=== PATIENT | male | born 1945 | race Caucasian/White ===

== ENCOUNTER 2017-06-17 09:48 | Inpatient (IN) ==
--- NOTE | 2017-06-17 09:57 | Emergency Department Report ---
General Adult HPI - General Chief complaint: Medical Clearance Stated complaint: eval Time Seen by Provider: 06/17/17 09:56 Source: patient, EMS Mode of arrival: EMS Limitations: no limitations - History of Present Illness HPI narrative: 72-year-old male presents to the emergency department requesting a medical clearance exam for [facility]. Dr. Andre has accepted the patient to [facility]. Dr. Andre is requesting a CBC, CMP, urine, urine drug screen in order to obtain medical clearance at this time. Patient has no complaints currently other than his chronic back pain from psoriatic arthritis which is at baseline. Patient has been exhibiting paranoia and was taken to [facility] for further evaluation and has been transferred to [facility]. Patient does have a prior psychiatric history of a mental breakdown in the past several years prior. Patient denies any other complaints or associated symptoms. He was transferred via EMS from [facility] early this morning. He denies homicidal/suicidal ideation or plan. No self injury or self -harm. No other complaints or associated symptoms. - Related Data Home Medications Medication Instructions Recorded Confirmed Amlodipine [Norvasc] 10 mg PO DAILY 06/17/17 06/17/17 Atorvastatin [Lipitor] 20 mg PO HS 06/17/17 06/17/17 Baclofen [Lioresal] 10 mg PO BID 06/17/17 06/17/17 Fluoxetine HCl [Fluoxetine HCl] 40 mg PO DAILY 06/17/17 06/17/17 Hydrocodone/APAP 7.5/325 [[place] 1 tab PO Q6HR PRN 06/17/17 06/17/17 7.5/325] Infliximab [Remicade] 100 mg IV Q42D 06/17/17 06/17/17 LORazepam [Lorazepam] 2 mg PO TID PRN 06/17/17 06/17/17 Losartan Potassium [Losartan 50 mg PO DAILY 06/17/17 06/17/17 Potassium] Magnesium Oxide [Magnesium] 400 mg PO TID 06/17/17 06/17/17 Metformin [Glucophage] 250 mg PO DAILY 06/17/17 06/17/17 Ondansetron Odt [Zofran Po] 4 mg PO Q4HR PRN 06/17/17 06/17/17 Potassium Chloride 10 meq PO TID 06/17/17 06/17/17 Allergies Allergy/AdvReac Type Severity Reaction Status Date / Time Penicillins Allergy Severe Hives Verified 06/18/17 01:04 aripiprazole [From Abilify] Allergy Confusion Verified 06/17/17 10:04 Review of Systems Constitutional: Denies: fever, chills Eyes: Denies: eye pain, vision change ENT: Denies: ear pain, throat pain Cardiovascular: Denies: chest pain, palpitations Respiratory: Denies: cough, dyspnea Gastrointestinal: Denies: abdominal pain, nausea, vomiting, diarrhea Genitourinary: Denies: urgency, dysuria Musculoskeletal: Reports: back pain (chronic). Denies: arthralgia Integumentary: Denies: erythema, rash Neurological: Denies: headache, numbness Psychiatric: Denies: anxiety, depression Endocrine: Denies: fatigue, heat or cold intolerance Hematological/Lymphatic: Denies: easy bleeding, easy bruising Allergic/Immunologic: Denies: facial swelling, urticaria PFSH Patient Stated Medical History Diabetes Mellitus Type 2 Yes Other Musculoskeletal Yes: Psoraitic arthritis Clinic Medical History Depression (Acute Medical) Behavior disturbance (Acute Medical) Major depressive disorder (Acute Medical) Alcohol use disorder (Acute Medical) Alcohol withdrawal (Acute Medical) Anxiety (Acute Medical) Panic attacks (Acute Medical) Medical History Updates: Anxiety, GERD, diabetes, psoriatic arthritis, behavioral disorder Surgical History: Port placement Family History: Reviewed and noncontributory - Social History Smoking status: Former smoker Substance use type: does not use Alcohol intake frequency: former alcohol drinker Physical Exam - Limitations Limitations: no limitations - General General appearance: alert, in no apparent distress - Normal Exams: Head:: Normocephalic without trauma Eyes:: Pupils are PERRLA w/ EOMI, No scleral icterus, irritation, or foreign bodies noted ENMT:: No facial trauma, nasal exudates, pharyngeal erythema, or exudates are noted Dental: No fractured, loose, or missing teeth noted Neck:: Full range of motion, without adenopathy, JVD, bruits or thyromegaly Chest/Respirations:: Clear all leigh, with good airflow, and symmetry bilaterally Cardiovascular:: Regular rate and rhythm, without murmur or gallop, Pulses 2+ all extremities, capillary refill, <2 seconds all extremities Abdomen:: Bowel sounds positive, soft, non-tender, non-distended, no hepatosplenomegaly, masses or bruits noted Lymphatic:: No lymphadenopathy, or lymphedema noted Musculoskeletal:: No tenderness, or deformity noted, good range of motion, all extremities Integumentary:: No rashes, hives, or bruising noted, hair and nails, without abnormality Neurological:: Patient is alert, and oriented, cranial nerves, motor/sensory/ cerebellar, exams w/o gross deficits, to observation Psychiatric:: Patient exhibits, appropriate attention, emotion and affect Course Vital Signs Temperature 97.9 F 06/17/17 09:51 Pulse Rate 89 06/17/17 09:51 Respiratory Rate 16 06/17/17 09:51 Blood Pressure 139/73 06/17/17 09:51 Pulse Oximetry 96 06/17/17 09:51 Temperature 98 F 06/18/17 08:00 Pulse Rate 112 H 06/18/17 08:00 Respiratory Rate 14 06/18/17 08:00 Blood Pressure 141/81 H 06/18/17 08:00 Pulse Oximetry 98 06/18/17 08:00 Medical Decision Making - [facility] Narrative Medical decision making narrative: Labs are discussed in detail with the patient and questions are answered. Patient was given 40 mEq of potassium by mouth 1 in the emergency Department. Patient is accepted to [facility] by Dr. Andre. Medical clearance requested by Dr. Andre was performed in the emergency Department. Patient is medically clear for evaluation and [facility] for psychiatric disorder. Patient is in agreement with the current plan of management. Patient is admitted to the service of Dr. Andre in improved condition. Dr. Andre is in agreement with the current plan of management. No further orders. Patient did have a negative MRI Brain performed at [facility]. - Differential Diagnosis depression, anxiety, metabolic disorder, UTI - Lab Data Result diagrams: 06/17/17 10:14 06/18/17 06:13 Lab Results 06/17/17 06/17/17 06/17/17 Range/Units 10:14 10:14 10:14 WBC 9.7 (4.5-11.0) T/MM3 RBC 3.00 L (4.50-5.90) M/MM3 Hgb 12.0 L (13.5-17.5) GM/DL Hct 33.3 L (41-53) % MCV 111.0 H (80-100) UM3 MCH 40.0 H (26-34) UUG MCHC 36.0 (31-37) GM/DL RDW Std Deviation 57.7 H (36.9-50.2) FL Plt Count 279 (130-400) T/MM3 MPV 9.5 (9.4-12.4) UM3 Immature Gran % (Auto) 0.1 (0.0-0.5) % Neut % (Auto) 73.9 H (33-66) % Lymph % (Auto) 14.4 L (23-45) % [place] % (Auto) 9.4 H (0-9.0) % Eos % (Auto) 2.0 (0-4) % Baso % (Auto) 0.2 (0-2) % Neut # (Auto) 7.2 (1.8-7.7) T/MM3 Lymph # (Auto) 1.4 (1-4.8) T/MM3 [place] # (Auto) 0.9 H (0-0.8) T/MM3 Eos # (Auto) 0.2 (0-0.5) T/MM3 Baso # (Auto) 0.0 (0-0.2) T/MM3 Abs Immat Gran (auto) 0.01 (0.00-0.03) T/MM3 Turbidity < 20 (0-20) Sodium 131 L (134-144) MEQ/L Potassium 2.9 L* (3.6-5) MEQ/L Chloride 89 L (98-107) MEQ/L Carbon Dioxide 29 (22-30) MEQ/L Anion Gap 13 (5-15) MEQ/L BUN 8.0 L (9-20) MG/DL Creatinine 0.7 L (0.8-1.5) MG/DL GFR Calculation 111 BUN/Creatinine Ratio 11 (6-26) RATIO Glucose 116 H (75-110) MG/DL Calculated Osmolality 252 L (261-280) MOSM/KG Calcium 8.3 L (8.4-10.2) MG/DL Magnesium 1.0 L (1.6-2.3) MG/DL Total Bilirubin 1.00 (0.20-1.30) MG/DL Icterus Index < 2 (0-7) AST 78 H (17-59) U/L ALT 55 (21-72) U/L Alkaline Phosphatase 135 H (38-126) U/L Total Protein 7.3 (6.3-8.2) G/DL Albumin 3.7 (3.5-5.0) G/DL Globulin 3.6 (2.4-3.6) G/DL Albumin/Globulin Ratio 1.0 L (1.1-2.2) RATIO Specimen Hemolysis < 15 (0-25) Ur Collection Type Urine Color (YELLOW) Urine Clarity Urine pH (5.0-8.0) Ur Specific [place] (1.015-1.025) Urine Protein (NEGATIVE) Urine Glucose (UA) (NEGATIVE) Urine Ketones (NEGATIVE) Urine Occult Blood (NEGATIVE) Urine Nitrate (NEGATIVE) Urine Bilirubin (NEGATIVE) Urine Urobilinogen (NORMAL) EU/DL Ur Leukocyte Esterase (NEGATIVE) Urinalysis Comment Urine Opiates Screen ng/mL Ur Oxycodone Screen ng/mL Urine Methadone Screen ng/mL Ur Propoxyphene Screen ng/mL Ur Barbiturates Screen ng/mL U Tricyclic Antidepress ng/mL Ur Phencyclidine Scrn ng/mL Ur Amphetamines Screen ng/mL U Methamphetamines Scrn ng/mL U Benzodiazepines Scrn ng/mL Urine Cocaine Screen ng/mL U Cannabinoids Screen ng/mL Ur Drug Screen Confirm 06/17/17 06/17/17 06/17/17 Range/Units 10:24 10:24 10:24 WBC (4.5-11.0) T/MM3 RBC (4.50-5.90) M/MM3 Hgb (13.5-17.5) GM/DL Hct (41-53) % MCV (80-100) UM3 MCH (26-34) UUG MCHC (31-37) GM/DL RDW Std Deviation (36.9-50.2) FL Plt Count (130-400) T/MM3 MPV (9.4-12.4) UM3 Immature Gran % (Auto) (0.0-0.5) % Neut % (Auto) (33-66) % Lymph % (Auto) (23-45) % [place] % (Auto) (0-9.0) % Eos % (Auto) (0-4) % Baso % (Auto) (0-2) % Neut # (Auto) (1.8-7.7) T/MM3 Lymph # (Auto) (1-4.8) T/MM3 [place] # (Auto) (0-0.8) T/MM3 Eos # (Auto) (0-0.5) T/MM3 Baso # (Auto) (0-0.2) T/MM3 Abs Immat Gran (auto) (0.00-0.03) T/MM3 Turbidity (0-20) Sodium (134-144) MEQ/L Potassium (3.6-5) MEQ/L Chloride (98-107) MEQ/L Carbon Dioxide (22-30) MEQ/L Anion Gap (5-15) MEQ/L BUN (9-20) MG/DL Creatinine (0.8-1.5) MG/DL GFR Calculation BUN/Creatinine Ratio (6-26) RATIO Glucose (75-110) MG/DL Calculated Osmolality (261-280) MOSM/KG Calcium (8.4-10.2) MG/DL Magnesium (1.6-2.3) MG/DL Total Bilirubin (0.20-1.30) MG/DL Icterus Index (0-7) AST (17-59) U/L ALT (21-72) U/L Alkaline Phosphatase (38-126) U/L Total Protein (6.3-8.2) G/DL Albumin (3.5-5.0) G/DL Globulin (2.4-3.6) G/DL Albumin/Globulin Ratio (1.1-2.2) RATIO Specimen Hemolysis (0-25) Ur Collection Type Urine, clean catch Urine Color Yellow (YELLOW) Urine Clarity Clear Urine pH 5.5 (5.0-8.0) Ur Specific [place] 1.015 (1.015-1.025) Urine Protein Negative (NEGATIVE) Urine Glucose (UA) Negative (NEGATIVE) Urine Ketones Trace A (NEGATIVE) Urine Occult Blood Negative (NEGATIVE) Urine Nitrate Negative (NEGATIVE) Urine Bilirubin 1+ A (NEGATIVE) Urine Urobilinogen 0.2 (NORMAL) EU/DL Ur Leukocyte Esterase Negative (NEGATIVE) Urinalysis Comment Microscopic not ind. Urine Opiates Screen Positive ng/mL Ur Oxycodone Screen Negative ng/mL Urine Methadone Screen Negative ng/mL Ur Propoxyphene Screen Negative ng/mL Ur Barbiturates Screen Negative ng/mL U Tricyclic Antidepress Negative ng/mL Ur Phencyclidine Scrn Negative ng/mL Ur Amphetamines Screen Negative ng/mL U Methamphetamines Scrn Negative ng/mL U Benzodiazepines Scrn Positive ng/mL Urine Cocaine Screen Negative ng/mL U Cannabinoids Screen Negative ng/mL Ur Drug Screen Confirm Sent out Disposition Clinical Impression: Behavioral disorder Disposition: 65 To Psych Hosp/Unit Condition: Stable Time of Disposition: 11:00 (Admit. Dr. Andre. ) - Seen By: physician
[2017-06-17] MEDS: SALINE FLUSH 10ml SYRINGE IVF PRN ×2 (10:16→17:28)
--- OUTSIDE RECORDS SUMMARY | 2017-06-17 10:43 | External Medical Summary | Continuity of Care Document ---
:1945 Author Organization [facility] Care Team Providers Name Role Phone Juve Mattson MD Unavailable Insurance Providers Payer Name Policy Number Subscriber Name Relationship [facility] [employer] [facility] 150 [id number] Ag Smith. 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 SCREEN-THYROID DISORDER 06/28/2013 Screening PSA 06/28/2013 Status post fall Unknown Medications Current Home Medications Medication Dose Units Route Directions Days/Qty Instructions Start Date Aspirin 81 Mg 81 Mg Oral Daily @0900 09/04/14 Diphenhydramine Hcl 50 Mg Oral 1-2 Hs 02/16/15 50 Mg Fluoxetine Hcl 40 Mg 40 Mg Oral Daily @0900 30 07/23/15 Losartan Potassium 25 25 Mg Oral Daily @0900 90 08/21/15 Mg Atorvastatin Calcium 20 Mg Oral Daily @ Hs 90 09/04/15 20 Mg Hydrocodone/Acetamino 1 Tab Oral Every 6 Hours 150 82200 09/22/16 phen 7.5MG/325MG 1 as needed for Each Pain Sulfasalazine 500 Mg 500 Mg Oral Three Times A 270 05/20/16 Day Amlodipine Besylate 10 Mg Oral Daily @0900 90 05/22/16 10 Mg Omeprazole 20 Mg 20 Mg Oral Daily @0900 30 05/22/16 Baclofen 10 Mg 10 Mg Oral Twice A Day 60 05/23/16 Metformin Hcl 500 Mg 0.5 Tab Oral Daily @0900 45 DOSE CHANGE 05/23/16 Lorazepam 1 Mg 1 Mg Oral Three Times A 90 05/23/16 Day Past Home Medications Medication Directions Ordered Status [Buspirone Hcl] , 15 Mg Oral Twice A Day 11/06/08 Discontinued Amlodipine Besylate 10 Mg Tab, 10 Daily @00 02/12/09 Discontinued Mg Oral Amlodipine Besylate 10 Mg Tab, 10 Daily @00 03/22/09 Discontinued Mg Oral [Fluoxetine Hcl 40MG] , 40 Mg Daily @89904/19/09 Discontinued Oral [Hydroco-Apap 7.5/500] , Oral Every 4-6 Hours As Needed 04/23/09 Discontinued [Omeprazole] , 20 Mg Oral 2 Caps Daily 05/01/09 Discontinued [Lovastatin] , 40 Mg Oral Daily @89905/28/09 Discontinued [Hydroco-Apap 7.5/500] , Oral Every 4-6 Hours As Needed 06/05/09 Discontinued [Hydroco-Apap 7.5/500] , Oral Every 4-6 Hours As Needed 08/17/09 Discontinued [Hydroco-Apap 7.5/500] , Oral Every 4-6 Hours As Needed 10/04/09 Discontinued [Lovastatin] , 40 Mg Oral Daily @89910/04/09 Discontinued [Fluoxetine Hcl 40MG] , 40 Mg Daily @89910/04/09 Discontinued Oral Amlodipine Besylate 10 Mg Tab, 10 Daily @89910/04/09 Discontinued Mg Oral Amylase/Lipase/Protease 1 Cap.ec 4 Times Daily 10/04/09 Discontinued Osmar., 1 Cap.ec Oral [Hydroco-Apap 7.5/500] , Oral Every 4-6 Hours As Needed 10/23/09 Discontinued [Hydroco-Apap 7.5/500] , Oral Every 4-6 Hours As Needed 11/14/09 Discontinued Acetaminophen/Hydrocodone Bitart Every 4-6 Hours As Needed 11/30/09 Discontinued 1 Udtab Tab, 1 Udtab Oral [Buspirone] , 15 Mg Oral Twice A Day 12/31/09 Discontinued Amlodipine Besylate 10 Mg Tab, 10 Daily @89912/31/09 Discontinued Mg Oral [Lovastatin] , 40 Mg Oral Daily @89912/31/09 Discontinued [Fluoxetine Hcl] , 40 Mg Oral Daily @89912/31/09 Discontinued [Hydroc/Apap 7.5/500] , Denied Per Cherri 02/06/10 Discontinued [Omeprazole] , 20 Mg Oral 2 Caps Daily 03/18/10 Discontinued [Hydroc/Apap 7.5/500] , Every 4-6 Hours As Needed as 04/03/10 Discontinued needed [Hydroc/Apap 7.5/500] , Every 4-6 Hours As Needed as 05/13/10 Discontinued needed Amylase/Lipase/Protease 1 Cap.ec 4 Times Daily 08/08/10 Discontinued Capsule., 1 Cap.ec Oral [Pancrelipase 5000] , 1 Cap Oral Four Times A Day 08/28/10 Discontinued [Promethazine] , 25 Mg Oral 1 T Q 6HRPRN/Nausea 09/02/10 Discontinued [Lorazepam 1MG] , 1 Tab Oral Q6 Hours Prn 09/04/10 Discontinued [Lorazepam 1MG] , 1 Tab Oral Q6 Hours Prn 09/12/10 Discontinued [Lorazepam 1MG] , 1 Tab Oral Q6 Hours Prn 09/30/10 Discontinued [Potas Cl Er 10MEQ] , 1 Tab Oral Bid @ 0730 & 1730 09/30/10 Discontinued [Lorazepam 1MG] , 1 Tab Oral Q6 Hours Prn 10/14/10 Discontinued [Lorazepam 1MG] , 1 Tab Oral Q6 Hours Prn 11/15/10 Discontinued [Lorazepam 1MG] , 1 Tab Oral Q6 Hours Prn 11/16/10 Discontinued [Hydroc/Apap 7.5/500] , 1 Tab Every 4-6 Hours As Needed as 12/03/10 Discontinued Oral needed [Lorazepam 1MG] , 1 Tab Oral Q6 Hours Prn 12/10/10 Discontinued [Hydroc/Apap 7.5/500] , 1 Tab Every 4-6 Hours As Needed as 12/12/10 Discontinued Oral needed [Hydroc/Apap 7.5/500] , 1 Tab Every 4-6 Hours As Needed as 01/09/11 Discontinued Oral needed [Lorazepam 1MG] , 1 Tab Oral Q6 Hours Prn 07/07/11 Discontinued [Potas Cl Er 10MEQ] , 1 Tab Oral Daily @89909/18/11 Discontinued [Omeprazole] , 20 Mg Oral Daily @89909/18/11 Discontinued Folic Acid 1 Mg Tab, 1 Mg Oral Daily @89909/18/11 Discontinued Amylase/Lipase/Protease 1 Each Three Times A Day 09/18/11 Discontinued Capsule.dr, 1 Each Oral [Simvastin] , 20 Mg Daily @ Hs 09/18/11 Discontinued Amlodipine Besylate 10 Mg Tab, 10 Daily @89909/26/11 Discontinued Mg Oral [Hydroc/Apap 7.5/500] , 1 Tab Every 4-6 Hours As Needed as 10/06/11 Discontinued Oral needed [Lorazepam 1MG] , 1 Tab Oral Tid Prn 10/14/11 Discontinued [Fluoxetine Hcl] , 40 Mg Oral Daily @89910/20/11 Discontinued [Buspirone] , 15 Mg Oral Twice A Day 10/20/11 Discontinued [Lovastatin] , 20 Mg Oral Daily @89910/21/11 Discontinued [Fluoxetine Hcl] , 40 Mg Oral Daily @89912/19/11 Discontinued Amylase/Lipase/Protease 1 Each Three Times A Day 12/19/11 Discontinued Capsule., 1 Each Oral Folic Acid 1 Mg Tab, 1 Mg Oral Daily @89912/19/11 Discontinued [Omeprazole] , 20 Mg Oral Daily @89912/19/11 Discontinued [Potas Cl Er 10MEQ] , 1 Tab Oral Daily @89912/19/11 Discontinued [Lorazepam 1MG] , 1 Tab Oral Tid Prn 01/26/12 Discontinued [Hydroc/Apap 7.5/500] , 1 Tab Every 4-6 Hours As Needed as 01/28/12 Discontinued Oral needed [Hydroc/Apap 7.5/500] , 1 Tab Every 4-6 Hours As Needed as 02/25/12 Discontinued Oral needed Folic Acid 1 Mg Tab, 1 Mg Oral Daily @89904/20/12 Discontinued [Lovastatin] , 20 Mg Oral Daily @89904/20/12 Discontinued [Amlodipine Besy 10MG] , 1 Tab Daily @89904/20/12 Discontinued Oral Amylase/Lipase/Protease 1 Each Three Times A Day 04/21/12 Discontinued Capsule.dr, 1 Each Oral [Hydroc/Apap 7.5/500] , 1 Tab Every 4-6 Hours As Needed as 04/29/12 Discontinued Oral needed [Sulfasalazine] , 500 Mg Oral Twice A Day 05/10/12 Discontinued [Metformin] , 500 Mg Oral Daily @89905/28/12 Discontinued [Lorazepam 1MG] , 1 Tab Oral Tid Prn 06/02/12 Discontinued Sulfasalazine 500 Mg Tablet.dr, Three Times A Day 06/10/12 Discontinued 500 Mg Oral [Omeprazole] , 20 Mg Oral Daily @89907/08/12 Discontinued Amylase/Lipase/Protease 1 Each Three Times A Day 07/08/12 Discontinued Capsule.dr, 1 Each Oral [Hydroc/Apap 7.5/500] , 1 Tab Every 4-6 Hours As Needed as 07/27/12 Discontinued Oral needed [Lorazepam 1MG] , 1 Tab Oral Tid Prn 07/30/12 Discontinued [Potas Cl Er 10MEQ] , 1 Tab Oral Twice A Day 08/27/12 Discontinued [Metformin Hcl] , 500 Mg Oral Daily @89909/13/12 Discontinued [Potassium Cl Er Ta] , 20 Meq Twice A Day 09/27/12 Discontinued Oral [Prozac Hcl] , 40 Mg Oral Daily @89909/27/12 Discontinued [Lorazepam] , 1 Mg Oral Three Times A Day 09/27/12 Discontinued Folic Acid 1 Mg Tab, 1 Mg Oral Daily @89910/25/12 Discontinued [Lorazepam] , 1 Mg Oral Three Times A Day 11/24/12 Discontinued Sulfasalazine 500 Mg Tablet.dr, Three Times A Day 12/16/12 Discontinued 500 Mg Oral [Omeprazole] , 20 Mg Oral Daily @89912/16/12 Discontinued [Lorazepam] , 1 Mg Oral Three Times A Day 01/24/13 Discontinued [Hydroc/Apap 7.5/500] , 1 Tab Every 4-6 Hours As Needed as 01/24/13 Discontinued Oral needed Magnesium Oxide 400 Mg Tab, 400 Three Times A Day 02/02/13 Discontinued Mg Oral [Ferous Sulfate] , 324 Mg Oral Daily @89902/02/13 Discontinued [Prozac] , 4 Mg Oral Daily @89902/02/13 Discontinued Multivitamins 1 Tab Tab, 1 Tab Daily @89902/02/13 Discontinued Oral Calcium Carbonate/Vitamin D3 1 Three Times A Day 02/02/13 Discontinued Each Tablet, 1 Each Oral [Lorazepam] , 1 Mg Oral Three Times A Day 02/21/13 Discontinued [Anderson 7.5/325] , 1 Tab Oral Every 4-6 Hours As Needed 02/22/13 Discontinued [Lorazepam] , 1 Mg Oral Three Times A Day 03/21/13 Discontinued [Anderson 7.5/325] , 1 Tab Oral Every 4-6 Hours As Needed 03/28/13 Discontinued [Lorazepam] , 1 Mg Oral Tid Prn 04/18/13 Discontinued [Anderson 7.5/325] , 1 Tab Oral 4 Times Daily 04/27/13 Discontinued Metformin Hcl 500 Mg Tab, 500 Mg Daily @89904/27/13 Discontinued Oral Losartan Potassium 25 Mg Tablet, One A Day 06/13/13 Discontinued 25 Mg Oral Amylase/Lipase/Protease 1 Each Three Times A Day 07/05/13 Discontinued Capsule.dr, 1 Each Oral Losartan Potassium 25 Mg Tablet, One A Day 07/11/13 Discontinued 25 Mg Oral Atorvastatin Calcium 20 Mg Tab, One A Day 07/11/13 Discontinued 20 Mg Oral Levothyroxine Sodium 50 Mcg Tab, One A Day 07/11/13 Discontinued 50 Mcg Oral [Klor] , 20 Meq Oral One A Day 07/11/13 Discontinued [Lorazepam] , 1 Mg Oral Tid Prn 07/11/13 Discontinued Folic Acid 1 Mg Tab, 1 Mg Oral Daily @89907/11/13 Discontinued [B12] , 1000 Mcg Intramusc Monthly 08/15/13 Discontinued [Amlodipine Besy 10MG] , 1 Tab Daily @89909/28/13 Discontinued Oral [Prozac Hcl] , 40 Mg Oral Daily @89909/28/13 Discontinued Sulfasalazine 500 Mg Tablet.dr, Three Times A Day 09/28/13 Discontinued 500 Mg Oral [Omeprazole] , 20 Mg Oral Daily @89909/28/13 Discontinued [Anderson 7.5/325] , 1 Tab Oral 4 Times Daily 09/28/13 Discontinued Metformin Hcl 500 Mg Tab, 500 Mg Daily @89909/28/13 Discontinued Oral Amylase/Lipase/Protease 1 Each Three Times A Day 09/28/13 Discontinued Capsule.dr, 1 Each Oral Levothyroxine Sodium 50 Mcg Tab, One A Day 09/28/13 Discontinued 50 Mcg Oral [Lorazepam] , 1 Mg Oral Tid Prn 09/28/13 Discontinued [Methotrexate] , 7.5 Mg Oral Weekly On Fridays09/28/13 Discontinued [Methotrexate] , 7.5 Mg Oral Weekly On Fridays11/24/13 Discontinued Folic Acid 1 Mg Tab, 1 Mg Oral Daily @0901/03/14 Discontinued [Lorazepam] , 1 Mg Oral Tid Prn 01/03/14 Discontinued [Anderson 7.5/325] , 1 Tab Oral 4 Times Daily 01/18/14 Discontinued [Methotrexate] , 15 Mg Oral Once Weekly 03/15/14 Discontinued Lorazepam 1 Mg Tablet, 1 Mg Oral Three Times A Day 04/05/14 Discontinued Hydrocodone/Acetaminophen 4 Times Daily 04/18/14 Discontinued 7.5MG/325MG 1 Each Tablet, 1 Each Oral Lorazepam 1 Mg Tablet, 1 Mg Oral Three Times A Day 05/03/14 Discontinued Hydrocodone/Acetaminophen 4 Times Daily 05/22/14 Discontinued 7.5MG/325MG 1 Each Tablet, 1 Each Oral Hydrocodone/Acetaminophen 4 Times Daily 06/20/14 Discontinued 7.5MG/325MG 1 Each Tablet, 1 Each Oral Lorazepam 1 Mg Tablet, 1 Mg Oral Three Times A Day 06/28/14 Discontinued Hydrocodone/Acetaminophen 4 Times Daily 07/25/14 Discontinued 7.5MG/325MG 1 Each Tablet, 1 Each Oral Hydrocodone/Acetaminophen 4 Times Daily 08/17/14 Discontinued 7.5MG/325MG 1 Each Tablet, 1 Each Oral Atorvastatin Calcium 20 Mg Daily @ Hs 08/23/14 Discontinued Tablet, 20 Mg Oral Losartan Potassium 25 Mg Tablet, Daily @0900 08/23/14 Discontinued 25 Mg Oral Hydrocodone/Acetaminophen Four Times A Day as needed for 09/11/14 Discontinued 10/325MG 1 Each Tablet, 1 Tab Pain Oral Hydrocodone/Acetaminophen 4 Times Daily 09/21/14 Discontinued 7.5MG/325MG 1 Each Tablet, 1 Each Oral Hydrocodone/Acetaminophen Four Times A Day as needed for 10/23/14 Discontinued 10/325MG 1 Each Tablet, 1 Tab Pain Oral Lorazepam 1 Mg Tablet, 1 Mg Oral Three Times A Day 10/23/14 Discontinued Fluoxetine Hcl 40 Mg Capsule, 40 Daily @0900 10/25/14 Discontinued Mg Oral Sulfasalazine 500 Mg Tablet, 500 Three Times A Day 11/22/14 Discontinued Mg Oral Metformin Hcl 500 Mg Tablet, 500 Daily @89911/23/14 Discontinued Mg Oral Amlodipine Besylate 10 Mg Tablet, Daily @0911/23/14 Discontinued 10 Mg Oral Hydrocodone/Acetaminophen Four Times A Day as needed for 11/23/14 Discontinued 10/325MG 1 Each Tablet, 1 Tab Pain Oral Hydrocodone/Acetaminophen 4 Times Daily 12/25/14 Discontinued 7.5MG/325MG 1 Each Tablet, 1 Each Oral Hydrocodone/Acetaminophen 4 Times Daily 01/25/15 Discontinued 7.5MG/325MG 1 Each Tablet, 1 Each Oral Lorazepam 1 Mg Tablet, 1 Mg Oral Three Times A Day 02/19/15 Discontinued Losartan Potassium 25 Mg Tablet, Daily @0902/22/15 Discontinued 25 Mg Oral Atorvastatin Calcium 20 Mg Daily @ Hs 02/22/15 Discontinued Tablet, 20 Mg Oral Hydrocodone/Acetaminophen Four Times A Day as needed for 02/22/15 Discontinued 7.5MG/325MG 1 Each Tablet, 1 Each Pain Oral Hydrocodone/Acetaminophen Four Times A Day as needed for 03/26/15 Discontinued 7.5MG/325MG 1 Each Tablet, 1 Each Pain Oral Lorazepam 1 Mg Tablet, 1 Mg Oral Three Times A Day 04/19/15 Discontinued Hydrocodone/Acetaminophen Four Times A Day as needed for 04/24/15 Discontinued 7.5MG/325MG 1 Each Tablet, 1 Each Pain Oral Hydrocodone/Acetaminophen Four Times A Day as needed for 05/24/15 Discontinued 7.5MG/325MG 1 Each Tablet, 1 Each Pain Oral Hydrocodone/Acetaminophen Four Times A Day as needed for 06/21/15 Discontinued 7.5MG/325MG 1 Each Tablet, 1 Each Pain Oral Omeprazole 20 Mg Capsule., 20 Daily @0907/23/15 Discontinued Mg Oral Hydrocodone/Acetaminophen Four Times A Day as needed for 07/23/15 Discontinued 7.5MG/325MG 1 Each Tablet, 1 Each Pain Oral Baclofen 10 Mg Tab, 10 Mg Oral Twice A Day 07/23/15 Discontinued Flu Vacc Ts 2014- (65YR+)/Pf Once 07/23/15 Discontinued 180 Mcg/0.5 Ml Syringe, 180 Mcg Intramusc Lorazepam 1 Mg Tablet, 1 Mg Oral Three Times A Day 08/09/15 Discontinued Amlodipine Besylate 10 Mg Tablet, Daily @0900 08/21/15 Discontinued 10 Mg Oral Hydrocodone/Acetaminophen Four Times A Day as needed for 08/21/15 Discontinued 7.5MG/325MG 1 Each Tablet, 1 Each Pain Oral Hydrocodone/Acetaminophen Four Times A Day as needed for 10/18/15 Discontinued 7.5MG/325MG 1 Each Tablet, 1 Each Pain Oral Hydrocodone/Acetaminophen Four Times A Day as needed for 11/14/15 Discontinued 7.5MG/325MG 1 Each Tablet, 1 Each Pain Oral Baclofen 10 Mg Tab, 10 Mg Oral Twice A Day 11/19/15 Discontinued Lorazepam 1 Mg Tablet, 1 Mg Oral Three Times A Day 12/05/15 Discontinued Hydrocodone/Acetaminophen Four Times A Day as needed for 12/17/15 Discontinued 7.5MG/325MG 1 Each Tablet, 1 Each Pain Oral Lorazepam 1 Mg Tablet, 1 Mg Oral Three Times A Day 01/02/16 Discontinued Lorazepam 1 Mg Tablet, 1 Mg Oral Three Times A Day 01/31/16 Discontinued Baclofen 10 Mg Tab, 10 Mg Oral Twice A Day 02/21/16 Discontinued Sulfasalazine 500 Mg Tablet, 500 Three Times A Day 02/21/16 Discontinued Mg Oral Baclofen 10 Mg Tab, 10 Mg Oral Twice A Day 03/25/16 Discontinued Omeprazole 20 Mg Capsule., 20 Daily @0900 03/31/16 Discontinued Mg Oral Lorazepam 1 Mg Tablet, 1 Mg Oral Three Times A Day 04/25/16 Discontinued Metformin Hcl 500 Mg Tablet, 250 Daily @0900 05/20/16 Discontinued Mg Oral Social History No social history. Hospital Discharge Instructions No hospital discharge instructions. Plan of Care Discharge Date 05/26/16 11:59pm Prescriptions See Medication Section Functional Status No functional status results. Allergies, Adverse Reactions, Alerts Allergen Type Severity Reaction Status Last Updated Penicillin Allergy Unknown Active 08/15/11 Amoxicillin Allergy Unknown UNKNOWN Active 08/08/08 Aripiprazole Adverse Reaction Unknown Active 09/04/14 Immunizations Name Given Type INFLUENZA (FLU) 07/23/15 Administered Vital Signs Ambulatory Vital Signs Vital Response Date/Time Height 5 ft 6 in 05/20/2016 1:10pm Weight 191 lbs 6 oz 05/20/2016 1:10pm Temperature, Temporal 97.8 degrees F 05/20/2016 1:10pm Blood Pressure, Sitting, Left Arm 140/84 mm Hg 05/20/2016 1:10pm Pulse Rate 88 bpm 05/20/2016 1:10pm Respiration Rate 16 bpm 05/20/2016 1:10pm Body Surface Area 2.04 m2 05/20/2016 1:10pm Body Mass Index 30.9 kg/m2 05/20/2016 1:10pm Pulse Oximetry Pulse Oximetry 05/20/2016 1:10pm Results Laboratory Results Test Name Result Units Flags Reference Collection Result Comments Date/Time Date/Time White Blood 10.0 K/mm3 4.5-11.5 11/07/2004 11/07/2004 Count 4:20pm 5:30pm Red Blood 4.0 M/mm3 L 4.60-6.00 11/07/2004 11/07/2004 Count 4:20pm 5:30pm Hemoglobin 12.5 gm/dl L 14.0-18.0 11/07/2004 11/07/2004 4:20pm 5:30pm Hematocrit 36.2 % L 40-54 11/07/2004 11/07/2004 4:20pm 5:30pm Mean 91.1 fl 80-94 11/07/2004 11/07/2004 Corpuscular 4:20pm 5:30pm Volume Mean 31 pg 26-32 11/07/2004 11/07/2004 Corpuscular 4:20pm 5:30pm Hemoglobin Mean 35 g/dl 32-36 11/07/2004 11/07/2004 Corpuscular 4:20pm 5:30pm Hemoglobin Concent RDW 12.3 % 11.5-14.5 11/07/2004 11/07/2004 Coefficient 4:20pm 5:30pm of Variation Platelet 464 K/mm3 H 150-450 11/07/2004 11/07/2004 Count 4:20pm 5:30pm Mean 7.2 fl L 7.9-9.9 11/07/2004 11/07/2004 Platelet 4:20pm 5:30pm Volume Neutrophils 61.6 % 50-70 11/07/2004 11/07/2004 (%) (Auto) 4:20pm 5:30pm Lymphocytes 28.4 % 18-42 11/07/2004 11/07/2004 (%) (Auto) 4:20pm 5:30pm Monocytes 6.9 % 2-11 11/07/2004 11/07/2004 (%) (Auto) 4:20pm 5:30pm Eosinophils 2.4 % 1-3 11/07/2004 11/07/2004 (%) (Auto) 4:20pm 5:30pm Basophils 0.7 % 0-2 11/07/2004 11/07/2004 (%) (Auto) 4:20pm 5:30pm Neutrophils 6.2 2-8 11/07/2004 11/07/2004 # (Auto) 4:20pm 5:30pm Lymphocytes 2.8 1-5 11/07/2004 11/07/2004 # (Auto) 4:20pm 5:30pm Monocytes # 0.7 0.1-1.0 11/07/2004 11/07/2004 (Auto) 4:20pm 5:30pm Eosinophils 0.2 0-0.4 11/07/2004 11/07/2004 # (Auto) 4:20pm 5:30pm Basophils # 0.1 K/mm3 0-0.2 11/07/2004 11/07/2004 (Auto) 4:20pm 5:30pm Random 94 mg/dL 74-106 11/07/2004 11/07/2004 Glucose 4:20pm 5:43pm Blood Urea 17 mg/dL 7-11/07/2004 11/07/2004 Nitrogen 4:20pm 5:43pm Creatinine 1.1 mg/dL 0.6-1.3 11/07/2004 11/07/2004 4:20pm 5:43pm BUN/Creatin 15.5 12-11/07/2004 11/07/2004 ine Ratio 4:20pm 5:43pm Sodium 134 mEq/L L 135-155 11/07/2004 11/07/2004 Level 4:20pm 5:43pm Potassium 4.0 mEq/L 3.5-5.1 11/07/2004 11/07/2004 Level 4:20pm 5:43pm Chloride 101 mEq/L 98-107 11/07/2004 11/07/2004 Level 4:20pm 5:43pm Carbon 21 mEq/L -11/07/2004 11/07/2004 Dioxide 4:20pm 5:43pm Level Anion Gap 16.0 10-11/07/2004 11/07/2004 4:20pm 5:43pm Calcium 9.1 mg/dL 8.2-10.0 11/07/2004 11/07/2004 Level 4:20pm 5:43pm Total 8.4 gm/dL H 6.0-8.3 11/07/2004 11/07/2004 Protein 4:20pm 5:43pm Albumin 4.7 gm/dL 3.5-5.7 11/07/2004 11/07/2004 4:20pm 5:43pm Albumin/Leslie 1.3 11/07/2004 11/07/2004 bulin Ratio 4:20pm 5:43pm Total 0.2 mg/dL L 0.3-1.0 11/07/2004 11/07/2004 Bilirubin 4:20pm 5:43pm Aspartate 15 U/L 13-39 11/07/2004 11/07/2004 Amino 4:20pm 5:43pm Transf (AST/SGOT) Alanine 13 U/L 7-52 11/07/2004 11/07/2004 Aminotransf 4:20pm 5:43pm erase (ALT/SGPT) Alkaline 68.0 U/L 30-95 11/07/2004 11/07/2004 Phosphatase 4:20pm 5:43pm Amylase 25 U/L L 29-103 11/07/2004 11/07/2004 Level 4:20pm 5:43pm Globulin 3.7 gm/dL 2.0-4.5 11/07/2004 11/07/2004 4:20pm 5:43pm Lipase 27 U/L 11-82 11/11/2004 11/11/2004 3:15pm 4:26pm White Blood 20.2 K/mm3 CH 4.5-11.5 02/21/2005 02/21/2005 GIVEN TO PAT AT Count 2:32pm 2:49pm 1445. Red Blood 4.0 M/mm3 L 4.60-6.00 02/21/2005 02/21/2005 Count 2:32pm 2:49pm Hemoglobin 12.9 gm/dl L 14.0-18.0 02/21/2005 02/21/2005 2:32pm 2:49pm Hematocrit 37.3 % L 40-54 02/21/2005 02/21/2005 2:32pm 2:49pm Mean 93.6 fl 80-94 02/21/2005 02/21/2005 Corpuscular 2:32pm 2:49pm Volume Mean 32 pg 26-32 02/21/2005 02/21/2005 Corpuscular 2:32pm 2:49pm Hemoglobin Mean 35 g/dl 32-36 02/21/2005 02/21/2005 Corpuscular 2:32pm 2:49pm Hemoglobin Concent RDW 12.8 % 11.5-14.5 02/21/2005 02/21/2005 Coefficient 2:32pm 2:49pm of Variation Platelet 357 K/mm3 150-450 02/21/2005 02/21/2005 Count 2:32pm 2:49pm Mean 7.0 fl L 7.9-9.9 02/21/2005 02/21/2005 Platelet 2:32pm 2:49pm Volume Neutrophils 78.3 % H 50-70 02/21/2005 02/21/2005 (%) (Auto) 2:32pm 2:49pm Lymphocytes 12.1 % L 18-42 02/21/2005 02/21/2005 (%) (Auto) 2:32pm 2:49pm Monocytes 7.0 % 2-11 02/21/2005 02/21/2005 (%) (Auto) 2:32pm 2:49pm Eosinophils 1.7 % 1-3 02/21/2005 02/21/2005 (%) (Auto) 2:32pm 2:49pm Basophils 0.9 % 0-2 02/21/2005 02/21/2005 (%) (Auto) 2:32pm 2:49pm Neutrophils 15.8 H 2-8 02/21/2005 02/21/2005 # (Auto) 2:32pm 2:49pm Lymphocytes 2.4 1-5 02/21/2005 02/21/2005 # (Auto) 2:32pm 2:49pm Monocytes # 1.4 H 0.1-1.0 02/21/2005 02/21/2005 (Auto) 2:32pm 2:49pm Eosinophils 0.3 0-0.4 02/21/2005 02/21/2005 # (Auto) 2:32pm 2:49pm Basophils # 0.2 K/mm3 0-0.2 02/21/2005 02/21/2005 (Auto) 2:32pm 2:49pm Random 108 mg/dL H 74-106 02/21/2005 02/21/2005 Glucose 2:32pm 3:15pm Blood Urea 12 mg/dL 7-25 02/21/2005 02/21/2005 Nitrogen 2:32pm 3:15pm Creatinine 0.8 mg/dL 0.6-1.3 02/21/2005 02/21/2005 2:32pm 3:15pm BUN/Creatin 15.0 12-30 02/21/2005 02/21/2005 ine Ratio 2:32pm 3:15pm Sodium 135 mEq/L 135-155 02/21/2005 02/21/2005 Level 2:32pm 3:15pm Potassium 3.7 mEq/L 3.5-5.1 02/21/2005 02/21/2005 Level 2:32pm 3:15pm Chloride 103 mEq/L 98-107 02/21/2005 02/21/2005 Level 2:32pm 3:15pm Carbon 20 mEq/L L 21-31 02/21/2005 02/21/2005 Dioxide 2:32pm 3:15pm Level Anion Gap 15.7 10-20 02/21/2005 02/21/2005 2:32pm 3:15pm Calcium 9.2 mg/dL 8.2-10.0 02/21/2005 02/21/2005 Level 2:32pm 3:15pm Total 8.0 gm/dL 6.0-8.3 02/21/2005 02/21/2005 Protein 2:32pm 3:15pm Albumin 4.7 gm/dL 3.5-5.7 02/21/2005 02/21/2005 2:32pm 3:15pm Albumin/Leslie 1.4 02/21/2005 02/21/2005 bulin Ratio 2:32pm 3:15pm Total 0.7 mg/dL 0.3-1.0 02/21/2005 02/21/2005 Bilirubin 2:32pm 3:15pm Aspartate 13 U/L 13-39 02/21/2005 02/21/2005 Amino 2:32pm 3:15pm Transf (AST/SGOT) Alanine 14 U/L 7-52 02/21/2005 02/21/2005 Aminotransf 2:32pm 3:15pm erase (ALT/SGPT) Alkaline 61.0 U/L 40-111 02/21/2005 02/21/2005 Phosphatase 2:32pm 3:15pm Amylase 26 U/L L 29-103 02/21/2005 02/21/2005 Level 2:32pm 3:15pm Lipase 34 U/L 11-82 02/21/2005 02/21/2005 2:32pm 3:15pm Globulin 3.3 gm/dL 2.0-4.5 02/21/2005 02/21/2005 2:32pm 3:15pm Creatinine 0.9 mg/dL 0.6-1.3 03/26/2005 03/26/2005 8:40am 9:45am White Blood 12.1 K/mm3 H 4.5-11.5 07/05/2005 07/05/2005 Count 9:11am 9:40am Red Blood 4.0 M/mm3 L 4.60-6.00 07/05/2005 07/05/2005 Count 9:11am 9:40am Hemoglobin 12.8 gm/dl L 14.0-18.0 07/05/2005 07/05/2005 9:11am 9:40am Hematocrit 36.9 % L 40-54 07/05/2005 07/05/2005 9:11am 9:40am Mean 93.0 fl 80-94 07/05/2005 07/05/2005 Corpuscular 9:11am 9:40am Volume Mean 32 pg 26-32 07/05/2005 07/05/2005 Corpuscular 9:11am 9:40am Hemoglobin Mean 35 g/dl 32-36 07/05/2005 07/05/2005 Corpuscular 9:11am 9:40am Hemoglobin Concent RDW 12.5 % 11.5-14.5 07/05/2005 07/05/2005 Coefficient 9:11am 9:40am of Variation Platelet 323 K/mm3 150-450 07/05/2005 07/05/2005 Count 9:11am 9:40am Mean 6.9 fl L 7.9-9.9 07/05/2005 07/05/2005 Platelet 9:11am 9:40am Volume Neutrophils 78.9 % H 50-70 07/05/2005 07/05/2005 (%) (Auto) 9:11am 9:40am Lymphocytes 12.5 % L 18-42 07/05/2005 07/05/2005 (%) (Auto) 9:11am 9:40am Monocytes 5.8 % 2-11 07/05/2005 07/05/2005 (%) (Auto) 9:11am 9:40am Eosinophils 1.9 % 1-3 07/05/2005 07/05/2005 (%) (Auto) 9:11am 9:40am Basophils 0.9 % 0-2 07/05/2005 07/05/2005 (%) (Auto) 9:11am 9:40am Neutrophils 9.5 H 2-8 07/05/2005 07/05/2005 # (Auto) 9:11am 9:40am Lymphocytes 1.5 1-5 07/05/2005 07/05/2005 # (Auto) 9:11am 9:40am Monocytes # 0.7 0.1-1.0 07/05/2005 07/05/2005 (Auto) 9:11am 9:40am Eosinophils 0.2 0-0.4 07/05/2005 07/05/2005 # (Auto) 9:11am 9:40am Basophils # 0.1 K/mm3 0-0.2 07/05/2005 07/05/2005 (Auto) 9:11am 9:40am Prothrombin 11.2 SECONDS 10.81-12.85 07/05/2005 07/05/2005 Time 9:11am 9:40am Prothromb 0.90 07/05/2005 07/05/2005 Panic Range Time 9:11am 9:40am >1.8 No Therapy Internation >4.0 With Therapy al Ratio Random 114 mg/dL H 70-110 07/05/2005 07/05/2005 Glucose 9:11am 9:40am Blood Urea 20 mg/dL H 7-18 07/05/2005 07/05/2005 Nitrogen 9:11am 9:40am Creatinine 1.3 mg/dL 0.6-1.3 07/05/2005 07/05/2005 9:11am 9:40am BUN/Creatin 15.4 12-30 07/05/2005 07/05/2005 ine Ratio 9:11am 9:40am Sodium 136 mEq/L 135-155 07/05/2005 07/05/2005 Level 9:11am 9:40am Potassium 3.8 mEq/L 3.5-5.1 07/05/2005 07/05/2005 Level 9:11am 9:40am Chloride 101 mEq/L 98-107 07/05/2005 07/05/2005 Level 9:11am 9:40am Carbon 24 mEq/L 21-32 07/05/2005 07/05/2005 Dioxide 9:11am 9:40am Level Anion Gap 14.8 10-20 07/05/2005 07/05/2005 9:11am 9:40am Calcium 8.9 mg/dL 8.2-10.0 07/05/2005 07/05/2005 Level 9:11am 9:40am Total 7.9 gm/dL 6.4-8.2 07/05/2005 07/05/2005 Protein 9:11am 9:40am Albumin 4.2 gm/dL 3.4-5.0 07/05/2005 07/05/2005 9:11am 9:40am Albumin/Leslie 1.1 07/05/2005 07/05/2005 bulin Ratio 9:11am 9:40am Total 0.3 mg/dL 0.3-1.0 07/05/2005 07/05/2005 Bilirubin 9:11am 9:40am Aspartate 18 U/L 15-37 07/05/2005 07/05/2005 Amino 9:11am 9:40am Transf (AST/SGOT) Alanine 39 U/L 30-65 07/05/2005 07/05/2005 Aminotransf 9:11am 9:40am erase (ALT/SGPT) Alkaline 89.0 U/L 50-136 07/05/2005 07/05/2005 Phosphatase 9:11am 9:40am Amylase 771 U/L H 25-115 07/05/2005 07/05/2005 Level 9:11am 10:24am Lipase 3624 U/L H 114-286 07/05/2005 07/05/2005 CALLED TO 9:11am 9:59am [place] BY SF Globulin 3.7 gm/dL 2.0-4.5 07/05/2005 07/05/2005 9:11am 9:40am White Blood 28.2 K/mm3 CH 4.5-11.5 07/08/2005 07/08/2005 CALLED TO AG Count 8:05am 8:37am @0835 11-29-05. Red Blood 3.3 M/mm3 L 4.60-6.00 07/08/2005 07/08/2005 Count 8:05am 8:37am Hemoglobin 10.8 gm/dl L 14.0-18.0 07/08/2005 07/08/2005 8:05am 8:37am Hematocrit 31.0 % L 40-54 07/08/2005 07/08/2005 8:05am 8:37am Mean 94.6 fl H 80-94 07/08/2005 07/08/2005 Corpuscular 8:05am 8:37am Volume Mean 33 pg H 26-32 07/08/2005 07/08/2005 Corpuscular 8:05am 8:37am Hemoglobin Mean 35 g/dl 32-36 07/08/2005 07/08/2005 Corpuscular 8:05am 8:37am Hemoglobin Concent RDW 12.4 % 11.5-14.5 07/08/2005 07/08/2005 Coefficient 8:05am 8:37am of Variation Platelet 354 K/mm3 150-450 07/08/2005 07/08/2005 Count 8:05am 8:37am Mean 7.3 fl L 7.9-9.9 07/08/2005 07/08/2005 Platelet 8:05am 8:37am Volume Neutrophils 86.2 % H 50-70 07/08/2005 07/08/2005 (%) (Auto) 8:05am 8:37am Lymphocytes 4.5 % L 18-42 07/08/2005 07/08/2005 (%) (Auto) 8:05am 8:37am Monocytes 6.9 % 2-11 07/08/2005 07/08/2005 (%) (Auto) 8:05am 8:37am Eosinophils 1.3 % 1-3 07/08/2005 07/08/2005 (%) (Auto) 8:05am 8:37am Basophils 1.1 % 0-2 07/08/2005 07/08/2005 (%) (Auto) 8:05am 8:37am Neutrophils 24.3 H 2-8 07/08/2005 07/08/2005 # (Auto) 8:05am 8:37am Lymphocytes 1.3 1-5 07/08/2005 07/08/2005 # (Auto) 8:05am 8:37am Monocytes # 1.9 H 0.1-1.0 07/08/2005 07/08/2005 (Auto) 8:05am 8:37am Eosinophils 0.4 0-0.4 07/08/2005 07/08/2005 # (Auto) 8:05am 8:37am Basophils # 0.3 K/mm3 H 0-0.2 07/08/2005 07/08/2005 (Auto) 8:05am 8:37am Neutrophils 82 % H 50-70 07/08/2005 07/08/2005 8:05am 9:29am Band 11 % H 0-5 07/08/2005 07/08/2005 Neutrophils 8:05am 9:29am Lymphocytes 4 % L 18-42 07/08/2005 07/08/2005 (Manual) 8:05am 9:29am Monocytes 3 % 2-11 07/08/2005 07/08/2005 (Manual) 8:05am 9:29am Toxic 2+ 07/08/2005 07/08/2005 OBSERVED IN Vacuolation 8:05am 9:29am MONOCYTES AND NEUTROPHILS. Urine Color YELLOW STRAW 07/07/2005 07/07/2005 5:00pm 6:58pm Urine CLEAR CLEAR 07/07/2005 07/07/2005 Appearance 5:00pm 6:58pm Urine NEGATIVE mg/dL NEGATIVE 07/07/2005 07/07/2005 Glucose 5:00pm 6:58pm (UA) Urine NEGATIVE NEGATIVE 07/07/2005 07/07/2005 Bilirubin 5:00pm 6:58pm Urine 40 MODERATE mg/dL H NEGATIVE 07/07/2005 07/07/2005 Ketones 5:00pm 6:58pm Urine 1.020 1.005-1.035 07/07/2005 07/07/2005 Specific 5:00pm 6:58pm [place] Urine 1+ SMALL NEGATIVE 07/07/2005 07/07/2005 Occult 5:00pm 6:58pm Blood Urine pH 7.0 07/07/2005 07/07/2005 5:00pm 6:58pm Urine 100 mg/dL NEGATIVE 07/07/2005 07/07/2005 Protein 5:00pm 6:58pm Urine NORMAL E.U./dL NORMAL 07/07/2005 07/07/2005 Urobilinoge 5:00pm 6:58pm n Urine NEGATIVE NEGATIVE 07/07/2005 07/07/2005 Nitrate 5:00pm 6:58pm Urine NEGATIVE NEGATIVE 07/07/2005 07/07/2005 Leukocyte 5:00pm 6:58pm Esterase Urine OCCASSIONAL /lpf OCCASSIONAL 07/07/2005 07/07/2005 Squamous 5:00pm 6:58pm Epithelial Cells Random 93 mg/dL 70-110 07/08/2005 07/08/2005 Glucose 8:05am 8:57am Blood Urea 8 mg/dL 7-18 07/08/2005 07/08/2005 Nitrogen 8:05am 8:57am Creatinine 0.7 mg/dL # 0.6-1.3 07/08/2005 07/08/2005 8:05am 8:57am BUN/Creatin 11.4 L 12-30 07/08/2005 07/08/2005 ine Ratio 8:05am 8:57am Sodium 130 mEq/L L 135-155 07/08/2005 07/08/2005 Level 8:05am 8:57am Potassium 3.3 mEq/L L 3.5-5.1 07/08/2005 07/08/2005 Level 8:05am 8:57am Chloride 96 mEq/L L 98-107 07/08/2005 07/08/2005 Level 8:05am 8:57am Carbon 24 mEq/L 21-32 07/08/2005 07/08/2005 Dioxide 8:05am 8:57am Level Anion Gap 13.3 10-20 07/08/2005 07/08/2005 8:05am 8:57am Calcium 7.6 mg/dL L 8.2-10.0 07/08/2005 07/08/2005 Level 8:05am 8:57am Total 6.6 gm/dL 6.4-8.2 07/08/2005 07/08/2005 Protein 8:05am 8:57am Albumin 2.6 gm/dL L 3.4-5.0 07/08/2005 07/08/2005 8:05am 8:57am Albumin/Leslie 0.7 07/08/2005 07/08/2005 bulin Ratio 8:05am 8:57am Total 0.4 mg/dL 0.3-1.0 07/08/2005 07/08/2005 Bilirubin 8:05am 8:57am Aspartate 22 U/L 15-37 07/08/2005 07/08/2005 Amino 8:05am 8:57am Transf (AST/SGOT) Alanine 27 U/L L 30-65 07/08/2005 07/08/2005 Aminotransf 8:05am 8:57am erase (ALT/SGPT) Alkaline 70.0 U/L 50-136 07/08/2005 07/08/2005 Phosphatase 8:05am 8:57am Amylase 30 U/L 25-115 07/08/2005 07/08/2005 Level 8:05am 8:57am Lipase 131 U/L 114-286 07/08/2005 07/08/2005 8:05am 8:57am Globulin 4.0 gm/dL 2.0-4.5 07/08/2005 07/08/2005 8:05am 8:57am Blood See Separate 07/07/2005 07/13/2005 Culture Report 1:00pm 12:39pm (LAB) White Blood 6.6 K/mm3 4.5-11.5 09/29/2005 09/29/2005 Count 10:40am 12:43pm Red Blood 4.1 M/mm3 L 4.60-6.00 09/29/2005 09/29/2005 Count 10:40am 12:43pm Hemoglobin 13.2 gm/dl L 14.0-18.0 09/29/2005 09/29/2005 10:40am 12:43pm Hematocrit 37.9 % L 40-54 09/29/2005 09/29/2005 10:40am 12:43pm Mean 91.8 fl 80-94 09/29/2005 09/29/2005 Corpuscular 10:40am 12:43pm Volume Mean 32 pg 26-32 09/29/2005 09/29/2005 Corpuscular 10:40am 12:43pm Hemoglobin Mean 35 g/dl 32-36 09/29/2005 09/29/2005 Corpuscular 10:40am 12:43pm Hemoglobin Concent RDW 15.2 % H 11.5-14.5 09/29/2005 09/29/2005 Coefficient 10:40am 12:43pm of Variation Platelet 441 K/mm3 150-450 09/29/2005 09/29/2005 Count 10:40am 12:43pm Mean 6.8 fl L 7.9-9.9 09/29/2005 09/29/2005 Platelet 10:40am 12:43pm Volume Neutrophils 52.4 % 50-70 09/29/2005 09/29/2005 (%) (Auto) 10:40am 12:43pm Lymphocytes 39.4 % 18-42 09/29/2005 09/29/2005 (%) (Auto) 10:40am 12:43pm Monocytes 5.2 % 2-11 09/29/2005 09/29/2005 (%) (Auto) 10:40am 12:43pm Eosinophils 2.5 % 1-3 09/29/2005 09/29/2005 (%) (Auto) 10:40am 12:43pm Basophils 0.5 % 0-2 09/29/2005 09/29/2005 (%) (Auto) 10:40am 12:43pm Neutrophils 3.5 2-8 09/29/2005 09/29/2005 # (Auto) 10:40am 12:43pm Lymphocytes 2.6 1-5 09/29/2005 09/29/2005 # (Auto) 10:40am 12:43pm Monocytes # 0.3 0.1-1.0 09/29/2005 09/29/2005 (Auto) 10:40am 12:43pm Eosinophils 0.2 0-0.4 09/29/2005 09/29/2005 # (Auto) 10:40am 12:43pm Basophils # 0.0 K/mm3 0-0.2 09/29/2005 09/29/2005 (Auto) 10:40am 12:43pm Erythrocyte 23 mm/hr H 0-10 09/29/2005 09/29/2005 Sedimentati 10:40am 1:07pm on Rate Random 107 mg/dL 70-110 09/29/2005 09/29/2005 Glucose 10:40am 5:47pm Blood Urea 14 mg/dL 7-18 09/29/2005 09/29/2005 Nitrogen 10:40am 5:47pm Creatinine 0.8 mg/dL 0.6-1.3 09/29/2005 09/29/2005 10:40am 5:47pm BUN/Creatin 17.5 12-30 09/29/2005 09/29/2005 ine Ratio 10:40am 5:47pm Sodium 137 mEq/L 135-155 09/29/2005 09/29/2005 Level 10:40am 5:47pm Potassium 4.1 mEq/L 3.5-5.1 09/29/2005 09/29/2005 Level 10:40am 5:47pm Chloride 100 mEq/L 98-107 09/29/2005 09/29/2005 Level 10:40am 5:47pm Carbon 25 mEq/L 21-32 09/29/2005 09/29/2005 Dioxide 10:40am 5:47pm Level Anion Gap 16.1 10-20 09/29/2005 09/29/2005 10:40am 5:47pm Calcium 9.3 mg/dL 8.2-10.0 09/29/2005 09/29/2005 Level 10:40am 5:47pm Total 8.0 gm/dL 6.4-8.2 09/29/2005 09/29/2005 Protein 10:40am 5:47pm Albumin 4.8 gm/dL 3.4-5.0 09/29/2005 09/29/2005 10:40am 5:47pm Albumin/Leslie 1.5 09/29/2005 09/29/2005 bulin Ratio 10:40am 5:47pm Total 0.4 mg/dL 0.3-1.0 09/29/2005 09/29/2005 Bilirubin 10:40am 5:47pm Aspartate 24 U/L 15-37 09/29/2005 09/29/2005 Amino 10:40am 5:47pm Transf (AST/SGOT) Alanine 48 U/L 30-65 09/29/2005 09/29/2005 Aminotransf 10:40am 5:47pm erase (ALT/SGPT) Alkaline 68.0 U/L 50-136 09/29/2005 09/29/2005 Phosphatase 10:40am 5:47pm Amylase 23 U/L L 25-115 09/29/2005 09/29/2005 Level 10:40am 5:47pm Lipase 130 U/L 114-286 09/29/2005 09/29/2005 10:40am 5:47pm Globulin 3.2 gm/dL 2.0-4.5 09/29/2005 09/29/2005 10:40am 5:47pm Aerobic See Separate 12/22/2005 12/25/2005 Culture Report 5:00pm 1:31pm (LAB) White Blood 7.1 K/mm3 4.5-11.5 03/11/2006 03/11/2006 Count 10:00am 10:25am Red Blood 3.8 M/mm3 L 4.60-6.00 03/11/2006 03/11/2006 Count 10:00am 10:25am Hemoglobin 13.0 gm/dl L 14.0-18.0 03/11/2006 03/11/2006 10:00am 10:25am Hematocrit 38.0 % L 40-54 03/11/2006 03/11/2006 10:00am 10:25am Mean 99.2 fl H 80-94 03/11/2006 03/11/2006 Corpuscular 10:00am 10:25am Volume Mean 34 pg H 26-32 03/11/2006 03/11/2006 Corpuscular 10:00am 10:25am Hemoglobin Mean 34 g/dl 32-36 03/11/2006 03/11/2006 Corpuscular 10:00am 10:25am Hemoglobin Concent RDW 12.4 % 11.5-14.5 03/11/2006 03/11/2006 Coefficient 10:00am 10:25am of Variation Platelet 354 K/mm3 150-450 03/11/2006 03/11/2006 Count 10:00am 10:25am Mean 6.9 fl L 7.9-9.9 03/11/2006 03/11/2006 Platelet 10:00am 10:25am Volume Neutrophils 57.0 % 50-70 03/11/2006 03/11/2006 (%) (Auto) 10:00am 10:25am Lymphocytes 31.4 % 18-42 03/11/2006 03/11/2006 (%) (Auto) 10:00am 10:25am Monocytes 7.2 % 2-11 03/11/2006 03/11/2006 (%) (Auto) 10:00am 10:25am Eosinophils 3.5 % H 1-3 03/11/2006 03/11/2006 (%) (Auto) 10:00am 10:25am Basophils 0.9 % 0-2 03/11/2006 03/11/2006 (%) (Auto) 10:00am 10:25am Neutrophils 4.0 2-8 03/11/2006 03/11/2006 # (Auto) 10:00am 10:25am Lymphocytes 2.2 1-5 03/11/2006 03/11/2006 # (Auto) 10:00am 10:25am Monocytes # 0.5 0.1-1.0 03/11/2006 03/11/2006 (Auto) 10:00am 10:25am Eosinophils 0.3 0-0.4 03/11/2006 03/11/2006 # (Auto) 10:00am 10:25am Basophils # 0.1 K/mm3 0-0.2 03/11/2006 03/11/2006 (Auto) 10:00am 10:25am Random 119 mg/dL H 70-110 03/11/2006 03/11/2006 Glucose 10:00am 10:45am Blood Urea 25 mg/dL H 7-18 03/11/2006 03/11/2006 Nitrogen 10:00am 10:45am Creatinine 1.1 mg/dL 0.6-1.3 03/11/2006 03/11/2006 10:00am 10:45am BUN/Creatin 22.7 12-30 03/11/2006 03/11/2006 ine Ratio 10:00am 10:45am Sodium 136 mEq/L 135-155 03/11/2006 03/11/2006 Level 10:00am 10:45am Potassium 4.4 mEq/L 3.5-5.1 03/11/2006 03/11/2006 Level 10:00am 10:45am Chloride 100 mEq/L 98-107 03/11/2006 03/11/2006 Level 10:00am 10:45am Carbon 27 mEq/L 21-32 03/11/2006 03/11/2006 Dioxide 10:00am 10:45am Level Anion Gap 13.4 10-20 03/11/2006 03/11/2006 10:00am 10:45am Calcium 9.2 mg/dL 8.2-10.0 03/11/2006 03/11/2006 Level 10:00am 10:45am Total 8.0 gm/dL 6.4-8.2 03/11/2006 03/11/2006 Protein 10:00am 10:45am Albumin 4.5 gm/dL 3.4-5.0 03/11/2006 03/11/2006 10:00am 10:45am Albumin/Leslie 1.3 03/11/2006 03/11/2006 bulin Ratio 10:00am 10:45am Total 0.36 mg/dL 0.3-1.0 03/11/2006 03/11/2006 Bilirubin 10:00am 10:45am Aspartate 24 U/L 15-37 03/11/2006 03/11/2006 Amino 10:00am 10:45am Transf (AST/SGOT) Alanine 39 U/L 30-65 03/11/2006 03/11/2006 Aminotransf 10:00am 10:45am erase (ALT/SGPT) Alkaline 78.0 U/L 50-136 03/11/2006 03/11/2006 Phosphatase 10:00am 10:45am Amylase 26 U/L 25-115 03/11/2006 03/11/2006 Level 10:00am 10:45am Lipase 172 U/L 114-286 03/11/2006 03/11/2006 10:00am 10:45am Globulin 3.5 gm/dL 2.0-4.5 03/11/2006 03/11/2006 10:00am 10:45am White Blood 4.6 K/mm3 4.5-10.5 12/02/2006 12/02/2006 Count 9:20am 10:12am Red Blood 4.0 M/mm3 L 4.60-6.00 12/02/2006 12/02/2006 Count 9:20am 10:12am Hemoglobin 13.6 gm/dl L 14.0-18.0 12/02/2006 12/02/2006 9:20am 10:12am Hematocrit 41.1 % 40-54 12/02/2006 12/02/2006 9:20am 10:12am Mean 103.0 fl H 80-94 12/02/2006 12/02/2006 Corpuscular 9:20am 10:12am Volume Mean 34 pg H 26-32 12/02/2006 12/02/2006 Corpuscular 9:20am 10:12am Hemoglobin Mean 33 g/dl 32-36 12/02/2006 12/02/2006 Corpuscular 9:20am 10:12am Hemoglobin Concent RDW 12.7 % 11.5-14.5 12/02/2006 12/02/2006 Coefficient 9:20am 10:12am of Variation Platelet 386 K/mm3 150-450 12/02/2006 12/02/2006 Count 9:20am 10:12am Mean 7.0 fl L 7.9-9.9 12/02/2006 12/02/2006 Platelet 9:20am 10:12am Volume Neutrophils 43 % L 50-70 12/02/2006 12/02/2006 9:20am 10:14am Band 0 % 0-5 12/02/2006 12/02/2006 Neutrophils 9:20am 10:14am Lymphocytes 36 % 18-42 12/02/2006 12/02/2006 (Manual) 9:20am 10:14am Monocytes 15 % H 2-11 12/02/2006 12/02/2006 (Manual) 9:20am 10:14am Eosinophils 6 % H 1-3 12/02/2006 12/02/2006 (Manual) 9:20am 10:14am Basophils 0 % 0-2 12/02/2006 12/02/2006 (Manual) 9:20am 10:14am Nucleated 0 % 0-0 12/02/2006 12/02/2006 Red Blood 9:20am 10:14am Cells Platelet NORMAL NORMAL 12/02/2006 12/02/2006 Estimate 9:20am 10:14am Macrocytosi 1+ 12/02/2006 12/02/2006 s 9:20am 10:14am Prostate 1.14 NG/ML 0-4.0 12/02/2006 12/02/2006 Specific 9:20am 10:24am Antigen Screen Random 110 mg/dL 70-110 12/02/2006 12/02/2006 Glucose 9:20am 10:24am Blood Urea 17 mg/dL 7-18 12/02/2006 12/02/2006 Nitrogen 9:20am 10:24am Creatinine 0.8 mg/dL 0.6-1.3 12/02/2006 12/02/2006 9:20am 10:24am BUN/Creatin 21.3 12-30 12/02/2006 12/02/2006 ine Ratio 9:20am 10:24am Sodium 138 mEq/L 135-155 12/02/2006 12/02/2006 Level 9:20am 10:24am Potassium 3.7 mEq/L 3.5-5.1 12/02/2006 12/02/2006 Level 9:20am 10:24am Chloride 102 mEq/L 98-107 12/02/2006 12/02/2006 Level 9:20am 10:24am Carbon 24 mEq/L 21-32 12/02/2006 12/02/2006 Dioxide 9:20am 10:24am Level Anion Gap 15.7 10-20 12/02/2006 12/02/2006 9:20am 10:24am Calcium 9.5 mg/dL 8.2-10.0 12/02/2006 12/02/2006 Level 9:20am 10:24am Cholesterol 268 mg/dL H 136-200 12/02/2006 12/02/2006 Level 9:20am 10:24am Triglycerid 172 mg/dL 48-250 12/02/2006 12/02/2006 es Level 9:20am 10:24am Total 8.3 gm/dL H 6.4-8.2 12/02/2006 12/02/2006 Protein 9:20am 10:24am Albumin 4.5 gm/dL 3.4-5.0 12/02/2006 12/02/2006 9:20am 10:24am Albumin/Leslie 1.2 12/02/2006 12/02/2006 bulin Ratio 9:20am 10:24am Total 0.60 mg/dL 0.3-1.0 12/02/2006 12/02/2006 Bilirubin 9:20am 10:24am Aspartate 105 U/L H 15-37 12/02/2006 12/02/2006 Amino 9:20am 10:24am Transf (AST/SGOT) Alanine 99 U/L H 30-65 12/02/2006 12/02/2006 Aminotransf 9:20am 10:24am erase (ALT/SGPT) Alkaline 83.0 U/L 50-136 12/02/2006 12/02/2006 Phosphatase 9:20am 10:24am LDL 125 mg/dL 1-130 12/02/2006 12/02/2006 INTERPRETATION: Cholesterol 9:20am 10:24am LDL-Cholesterol Therapeutic Goal: <100 mg/dL if CHD is present <130 mg/dL if no CHD and 2 or more risk factors <160 mg/dL if no CHD HDL 109 mg/dL H 35-60 12/02/2006 12/02/2006 Coronary Heart Disease (CHD ) Risk Factors: Cholesterol 9:20am 10:24am _ 1+ Men >44 years 1+ Women >54 years 1+ Hypertension 1+ Current smoker 1+ Family history of premature CHD 1+ Diabetes mellitus 1+ HDL Cholesterol <40 mg/dL 1- HDL Cholesterol >59 mg/dL Globulin 3.8 gm/dL 2.0-4.5 12/02/2006 12/02/2006 9:20am 10:24am White Blood 10.1 K/mm3 4.5-10.5 04/13/2007 04/13/2007 Count 9:30am 11:20am Red Blood 3.9 M/mm3 L 4.60-6.00 04/13/2007 04/13/2007 Count 9:30am 11:20am Hemoglobin 13.3 gm/dl L 14.0-18.0 04/13/2007 04/13/2007 9:30am 11:20am Hematocrit 40.2 % 40-54 04/13/2007 04/13/2007 9:30am 11:20am Mean 103.1 fl H 80-94 04/13/2007 04/13/2007 Corpuscular 9:30am 11:20am Volume Mean 34 pg H 26-32 04/13/2007 04/13/2007 Corpuscular 9:30am 11:20am Hemoglobin Mean 33 g/dl 32-36 04/13/2007 04/13/2007 Corpuscular 9:30am 11:20am Hemoglobin Concent RDW 11.7 % 11.5-14.5 04/13/2007 04/13/2007 Coefficient 9:30am 11:20am of Variation Platelet 411 K/mm3 150-450 04/13/2007 04/13/2007 Count 9:30am 11:20am Mean 7.6 fl L 7.9-9.9 04/13/2007 04/13/2007 Platelet 9:30am 11:20am Volume Neutrophils 77.7 % H 50-70 04/13/2007 04/13/2007 (%) (Auto) 9:30am 11:20am Lymphocytes 11.2 % L 18-42 04/13/2007 04/13/2007 (%) (Auto) 9:30am 11:20am Monocytes 9.4 % 2-11 04/13/2007 04/13/2007 (%) (Auto) 9:30am 11:20am Eosinophils 1.1 % 1-3 04/13/2007 04/13/2007 (%) (Auto) 9:30am 11:20am Basophils 0.6 % 0-2 04/13/2007 04/13/2007 (%) (Auto) 9:30am 11:20am Neutrophils 7.9 2-8 04/13/2007 04/13/2007 # (Auto) 9:30am 11:20am Lymphocytes 1.1 1-5 04/13/2007 04/13/2007 # (Auto) 9:30am 11:20am Monocytes # 1.0 0.1-1.0 04/13/2007 04/13/2007 (Auto) 9:30am 11:20am Eosinophils 0.1 0-0.4 04/13/2007 04/13/2007 # (Auto) 9:30am 11:20am Basophils # 0.1 K/mm3 0-0.2 04/13/2007 04/13/2007 (Auto) 9:30am 11:20am Neutrophils 78 % H 50-70 04/13/2007 04/13/2007 9:30am 12:07pm Lymphocytes 12 % L 18-42 04/13/2007 04/13/2007 (Manual) 9:30am 12:07pm Monocytes 10 % 2-11 04/13/2007 04/13/2007 (Manual) 9:30am 12:07pm Platelet INCREASED H NORMAL 04/13/2007 04/13/2007 Estimate 9:30am 12:07pm Macrocytosi 1+ 04/13/2007 04/13/2007 s 9:30am 12:07pm Erythrocyte 52 mm/hr H 0-10 04/13/2007 04/13/2007 Sedimentati 9:30am 12:07pm on Rate Random 112 mg/dL H 70-110 04/13/2007 04/13/2007 Glucose 9:30am 11:38am Blood Urea 9 mg/dL 7-18 04/13/2007 04/13/2007 Nitrogen 9:30am 11:38am Creatinine 0.8 mg/dL 0.6-1.3 04/13/2007 04/13/2007 9:30am 11:38am BUN/Creatin 11.3 L 12-30 04/13/2007 04/13/2007 ine Ratio 9:30am 11:38am Sodium 139 mEq/L 135-155 04/13/2007 04/13/2007 Level 9:30am 11:38am Potassium 3.6 mEq/L 3.5-5.1 04/13/2007 04/13/2007 Level 9:30am 11:38am Chloride 99 mEq/L 98-107 04/13/2007 04/13/2007 Level 9:30am 11:38am Carbon 26 mEq/L 21-32 04/13/2007 04/13/2007 Dioxide 9:30am 11:38am Level Anion Gap 17.6 10-20 04/13/2007 04/13/2007 9:30am 11:38am Uric Acid 5.0 mg/dL 2.6-7.2 04/13/2007 04/13/2007 9:30am 11:38am Calcium 9.5 mg/dL 8.2-10.0 04/13/2007 04/13/2007 Level 9:30am 11:38am Total 8.4 gm/dL H 6.4-8.2 04/13/2007 04/13/2007 Protein 9:30am 11:38am Albumin 4.3 gm/dL 3.4-5.0 04/13/2007 04/13/2007 9:30am 11:38am Albumin/Leslie 1.0 04/13/2007 04/13/2007 bulin Ratio 9:30am 11:38am Total 0.31 mg/dL 0.3-1.0 04/13/2007 04/13/2007 Bilirubin 9:30am 11:38am Aspartate 31 U/L 15-37 04/13/2007 04/13/2007 Amino 9:30am 11:38am Transf (AST/SGOT) Alanine 47 U/L 30-65 04/13/2007 04/13/2007 Aminotransf 9:30am 11:38am erase (ALT/SGPT) Alkaline 97.0 U/L 50-136 04/13/2007 04/13/2007 Phosphatase 9:30am 11:38am Globulin 4.1 gm/dL 2.0-4.5 04/13/2007 04/13/2007 9:30am 11:38am Vitamin B12 See Separate 04/13/2007 04/14/2007 Level Report 9:30am 1:37pm Folate See Separate 04/13/2007 04/14/2007 Report 9:30am 1:37pm Anti-Double See Separate 04/13/2007 04/14/2007 Strand DNA Report 9:30am 1:37pm Antibody Rheumatoid See Separate 04/13/2007 04/14/2007 Factor Report 9:30am 1:37pm Erythrocyte 93 mm/hr H 0-10 05/19/2007 05/19/2007 Sedimentati 8:45am 9:32am on Rate Cardiac 27.6 mg/L H 0.0-10 05/19/2007 05/19/2007 REFERENCE RANGE C-Reactive 8:45am 9:37am Highly Sensitive CRP mg/L Relative Cardiovascular Risk Protein <1.0 Low 1.0-3.0 Average 3.1-10.0 High >10.0 Persistent elevations may represent non-cardiovascular in- flamation. White Blood 6.07 K/mm3 4.5-10.5 04/03/2009 04/03/2009 Count 10:23am 11:48am Red Blood 3.97 M/mm3 L 4.60-6.00 04/03/2009 04/03/2009 Count 10:23am 11:48am Hemoglobin 13.5 gm/dl L 14.0-18.0 04/03/2009 04/03/2009 10:23am 11:48am Hematocrit 40.7 % 40-54 04/03/2009 04/03/2009 10:23am 11:48am Mean 102.5 fl H 80-94 04/03/2009 04/03/2009 Corpuscular 10:23am 11:48am Volume Mean 34 pg H 26-32 04/03/2009 04/03/2009 Corpuscular 10:23am 11:48am Hemoglobin Mean 33 g/dl 32-36 04/03/2009 04/03/2009 Corpuscular 10:23am 11:48am Hemoglobin Concent Red Cell 47.0 fL H 35.1-43.9 04/03/2009 04/03/2009 Distributio 10:23am 11:48am n-SD RDW 12.8 % 11.5-14.5 04/03/2009 04/03/2009 Coefficient 10:23am 11:48am of Variation Platelet 300 K/mm3 150-450 04/03/2009 04/03/2009 Count 10:23am 11:48am Mean 9.2 fl L 9.4-12.4 04/03/2009 04/03/2009 Platelet 10:23am 11:48am Volume Neutrophils 69.1 % 50-70 04/03/2009 04/03/2009 (%) (Auto) 10:23am 11:48am Lymphocytes 16.6 % L 18-42 04/03/2009 04/03/2009 (%) (Auto) 10:23am 11:48am Monocytes 13.0 % H 2-11 04/03/2009 04/03/2009 (%) (Auto) 10:23am 11:48am Eosinophils 0.3 % L 1-3 04/03/2009 04/03/2009 (%) (Auto) 10:23am 11:48am Basophils 1.0 % 0-2 04/03/2009 04/03/2009 (%) (Auto) 10:23am 11:48am Neutrophils 4.2 2-8 04/03/2009 04/03/2009 # (Auto) 10:23am 11:48am Lymphocytes 1.0 1-5 04/03/2009 04/03/2009 # (Auto) 10:23am 11:48am Monocytes # 0.8 0.1-1.0 04/03/2009 04/03/2009 (Auto) 10:23am 11:48am Eosinophils 0.0 0-0.4 04/03/2009 04/03/2009 # (Auto) 10:23am 11:48am Basophils # 0.1 K/mm3 0-0.2 04/03/2009 04/03/2009 (Auto) 10:23am 11:48am Platelet NORMAL NORMAL 04/03/2009 04/03/2009 Estimate 10:23am 2:02pm Macrocytosi 1+ 04/03/2009 04/03/2009 s 10:23am 2:02pm Urine Color YELLOW STRAW 04/03/2009 04/03/2009 10:23am 12:05pm Urine CLEAR CLEAR 04/03/2009 04/03/2009 Appearance 10:23am 12:05pm Urine NEGATIVE mg/dL NEGATIVE 04/03/2009 04/03/2009 Glucose 10:23am 12:05pm (UA) Urine NEGATIVE NEGATIVE 04/03/2009 04/03/2009 Bilirubin 10:23am 12:05pm Urine 40 MODERATE mg/dL H NEGATIVE 04/03/2009 04/03/2009 Ketones 10:23am 12:05pm Urine 1.015 1.005-1.035 04/03/2009 04/03/2009 Specific 10:23am 12:05pm [place] Urine NEGATIVE NEGATIVE 04/03/2009 04/03/2009 Occult 10:23am 12:05pm Blood Urine pH 7.0 04/03/2009 04/03/2009 10:23am 12:05pm Urine 2+ 100 mg/dL mg/dL H NEGATIVE 04/03/2009 04/03/2009 Protein 10:23am 12:05pm Urine NORMAL E.U./dL NORMAL 04/03/2009 04/03/2009 Urobilinoge 10:23am 12:05pm n Urine NEGATIVE NEGATIVE 04/03/2009 04/03/2009 Nitrate 10:23am 12:05pm Urine NEGATIVE NEGATIVE 04/03/2009 04/03/2009 Leukocyte 10:23am 12:05pm Esterase Urine RBC 0-1 /hpf H NONE 04/03/2009 04/03/2009 10:23am 12:05pm Urine OCCASSIONAL /lpf OCCASSIONAL 04/03/2009 04/03/2009 Squamous 10:23am 12:05pm Epithelial Cells Urine 1-2 /lpf H NONE 04/03/2009 04/03/2009 Hyaline 10:23am 12:05pm Casts Urine Mucus OCCASSIONAL /lpf H NONE 04/03/2009 04/03/2009 10:23am 12:05pm Random 105 mg/dL 70-110 04/03/2009 04/03/2009 Glucose 10:23am 11:51am Blood Urea 10 mg/dL 7-18 04/03/2009 04/03/2009 Nitrogen 10:23am 11:51am Creatinine 0.8 mg/dL 0.6-1.3 04/03/2009 04/03/2009 10:23am 11:51am BUN/Creatin 12.5 12-30 04/03/2009 04/03/2009 ine Ratio 10:23am 11:51am Sodium 139 mEq/L 135-155 04/03/2009 04/03/2009 Level 10:23am 11:51am Potassium 3.8 mEq/L 3.5-5.1 04/03/2009 04/03/2009 Level 10:23am 11:51am Chloride 96 mEq/L L 98-107 04/03/2009 04/03/2009 Level 10:23am 11:51am Carbon 27 mEq/L 21-32 04/03/2009 04/03/2009 Dioxide 10:23am 11:51am Level Anion Gap 19.8 10-04/03/2009 04/03/2009 10:23am 11:51am Calcium 9.3 mg/dL 8.2-10.0 04/03/2009 04/03/2009 Level 10:23am 11:51am Glomerular 104 04/03/2009 04/03/2009 At increased risk Risk factors for CKD Filtration 10:23am 11:51am are present but w/o >90 Rate Calc markers of kidney damage 1 Kidney damage w/ normal or >90 increased GFR 2 Kidney damage w/ mild reduc- 60-89 tion of GFR 3 Moderate reduction of GFR 30-59 4 Severe reduction of GFR 15-29 5 Kidney Failure <15 Total 9.1 gm/dL H 6.4-8.2 04/03/2009 04/03/2009 Protein 10:23am 11:51am Albumin 4.9 gm/dL 3.4-5.0 04/03/2009 04/03/2009 10:23am 11:51am Albumin/Leslie 1.2 04/03/2009 04/03/2009 bulin Ratio 10:23am 11:51am Total 0.52 mg/dL 0.3-1.0 04/03/2009 04/03/2009 Bilirubin 10:23am 11:51am Aspartate 88 U/L H 15-37 04/03/2009 04/03/2009 Amino 10:23am 11:51am Transf (AST/SGOT) Alanine 110 U/L H 30-65 04/03/2009 04/03/2009 Aminotransf 10:23am 11:51am erase (ALT/SGPT) Alkaline 92.0 U/L 50-136 04/03/2009 04/03/2009 Phosphatase 10:23am 11:51am Amylase 27 U/L 25-115 04/03/2009 04/03/2009 Level 10:23am 11:51am Lipase 72 U/L L 73-393 04/03/2009 04/03/2009 10:23am 11:51am Globulin 4.2 gm/dL 2.0-4.5 04/03/2009 04/03/2009 10:23am 11:51am White Blood 3.87 K/mm3 L 4.5-10.5 04/19/2010 04/19/2010 Count 7:40am 8:17am Red Blood 3.64 M/mm3 L 4.60-6.00 04/19/2010 04/19/2010 Count 7:40am 8:17am Hemoglobin 13.7 gm/dl L 14.0-18.0 04/19/2010 04/19/2010 7:40am 8:17am Hematocrit 38.0 % L 40-54 04/19/2010 04/19/2010 7:40am 8:17am Mean 104.4 fl H 80-94 04/19/2010 04/19/2010 Corpuscular 7:40am 8:17am Volume Mean 38 pg H 26-32 04/19/2010 04/19/2010 Corpuscular 7:40am 8:17am Hemoglobin Mean 36 g/dl 32-36 04/19/2010 04/19/2010 Corpuscular 7:40am 8:17am Hemoglobin Concent Red Cell 48.2 fL H 35.1-43.9 04/19/2010 04/19/2010 Distributio 7:40am 8:17am n-SD RDW 12.8 % 11.5-14.5 04/19/2010 04/19/2010 Coefficient 7:40am 8:17am of Variation Platelet 217 K/mm3 150-450 04/19/2010 04/19/2010 Count 7:40am 8:17am Mean 9.0 fl L 9.4-12.4 04/19/2010 04/19/2010 Platelet 7:40am 8:17am Volume Neutrophils 42.1 % L 50-70 04/19/2010 04/19/2010 (%) (Auto) 7:40am 8:17am Lymphocytes 34.6 % 18-42 04/19/2010 04/19/2010 (%) (Auto) 7:40am 8:17am Monocytes 20.4 % H 2-11 04/19/2010 04/19/2010 (%) (Auto) 7:40am 8:17am Eosinophils 1.3 % 1-3 04/19/2010 04/19/2010 (%) (Auto) 7:40am 8:17am Basophils 1.6 % 0-2 04/19/2010 04/19/2010 (%) (Auto) 7:40am 8:17am Neutrophils 1.6 L 2-8 04/19/2010 04/19/2010 # (Auto) 7:40am 8:17am Lymphocytes 1.3 1-5 04/19/2010 04/19/2010 # (Auto) 7:40am 8:17am Monocytes # 0.8 0.1-1.0 04/19/2010 04/19/2010 (Auto) 7:40am 8:17am Eosinophils 0.1 0-0.4 04/19/2010 04/19/2010 # (Auto) 7:40am 8:17am Basophils # 0.1 K/mm3 0-0.2 04/19/2010 04/19/2010 (Auto) 7:40am 8:17am Neutrophils 45 % L 50-70 04/19/2010 04/19/2010 7:40am 9:51am Lymphocytes 31 % 18-42 04/19/2010 04/19/2010 (Manual) 7:40am 9:51am Monocytes 23 % H 2-11 04/19/2010 04/19/2010 (Manual) 7:40am 9:51am Eosinophils 1 % 1-3 04/19/2010 04/19/2010 (Manual) 7:40am 9:51am Platelet NORMAL NORMAL 04/19/2010 04/19/2010 Estimate 7:40am 9:51am Red Cell NORMAL 04/19/2010 04/19/2010 Morphology MORPHOLOGY 7:40am 9:51am Comment Urine Color YELLOW STRAW 04/19/2010 04/19/2010 11:15am 12:33pm Urine CLEAR CLEAR 04/19/2010 04/19/2010 Appearance 11:15am 12:33pm Urine NEGATIVE mg/dL NEGATIVE 04/19/2010 04/19/2010 Glucose 11:15am 12:33pm (UA) Urine NEGATIVE NEGATIVE 04/19/2010 04/19/2010 Bilirubin 11:15am 12:33pm Urine 5 TRACE mg/dL H NEGATIVE 04/19/2010 04/19/2010 Ketones 11:15am 12:33pm Urine 1.020 1.005-1.035 04/19/2010 04/19/2010 Specific 11:15am 12:33pm [place] Urine NEGATIVE NEGATIVE 04/19/2010 04/19/2010 Occult 11:15am 12:33pm Blood Urine pH 5.5 04/19/2010 04/19/2010 11:15am 12:33pm Urine 2+ 100 mg/dL mg/dL H NEGATIVE 04/19/2010 04/19/2010 Protein 11:15am 12:33pm Urine 1.0 E.U./dL H NORMAL 04/19/2010 04/19/2010 Urobilinoge 11:15am 12:33pm n Urine NEGATIVE NEGATIVE 04/19/2010 04/19/2010 Nitrate 11:15am 12:33pm Urine NEGATIVE NEGATIVE 04/19/2010 04/19/2010 Leukocyte 11:15am 12:33pm Esterase Urine NONE /lpf OCCASSIONAL 04/19/2010 04/19/2010 Squamous 11:15am 12:46pm Epithelial Cells Urine Fine 10-15 /lpf H NONE 04/19/2010 04/19/2010 Granular 11:15am 12:46pm Casts Random 108 mg/dL 70-110 04/19/2010 04/19/2010 Glucose 7:40am 9:16am Blood Urea 7 mg/dL 7-18 04/19/2010 04/19/2010 Nitrogen 7:40am 9:16am Creatinine 0.8 mg/dL 0.6-1.3 04/19/2010 04/19/2010 7:40am 9:16am BUN/Creatin 8.8 L 12-30 04/19/2010 04/19/2010 ine Ratio 7:40am 9:16am Sodium 139 mEq/L 135-155 04/19/2010 04/19/2010 Level 7:40am 9:16am Potassium 4.5 mEq/L 3.5-5.1 04/19/2010 04/19/2010 Level 7:40am 9:16am Chloride 100 mEq/L 98-107 04/19/2010 04/19/2010 Level 7:40am 9:16am Carbon 27 mEq/L 21-32 04/19/2010 04/19/2010 Dioxide 7:40am 9:16am Level Anion Gap 16.5 10-20 04/19/2010 04/19/2010 7:40am 9:16am Calcium 9.4 mg/dL 8.2-10.0 04/19/2010 04/19/2010 Level 7:40am 9:16am Glomerular 103 04/19/2010 04/19/2010 At increased risk Risk factors for CKD Filtration 7:40am 9:16am are present but w/o >90 Rate Calc markers of kidney damage 1 Kidney damage w/ normal or >90 increased GFR 2 Kidney damage w/ mild reduc- 60-89 tion of GFR 3 Moderate reduction of GFR 30-59 4 Severe reduction of GFR 15-29 5 Kidney Failure <15 Total 8.6 gm/dL H 6.4-8.2 04/19/2010 04/19/2010 Protein 7:40am 9:16am Albumin 4.9 gm/dL 3.4-5.0 04/19/2010 04/19/2010 7:40am 9:16am Albumin/Leslie 1.3 04/19/2010 04/19/2010 bulin Ratio 7:40am 9:16am Total 0.50 mg/dL 0.3-1.0 04/19/2010 04/19/2010 Bilirubin 7:40am 9:16am Aspartate 90 U/L H 15-37 04/19/2010 04/19/2010 Amino 7:40am 9:16am Transf (AST/SGOT) Alanine 60 U/L 30-65 04/19/2010 04/19/2010 Aminotransf 7:40am 9:16am erase (ALT/SGPT) Alkaline 78.0 U/L 50-136 04/19/2010 04/19/2010 Phosphatase 7:40am 9:16am Prostate 1.43 NG/ML 0-4.0 04/19/2010 04/19/2010 Specific 7:40am 9:41am Antigen Screen Free 1.19 ng/dL 0.89-1.76 04/19/2010 04/19/2010 Thyroxine 7:40am 9:41am Thyroid 0.85 uIU/ml 0.35-5.50 04/19/2010 04/19/2010 Stimulating 7:40am 9:41am Hormone (TSH) Globulin 3.7 gm/dL 2.0-4.5 04/19/2010 04/19/2010 7:40am 9:16am White Blood 8.15 K/mm3 4.5-10.5 08/09/2010 08/09/2010 Count 12:26pm 12:36pm Red Blood 2.75 M/mm3 L 4.60-6.00 08/09/2010 08/09/2010 Count 12:26pm 12:36pm Hemoglobin 10.4 gm/dl L 14.0-18.0 08/09/2010 08/09/2010 12:26pm 12:36pm Hematocrit 29.6 % L 40-54 08/09/2010 08/09/2010 12:26pm 12:36pm Mean 107.6 fl H 80-94 08/09/2010 08/09/2010 Corpuscular 12:26pm 12:36pm Volume Mean 38 pg H 26-32 08/09/2010 08/09/2010 Corpuscular 12:26pm 12:36pm Hemoglobin Mean 35 g/dl 32-36 08/09/2010 08/09/2010 Corpuscular 12:26pm 12:36pm Hemoglobin Concent Red Cell 50.0 fL H 35.1-43.9 08/09/2010 08/09/2010 Distributio 12:26pm 12:36pm n-SD RDW 13.1 % 11.5-14.5 08/09/2010 08/09/2010 Coefficient 12:26pm 12:36pm of Variation Platelet 141 K/mm3 L 150-450 08/09/2010 08/09/2010 Count 12:26pm 12:36pm Mean 8.9 fl L 9.4-12.4 08/09/2010 08/09/2010 Platelet 12:26pm 12:36pm Volume Neutrophils 86.2 % H 50-70 08/09/2010 08/09/2010 (%) (Auto) 12:26pm 12:36pm Lymphocytes 2.8 % L 18-42 08/09/2010 08/09/2010 (%) (Auto) 12:26pm 12:36pm Monocytes 11.0 % 2-11 08/09/2010 08/09/2010 (%) (Auto) 12:26pm 12:36pm Eosinophils 0.0 % L 1-3 08/09/2010 08/09/2010 (%) (Auto) 12:26pm 12:36pm Basophils 0.0 % 0-2 08/09/2010 08/09/2010 (%) (Auto) 12:26pm 12:36pm Neutrophils 7.0 2-8 08/09/2010 08/09/2010 # (Auto) 12:26pm 12:36pm Lymphocytes 0.2 L 1-5 08/09/2010 08/09/2010 # (Auto) 12:26pm 12:36pm Monocytes # 0.9 0.1-1.0 08/09/2010 08/09/2010 (Auto) 12:26pm 12:36pm Eosinophils 0.0 0-0.4 08/09/2010 08/09/2010 # (Auto) 12:26pm 12:36pm Basophils # 0.0 K/mm3 0-0.2 08/09/2010 08/09/2010 (Auto) 12:26pm 12:36pm Platelet NORMAL NORMAL 08/09/2010 08/09/2010 Estimate 12:26pm 12:45pm Anisocytosi 1+ 08/09/2010 08/09/2010 s 12:26pm 12:45pm Macrocytosi 2+ 08/09/2010 08/09/2010 s 12:26pm 12:45pm Random 113 mg/dL H 70-110 08/09/2010 08/09/2010 Glucose 12:26pm 1:05pm Blood Urea 40 mg/dL H 7-18 08/09/2010 08/09/2010 Nitrogen 12:26pm 1:05pm Creatinine 2.2 mg/dL H 0.6-1.3 08/09/2010 08/09/2010 12:26pm 1:05pm BUN/Creatin 18.2 08-0808/09/2010 08/09/2010 ine Ratio 12:26pm 1:05pm Sodium 134 mEq/L L 135-155 08/09/2010 08/09/2010 Level 12:26pm 1:05pm Potassium 3.0 mEq/L L 3.5-5.1 08/09/2010 08/09/2010 Level 12:26pm 1:05pm Chloride 88 mEq/L L 98-107 08/09/2010 08/09/2010 Level 12:26pm 1:05pm Carbon 10 mEq/L CL 21-32 08/09/2010 08/09/2010 PHONED TO THIEN [place] 12:26pm 1:05pm AT 1300 Level Anion Gap 39.0 H 10-20 08/09/2010 08/09/2010 12:26pm 1:05pm Calcium 8.5 mg/dL 8.2-10.0 08/09/2010 08/09/2010 Level 12:26pm 1:05pm Glomerular 32 08/09/2010 08/09/2010 At increased risk Risk factors for CKD Filtration 12:26pm 1:05pm are present but w/o >90 Rate Calc markers of kidney damage 1 Kidney damage w/ normal or >90 increased GFR 2 Kidney damage w/ mild reduc- 60-89 tion of GFR 3 Moderate reduction of GFR 30-59 4 Severe reduction of GFR 15-29 5 Kidney Failure <15 Total 8.2 gm/dL 6.4-8.2 08/09/2010 08/09/2010 Protein 12:26pm 1:05pm Albumin 4.6 gm/dL 3.4-5.0 08/09/2010 08/09/2010 12:26pm 1:05pm Albumin/Leslie 1.3 08/09/2010 08/09/2010 bulin Ratio 12:26pm 1:05pm Total 1.70 mg/dL H 0.2-1.0 08/09/2010 08/09/2010 Bilirubin 12:26pm 1:05pm Aspartate 141 U/L H 15-37 08/09/2010 08/09/2010 Amino 12:26pm 1:05pm Transf (AST/SGOT) Alanine 61 U/L 30-65 08/09/2010 08/09/2010 Aminotransf 12:26pm 1:05pm erase (ALT/SGPT) Alkaline 117.0 U/L 50-136 08/09/2010 08/09/2010 Phosphatase 12:26pm 1:05pm Amylase 370 U/L H 25-115 08/09/2010 08/09/2010 Level 12:26pm 1:05pm Lipase 70654 U/L H 73-393 08/09/2010 08/09/2010 12:26pm 1:05pm Ethyl 0.10 % H 0-0 08/09/2010 08/09/2010 Blood Alcohol Reference Range Alcohol 12:26pm 1:10pm Comment Normal: No alcohol is found in the blood. Effects of Alcohol at Different Blood Alcohol Contents Approx # of Drinks JAI 1 .02-.03% 5 .10 -.15% 12 .24 -.36% 24 .48% [employer] Traffic Safety Administration (NHTSA) reports in mmols/L. Breath Alcohol tests are reported in % Conversion is necessary for correlation. Ethyl 100.00 mg/dL H 0-0 08/09/2010 08/09/2010 Alcohol 12:26pm 1:10pm Level Globulin 3.6 gm/dL 2.0-4.5 08/09/2010 08/09/2010 12:26pm 1:05pm White Blood 6.51 K/mm3 4.5-10.5 08/19/2010 08/19/2010 Count 6:20am 7:16am Red Blood 2.84 M/mm3 L 4.60-6.00 08/19/2010 08/19/2010 Count 6:20am 7:16am Hemoglobin 9.9 gm/dl L 14.0-18.0 08/19/2010 08/19/2010 6:20am 7:16am Hematocrit 28.6 % L 40-54 08/19/2010 08/19/2010 6:20am 7:16am Mean 100.7 fl H 80-94 08/19/2010 08/19/2010 Corpuscular 6:20am 7:16am Volume Mean 35 pg H 26-32 08/19/2010 08/19/2010 Corpuscular 6:20am 7:16am Hemoglobin Mean 35 g/dl 32-36 08/19/2010 08/19/2010 Corpuscular 6:20am 7:16am Hemoglobin Concent Red Cell 70.6 fL H 35.1-43.9 08/19/2010 08/19/2010 Distributio 6:20am 7:16am n-SD RDW 20.2 % H 11.5-14.5 08/19/2010 08/19/2010 Coefficient 6:20am 7:16am of Variation Platelet 454 K/mm3 H 150-450 08/19/2010 08/19/2010 Count 6:20am 7:16am Mean 9.8 fl 9.4-12.4 08/19/2010 08/19/2010 Platelet 6:20am 7:16am Volume Neutrophils 58.7 % 50-70 08/19/2010 08/19/2010 (%) (Auto) 6:20am 7:16am Lymphocytes 23.2 % 18-42 08/19/2010 08/19/2010 (%) (Auto) 6:20am 7:16am Monocytes 16.0 % H 2-11 08/19/2010 08/19/2010 (%) (Auto) 6:20am 7:16am Eosinophils 1.5 % 1-3 08/19/2010 08/19/2010 (%) (Auto) 6:20am 7:16am Basophils 0.6 % 0-2 08/19/2010 08/19/2010 (%) (Auto) 6:20am 7:16am Neutrophils 3.8 2-8 08/19/2010 08/19/2010 # (Auto) 6:20am 7:16am Lymphocytes 1.5 1-5 08/19/2010 08/19/2010 # (Auto) 6:20am 7:16am Monocytes # 1.0 0.1-1.0 08/19/2010 08/19/2010 (Auto) 6:20am 7:16am Eosinophils 0.1 0-0.4 08/19/2010 08/19/2010 # (Auto) 6:20am 7:16am Basophils # 0.0 K/mm3 0-0.2 08/19/2010 08/19/2010 (Auto) 6:20am 7:16am Neutrophils 53 % 50-70 08/19/2010 08/19/2010 6:20am 7:38am Band 4 % 0-5 08/19/2010 08/19/2010 Neutrophils 6:20am 7:38am Lymphocytes 28 % 18-42 08/19/2010 08/19/2010 (Manual) 6:20am 7:38am Monocytes 15 % H 2-11 08/19/2010 08/19/2010 (Manual) 6:20am 7:38am Eosinophils 0 % L 1-3 08/17/2010 08/17/2010 (Manual) 10:25am 11:06am Basophils 0 % 0-2 08/17/2010 08/17/2010 (Manual) 10:25am 11:06am Differentia NONE NONE 08/19/2010 08/19/2010 l Comment 6:20am 7:38am Platelet NORMAL NORMAL 08/19/2010 08/19/2010 Estimate 6:20am 7:38am Polychromas 1+ 08/17/2010 08/17/2010 ia 10:25am 11:06am Poikilocyto 2+ 08/19/2010 08/19/2010 sis 6:20am 7:38am Anisocytosi 3+ 08/19/2010 08/19/2010 s 6:20am 7:38am Macrocytosi 1+ 08/19/2010 08/19/2010 s 6:20am 7:38am Target 2+ 08/19/2010 08/19/2010 Cells 6:20am 7:38am Toxic 1+ 08/17/2010 08/17/2010 Vacuolation 10:25am 11:06am Giant 1+ 08/17/2010 08/17/2010 Platelets 10:25am 11:06am Troponin I 0.02 NG/ML 0-0.50 08/19/2010 08/19/2010 Negative 0.1 - 0.50 ng/ml 6:20am 10:57am Inconclusive 0.50 - 1.35 ng/ml (suggest repeat in 3- 6 hrs.) Probable AMI=greater than 1.35 ng/ml Random 111 mg/dL H 70-110 08/19/2010 08/19/2010 Glucose 6:20am 7:39am Blood Urea 2 mg/dL L 7-18 08/19/2010 08/19/2010 Nitrogen 6:20am 7:39am Creatinine 0.7 mg/dL # 0.6-1.3 08/19/2010 08/19/2010 6:20am 7:39am BUN/Creatin 2.9 L 12-30 08/19/2010 08/19/2010 ine Ratio 6:20am 7:39am Sodium 146 mEq/L 135-155 08/19/2010 08/19/2010 Level 6:20am 7:39am Potassium 3.5 mEq/L 3.5-5.1 08/19/2010 08/19/2010 Level 6:20am 7:39am Chloride 106 mEq/L 98-107 08/19/2010 08/19/2010 Level 6:20am 7:39am Carbon 30 mEq/L 21-32 08/19/2010 08/19/2010 Dioxide 6:20am 7:39am Level Anion Gap 13.5 10-20 08/19/2010 08/19/2010 6:20am 7:39am Calcium 7.0 mg/dL L 8.2-10.0 08/19/2010 08/19/2010 Level 6:20am 7:39am Glomerular 120 08/19/2010 08/19/2010 At increased risk Risk factors for CKD Filtration 6:20am 7:39am are present but w/o >90 Rate Calc markers of kidney damage 1 Kidney damage w/ normal or >90 increased GFR 2 Kidney damage w/ mild reduc- 60-89 tion of GFR 3 Moderate reduction of GFR 30-59 4 Severe reduction of GFR 15-29 5 Kidney Failure <15 Magnesium 1.3 mg/dL L 1.8-2.4 08/19/2010 08/19/2010 Level 6:20am 7:39am Total 6.4 gm/dL 6.4-8.2 08/19/2010 08/19/2010 Protein 6:20am 7:39am Albumin 3.7 gm/dL 3.4-5.0 08/19/2010 08/19/2010 6:20am 7:39am Albumin/Leslie 1.4 08/19/2010 08/19/2010 bulin Ratio 6:20am 7:39am Total 0.80 mg/dL 0.2-1.0 08/19/2010 08/19/2010 Bilirubin 6:20am 7:39am Alanine 48 U/L 30-65 08/19/2010 08/19/2010 Aminotransf 6:20am 7:39am erase (ALT/SGPT) Alkaline 209.0 U/L H 50-136 08/19/2010 08/19/2010 Phosphatase 6:20am 7:39am Amylase 20 U/L L 25-115 08/19/2010 08/19/2010 Level 6:20am 10:57am Lipase 75 U/L 73-393 08/19/2010 08/19/2010 6:20am 10:57am Globulin 2.7 gm/dL 2.0-4.5 08/19/2010 08/19/2010 6:20am 7:39am Vitamin D See Separate 08/19/2010 08/21/2010 1,25-Dihydr Report 9:57am 5:50pm oxy White Blood 5.69 K/mm3 4.5-10.5 08/26/2010 08/26/2010 Count 1:10pm 1:31pm Red Blood 2.90 M/mm3 L 4.60-6.00 08/26/2010 08/26/2010 Count 1:10pm 1:31pm Hemoglobin 10.1 gm/dl L 14.0-18.0 08/26/2010 08/26/2010 1:10pm 1:31pm Hematocrit 30.8 % L 40-54 08/26/2010 08/26/2010 1:10pm 1:31pm Mean 106.2 fl H 80-94 08/26/2010 08/26/2010 Corpuscular 1:10pm 1:31pm Volume Mean 35 pg H 26-32 08/26/2010 08/26/2010 Corpuscular 1:10pm 1:31pm Hemoglobin Mean 33 g/dl 32-36 08/26/2010 08/26/2010 Corpuscular 1:10pm 1:31pm Hemoglobin Concent Red Cell 69.5 fL H 35.1-43.9 08/26/2010 08/26/2010 Distributio 1:10pm 1:31pm n-SD RDW 19.1 % H 11.5-14.5 08/26/2010 08/26/2010 Coefficient 1:10pm 1:31pm of Variation Platelet 524 K/mm3 H 150-450 08/26/2010 08/26/2010 Count 1:10pm 1:31pm Mean 8.9 fl L 9.4-12.4 08/26/2010 08/26/2010 Platelet 1:10pm 1:31pm Volume Neutrophils 53.6 % 50-70 08/26/2010 08/26/2010 (%) (Auto) 1:10pm 1:31pm Lymphocytes 29.9 % 18-42 08/26/2010 08/26/2010 (%) (Auto) 1:10pm 1:31pm Monocytes 14.1 % H 2-11 08/26/2010 08/26/2010 (%) (Auto) 1:10pm 1:31pm Eosinophils 1.2 % 1-3 08/26/2010 08/26/2010 (%) (Auto) 1:10pm 1:31pm Basophils 1.2 % 0-2 08/26/2010 08/26/2010 (%) (Auto) 1:10pm 1:31pm Neutrophils 3.1 2-8 08/26/2010 08/26/2010 # (Auto) 1:10pm 1:31pm Lymphocytes 1.7 1-5 08/26/2010 08/26/2010 # (Auto) 1:10pm 1:31pm Monocytes # 0.8 0.1-1.0 08/26/2010 08/26/2010 (Auto) 1:10pm 1:31pm Eosinophils 0.1 0-0.4 08/26/2010 08/26/2010 # (Auto) 1:10pm 1:31pm Basophils # 0.1 K/mm3 0-0.2 08/26/2010 08/26/2010 (Auto) 1:10pm 1:31pm Platelet INCREASED H NORMAL 08/26/2010 08/26/2010 Estimate 1:10pm 1:41pm Anisocytosi 2+ 08/26/2010 08/26/2010 s 1:10pm 1:41pm Macrocytosi 2+ 08/26/2010 08/26/2010 s 1:10pm 1:41pm Target 1+ 08/26/2010 08/26/2010 Cells 1:10pm 1:41pm Stomatocyte 1+ 08/26/2010 08/26/2010 s 1:10pm 1:41pm Random 105 mg/dL 70-110 08/26/2010 08/26/2010 Glucose 1:10pm 1:49pm Blood Urea 11 mg/dL 7-18 08/26/2010 08/26/2010 Nitrogen 1:10pm 1:49pm Creatinine 0.9 mg/dL 0.6-1.3 08/26/2010 08/26/2010 1:10pm 1:49pm BUN/Creatin 12.2 12-30 08/26/2010 08/26/2010 ine Ratio 1:10pm 1:49pm Sodium 139 mEq/L 135-155 08/26/2010 08/26/2010 Level 1:10pm 1:49pm Potassium 3.6 mEq/L 3.5-5.1 08/26/2010 08/26/2010 Level 1:10pm 1:49pm Chloride 101 mEq/L 98-107 08/26/2010 08/26/2010 Level 1:10pm 1:49pm Carbon 25 mEq/L 21-32 08/26/2010 08/26/2010 Dioxide 1:10pm 1:49pm Level Anion Gap 16.6 10-20 08/26/2010 08/26/2010 1:10pm 1:49pm Calcium 8.8 mg/dL 8.2-10.0 08/26/2010 08/26/2010 Level 1:10pm 1:49pm Glomerular 90 08/26/2010 08/26/2010 At increased risk Risk factors for CKD Filtration 1:10pm 1:49pm are present but w/o >90 Rate Calc markers of kidney damage 1 Kidney damage w/ normal or >90 increased GFR 2 Kidney damage w/ mild reduc- 60-89 tion of GFR 3 Moderate reduction of GFR 30-59 4 Severe reduction of GFR 15-29 5 Kidney Failure <15 Magnesium 1.5 mg/dL L 1.8-2.4 08/26/2010 08/26/2010 Level 1:10pm 1:49pm Total 7.1 gm/dL 6.4-8.2 08/26/2010 08/26/2010 Protein 1:10pm 1:49pm Albumin 3.8 gm/dL 3.4-5.0 08/26/2010 08/26/2010 1:10pm 1:49pm Albumin/Leslie 1.2 08/26/2010 08/26/2010 bulin Ratio 1:10pm 1:49pm Total 0.60 mg/dL 0.2-1.0 08/26/2010 08/26/2010 Bilirubin 1:10pm 1:49pm Aspartate 26 U/L 15-37 08/26/2010 08/26/2010 Amino 1:10pm 1:49pm Transf (AST/SGOT) Alanine 31 U/L 30-65 08/26/2010 08/26/2010 Aminotransf 1:10pm 1:49pm erase (ALT/SGPT) Alkaline 174.0 U/L H 50-136 08/26/2010 08/26/2010 Phosphatase 1:10pm 1:49pm Amylase 22 U/L L 25-115 08/26/2010 08/26/2010 Level 1:25pm 3:02pm Lipase 40 U/L L 73-393 08/26/2010 08/26/2010 1:25pm 3:02pm Globulin 3.3 gm/dL 2.0-4.5 08/26/2010 08/26/2010 1:10pm 1:49pm White Blood 5.46 K/mm3 4.5-10.5 10/21/2010 10/21/2010 Count 7:39am 8:11am Red Blood 3.41 M/mm3 L 4.60-6.00 10/21/2010 10/21/2010 Count 7:39am 8:11am Hemoglobin 11.6 gm/dl L 14.0-18.0 10/21/2010 10/21/2010 7:39am 8:11am Hematocrit 34.6 % L 40-54 10/21/2010 10/21/2010 7:39am 8:11am Mean 101.5 fl H 80-94 10/21/2010 10/21/2010 Corpuscular 7:39am 8:11am Volume Mean 34 pg H 26-32 10/21/2010 10/21/2010 Corpuscular 7:39am 8:11am Hemoglobin Mean 34 g/dl 32-36 10/21/2010 10/21/2010 Corpuscular 7:39am 8:11am Hemoglobin Concent Red Cell 44.5 fL H 35.1-43.9 10/21/2010 10/21/2010 Distributio 7:39am 8:11am n-SD RDW 12.7 % 11.5-14.5 10/21/2010 10/21/2010 Coefficient 7:39am 8:11am of Variation Platelet 362 K/mm3 150-450 10/21/2010 10/21/2010 Count 7:39am 8:11am Mean 8.7 fl L 9.4-12.4 10/21/2010 10/21/2010 Platelet 7:39am 8:11am Volume Neutrophils 32.4 % L 50-70 10/21/2010 10/21/2010 (%) (Auto) 7:39am 8:11am Lymphocytes 47.1 % H 18-42 10/21/2010 10/21/2010 (%) (Auto) 7:39am 8:11am Monocytes 16.5 % H 2-11 10/21/2010 10/21/2010 (%) (Auto) 7:39am 8:11am Eosinophils 3.3 % H 1-3 10/21/2010 10/21/2010 (%) (Auto) 7:39am 8:11am Basophils 0.7 % 0-2 10/21/2010 10/21/2010 (%) (Auto) 7:39am 8:11am Neutrophils 1.8 L 2-8 10/21/2010 10/21/2010 # (Auto) 7:39am 8:11am Lymphocytes 2.6 1-5 10/21/2010 10/21/2010 # (Auto) 7:39am 8:11am Monocytes # 0.9 0.1-1.0 10/21/2010 10/21/2010 (Auto) 7:39am 8:11am Eosinophils 0.2 0-0.4 10/21/2010 10/21/2010 # (Auto) 7:39am 8:11am Basophils # 0.0 K/mm3 0-0.2 10/21/2010 10/21/2010 (Auto) 7:39am 8:11am Neutrophils 37 % L 50-70 10/21/2010 10/21/2010 7:39am 9:19am Band 1 % 0-5 10/21/2010 10/21/2010 Neutrophils 7:39am 9:19am Lymphocytes 39 % 18-42 10/21/2010 10/21/2010 (Manual) 7:39am 9:19am Monocytes 17 % H 2-11 10/21/2010 10/21/2010 (Manual) 7:39am 9:19am Eosinophils 6 % H 1-3 10/21/2010 10/21/2010 (Manual) 7:39am 9:19am Differentia NONE NONE 10/21/2010 10/21/2010 l Comment 7:39am 9:19am Platelet NORMAL NORMAL 10/21/2010 10/21/2010 Estimate 7:39am 9:19am Macrocytosi 1+ 10/21/2010 10/21/2010 s 7:39am 9:19am Random 105 mg/dL 70-110 10/21/2010 10/21/2010 Glucose 7:39am 8:41am Blood Urea 14 mg/dL 7-18 10/21/2010 10/21/2010 Nitrogen 7:39am 8:41am Creatinine 0.9 mg/dL 0.6-1.3 10/21/2010 10/21/2010 7:39am 8:41am BUN/Creatin 15.6 12-30 10/21/2010 10/21/2010 ine Ratio 7:39am 8:41am Sodium 138 mEq/L 135-155 10/21/2010 10/21/2010 Level 7:39am 8:41am Potassium 4.0 mEq/L 3.5-5.1 10/21/2010 10/21/2010 Level 7:39am 8:41am Chloride 102 mEq/L 98-107 10/21/2010 10/21/2010 Level 7:39am 8:41am Carbon 28 mEq/L 21-32 10/21/2010 10/21/2010 Dioxide 7:39am 8:41am Level Anion Gap 12.0 10-20 10/21/2010 10/21/2010 7:39am 8:41am Calcium 9.2 mg/dL 8.2-10.0 10/21/2010 10/21/2010 Level 7:39am 8:41am Glomerular 90 10/21/2010 10/21/2010 At increased risk Risk factors for CKD Filtration 7:39am 8:41am are present but w/o >90 Rate Calc markers of kidney damage 1 Kidney damage w/ normal or >90 increased GFR 2 Kidney damage w/ mild reduc- 60-89 tion of GFR 3 Moderate reduction of GFR 30-59 4 Severe reduction of GFR 15-29 5 Kidney Failure <15 Magnesium 2.0 mg/dL 1.8-2.4 10/21/2010 10/21/2010 Level 7:39am 8:41am Cholesterol 167 mg/dL 136-200 10/21/2010 10/21/2010 Level 7:39am 8:41am Triglycerid 94 mg/dL 48-250 10/21/2010 10/21/2010 es Level 7:39am 8:41am Total 7.6 gm/dL 6.4-8.2 10/21/2010 10/21/2010 Protein 7:39am 8:41am Albumin 3.9 gm/dL 3.4-5.0 10/21/2010 10/21/2010 7:39am 8:41am Albumin/Leslie 1.1 10/21/2010 10/21/2010 bulin Ratio 7:39am 8:41am Total 0.30 mg/dL 0.2-1.0 10/21/2010 10/21/2010 Bilirubin 7:39am 8:41am Aspartate 23 U/L 15-37 10/21/2010 10/21/2010 Amino 7:39am 8:41am Transf (AST/SGOT) Alanine 34 U/L 30-65 10/21/2010 10/21/2010 Aminotransf 7:39am 8:41am erase (ALT/SGPT) Alkaline 78.0 U/L 50-136 10/21/2010 10/21/2010 Phosphatase 7:39am 8:41am Amylase 23 U/L L 25-115 10/21/2010 10/21/2010 Level 7:39am 8:41am Lipase 47 U/L L 73-393 10/21/2010 10/21/2010 7:39am 8:41am LDL 74 mg/dL 1-130 10/21/2010 10/21/2010 INTERPRETATION: Cholesterol 7:39am 8:41am LDL-Cholesterol Therapeutic Goal: <100 mg/dL if CHD is present <130 mg/dL if no CHD and 2 or more risk factors <160 mg/dL if no CHD HDL 74 mg/dL H 35-60 10/21/2010 10/21/2010 Coronary Heart Disease (CHD ) Risk Factors: Cholesterol 7:39am 8:41am 1+ Men >44 years 1+ Women >54 years 1+ Hypertension 1+ Current smoker 1+ Family history of premature CHD 1+ Diabetes mellitus 1+ HDL Cholesterol <40 mg/dL 1- HDL Cholesterol >59 mg/dL Globulin 3.7 gm/dL 2.0-4.5 10/21/2010 10/21/2010 7:39am 8:41am Urine Color YELLOW STRAW 05/21/2011 05/21/2011 1:21pm 2:12pm Urine CLEAR CLEAR 05/21/2011 05/21/2011 Appearance 1:21pm 2:12pm Urine NEGATIVE mg/dL NEGATIVE 05/21/2011 05/21/2011 Glucose 1:21pm 2:12pm (UA) Urine NEGATIVE NEGATIVE 05/21/2011 05/21/2011 Bilirubin 1:21pm 2:12pm Urine NEGATIVE mg/dL NEGATIVE 05/21/2011 05/21/2011 Ketones 1:21pm 2:12pm Urine <=1.005 1.005-1.035 05/21/2011 05/21/2011 Specific 1:21pm 2:12pm [place] Urine TRACE NEGATIVE 05/21/2011 05/21/2011 Occult 1:21pm 2:12pm Blood Urine pH 6.5 05/21/2011 05/21/2011 1:21pm 2:12pm Urine NEGATIVE mg/dL NEGATIVE 05/21/2011 05/21/2011 Protein 1:21pm 2:12pm Urine 0.2 E.U./dL NORMAL 05/21/2011 05/21/2011 Urobilinoge 1:21pm 2:12pm n Urine NEGATIVE NEGATIVE 05/21/2011 05/21/2011 Nitrate 1:21pm 2:12pm Urine NEGATIVE NEGATIVE 05/21/2011 05/21/2011 Leukocyte 1:21pm 2:12pm Esterase Urine RBC 0-1 /hpf H NONE 05/21/2011 05/21/2011 1:21pm 2:12pm Urine WBC 0-1 /hpf H NONE 05/21/2011 05/21/2011 1:21pm 2:12pm Urine OCCASSIONAL /lpf OCCASSIONAL 05/21/2011 05/21/2011 Squamous 1:21pm 2:12pm Epithelial Cells White Blood 5.59 K/mm3 4.5-10.5 08/18/2011 08/18/2011 Count 6:20am 6:45am Red Blood 3.10 M/mm3 L 4.60-6.00 08/18/2011 08/18/2011 Count 6:20am 6:45am Hemoglobin 12.2 gm/dl L 14.0-18.0 08/18/2011 08/18/2011 6:20am 6:45am Hematocrit 34.2 % L 40-54 08/18/2011 08/18/2011 6:20am 6:45am Mean 110.3 fl H 80-94 08/18/2011 08/18/2011 Corpuscular 6:20am 6:45am Volume Mean 39 pg H 26-32 08/18/2011 08/18/2011 Corpuscular 6:20am 6:45am Hemoglobin Mean 36 g/dl 32-36 08/18/2011 08/18/2011 Corpuscular 6:20am 6:45am Hemoglobin Concent Red Cell 59.5 fL H 35.1-43.9 08/18/2011 08/18/2011 Distributio 6:20am 6:45am n-SD RDW 15.3 % H 11.5-14.5 08/18/2011 08/18/2011 Coefficient 6:20am 6:45am of Variation Platelet 264 K/mm3 150-450 08/18/2011 08/18/2011 Count 6:20am 6:45am Mean 9.0 fl L 9.4-12.4 08/18/2011 08/18/2011 Platelet 6:20am 6:45am Volume Neutrophils 65.1 % 50-70 08/18/2011 08/18/2011 (%) (Auto) 6:20am 6:45am Lymphocytes 20.6 % 18-42 08/18/2011 08/18/2011 (%) (Auto) 6:20am 6:45am Monocytes 12.5 % H 2-11 08/18/2011 08/18/2011 (%) (Auto) 6:20am 6:45am Eosinophils 1.4 % 1-3 08/18/2011 08/18/2011 (%) (Auto) 6:20am 6:45am Basophils 0.4 % 0-2 08/18/2011 08/18/2011 (%) (Auto) 6:20am 6:45am Neutrophils 3.6 2-8 08/18/2011 08/18/2011 # (Auto) 6:20am 6:45am Lymphocytes 1.2 1-5 08/18/2011 08/18/2011 # (Auto) 6:20am 6:45am Monocytes # 0.7 0.1-1.0 08/18/2011 08/18/2011 (Auto) 6:20am 6:45am Eosinophils 0.1 0-0.4 08/18/2011 08/18/2011 # (Auto) 6:20am 6:45am Basophils # 0.0 K/mm3 0-0.2 08/18/2011 08/18/2011 (Auto) 6:20am 6:45am Platelet n NORMAL 08/18/2011 08/18/2011 Estimate 6:20am 7:08am Anisocytosi 1+ 08/18/2011 08/18/2011 s 6:20am 7:08am Macrocytosi 2+ 08/18/2011 08/18/2011 s 6:20am 7:08am Urine Color YELLOW STRAW 08/15/2011 08/15/2011 8:50pm 9:13pm Urine CLEAR CLEAR 08/15/2011 08/15/2011 Appearance 8:50pm 9:13pm Urine NEGATIVE mg/dL NEGATIVE 08/15/2011 08/15/2011 Glucose 8:50pm 9:13pm (UA) Urine NEGATIVE NEGATIVE 08/15/2011 08/15/2011 Bilirubin 8:50pm 9:13pm Urine NEGATIVE mg/dL NEGATIVE 08/15/2011 08/15/2011 Ketones 8:50pm 9:13pm Urine 1.010 1.005-1.035 08/15/2011 08/15/2011 Specific 8:50pm 9:13pm [place] Urine NEGATIVE NEGATIVE 08/15/2011 08/15/2011 Occult 8:50pm 9:13pm Blood Urine pH 6.0 08/15/2011 08/15/2011 8:50pm 9:13pm Urine NEGATIVE mg/dL NEGATIVE 08/15/2011 08/15/2011 Protein 8:50pm 9:13pm Urine 1.0 E.U./dL H NORMAL 08/15/2011 08/15/2011 Urobilinoge 8:50pm 9:13pm n Urine NEGATIVE NEGATIVE 08/15/2011 08/15/2011 Nitrate 8:50pm 9:13pm Urine NEGATIVE NEGATIVE 08/15/2011 08/15/2011 Leukocyte 8:50pm 9:13pm Esterase Urine RBC 0-1 /hpf H NONE 08/15/2011 08/15/2011 8:50pm 9:13pm Urine OCCASSIONAL /lpf OCCASSIONAL 08/15/2011 08/15/2011 Squamous 8:50pm 9:13pm Epithelial Cells Urine Mucus OCCASSIONAL /lpf H NONE 08/15/2011 08/15/2011 8:50pm 9:13pm Troponin I < 0.02 NG/ML 0-0.50 08/15/2011 08/15/2011 Negative 0.1 - 0.50 ng/ml 3:45pm 5:38pm Inconclusive 0.50 - 1.35 ng/ml (suggest repeat in 3- 6 hrs.) Probable AMI=greater than 1.35 ng/ml Myoglobin 28.0 NG/ML 21-98 08/15/2011 08/15/2011 3:45pm 5:38pm Random 126 mg/dL H 70-110 08/18/2011 08/18/2011 Glucose 6:20am 7:13am Blood Urea 3 mg/dL L 7-18 08/18/2011 08/18/2011 Nitrogen 6:20am 7:13am Creatinine 0.8 mg/dL # 0.6-1.3 08/18/2011 08/18/2011 6:20am 7:13am BUN/Creatin 3.8 L 12-30 08/18/2011 08/18/2011 ine Ratio 6:20am 7:13am Sodium 138 mEq/L 135-155 08/18/2011 08/18/2011 Level 6:20am 7:13am Potassium 3.4 mEq/L L 3.5-5.1 08/18/2011 08/18/2011 Level 5:20pm 5:37pm Chloride 98 mEq/L 98-107 08/18/2011 08/18/2011 Level 6:20am 7:13am Carbon 35 mEq/L H 21-32 08/18/2011 08/18/2011 Dioxide 6:20am 7:13am Level Anion Gap 7.7 L 10-20 08/18/2011 08/18/2011 6:20am 7:13am Calcium 8.4 mg/dL 8.2-10.0 08/18/2011 08/18/2011 Level 6:20am 7:13am Glomerular 103 08/18/2011 08/18/2011 At increased risk Risk factors for CKD Filtration 6:20am 7:13am are present but w/o >90 Rate Calc markers of kidney damage 1 Kidney damage w/ normal or >90 increased GFR 2 Kidney damage w/ mild reduc- 60-89 tion of GFR 3 Moderate reduction of GFR 30-59 4 Severe reduction of GFR 15-29 5 Kidney Failure <15 Total 7.1 gm/dL 6.4-8.2 08/15/2011 08/15/2011 Protein 3:45pm 5:38pm Albumin 3.3 gm/dL L 3.4-5.0 08/15/2011 08/15/2011 3:45pm 5:38pm Albumin/Leslie 0.9 08/15/2011 08/15/2011 bulin Ratio 3:45pm 5:38pm Total 0.47 mg/dL 0.2-1.0 08/15/2011 08/15/2011 Bilirubin 3:45pm 5:38pm Aspartate 52 U/L H 15-37 08/15/2011 08/15/2011 Amino 3:45pm 5:38pm Transf (AST/SGOT) Alanine 31 U/L 30-65 08/15/2011 08/15/2011 Aminotransf 3:45pm 5:38pm erase (ALT/SGPT) Alkaline 191.0 U/L H 50-136 08/15/2011 08/15/2011 Phosphatase 3:45pm 5:38pm Amylase 20 U/L L 25-115 08/15/2011 08/15/2011 Level 3:45pm 5:38pm Lipase 41 U/L L 73-393 08/15/2011 08/15/2011 3:45pm 5:38pm Ethyl 0.13 % H 0-0 08/15/2011 08/15/2011 Blood Alcohol Reference Range Alcohol 3:45pm 5:38pm Comment Normal: No alcohol is found in the blood. Effects of Alcohol at Different Blood Alcohol Contents Approx # of Drinks JAI 1 .02-.03% 5 .10 -.15% 12 .24 -.36% 24 .48% National Highway Traffic Safety Administration (NHTSA) reports in mmols/L. Breath Alcohol tests are reported in % Conversion is necessary for correlation. Creatine 0.0 NG/ML 0-3.6 08/15/2011 08/15/2011 Kinase MB 3:45pm 5:38pm Ethyl 132.00 mg/dL H 0-0 08/15/2011 08/15/2011 Alcohol 3:45pm 5:38pm Level D-Dimer 0.42 MG/L 0-0.50 08/15/2011 08/15/2011 Change in D-Dimer methodology reports D-Dimer results in 3:45pm 4:36pm mg/L FEU (Fibrin Equivalent Units). Normal range is <0.50 mg/L FEU. Increase in D-Dimer concentration observed with thromboembolic events can be variable due to localization, size and age of the thrombus. Therefore, a thromboembolic event cannot be diagnosed with certainty on the basis of the reference range. D-Dimers may also be elevated for a variety of disorders including: advanced age, , coronary disease, cancer, liver disease, infection, inflammation, hematoma, DIC, trauma, post surgery, diabetes, thrombolytic therapy, stress and generalized hospitalization. D-Dimer levels may be decreased in patients on anticoagylant therapy. Globulin 3.8 gm/dL 2.0-4.5 08/15/2011 08/15/2011 3:45pm 5:38pm White Blood 9.87 K/mm3 4.5-10.5 09/17/2011 09/17/2011 Count 12:15pm 12:20pm Red Blood 3.60 M/mm3 L 4.60-6.00 09/17/2011 09/17/2011 Count 12:15pm 12:20pm Hemoglobin 13.8 gm/dl L 14.0-18.0 09/17/2011 09/17/2011 12:15pm 12:20pm Hematocrit 38.6 % L 40-54 09/17/2011 09/17/2011 12:15pm 12:20pm Mean 107.2 fl H 80-94 09/17/2011 09/17/2011 Corpuscular 12:15pm 12:20pm Volume Mean 38 pg H 26-32 09/17/2011 09/17/2011 Corpuscular 12:15pm 12:20pm Hemoglobin Mean 36 g/dl 32-36 09/17/2011 09/17/2011 Corpuscular 12:15pm 12:20pm Hemoglobin Concent Red Cell 48.1 fL H 35.1-43.9 09/17/2011 09/17/2011 Distributio 12:15pm 12:20pm n-SD RDW 12.5 % 11.5-14.5 09/17/2011 09/17/2011 Coefficient 12:15pm 12:20pm of Variation Platelet 348 K/mm3 150-450 09/17/2011 09/17/2011 Count 12:15pm 12:20pm Mean 8.5 fl L 9.4-12.4 09/17/2011 09/17/2011 Platelet 12:15pm 12:20pm Volume Neutrophils 83.0 % H 50-70 09/17/2011 09/17/2011 (%) (Auto) 12:15pm 12:20pm Lymphocytes 10.6 % L 18-42 09/17/2011 09/17/2011 (%) (Auto) 12:15pm 12:20pm Monocytes 6.0 % 2-11 09/17/2011 09/17/2011 (%) (Auto) 12:15pm 12:20pm Eosinophils 0.2 % L 1-3 09/17/2011 09/17/2011 (%) (Auto) 12:15pm 12:20pm Basophils 0.2 % 0-2 09/17/2011 09/17/2011 (%) (Auto) 12:15pm 12:20pm Neutrophils 8.2 H 2-8 09/17/2011 09/17/2011 # (Auto) 12:15pm 12:20pm Lymphocytes 1.1 1-5 09/17/2011 09/17/2011 # (Auto) 12:15pm 12:20pm Monocytes # 0.6 0.1-1.0 09/17/2011 09/17/2011 (Auto) 12:15pm 12:20pm Eosinophils 0.0 0-0.4 09/17/2011 09/17/2011 # (Auto) 12:15pm 12:20pm Basophils # 0.0 K/mm3 0-0.2 09/17/2011 09/17/2011 (Auto) 12:15pm 12:20pm Platelet NORMAL NORMAL 09/17/2011 09/17/2011 Estimate 12:15pm 1:07pm Macrocytosi 2+ 09/17/2011 09/17/2011 s 12:15pm 1:07pm Troponin I < 0.02 NG/ML 0-0.50 09/17/2011 09/17/2011 Negative 0.1 - 0.50 ng/ml 12:15pm 12:57pm Inconclusive 0.50 - 1.35 ng/ml (suggest repeat in 3 -6 hrs.) Probable AMI=greater than 1.35 ng/ml Myoglobin 19.0 NG/ML L 21-98 09/17/2011 09/17/2011 12:15pm 12:57pm Random 121 mg/dL H 70-110 09/17/2011 09/17/2011 Glucose 12:15pm 12:57pm Blood Urea 9 mg/dL 7-18 09/17/2011 09/17/2011 Nitrogen 12:15pm 12:57pm Creatinine 1.0 mg/dL 0.6-1.3 09/17/2011 09/17/2011 12:15pm 12:57pm BUN/Creatin 9.0 L 12-30 09/17/2011 09/17/2011 ine Ratio 12:15pm 12:57pm Sodium 138 mEq/L 135-155 09/17/2011 09/17/2011 Level 12:15pm 12:57pm Potassium 3.7 mEq/L 3.5-5.1 09/17/2011 09/17/2011 Level 12:15pm 12:57pm Chloride 99 mEq/L 98-107 09/17/2011 09/17/2011 Level 12:15pm 12:57pm Carbon 24 mEq/L 21-32 09/17/2011 09/17/2011 Dioxide 12:15pm 12:57pm Level Anion Gap 18.7 10-20 09/17/2011 09/17/2011 12:15pm 12:57pm Calcium 9.3 mg/dL 8.2-10.0 09/17/2011 09/17/2011 Level 12:15pm 12:57pm Glomerular 79 09/17/2011 09/17/2011 At increased risk Risk factors for CKD Filtration 12:15pm 12:57pm are present but w/o >90 Rate Calc markers of kidney damage 1 Kidney damage w/ normal or >90 increased GFR 2 Kidney damage w/ mild reduc- 60-89 tion of GFR 3 Moderate reduction of GFR 30-59 4 Severe reduction of GFR 15-29 5 Kidney Failure <15 Total 8.1 gm/dL 6.4-8.2 09/17/2011 09/17/2011 Protein 12:15pm 12:57pm Albumin 4.1 gm/dL 3.4-5.0 09/17/2011 09/17/2011 12:15pm 12:57pm Albumin/Leslie 1.0 09/17/2011 09/17/2011 bulin Ratio 12:15pm 12:57pm Total 0.40 mg/dL 0.2-1.0 09/17/2011 09/17/2011 Bilirubin 12:15pm 12:57pm Aspartate 33 U/L 15-37 09/17/2011 09/17/2011 Amino 12:15pm 12:57pm Transf (AST/SGOT) Alanine 60 U/L 30-65 09/17/2011 09/17/2011 Aminotransf 12:15pm 12:57pm erase (ALT/SGPT) Alkaline 99.0 U/L 50-136 09/17/2011 09/17/2011 Phosphatase 12:15pm 12:57pm Amylase 20 U/L L 25-115 09/17/2011 09/17/2011 Level 12:15pm 12:57pm Lipase 27 U/L L 73-393 09/17/2011 09/17/2011 12:15pm 12:57pm Creatine 0.6 NG/ML 0-3.6 09/17/2011 09/17/2011 Kinase MB 12:15pm 12:57pm D-Dimer 0.55 MG/L H 0-0.50 09/17/2011 09/17/2011 Change in D-Dimer methodology reports D-Dimer results in 12:15pm 12:57pm mg/L FEU (Fibrin Equivalent Units). Normal range is <0.50 mg/L FEU. Increase in D-Dimer concentration observed with thromboembolic events can be variable due to localization, size and age of the thrombus. Therefore, a thromboembolic event cannot be diagnosed with certainty on the basis of the reference range. D-Dimers may also be elevated for a variety of disorders including: advanced age, , coronary disease, cancer, liver disease, infection, inflammation, hematoma, DIC, trauma, post surgery, diabetes, thrombolytic therapy, stress and generalized hospitalization. D-Dimer levels may be decreased in patients on anticoagylant therapy. Globulin 4.0 gm/dL 2.0-4.5 09/17/2011 09/17/2011 12:15pm 12:57pm BIOPSY WPM See Separate 11/12/2011 11/14/2011 Report 9:00am 12:04pm White Blood 8.64 K/mm3 4.5-10.5 02/01/2012 02/01/2012 Count 7:42am 8:04am Red Blood 3.99 M/mm3 L 4.60-6.00 02/01/2012 02/01/2012 Count 7:42am 8:04am Hemoglobin 14.7 gm/dl 14.0-18.0 02/01/2012 02/01/2012 7:42am 8:04am Hematocrit 40.7 % 40-54 02/01/2012 02/01/2012 7:42am 8:04am Mean 102.0 fl H 80-94 02/01/2012 02/01/2012 Corpuscular 7:42am 8:04am Volume Mean 37 pg H 26-32 02/01/2012 02/01/2012 Corpuscular 7:42am 8:04am Hemoglobin Mean 36 g/dl 32-36 02/01/2012 02/01/2012 Corpuscular 7:42am 8:04am Hemoglobin Concent Red Cell 43.2 fL 35.1-43.9 02/01/2012 02/01/2012 Distributio 7:42am 8:04am n-SD RDW 11.8 % 11.5-14.5 02/01/2012 02/01/2012 Coefficient 7:42am 8:04am of Variation Platelet 381 K/mm3 150-450 02/01/2012 02/01/2012 Count 7:42am 8:04am Mean 9.5 fl 9.4-12.4 02/01/2012 02/01/2012 Platelet 7:42am 8:04am Volume Neutrophils 78.6 % H 50-70 02/01/2012 02/01/2012 (%) (Auto) 7:42am 8:04am Lymphocytes 11.1 % L 18-42 02/01/2012 02/01/2012 (%) (Auto) 7:42am 8:04am Monocytes 9.6 % 2-11 02/01/2012 02/01/2012 (%) (Auto) 7:42am 8:04am Eosinophils 0.2 % L 1-3 02/01/2012 02/01/2012 (%) (Auto) 7:42am 8:04am Basophils 0.5 % 0-2 02/01/2012 02/01/2012 (%) (Auto) 7:42am 8:04am Neutrophils 6.8 2-8 02/01/2012 02/01/2012 # (Auto) 7:42am 8:04am Lymphocytes 1.0 1-5 02/01/2012 02/01/2012 # (Auto) 7:42am 8:04am Monocytes # 0.8 0.1-1.0 02/01/2012 02/01/2012 (Auto) 7:42am 8:04am Eosinophils 0.0 0-0.4 02/01/2012 02/01/2012 # (Auto) 7:42am 8:04am Basophils # 0.0 K/mm3 0-0.2 02/01/2012 02/01/2012 (Auto) 7:42am 8:04am Platelet NORMAL NORMAL 02/01/2012 02/01/2012 Estimate 7:42am 8:04am Anisocytosi 1+ 02/01/2012 02/01/2012 s 7:42am 8:04am Macrocytosi 1+ 02/01/2012 02/01/2012 s 7:42am 8:04am Troponin I < 0.02 NG/ML 0-0.50 02/01/2012 02/01/2012 Negative 0.1 - 0.50 ng/ml 7:42am 8:34am Inconclusive 0.50 - 1.35 ng/ml (suggest repeat in 3- 6 hrs.) Probable AMI=greater than 1.35 ng/ml Myoglobin 27.0 NG/ML 02/01/2012 02/01/2012 --- 02/01/12 1013 --- 7:42am 10:14am MYOGLOBIN previously reported as: 388.0 H NG/ML Random 178 mg/dL H 70-110 02/01/2012 02/01/2012 Glucose 7:42am 8:34am Blood Urea 5 mg/dL L 02-2402/01/2012 02/01/2012 Nitrogen 7:42am 8:34am Creatinine 1.3 mg/dL 0.6-1.3 02/01/2012 02/01/2012 7:42am 8:34am BUN/Creatin 3.8 L 08-0802/01/2012 02/01/2012 ine Ratio 7:42am 8:34am Sodium 135 mEq/L 135-155 02/01/2012 02/01/2012 Level 7:42am 8:34am Potassium 2.3 mEq/L CL 3.5-5.1 02/01/2012 02/01/2012 NOTIFIED [facility] @ 0832 @Repeated by: Angela Gupta Level 7:42am 10:14am 02/01/12 0831 --- 02/01/12 1014 --- K previously reported as: 2.3 CL mEq/L NOTIFIED [facility] @ 0832 @Repeated by: Angela Gupta 02/01/12 0831 Chloride 89 mEq/L L 98-107 02/01/2012 02/01/2012 --- 02/01/12 1014 --- Level 7:42am 10:14am CL previously reported as: 90 L mEq/L Carbon 29 mEq/L 21-32 02/01/2012 02/01/2012 Dioxide 7:42am 8:34am Level Anion Gap 19.3 10-02/01/2012 02/01/2012 --- 02/01/12 1014 --- 7:42am 10:14am GAP previously reported as: 18.3 Calcium 8.4 mg/dL 8.2-10.0 02/01/2012 02/01/2012 Level 7:42am 8:34am Glomerular 59 02/01/2012 02/01/2012 At increased risk Risk factors for CKD Filtration 7:42am 8:34am are present but w/o >90 Rate Calc markers of kidney damage 1 Kidney damage w/ normal or >90 increased GFR 2 Kidney damage w/ mild reduc- 60-89 tion of GFR 3 Moderate reduction of GFR 30-59 4 Severe reduction of GFR 15- 5 Kidney Failure <15 Total 8.3 gm/dL H 6.4-8.2 02/01/2012 02/01/2012 Protein 7:42am 8:34am Albumin 3.8 gm/dL 3.4-5.0 02/01/2012 02/01/2012 7:42am 8:34am Albumin/Leslie 0.8 02/01/2012 02/01/2012 bulin Ratio 7:42am 8:34am Total 0.84 mg/dL 0.2-1.0 02/01/2012 02/01/2012 Bilirubin 7:42am 8:34am Aspartate 126 U/L H 15-37 02/01/2012 02/01/2012 Amino 7:42am 8:34am Transf (AST/SGOT) Alanine 67 U/L H 30-65 02/01/2012 02/01/2012 Aminotransf 7:42am 8:34am erase (ALT/SGPT) Alkaline 240.0 U/L H 50-136 02/01/2012 02/01/2012 Phosphatase 7:42am 8:34am Ethyl 0.00 % 0-0 02/01/2012 02/01/2012 Blood Alcohol Reference Range Alcohol 7:42am 8:35am Comment Normal: No alcohol is found in the blood. Effects of Alcohol at Different Blood Alcohol Contents Approx # of Drinks JAI 1 .02-.03% 5 .10 -.15% 12 .24 -.36% 24 .48% National Highway Traffic Safety Administration (NHTSA) reports in mmols/L. Breath Alcohol tests are reported in % Conversion is necessary for correlation. Creatine 1.7 NG/ML 0-3.6 02/01/2012 02/01/2012 Kinase MB 7:42am 8:34am Ethyl 2.00 mg/dL H 0-0 02/01/2012 02/01/2012 Alcohol 7:42am 8:35am Level D-Dimer 0.53 MG/L H 0-0.50 02/01/2012 02/01/2012 Change in D-Dimer methodology reports D-Dimer results in 7:42am 8:30am mg/L FEU (Fibrin Equivalent Units). Normal range is <0.50 mg/L FEU. Increase in D-Dimer concentration observed with thromboembolic events can be variable due to localization, size and age of the thrombus. Therefore, a thromboembolic event cannot be diagnosed with certainty on the basis of the reference range. D-Dimers may also be elevated for a variety of disorders including: advanced age, , coronary disease, cancer, liver disease, infection, inflammation, hematoma, DIC, trauma, post surgery, diabetes, thrombolytic therapy, stress and generalized hospitalization. D-Dimer levels may be decreased in patients on anticoagylant therapy. Globulin 4.5 gm/dL 2.0-4.5 02/01/2012 02/01/2012 7:42am 8:34am Random 125 mg/dL H 70-110 02/09/2012 02/09/2012 Glucose 10:45am 11:32am Blood Urea 11 mg/dL 7-18 02/09/2012 02/09/2012 Nitrogen 10:45am 11:32am Creatinine 0.9 mg/dL 0.6-1.3 02/09/2012 02/09/2012 10:45am 11:32am BUN/Creatin 12.2 12-30 02/09/2012 02/09/2012 ine Ratio 10:45am 11:32am Sodium 139 mEq/L 135-155 02/09/2012 02/09/2012 Level 10:45am 11:32am Potassium 4.5 mEq/L 3.5-5.1 02/09/2012 02/09/2012 Level 10:45am 11:32am Chloride 102 mEq/L 98-107 02/09/2012 02/09/2012 Level 10:45am 11:32am Carbon 28 mEq/L 21-32 02/09/2012 02/09/2012 Dioxide 10:45am 11:32am Level Anion Gap 13.5 10-20 02/09/2012 02/09/2012 10:45am 11:32am Calcium 8.9 mg/dL 8.2-10.0 02/09/2012 02/09/2012 Level 10:45am 11:32am Glomerular 90 02/09/2012 02/09/2012 At increased risk Risk factors for CKD Filtration 10:45am 11:32am are present but w/o >90 Rate Calc markers of kidney damage 1 Kidney damage w/ normal or >90 increased GFR 2 Kidney damage w/ mild reduc- 60-89 tion of GFR 3 Moderate reduction of GFR 30-59 4 Severe reduction of GFR 15-29 5 Kidney Failure <15 Total 7.5 gm/dL 6.4-8.2 02/09/2012 02/09/2012 Protein 10:45am 11:32am Albumin 3.3 gm/dL L 3.4-5.0 02/09/2012 02/09/2012 10:45am 11:32am Albumin/Leslie 0.8 02/09/2012 02/09/2012 bulin Ratio 10:45am 11:32am Total 0.44 mg/dL 0.2-1.0 02/09/2012 02/09/2012 Bilirubin 10:45am 11:32am Aspartate 74 U/L H 15-37 02/09/2012 02/09/2012 Amino 10:45am 11:32am Transf (AST/SGOT) Alanine 47 U/L 12-78 02/09/2012 02/09/2012 NOTE REFERENCE RANGE CHANGE Aminotransf 10:45am 11:32am erase 02/09/12 REFERENCE RANGE CHANGE DUE TO NEW REAGENT (ALT/SGPT) PREVIOUS RANGE: 30-65 U/L NEW RANGE: 12-78 U/L NOTE REFERENCE RANGE CHANGE 02/09/12 REFERENCE RANGE CHANGE DUE TO NEW REAGENT PREVIOUS RANGE: 30-65 U/L NEW RANGE: 12-78 U/L Alkaline 187.0 U/L H 50-136 02/09/2012 02/09/2012 Phosphatase 10:45am 11:32am Globulin 4.2 gm/dL 2.0-4.5 02/09/2012 02/09/2012 10:45am 11:32am Fasting 123 mg/dL 05/14/2012 05/14/2012 Glucose 9:25am 9:52am Glucose 1 274 mg/dL 05/14/2012 05/14/2012 Hour 11:10am 11:47am Glucose 2 233 mg/dL 05/14/2012 05/14/2012 Hour 12:20pm 12:58pm White Blood 8.74 K/mm3 4.5-10.5 05/05/2012 05/05/2012 Count 10:00am 10:14am Red Blood 3.69 M/mm3 L 4.60-6.00 05/05/2012 05/05/2012 Count 10:00am 10:14am Hemoglobin 12.4 gm/dl L 14.0-18.0 05/05/2012 05/05/2012 10:00am 10:14am Hematocrit 37.1 % L 40-54 05/05/2012 05/05/2012 10:00am 10:14am Mean 100.5 fl H 80-94 05/05/2012 05/05/2012 Corpuscular 10:00am 10:14am Volume Mean 34 pg H 26-32 05/05/2012 05/05/2012 Corpuscular 10:00am 10:14am Hemoglobin Mean 33 g/dl 32-36 05/05/2012 05/05/2012 Corpuscular 10:00am 10:14am Hemoglobin Concent Red Cell 41.0 fL 35.1-43.9 05/05/2012 05/05/2012 Distributio 10:00am 10:14am n-SD RDW 11.5 % 11.5-14.5 05/05/2012 05/05/2012 Coefficient 10:00am 10:14am of Variation Platelet 375 K/mm3 150-450 05/05/2012 05/05/2012 Count 10:00am 10:14am Mean 9.3 fl L 9.4-12.4 05/05/2012 05/05/2012 Platelet 10:00am 10:14am Volume Neutrophils 66.1 % 50-70 05/05/2012 05/05/2012 (%) (Auto) 10:00am 10:14am Lymphocytes 24.1 % 18-42 05/05/2012 05/05/2012 (%) (Auto) 10:00am 10:14am Monocytes 7.7 % 2-11 05/05/2012 05/05/2012 (%) (Auto) 10:00am 10:14am Eosinophils 1.8 % 1-3 05/05/2012 05/05/2012 (%) (Auto) 10:00am 10:14am Basophils 0.3 % 0-2 05/05/2012 05/05/2012 (%) (Auto) 10:00am 10:14am Neutrophils 5.8 2-8 05/05/2012 05/05/2012 # (Auto) 10:00am 10:14am Lymphocytes 2.1 1-5 05/05/2012 05/05/2012 # (Auto) 10:00am 10:14am Monocytes # 0.7 0.1-1.0 05/05/2012 05/05/2012 (Auto) 10:00am 10:14am Eosinophils 0.2 0-0.4 05/05/2012 05/05/2012 # (Auto) 10:00am 10:14am Basophils # 0.0 K/mm3 0-0.2 05/05/2012 05/05/2012 (Auto) 10:00am 10:14am Platelet NORMAL NORMAL 05/05/2012 05/05/2012 Estimate 10:00am 10:23am Red Cell NORMAL 05/05/2012 05/05/2012 Morphology MORPHOLOGY 10:00am 10:23am Comment Random 122 mg/dL H 70-110 05/05/2012 05/05/2012 Glucose 10:00am 11:00am Blood Urea 17 mg/dL 7-18 05/05/2012 05/05/2012 Nitrogen 10:00am 11:00am Creatinine 0.9 mg/dL 0.6-1.3 05/05/2012 05/05/2012 10:00am 11:00am BUN/Creatin 18.9 12-30 05/05/2012 05/05/2012 ine Ratio 10:00am 11:00am Sodium 138 mEq/L 135-155 05/05/2012 05/05/2012 Level 10:00am 11:00am Potassium 4.0 mEq/L 3.5-5.1 05/05/2012 05/05/2012 Level 10:00am 11:00am Chloride 102 mEq/L 98-107 05/05/2012 05/05/2012 Level 10:00am 11:00am Carbon 28 mEq/L 21-32 05/05/2012 05/05/2012 Dioxide 10:00am 11:00am Level Anion Gap 12.0 10-20 05/05/2012 05/05/2012 10:00am 11:00am Calcium 9.4 mg/dL 8.2-10.0 05/05/2012 05/05/2012 Level 10:00am 11:00am Glomerular 89 05/05/2012 05/05/2012 At increased risk Risk factors for CKD Filtration 10:00am 11:00am are present but w/o >90 Rate Calc markers of kidney damage 1 Kidney damage w/ normal or >90 increased GFR 2 Kidney damage w/ mild reduc- 60-89 tion of GFR 3 Moderate reduction of GFR 30-59 4 Severe reduction of GFR 15-29 5 Kidney Failure <15 Magnesium 2.0 mg/dL 1.8-2.4 05/05/2012 05/05/2012 Level 10:00am 11:00am Total 7.6 gm/dL 6.4-8.2 05/05/2012 05/05/2012 Protein 10:00am 11:00am Albumin 4.0 gm/dL 3.4-5.0 05/05/2012 05/05/2012 10:00am 11:00am Albumin/Leslie 1.1 05/05/2012 05/05/2012 bulin Ratio 10:00am 11:00am Total 0.43 mg/dL 0.2-1.0 05/05/2012 05/05/2012 Bilirubin 10:00am 11:00am Aspartate 17 U/L 15-37 05/05/2012 05/05/2012 Amino 10:00am 11:00am Transf (AST/SGOT) Alanine 22 U/L 12-78 05/05/2012 05/05/2012 NOTE REFERENCE RANGE CHANGE Aminotransf 10:00am 11:00am erase 02/09/12 REFERENCE RANGE CHANGE DUE TO NEW REAGENT (ALT/SGPT) PREVIOUS RANGE: 30-65 U/L NEW RANGE: 12-78 U/L Alkaline 85.0 U/L 50-136 05/05/2012 05/05/2012 Phosphatase 10:00am 11:00am Amylase 21 U/L L 25-115 05/05/2012 05/05/2012 Level 10:00am 11:00am Lipase 35 U/L L 73-393 05/05/2012 05/05/2012 10:00am 11:00am Globulin 3.6 gm/dL 2.0-4.5 05/05/2012 05/05/2012 10:00am 11:00am White Blood 5.69 K/mm3 4.5-10.5 10/22/2012 10/22/2012 Count 10:03am 10:09am Red Blood 3.53 M/mm3 L 4.60-6.00 10/22/2012 10/22/2012 Count 10:03am 10:09am Hemoglobin 13.3 gm/dl L 14.0-18.0 10/22/2012 10/22/2012 10:03am 10:09am Hematocrit 37.0 % L 40-54 10/22/2012 10/22/2012 10:03am 10:09am Mean 104.8 fl H 80-94 10/22/2012 10/22/2012 Corpuscular 10:03am 10:09am Volume Mean 38 pg H 26-32 10/22/2012 10/22/2012 Corpuscular 10:03am 10:09am Hemoglobin Mean 36 g/dl 32-36 10/22/2012 10/22/2012 Corpuscular 10:03am 10:09am Hemoglobin Concent Red Cell 49.3 fL H 35.1-43.9 10/22/2012 10/22/2012 Distributio 10:03am 10:09am n-SD RDW 13.3 % 11.5-14.5 10/22/2012 10/22/2012 Coefficient 10:03am 10:09am of Variation Platelet 273 K/mm3 150-450 10/22/2012 10/22/2012 Count 10:03am 10:09am Mean 9.4 fl 9.4-12.4 10/22/2012 10/22/2012 Platelet 10:03am 10:09am Volume Neutrophils 80.3 % H 50-70 10/22/2012 10/22/2012 (%) (Auto) 10:03am 10:09am Lymphocytes 9.5 % L 18-42 10/22/2012 10/22/2012 (%) (Auto) 10:03am 10:09am Monocytes 10.0 % 2-11 10/22/2012 10/22/2012 (%) (Auto) 10:03am 10:09am Eosinophils 0.0 % L 1-3 10/22/2012 10/22/2012 (%) (Auto) 10:03am 10:09am Basophils 0.2 % 0-2 10/22/2012 10/22/2012 (%) (Auto) 10:03am 10:09am Neutrophils 4.6 2-8 10/22/2012 10/22/2012 # (Auto) 10:03am 10:09am Lymphocytes 0.5 L 1-5 10/22/2012 10/22/2012 # (Auto) 10:03am 10:09am Monocytes # 0.6 0.1-1.0 10/22/2012 10/22/2012 (Auto) 10:03am 10:09am Eosinophils 0.0 0-0.4 10/22/2012 10/22/2012 # (Auto) 10:03am 10:09am Basophils # 0.0 K/mm3 0-0.2 10/22/2012 10/22/2012 (Auto) 10:03am 10:09am Platelet NORMAL NORMAL 10/22/2012 10/22/2012 Estimate 10:03am 10:17am Macrocytosi 1+ 10/22/2012 10/22/2012 s 10:03am 10:17am Target 1+ 10/22/2012 10/22/2012 Cells 10:03am 10:17am Random 130 mg/dL H 70-110 10/22/2012 10/22/2012 Glucose 10:03am 10:45am Blood Urea 5 mg/dL L 7-18 10/22/2012 10/22/2012 Nitrogen 10:03am 10:45am Creatinine 0.9 mg/dL 0.6-1.3 10/22/2012 10/22/2012 10:03am 10:45am BUN/Creatin 5.6 L 12-30 10/22/2012 10/22/2012 ine Ratio 10:03am 10:45am Sodium 137 mEq/L 135-155 10/22/2012 10/22/2012 Level 10:03am 10:45am Potassium 3.0 mEq/L L 3.5-5.1 10/22/2012 10/22/2012 Level 10:03am 10:45am Chloride 91 mEq/L L 98-107 10/22/2012 10/22/2012 Level 10:03am 10:45am Carbon 24 mEq/L 21-32 10/22/2012 10/22/2012 Dioxide 10:03am 10:45am Level Anion Gap 25.0 H 10-20 10/22/2012 10/22/2012 10:03am 10:45am Calcium 8.2 mg/dL 8.2-10.0 10/22/2012 10/22/2012 Level 10:03am 10:45am Glomerular 89 10/22/2012 10/22/2012 At increased risk Risk factors for CKD Filtration 10:03am 10:45am are present but w/o >90 Rate Calc markers of kidney damage 1 Kidney damage w/ normal or >90 increased GFR 2 Kidney damage w/ mild reduc- 60-89 tion of GFR 3 Moderate reduction of GFR 30-59 4 Severe reduction of GFR 15-29 5 Kidney Failure <15 Total 7.6 gm/dL 6.4-8.2 10/22/2012 10/22/2012 Protein 10:03am 10:45am Albumin 3.9 gm/dL 3.4-5.0 10/22/2012 10/22/2012 10:03am 10:45am Albumin/Leslie 1.1 10/22/2012 10/22/2012 bulin Ratio 10:03am 10:45am Total 0.71 mg/dL 0.2-1.0 10/22/2012 10/22/2012 Bilirubin 10:03am 10:45am Aspartate 106 U/L H 15-37 10/22/2012 10/22/2012 Amino 10:03am 10:45am Transf (AST/SGOT) Alanine 38 U/L 12-78 10/22/2012 10/22/2012 NOTE REFERENCE RANGE CHANGE Aminotransf 10:03am 10:45am erase 02/09/12 REFERENCE RANGE CHANGE DUE TO NEW REAGENT (ALT/SGPT) PREVIOUS RANGE: 30-65 U/L NEW RANGE: 12-78 U/L Alkaline 149.0 U/L H 50-136 10/22/2012 10/22/2012 Phosphatase 10:03am 10:45am Amylase 17 U/L L 25-115 10/22/2012 10/22/2012 Level 10:03am 10:45am Lipase 40 U/L L 73-393 10/22/2012 10/22/2012 10:03am 10:45am Globulin 3.7 gm/dL 2.0-4.5 10/22/2012 10/22/2012 10:03am 10:45am White Blood 8.81 K/mm3 4.5-10.5 10/24/2012 10/24/2012 Count 8:00am 8:11am Red Blood 3.28 M/mm3 L 4.60-6.00 10/24/2012 10/24/2012 Count 8:00am 8:11am Hemoglobin 12.4 gm/dl L 14.0-18.0 10/24/2012 10/24/2012 8:00am 8:11am Hematocrit 35.3 % L 40-54 10/24/2012 10/24/2012 8:00am 8:11am Mean 107.6 fl H 80-94 10/24/2012 10/24/2012 Corpuscular 8:00am 8:11am Volume Mean 38 pg H 26-32 10/24/2012 10/24/2012 Corpuscular 8:00am 8:11am Hemoglobin Mean 35 g/dl 32-36 10/24/2012 10/24/2012 Corpuscular 8:00am 8:11am Hemoglobin Concent Red Cell 50.4 fL H 35.1-43.9 10/24/2012 10/24/2012 Distributio 8:00am 8:11am n-SD RDW 13.4 % 11.5-14.5 10/24/2012 10/24/2012 Coefficient 8:00am 8:11am of Variation Platelet 217 K/mm3 150-450 10/24/2012 10/24/2012 Count 8:00am 8:11am Mean 9.2 fl L 9.4-12.4 10/24/2012 10/24/2012 Platelet 8:00am 8:11am Volume Neutrophils 71.9 % H 50-70 10/24/2012 10/24/2012 (%) (Auto) 8:00am 8:11am Lymphocytes 17.3 % L 18-42 10/24/2012 10/24/2012 (%) (Auto) 8:00am 8:11am Monocytes 9.4 % 2-11 10/24/2012 10/24/2012 (%) (Auto) 8:00am 8:11am Eosinophils 1.2 % 1-3 10/24/2012 10/24/2012 (%) (Auto) 8:00am 8:11am Basophils 0.2 % 0-2 10/24/2012 10/24/2012 (%) (Auto) 8:00am 8:11am Neutrophils 6.3 2-8 10/24/2012 10/24/2012 # (Auto) 8:00am 8:11am Lymphocytes 1.5 1-5 10/24/2012 10/24/2012 # (Auto) 8:00am 8:11am Monocytes # 0.8 0.1-1.0 10/24/2012 10/24/2012 (Auto) 8:00am 8:11am Eosinophils 0.1 0-0.4 10/24/2012 10/24/2012 # (Auto) 8:00am 8:11am Basophils # 0.0 K/mm3 0-0.2 10/24/2012 10/24/2012 (Auto) 8:00am 8:11am Macrocytosi 2+ 10/24/2012 10/24/2012 s 8:00am 8:20am Hemoglobin 5.9 % 4.5-6.2 10/24/2012 10/24/2012 A1c 8:00am 10:09am NOTE: REFERENCE RANGE CHANGE 05/08/2011 Reference range change due to new reagent Previous range: 4.8-6.0% New range: 4.5-6.2% Random 138 mg/dL H 70-110 10/24/2012 10/24/2012 Glucose 8:00am 8:40am Blood Urea 3 mg/dL L -10/24/2012 10/24/2012 Nitrogen 8:00am 8:40am Creatinine 0.8 mg/dL # 0.6-1.3 10/24/2012 10/24/2012 8:00am 8:40am BUN/Creatin 3.8 L 12-10/24/2012 10/24/2012 ine Ratio 8:00am 8:40am Sodium 136 mEq/L 135-155 10/24/2012 10/24/2012 Level 8:00am 8:40am Potassium 2.7 mEq/L L 3.5-5.1 10/24/2012 10/24/2012 Level 8:00am 8:40am Chloride 94 mEq/L L 98-107 10/24/2012 10/24/2012 Level 8:00am 8:40am Carbon 34 mEq/L H 21-32 10/24/2012 10/24/2012 Dioxide 8:00am 8:40am Level Anion Gap 10.7 10-20 10/24/2012 10/24/2012 8:00am 8:40am Calcium 7.8 mg/dL L 8.2-10.0 10/24/2012 10/24/2012 Level 8:00am 8:40am Glomerular 102 10/24/2012 10/24/2012 At increased risk Risk factors for CKD Filtration 8:00am 8:40am are present but w/o >90 Rate Calc markers of kidney damage 1 Kidney damage w/ normal or >90 increased GFR 2 Kidney damage w/ mild reduc- 60-89 tion of GFR 3 Moderate reduction of GFR 30-59 4 Severe reduction of GFR 15-29 5 Kidney Failure <15 Total 6.4 gm/dL 6.4-8.2 10/24/2012 10/24/2012 Protein 8:00am 8:40am Albumin 3.3 gm/dL L 3.4-5.0 10/24/2012 10/24/2012 8:00am 8:40am Albumin/Leslie 1.1 10/24/2012 10/24/2012 bulin Ratio 8:00am 8:40am Total 0.52 mg/dL 0.2-1.0 10/24/2012 10/24/2012 Bilirubin 8:00am 8:40am Aspartate 76 U/L H 15-37 10/24/2012 10/24/2012 Amino 8:00am 8:40am Transf (AST/SGOT) Alanine 37 U/L 12-78 10/24/2012 10/24/2012 NOTE REFERENCE RANGE CHANGE Aminotransf 8:00am 8:40am erase 02/09/12 REFERENCE RANGE CHANGE DUE TO NEW REAGENT (ALT/SGPT) PREVIOUS RANGE: 30-65 U/L NEW RANGE: 12-78 U/L Alkaline 125.0 U/L # 50-136 10/24/2012 10/24/2012 Phosphatase 8:00am 8:40am Amylase 15 U/L L 25-115 10/24/2012 10/24/2012 Level 8:00am 8:40am Lipase 41 U/L L 73-393 10/24/2012 10/24/2012 8:00am 8:40am Globulin 3.1 gm/dL 2.0-4.5 10/24/2012 10/24/2012 8:00am 8:40am White Blood 6.98 K/mm3 4.5-10.5 07/04/2013 07/04/2013 Count 8:00am 8:33am Red Blood 3.86 M/mm3 L 4.60-6.00 07/04/2013 07/04/2013 Count 8:00am 8:33am Hemoglobin 13.0 gm/dl L 14.0-18.0 07/04/2013 07/04/2013 8:00am 8:33am Hematocrit 37.2 % L 40-54 07/04/2013 07/04/2013 8:00am 8:33am Mean 96.4 fl H 80-94 07/04/2013 07/04/2013 Corpuscular 8:00am 8:33am Volume Mean 34 pg H 26-32 07/04/2013 07/04/2013 Corpuscular 8:00am 8:33am Hemoglobin Mean 35 g/dl 32-36 07/04/2013 07/04/2013 Corpuscular 8:00am 8:33am Hemoglobin Concent Red Cell 42.5 fL 35.1-43.9 07/04/2013 07/04/2013 Distributio 8:00am 8:33am n-SD RDW 12.4 % 11.5-14.5 07/04/2013 07/04/2013 Coefficient 8:00am 8:33am of Variation Platelet 369 K/mm3 150-450 07/04/2013 07/04/2013 Count 8:00am 8:33am Mean 8.5 fl L 9.4-12.4 07/04/2013 07/04/2013 Platelet 8:00am 8:33am Volume Neutrophils 53.2 % 50-70 07/04/2013 07/04/2013 (%) (Auto) 8:00am 8:33am Lymphocytes 31.9 % 18-42 07/04/2013 07/04/2013 (%) (Auto) 8:00am 8:33am Monocytes 11.6 % H 2-11 07/04/2013 07/04/2013 (%) (Auto) 8:00am 8:33am Eosinophils 2.9 % 1-3 07/04/2013 07/04/2013 (%) (Auto) 8:00am 8:33am Basophils 0.4 % 0-2 07/04/2013 07/04/2013 (%) (Auto) 8:00am 8:33am Neutrophils 3.7 2-8 07/04/2013 07/04/2013 # (Auto) 8:00am 8:33am Lymphocytes 2.2 1-5 07/04/2013 07/04/2013 # (Auto) 8:00am 8:33am Monocytes # 0.8 0.1-1.0 07/04/2013 07/04/2013 (Auto) 8:00am 8:33am Eosinophils 0.2 0-0.4 07/04/2013 07/04/2013 # (Auto) 8:00am 8:33am Basophils # 0.0 K/mm3 0-0.2 07/04/2013 07/04/2013 (Auto) 8:00am 8:33am Hemoglobin 6.1 % 4.5-6.2 07/04/2013 07/04/2013 A1c 8:00am 8:49am NOTE: REFERENCE RANGE CHANGE 05/08/2011 Reference range change due to new reagent Previous range: 4.8-6.0% New range: 4.5-6.2% Random 123 mg/dL H 70-110 07/04/2013 07/04/2013 Glucose 8:00am 9:09am Blood Urea 8 mg/dL 7-18 07/04/2013 07/04/2013 Nitrogen 8:00am 9:09am Creatinine 1.1 mg/dL 0.6-1.3 07/04/2013 07/04/2013 8:00am 9:09am BUN/Creatin 7.3 L 12-30 07/04/2013 07/04/2013 ine Ratio 8:00am 9:09am Sodium 134 mEq/L L 135-155 07/04/2013 07/04/2013 Level 8:00am 9:09am Potassium 4.4 mEq/L 3.5-5.1 07/04/2013 07/04/2013 Level 8:00am 9:09am Chloride 98 mEq/L 98-107 07/04/2013 07/04/2013 Level 8:00am 9:09am Carbon 27 mEq/L 21-32 07/04/2013 07/04/2013 Dioxide 8:00am 9:09am Level Anion Gap 13.4 10-20 07/04/2013 07/04/2013 8:00am 9:09am Calcium 9.1 mg/dL 8.2-10.0 07/04/2013 07/04/2013 Level 8:00am 9:09am Glomerular 71 07/04/2013 07/04/2013 At increased risk Risk factors for CKD Filtration 8:00am 9:09am are present but w/o >90 Rate Calc markers of kidney damage 1 Kidney damage w/ normal or >90 increased GFR 2 Kidney damage w/ mild reduc- 60-89 tion of GFR 3 Moderate reduction of GFR 30-59 4 Severe reduction of GFR 15-29 5 Kidney Failure <15 Cholesterol 265 mg/dL H 136-200 07/04/2013 07/04/2013 Level 8:00am 9:09am Triglycerid 72 mg/dL 48-250 07/04/2013 07/04/2013 es Level 8:00am 9:09am Total 7.6 gm/dL 6.4-8.2 07/04/2013 07/04/2013 Protein 8:00am 9:09am Albumin 4.0 gm/dL 3.4-5.0 07/04/2013 07/04/2013 8:00am 9:09am Albumin/Leslie 1.1 07/04/2013 07/04/2013 bulin Ratio 8:00am 9:09am Total 0.44 mg/dL 0.2-1.0 07/04/2013 07/04/2013 Bilirubin 8:00am 9:09am Aspartate 20 U/L 15-37 07/04/2013 07/04/2013 Amino 8:00am 9:09am Transf (AST/SGOT) Alanine 22 U/L 12-78 07/04/2013 07/04/2013 NOTE REFERENCE RANGE CHANGE Aminotransf 8:00am 9:09am erase 02/09/12 REFERENCE RANGE CHANGE DUE TO NEW REAGENT (ALT/SGPT) PREVIOUS RANGE: 30-65 U/L NEW RANGE: 12-78 U/L Alkaline 101.0 U/L 50-136 07/04/2013 07/04/2013 Phosphatase 8:00am 9:09am LDL 179 mg/dL H 1-130 07/04/2013 07/04/2013 INTERPRETATION: Cholesterol 8:00am 9:09am LDL-Cholesterol Therapeutic Goal: <100 mg/dL if CHD is present <130 mg/dL if no CHD and 2 or more risk factors <160 mg/dL if no CHD HDL 72 mg/dL H 35-60 07/04/2013 07/04/2013 Coronary Heart Disease (CHD ) Risk Factors: Cholesterol 8:00am 9:09am 1+ Men >44 years 1+ Women >54 years 1+ Hypertension 1+ Current smoker 1+ Family history of premature CHD 1+ Diabetes mellitus 1+ HDL Cholesterol <40 mg/dL 1- HDL Cholesterol >59 mg/dL Prostate 0.88 NG/ML 0-4.0 07/04/2013 07/04/2013 Specific 8:00am 9:32am Antigen Screen Free 1.12 ng/dL 0.89-1.76 07/04/2013 07/04/2013 Thyroxine 8:00am 9:32am Thyroid 6.36 uIU/ml H 0.35-5.50 07/04/2013 07/04/2013 Stimulating 8:00am 9:32am Hormone (TSH) Globulin 3.6 gm/dL 2.0-4.5 07/04/2013 07/04/2013 8:00am 9:09am White Blood 6.54 K/mm3 4.5-10.5 10/25/2013 10/25/2013 Count 9:25am 9:29am Red Blood 3.55 M/mm3 L 4.60-6.00 10/25/2013 10/25/2013 Count 9:25am 9:29am Hemoglobin 12.0 gm/dl L 14.0-18.0 10/25/2013 10/25/2013 9:25am 9:29am Hematocrit 34.7 % L 40-54 10/25/2013 10/25/2013 9:25am 9:29am Mean 97.7 fl H 80-94 10/25/2013 10/25/2013 Corpuscular 9:25am 9:29am Volume Mean 34 pg H 26-32 10/25/2013 10/25/2013 Corpuscular 9:25am 9:29am Hemoglobin Mean 35 g/dl 32-36 10/25/2013 10/25/2013 Corpuscular 9:25am 9:29am Hemoglobin Concent Red Cell 46.9 fL H 35.1-43.9 10/25/2013 10/25/2013 Distributio 9:25am 9:29am n-SD RDW 13.6 % 11.5-14.5 10/25/2013 10/25/2013 Coefficient 9:25am 9:29am of Variation Platelet 359 K/mm3 150-450 10/25/2013 10/25/2013 Count 9:25am 9:29am Mean 8.6 fl L 9.4-12.4 10/25/2013 10/25/2013 Platelet 9:25am 9:29am Volume Neutrophils 51.4 % 50-70 10/25/2013 10/25/2013 (%) (Auto) 9:25am 9:29am Lymphocytes 33.6 % 18-42 10/25/2013 10/25/2013 (%) (Auto) 9:25am 9:29am Monocytes 13.0 % H 2-11 10/25/2013 10/25/2013 (%) (Auto) 9:25am 9:29am Eosinophils 1.7 % 1-3 10/25/2013 10/25/2013 (%) (Auto) 9:25am 9:29am Basophils 0.3 % 0-2 10/25/2013 10/25/2013 (%) (Auto) 9:25am 9:29am Neutrophils 3.4 2-8 10/25/2013 10/25/2013 # (Auto) 9:25am 9:29am Lymphocytes 2.2 1-5 10/25/2013 10/25/2013 # (Auto) 9:25am 9:29am Monocytes # 0.9 0.1-1.0 10/25/2013 10/25/2013 (Auto) 9:25am 9:29am Eosinophils 0.1 0-0.4 10/25/2013 10/25/2013 # (Auto) 9:25am 9:29am Basophils # 0.0 K/mm3 0-0.2 10/25/2013 10/25/2013 (Auto) 9:25am 9:29am Random 115 mg/dL H 70-110 10/25/2013 10/25/2013 Glucose 9:25am 10:38am Blood Urea 18 mg/dL 7-18 10/25/2013 10/25/2013 Nitrogen 9:25am 10:38am Creatinine 1.0 mg/dL 0.6-1.3 10/25/2013 10/25/2013 9:25am 10:38am BUN/Creatin 18.0 12-30 10/25/2013 10/25/2013 ine Ratio 9:25am 10:38am Sodium 139 mEq/L 135-155 10/25/2013 10/25/2013 Level 9:25am 10:38am Potassium 4.4 mEq/L 3.5-5.1 10/25/2013 10/25/2013 Level 9:25am 10:38am Chloride 104 mEq/L 98-107 10/25/2013 10/25/2013 Level 9:25am 10:38am Carbon 26 mEq/L 21-32 10/25/2013 10/25/2013 Dioxide 9:25am 10:38am Level Anion Gap 13.4 10-20 10/25/2013 10/25/2013 9:25am 10:38am Calcium 9.1 mg/dL 8.2-10.0 10/25/2013 10/25/2013 Level 9:25am 10:38am Glomerular 79 10/25/2013 10/25/2013 At increased risk Risk factors for CKD Filtration 9:25am 10:38am are present but w/o >90 Rate Calc markers of kidney damage 1 Kidney damage w/ normal or >90 increased GFR 2 Kidney damage w/ mild reduc- 60-89 tion of GFR 3 Moderate reduction of GFR 30-59 4 Severe reduction of GFR 15-29 5 Kidney Failure <15 Total 7.3 gm/dL 6.4-8.2 10/25/2013 10/25/2013 Protein 9:25am 10:38am Albumin 3.8 gm/dL 3.4-5.0 10/25/2013 10/25/2013 9:25am 10:38am Albumin/Leslie 1.1 10/25/2013 10/25/2013 bulin Ratio 9:25am 10:38am Total 0.22 mg/dL 0.2-1.0 10/25/2013 10/25/2013 Bilirubin 9:25am 10:38am Aspartate 20 U/L 15-37 10/25/2013 10/25/2013 Amino 9:25am 10:38am Transf (AST/SGOT) Alanine 26 U/L 12-78 10/25/2013 10/25/2013 NOTE REFERENCE RANGE CHANGE Aminotransf 9:25am 10:38am erase 02/09/12 REFERENCE RANGE CHANGE DUE TO NEW REAGENT (ALT/SGPT) PREVIOUS RANGE: 30-65 U/L NEW RANGE: 12-78 U/L Alkaline 96.0 U/L 50-136 10/25/2013 10/25/2013 Phosphatase 9:25am 10:38am Globulin 3.5 gm/dL 2.0-4.5 10/25/2013 10/25/2013 9:25am 10:38am White Blood 6.52 K/mm3 4.5-10.5 11/22/2013 11/22/2013 Count 11:00am 11:25am Red Blood 3.45 M/mm3 L 4.60-6.00 11/22/2013 11/22/2013 Count 11:00am 11:25am Hemoglobin 11.4 gm/dl L 14.0-18.0 11/22/2013 11/22/2013 11:00am 11:25am Hematocrit 33.6 % L 40-54 11/22/2013 11/22/2013 11:00am 11:25am Mean 97.4 fl H 80-94 11/22/2013 11/22/2013 Corpuscular 11:00am 11:25am Volume Mean 33 pg H 26-32 11/22/2013 11/22/2013 Corpuscular 11:00am 11:25am Hemoglobin Mean 34 g/dl 32-36 11/22/2013 11/22/2013 Corpuscular 11:00am 11:25am Hemoglobin Concent Red Cell 43.1 fL 35.1-43.9 11/22/2013 11/22/2013 Distributio 11:00am 11:25am n-SD RDW 12.7 % 11.5-14.5 11/22/2013 11/22/2013 Coefficient 11:00am 11:25am of Variation Platelet 330 K/mm3 150-450 11/22/2013 11/22/2013 Count 11:00am 11:25am Mean 8.6 fl L 9.4-12.4 11/22/2013 11/22/2013 Platelet 11:00am 11:25am Volume Neutrophils 48.3 % L 50-70 11/22/2013 11/22/2013 (%) (Auto) 11:00am 11:25am Lymphocytes 40.5 % 18-42 11/22/2013 11/22/2013 (%) (Auto) 11:00am 11:25am Monocytes 8.9 % 2-11 11/22/2013 11/22/2013 (%) (Auto) 11:00am 11:25am Eosinophils 1.2 % 1-3 11/22/2013 11/22/2013 (%) (Auto) 11:00am 11:25am Basophils 1.1 % 0-2 11/22/2013 11/22/2013 (%) (Auto) 11:00am 11:25am Neutrophils 3.2 2-8 11/22/2013 11/22/2013 # (Auto) 11:00am 11:25am Lymphocytes 2.6 1-5 11/22/2013 11/22/2013 # (Auto) 11:00am 11:25am Monocytes # 0.6 0.1-1.0 11/22/2013 11/22/2013 (Auto) 11:00am 11:25am Eosinophils 0.1 0-0.4 11/22/2013 11/22/2013 # (Auto) 11:00am 11:25am Basophils # 0.1 K/mm3 0-0.2 11/22/2013 11/22/2013 (Auto) 11:00am 11:25am Neutrophils 40 % L 50-70 11/22/2013 11/22/2013 11:00am 11:41am Band 9 % H 0-5 11/22/2013 11/22/2013 Neutrophils 11:00am 11:41am Lymphocytes 40 % 18-42 11/22/2013 11/22/2013 (Manual) 11:00am 11:41am Monocytes 6 % 2-11 11/22/2013 11/22/2013 (Manual) 11:00am 11:41am Eosinophils 2 % 1-3 11/22/2013 11/22/2013 (Manual) 11:00am 11:41am Atypical 3 % 0-4 11/22/2013 11/22/2013 Lymphocyte 11:00am 11:41am Platelet NORMAL NORMAL 11/22/2013 11/22/2013 Estimate 11:00am 11:41am Red Cell NORMAL 11/22/2013 11/22/2013 Morphology MORPHOLOGY 11:00am 11:41am Comment Random 105 mg/dL 70-110 11/22/2013 11/22/2013 Glucose 11:00am 11:42am Blood Urea 7 mg/dL 7-18 11/22/2013 11/22/2013 Nitrogen 11:00am 11:42am Creatinine 0.9 mg/dL 0.6-1.3 11/22/2013 11/22/2013 11:00am 11:42am BUN/Creatin 7.8 L 12-11/22/2013 11/22/2013 ine Ratio 11:00am 11:42am Sodium 135 mEq/L 135-155 11/22/2013 11/22/2013 Level 11:00am 11:42am Potassium 4.3 mEq/L 3.5-5.1 11/22/2013 11/22/2013 Level 11:00am 11:42am Chloride 99 mEq/L 98-107 11/22/2013 11/22/2013 Level 11:00am 11:42am Carbon 27 mEq/L 21-32 11/22/2013 11/22/2013 Dioxide 11:00am 11:42am Level Anion Gap 13.3 10-20 11/22/2013 11/22/2013 11:00am 11:42am Calcium 8.9 mg/dL 8.2-10.0 11/22/2013 11/22/2013 Level 11:00am 11:42am Glomerular 89 11/22/2013 11/22/2013 At increased risk Risk factors for CKD Filtration 11:00am 11:42am are present but w/o >90 Rate Calc markers of kidney damage 1 Kidney damage w/ normal or >90 increased GFR 2 Kidney damage w/ mild reduc- 60-89 tion of GFR 3 Moderate reduction of GFR 30-59 4 Severe reduction of GFR 15-29 5 Kidney Failure <15 Total 7.2 gm/dL 6.4-8.2 11/22/2013 11/22/2013 Protein 11:00am 11:42am Albumin 3.7 gm/dL 3.4-5.0 11/22/2013 11/22/2013 11:00am 11:42am Albumin/Leslie 1.1 11/22/2013 11/22/2013 bulin Ratio 11:00am 11:42am Total 0.31 mg/dL 0.2-1.0 11/22/2013 11/22/2013 Bilirubin 11:00am 11:42am Aspartate 20 U/L 15-37 11/22/2013 11/22/2013 Amino 11:00am 11:42am Transf (AST/SGOT) Alanine 22 U/L 12-78 11/22/2013 11/22/2013 NOTE REFERENCE RANGE CHANGE Aminotransf 11:00am 11:42am erase 02/09/12 REFERENCE RANGE CHANGE DUE TO NEW REAGENT (ALT/SGPT) PREVIOUS RANGE: 30-65 U/L NEW RANGE: 12-78 U/L Alkaline 86.0 U/L 50-136 11/22/2013 11/22/2013 Phosphatase 11:00am 11:42am Globulin 3.5 gm/dL 2.0-4.5 11/22/2013 11/22/2013 11:00am 11:42am White Blood 5.98 K/mm3 4.5-10.5 12/22/2013 12/22/2013 Count 9:15am 9:49am Red Blood 3.50 M/mm3 L 4.60-6.00 12/22/2013 12/22/2013 Count 9:15am 9:49am Hemoglobin 11.7 gm/dl L 14.0-18.0 12/22/2013 12/22/2013 9:15am 9:49am Hematocrit 34.3 % L 40-54 12/22/2013 12/22/2013 9:15am 9:49am Mean 98.0 fl H 80-94 12/22/2013 12/22/2013 Corpuscular 9:15am 9:49am Volume Mean 33 pg H 26-32 12/22/2013 12/22/2013 Corpuscular 9:15am 9:49am Hemoglobin Mean 34 g/dl 32-36 12/22/2013 12/22/2013 Corpuscular 9:15am 9:49am Hemoglobin Concent Red Cell 46.7 fL H 35.1-43.9 12/22/2013 12/22/2013 Distributio 9:15am 9:49am n-SD RDW 13.5 % 11.5-14.5 12/22/2013 12/22/2013 Coefficient 9:15am 9:49am of Variation Platelet 338 K/mm3 150-450 12/22/2013 12/22/2013 Count 9:15am 9:49am Mean 8.5 fl L 9.4-12.4 12/22/2013 12/22/2013 Platelet 9:15am 9:49am Volume Neutrophils 47.7 % L 50-70 12/22/2013 12/22/2013 (%) (Auto) 9:15am 9:49am Lymphocytes 36.0 % 18-42 12/22/2013 12/22/2013 (%) (Auto) 9:15am 9:49am Monocytes 14.0 % H 2-11 12/22/2013 12/22/2013 (%) (Auto) 9:15am 9:49am Eosinophils 1.8 % 1-3 12/22/2013 12/22/2013 (%) (Auto) 9:15am 9:49am Basophils 0.5 % 0-2 12/22/2013 12/22/2013 (%) (Auto) 9:15am 9:49am Neutrophils 2.9 2-8 12/22/2013 12/22/2013 # (Auto) 9:15am 9:49am Lymphocytes 2.2 1-5 12/22/2013 12/22/2013 # (Auto) 9:15am 9:49am Monocytes # 0.8 0.1-1.0 12/22/2013 12/22/2013 (Auto) 9:15am 9:49am Eosinophils 0.1 0-0.4 12/22/2013 12/22/2013 # (Auto) 9:15am 9:49am Basophils # 0.0 K/mm3 0-0.2 12/22/2013 12/22/2013 (Auto) 9:15am 9:49am Random 110 mg/dL 70-110 12/22/2013 12/22/2013 Glucose 9:15am 10:17am Blood Urea 19 mg/dL H 7-18 12/22/2013 12/22/2013 Nitrogen 9:15am 10:17am Creatinine 0.8 mg/dL 0.6-1.3 12/22/2013 12/22/2013 9:15am 10:17am BUN/Creatin 23.8 12-30 12/22/2013 12/22/2013 ine Ratio 9:15am 10:17am Sodium 133 mEq/L L 135-155 12/22/2013 12/22/2013 Level 9:15am 10:17am Potassium 4.3 mEq/L 3.5-5.1 12/22/2013 12/22/2013 Level 9:15am 10:17am Chloride 101 mEq/L 98-107 12/22/2013 12/22/2013 Level 9:15am 10:17am Carbon 27 mEq/L 21-32 12/22/2013 12/22/2013 Dioxide 9:15am 10:17am Level Anion Gap 9.3 L 10-20 12/22/2013 12/22/2013 9:15am 10:17am Calcium 8.9 mg/dL 8.2-10.0 12/22/2013 12/22/2013 Level 9:15am 10:17am Glomerular 102 12/22/2013 12/22/2013 At increased risk Risk factors for CKD Filtration 9:15am 10:17am are present but w/o >90 Rate Calc markers of kidney damage 1 Kidney damage w/ normal or >90 increased GFR 2 Kidney damage w/ mild reduc- 60-89 tion of GFR 3 Moderate reduction of GFR 30-59 4 Severe reduction of GFR 15-29 5 Kidney Failure <15 Total 7.2 gm/dL 6.4-8.2 12/22/2013 12/22/2013 Protein 9:15am 10:17am Albumin 3.8 gm/dL 3.4-5.0 12/22/2013 12/22/2013 9:15am 10:17am Albumin/Leslie 1.1 12/22/2013 12/22/2013 bulin Ratio 9:15am 10:17am Total 0.17 mg/dL L 0.2-1.0 12/22/2013 12/22/2013 Bilirubin 9:15am 10:17am Aspartate 20 U/L 15-37 12/22/2013 12/22/2013 Amino 9:15am 10:17am Transf (AST/SGOT) Alanine 20 U/L 12-78 12/22/2013 12/22/2013 NOTE REFERENCE RANGE CHANGE Aminotransf 9:15am 10:17am erase 02/09/12 REFERENCE RANGE CHANGE DUE TO NEW REAGENT (ALT/SGPT) PREVIOUS RANGE: 30-65 U/L NEW RANGE: 12-78 U/L Alkaline 86.0 U/L 50-136 12/22/2013 12/22/2013 Phosphatase 9:15am 10:17am Globulin 3.4 gm/dL 2.0-4.5 12/22/2013 12/22/2013 9:15am 10:17am White Blood 7.29 K/mm3 4.5-10.5 03/09/2014 03/09/2014 Count UNK 1:31pm Red Blood 3.70 M/mm3 L 4.60-6.00 03/09/2014 03/09/2014 Count UNK 1:31pm Hemoglobin 12.2 gm/dl L 14.0-18.0 03/09/2014 03/09/2014 UNK 1:31pm Hematocrit 36.4 % L 40-54 03/09/2014 03/09/2014 UNK 1:31pm Mean 98.4 fl H 80-94 03/09/2014 03/09/2014 Corpuscular UNK 1:31pm Volume Mean 33 pg H 26-32 03/09/2014 03/09/2014 Corpuscular UNK 1:31pm Hemoglobin Mean 34 g/dl 32-36 03/09/2014 03/09/2014 Corpuscular UNK 1:31pm Hemoglobin Concent Red Cell 45.3 fL H 35.1-43.9 03/09/2014 03/09/2014 Distributio UNK 1:31pm n-SD RDW 13.0 % 11.5-14.5 03/09/2014 03/09/2014 Coefficient UNK 1:31pm of Variation Platelet 321 K/mm3 150-450 03/09/2014 03/09/2014 Count UNK 1:31pm Mean 8.7 fl L 9.4-12.4 03/09/2014 03/09/2014 Platelet UNK 1:31pm Volume Neutrophils 52.3 % 50-70 03/09/2014 03/09/2014 (%) (Auto) UNK 1:31pm Lymphocytes 36.6 % 18-42 03/09/2014 03/09/2014 (%) (Auto) UNK 1:31pm Monocytes 9.5 % 2-11 03/09/2014 03/09/2014 (%) (Auto) UNK 1:31pm Eosinophils 1.2 % 1-3 03/09/2014 03/09/2014 (%) (Auto) UNK 1:31pm Basophils 0.4 % 0-2 03/09/2014 03/09/2014 (%) (Auto) UNK 1:31pm Neutrophils 3.8 2-8 03/09/2014 03/09/2014 # (Auto) UNK 1:31pm Lymphocytes 2.7 1-5 03/09/2014 03/09/2014 # (Auto) UNK 1:31pm Monocytes # 0.7 0.1-1.0 03/09/2014 03/09/2014 (Auto) UNK 1:31pm Eosinophils 0.1 0-0.4 03/09/2014 03/09/2014 # (Auto) UNK 1:31pm Basophils # 0.0 K/mm3 0-0.2 03/09/2014 03/09/2014 (Auto) UNK 1:31pm Random 137 mg/dL H 70-110 03/09/2014 03/09/2014 Glucose UNK 2:06pm Blood Urea 12 mg/dL 7-18 03/09/2014 03/09/2014 Nitrogen UNK 2:06pm Creatinine 0.9 mg/dL 0.6-1.3 03/09/2014 03/09/2014 UNK 2:06pm BUN/Creatin 13.3 -03/09/2014 03/09/2014 ine Ratio UNK 2:06pm Sodium 134 mEq/L L 135-155 03/09/2014 03/09/2014 Level UNK 2:06pm Potassium 4.0 mEq/L 3.5-5.1 03/09/2014 03/09/2014 Level UNK 2:06pm Chloride 98 mEq/L 98-107 03/09/2014 03/09/2014 Level UNK 2:06pm Carbon 27 mEq/L 21-32 03/09/2014 03/09/2014 Dioxide UNK 2:06pm Level Anion Gap 13.0 10-20 03/09/2014 03/09/2014 UNK 2:06pm Calcium 8.7 mg/dL 8.2-10.0 03/09/2014 03/09/2014 Level UNK 2:06pm Glomerular 89 03/09/2014 03/09/2014 At increased risk Risk factors for CKD Filtration UNK 2:06pm are present but w/o >90 Rate Calc markers of kidney damage 1 Kidney damage w/ normal or >90 increased GFR 2 Kidney damage w/ mild reduc- 60-89 tion of GFR 3 Moderate reduction of GFR 30-59 4 Severe reduction of GFR 15-29 5 Kidney Failure <15 Total 7.6 gm/dL 6.4-8.2 03/09/2014 03/09/2014 Protein UNK 2:06pm Albumin 3.9 gm/dL 3.4-5.0 03/09/2014 03/09/2014 UNK 2:06pm Albumin/Leslie 1.1 03/09/2014 03/09/2014 bulin Ratio UNK 2:06pm Total 0.36 mg/dL 0.2-1.0 03/09/2014 03/09/2014 Bilirubin UNK 2:06pm Aspartate 18 U/L 15-37 03/09/2014 03/09/2014 Amino UNK 2:06pm Transf (AST/SGOT) Alanine 20 U/L 12-78 03/09/2014 03/09/2014 NOTE REFERENCE RANGE CHANGE Aminotransf UNK 2:06pm erase 02/09/12 REFERENCE RANGE CHANGE DUE TO NEW REAGENT (ALT/SGPT) PREVIOUS RANGE: 30-65 U/L NEW RANGE: 12-78 U/L Alkaline 70.0 U/L 46-116 03/09/2014 03/09/2014 NOTE REFERENCE RANGE CHANGE Phosphatase UNK 2:06pm 01/12/14 REFERENCE RANGE CHANGE DUE TO NEW REAGENT PREVIOUS RANGE: 50-136 U/L NEW RANGE: 46-116 U/L Globulin 3.7 gm/dL 2.0-4.5 03/09/2014 03/09/2014 UNK 2:06pm White Blood 6.61 K/mm3 4.5-10.5 04/26/2014 04/26/2014 Count UNK 3:46pm Red Blood 3.64 M/mm3 L 4.60-6.00 04/26/2014 04/26/2014 Count UNK 3:46pm Hemoglobin 12.1 gm/dl L 14.0-18.0 04/26/2014 04/26/2014 UNK 3:46pm Hematocrit 35.5 % L 40-54 04/26/2014 04/26/2014 UNK 3:46pm Mean 97.5 fl H 80-94 04/26/2014 04/26/2014 Corpuscular UNK 3:46pm Volume Mean 33 pg H 26-32 04/26/2014 04/26/2014 Corpuscular UNK 3:46pm Hemoglobin Mean 34 g/dl 32-36 04/26/2014 04/26/2014 Corpuscular UNK 3:46pm Hemoglobin Concent Red Cell 45.8 fL H 35.1-43.9 04/26/2014 04/26/2014 Distributio UNK 3:46pm n-SD RDW 13.3 % 11.5-14.5 04/26/2014 04/26/2014 Coefficient UNK 3:46pm of Variation Platelet 366 K/mm3 150-450 04/26/2014 04/26/2014 Count UNK 3:46pm Mean 9.4 fl 9.4-12.4 04/26/2014 04/26/2014 Platelet UNK 3:46pm Volume Neutrophils 51.3 % 50-70 04/26/2014 04/26/2014 (%) (Auto) UNK 3:46pm Lymphocytes 39.3 % 18-42 04/26/2014 04/26/2014 (%) (Auto) UNK 3:46pm Monocytes 7.7 % 2-11 04/26/2014 04/26/2014 (%) (Auto) UNK 3:46pm Eosinophils 1.4 % 1-3 04/26/2014 04/26/2014 (%) (Auto) UNK 3:46pm Basophils 0.3 % 0-2 04/26/2014 04/26/2014 (%) (Auto) UNK 3:46pm Neutrophils 3.4 2-8 04/26/2014 04/26/2014 # (Auto) UNK 3:46pm Lymphocytes 2.6 1-5 04/26/2014 04/26/2014 # (Auto) UNK 3:46pm Monocytes # 0.5 0.1-1.0 04/26/2014 04/26/2014 (Auto) UNK 3:46pm Eosinophils 0.1 0-0.4 04/26/2014 04/26/2014 # (Auto) UNK 3:46pm Basophils # 0.0 K/mm3 0-0.2 04/26/2014 04/26/2014 (Auto) UNK 3:46pm Random 174 mg/dL H 70-110 04/26/2014 04/26/2014 Glucose UNK 4:28pm Blood Urea 12 mg/dL 7-18 04/26/2014 04/26/2014 Nitrogen UNK 4:28pm Creatinine 1.0 mg/dL 0.6-1.3 04/26/2014 04/26/2014 UNK 4:28pm BUN/Creatin 12.0 12-30 04/26/2014 04/26/2014 ine Ratio UNK 4:28pm Sodium 134 mEq/L L 135-155 04/26/2014 04/26/2014 Level UNK 4:28pm Potassium 4.1 mEq/L 3.5-5.1 04/26/2014 04/26/2014 Level UNK 4:28pm Chloride 99 mEq/L 98-107 04/26/2014 04/26/2014 Level UNK 4:28pm Carbon 26 mEq/L 21-32 04/26/2014 04/26/2014 Dioxide UNK 4:28pm Level Anion Gap 13.1 10-20 04/26/2014 04/26/2014 UNK 4:28pm Calcium 8.9 mg/dL 8.2-10.0 04/26/2014 04/26/2014 Level UNK 4:28pm Glomerular 79 04/26/2014 04/26/2014 At increased risk Risk factors for CKD Filtration UNK 4:28pm are present but w/o >90 Rate Calc markers of kidney damage 1 Kidney damage w/ normal or >90 increased GFR 2 Kidney damage w/ mild reduc- 60-89 tion of GFR 3 Moderate reduction of GFR 30-59 4 Severe reduction of GFR 15-29 5 Kidney Failure <15 Total 7.1 gm/dL 6.4-8.2 04/26/2014 04/26/2014 Protein UNK 4:28pm Albumin 3.9 gm/dL 3.4-5.0 04/26/2014 04/26/2014 UNK 4:28pm Albumin/Leslie 1.2 04/26/2014 04/26/2014 bulin Ratio UNK 4:28pm Total 0.33 mg/dL 0.2-1.0 04/26/2014 04/26/2014 Bilirubin UNK 4:28pm Aspartate 20 U/L 15-37 04/26/2014 04/26/2014 Amino UNK 4:28pm Transf (AST/SGOT) Alanine 26 U/L 12-78 04/26/2014 04/26/2014 NOTE REFERENCE RANGE CHANGE Aminotransf UNK 4:28pm erase 02/09/12 REFERENCE RANGE CHANGE DUE TO NEW REAGENT (ALT/SGPT) PREVIOUS RANGE: 30-65 U/L NEW RANGE: 12-78 U/L Alkaline 82.0 U/L 46-116 04/26/2014 04/26/2014 NOTE REFERENCE RANGE CHANGE Phosphatase UNK 4:28pm 01/12/14 REFERENCE RANGE CHANGE DUE TO NEW REAGENT PREVIOUS RANGE: 50-136 U/L NEW RANGE: 46-116 U/L Globulin 3.2 gm/dL 2.0-4.5 04/26/2014 04/26/2014 UNK 4:28pm White Blood 6.70 K/mm3 4.5-10.5 08/16/2014 08/16/2014 Count 10:30am 10:49am Red Blood 3.83 M/mm3 L 4.60-6.00 08/16/2014 08/16/2014 Count 10:30am 10:49am Hemoglobin 13.6 gm/dl L 14.0-18.0 08/16/2014 08/16/2014 10:30am 10:49am Hematocrit 40.2 % 40-54 08/16/2014 08/16/2014 10:30am 10:49am Mean 105.0 fl H 80-94 08/16/2014 08/16/2014 Corpuscular 10:30am 10:49am Volume Mean 36 pg H 26-32 08/16/2014 08/16/2014 Corpuscular 10:30am 10:49am Hemoglobin Mean 34 g/dl 32-36 08/16/2014 08/16/2014 Corpuscular 10:30am 10:49am Hemoglobin Concent Red Cell 56.6 fL H 35.1-43.9 08/16/2014 08/16/2014 Distributio 10:30am 10:49am n-SD RDW 14.9 % H 11.5-14.5 08/16/2014 08/16/2014 Coefficient 10:30am 10:49am of Variation Platelet 295 K/mm3 150-450 08/16/2014 08/16/2014 Count 10:30am 10:49am Mean 9.2 fl L 9.4-12.4 08/16/2014 08/16/2014 Platelet 10:30am 10:49am Volume Neutrophils 69.0 % 50-70 08/16/2014 08/16/2014 (%) (Auto) 10:30am 10:49am Lymphocytes 14.5 % L 18-42 08/16/2014 08/16/2014 (%) (Auto) 10:30am 10:49am Monocytes 15.2 % H 2-11 08/16/2014 08/16/2014 (%) (Auto) 10:30am 10:49am Eosinophils 0.9 % L 1-3 08/16/2014 08/16/2014 (%) (Auto) 10:30am 10:49am Basophils 0.4 % 0-2 08/16/2014 08/16/2014 (%) (Auto) 10:30am 10:49am Neutrophils 4.6 2-8 08/16/2014 08/16/2014 # (Auto) 10:30am 10:49am Lymphocytes 1.0 1-5 08/16/2014 08/16/2014 # (Auto) 10:30am 10:49am Monocytes # 1.0 0.1-1.0 08/16/2014 08/16/2014 (Auto) 10:30am 10:49am Eosinophils 0.1 0-0.4 08/16/2014 08/16/2014 # (Auto) 10:30am 10:49am Basophils # 0.0 K/mm3 0-0.2 08/16/2014 08/16/2014 (Auto) 10:30am 10:49am Neutrophils 58 % 50-70 08/16/2014 08/16/2014 10:30am 11:12am Band 2 % 0-5 08/16/2014 08/16/2014 Neutrophils 10:30am 11:12am Lymphocytes 15 % L 18-42 08/16/2014 08/16/2014 (Manual) 10:30am 11:12am Monocytes 15 % H 2-11 08/16/2014 08/16/2014 (Manual) 10:30am 11:12am Differentia NONE NONE 08/16/2014 08/16/2014 l Comment 10:30am 11:12am Platelet NORMAL NORMAL 08/16/2014 08/16/2014 Estimate 10:30am 11:12am Anisocytosi 1+ 08/16/2014 08/16/2014 s 10:30am 11:12am Macrocytosi 1+ 08/16/2014 08/16/2014 s 10:30am 11:12am Hemoglobin 6.2 % 4.5-6.2 08/16/2014 08/17/2014 A1c 10:30am 3:54pm NOTE: REFERENCE RANGE CHANGE 05/08/2011 Reference range change due to new reagent Previous range: 4.8-6.0% New range: 4.5-6.2% Random 137 mg/dL H 70-110 08/16/2014 08/16/2014 Glucose 10:30am 11:19am Blood Urea 12 mg/dL 7-08/16/2014 08/16/2014 Nitrogen 10:30am 11:19am Creatinine 1.0 mg/dL 0.6-1.3 08/16/2014 08/16/2014 10:30am 11:19am BUN/Creatin 12.0 1208/16/2014 08/16/2014 ine Ratio 10:30am 11:19am Sodium 136 mEq/L 135-155 08/16/2014 08/16/2014 Level 10:30am 11:19am Potassium 4.2 mEq/L 3.5-5.1 08/16/2014 08/16/2014 Level 10:30am 11:19am Chloride 99 mEq/L 98-107 08/16/2014 08/16/2014 Level 10:30am 11:19am Carbon 25 mEq/L 21-32 08/16/2014 08/16/2014 Dioxide 10:30am 11:19am Level Anion Gap 16.2 10-20 08/16/2014 08/16/2014 10:30am 11:19am Calcium 9.1 mg/dL 8.2-10.0 08/16/2014 08/16/2014 Level 10:30am 11:19am Glomerular 79 08/16/2014 08/16/2014 At increased risk Risk factors for CKD Filtration 10:30am 11:19am are present but w/o >90 Rate Calc markers of kidney damage 1 Kidney damage w/ normal or >90 increased GFR 2 Kidney damage w/ mild reduc- 60-89 tion of GFR 3 Moderate reduction of GFR 30-59 4 Severe reduction of GFR 15-29 5 Kidney Failure <15 Total 8.0 gm/dL 6.4-8.2 08/16/2014 08/16/2014 Protein 10:30am 11:19am Albumin 4.1 gm/dL 3.4-5.0 08/16/2014 08/16/2014 10:30am 11:19am Albumin/Leslie 1.1 08/16/2014 08/16/2014 bulin Ratio 10:30am 11:19am Total 0.72 mg/dL 0.2-1.0 08/16/2014 08/16/2014 Bilirubin 10:30am 11:19am Aspartate 79 U/L H 15-37 08/16/2014 08/16/2014 Amino 10:30am 11:19am Transf (AST/SGOT) Alanine 68 U/L 12-78 08/16/2014 08/16/2014 NOTE REFERENCE RANGE CHANGE Aminotransf 10:30am 11:19am erase 02/09/12 REFERENCE RANGE CHANGE DUE TO NEW REAGENT (ALT/SGPT) PREVIOUS RANGE: 30-65 U/L NEW RANGE: 12-78 U/L Alkaline 104.0 U/L 46-116 08/16/2014 08/16/2014 NOTE REFERENCE RANGE CHANGE Phosphatase 10:30am 11:19am 01/12/14 REFERENCE RANGE CHANGE DUE TO NEW REAGENT PREVIOUS RANGE: 50-136 U/L NEW RANGE: 46-116 U/L Globulin 3.9 gm/dL 2.0-4.5 08/16/2014 08/16/2014 10:30am 11:19am White Blood 7.59 K/mm3 4.5-10.5 09/18/2014 09/18/2014 Count 1:30pm 1:41pm Red Blood 3.80 M/mm3 L 4.60-6.00 09/18/2014 09/18/2014 Count 1:30pm 1:41pm Hemoglobin 13.4 gm/dl L 14.0-18.0 09/18/2014 09/18/2014 1:30pm 1:41pm Hematocrit 39.0 % L 40-54 09/18/2014 09/18/2014 1:30pm 1:41pm Mean 102.6 fl H 80-94 09/18/2014 09/18/2014 Corpuscular 1:30pm 1:41pm Volume Mean 35 pg H 26-32 09/18/2014 09/18/2014 Corpuscular 1:30pm 1:41pm Hemoglobin Mean 34 g/dl 32-36 09/18/2014 09/18/2014 Corpuscular 1:30pm 1:41pm Hemoglobin Concent Red Cell 48.2 fL H 35.1-43.9 09/18/2014 09/18/2014 Distributio 1:30pm 1:41pm n-SD RDW 13.2 % 11.5-14.5 09/18/2014 09/18/2014 Coefficient 1:30pm 1:41pm of Variation Platelet 366 K/mm3 150-450 09/18/2014 09/18/2014 Count 1:30pm 1:41pm Mean 9.1 fl L 9.4-12.4 09/18/2014 09/18/2014 Platelet 1:30pm 1:41pm Volume Neutrophils 55.7 % 50-70 09/18/2014 09/18/2014 (%) (Auto) 1:30pm 1:41pm Lymphocytes 32.5 % 18-42 09/18/2014 09/18/2014 (%) (Auto) 1:30pm 1:41pm Monocytes 10.4 % 2-11 09/18/2014 09/18/2014 (%) (Auto) 1:30pm 1:41pm Eosinophils 1.1 % 1-3 09/18/2014 09/18/2014 (%) (Auto) 1:30pm 1:41pm Basophils 0.3 % 0-2 09/18/2014 09/18/2014 (%) (Auto) 1:30pm 1:41pm Neutrophils 4.2 2-8 09/18/2014 09/18/2014 # (Auto) 1:30pm 1:41pm Lymphocytes 2.5 1-5 09/18/2014 09/18/2014 # (Auto) 1:30pm 1:41pm Monocytes # 0.8 0.1-1.0 09/18/2014 09/18/2014 (Auto) 1:30pm 1:41pm Eosinophils 0.1 0-0.4 09/18/2014 09/18/2014 # (Auto) 1:30pm 1:41pm Basophils # 0.0 K/mm3 0-0.2 09/18/2014 09/18/2014 (Auto) 1:30pm 1:41pm Platelet NORMAL NORMAL 09/18/2014 09/18/2014 Estimate 1:30pm 2:27pm Macrocytosi 1+ 09/18/2014 09/18/2014 s 1:30pm 2:27pm Random 94 mg/dL 70-110 09/18/2014 09/18/2014 Glucose 1:30pm 2:35pm Blood Urea 8 mg/dL 7-18 09/18/2014 09/18/2014 Nitrogen 1:30pm 2:35pm Creatinine 0.9 mg/dL 0.6-1.3 09/18/2014 09/18/2014 1:30pm 2:35pm BUN/Creatin 8.9 L 12-30 09/18/2014 09/18/2014 ine Ratio 1:30pm 2:35pm Sodium 130 mEq/L L 135-155 09/18/2014 09/18/2014 Level 1:30pm 2:35pm Potassium 3.9 mEq/L 3.5-5.1 09/18/2014 09/18/2014 Level 1:30pm 2:35pm Chloride 93 mEq/L L 98-107 09/18/2014 09/18/2014 Level 1:30pm 2:35pm Carbon 27 mEq/L 21-32 09/18/2014 09/18/2014 Dioxide 1:30pm 2:35pm Level Anion Gap 13.9 10-20 09/18/2014 09/18/2014 1:30pm 2:35pm Calcium 8.9 mg/dL 8.2-10.0 09/18/2014 09/18/2014 Level 1:30pm 2:35pm Glomerular 89 09/18/2014 09/18/2014 At increased risk Risk factors for CKD Filtration 1:30pm 2:35pm are present but w/o >90 Rate Calc markers of kidney damage 1 Kidney damage w/ normal or >90 increased GFR 2 Kidney damage w/ mild reduc- 60-89 tion of GFR 3 Moderate reduction of GFR 30-59 4 Severe reduction of GFR 15-29 5 Kidney Failure <15 Total 7.4 gm/dL 6.4-8.2 09/18/2014 09/18/2014 Protein 1:30pm 2:35pm Albumin 4.1 gm/dL 3.4-5.0 09/18/2014 09/18/2014 1:30pm 2:35pm Albumin/Leslie 1.2 09/18/2014 09/18/2014 bulin Ratio 1:30pm 2:35pm Total 0.32 mg/dL 0.2-1.0 09/18/2014 09/18/2014 Bilirubin 1:30pm 2:35pm Aspartate 25 U/L 15-37 09/18/2014 09/18/2014 Amino 1:30pm 2:35pm Transf (AST/SGOT) Alanine 31 U/L 12-78 09/18/2014 09/18/2014 NOTE REFERENCE RANGE CHANGE Aminotransf 1:30pm 2:35pm erase 02/09/12 REFERENCE RANGE CHANGE DUE TO NEW REAGENT (ALT/SGPT) PREVIOUS RANGE: 30-65 U/L NEW RANGE: 12-78 U/L Alkaline 64.0 U/L 46-116 09/18/2014 09/18/2014 NOTE REFERENCE RANGE CHANGE Phosphatase 1:30pm 2:35pm 01/12/14 REFERENCE RANGE CHANGE DUE TO NEW REAGENT PREVIOUS RANGE: 50-136 U/L NEW RANGE: 46-116 U/L Globulin 3.3 gm/dL 2.0-4.5 09/18/2014 09/18/2014 1:30pm 2:35pm White Blood 7.94 K/mm3 4.5-10.5 01/31/2015 01/31/2015 Count 5:15pm 5:38pm Red Blood 3.03 M/mm3 L 4.60-6.00 01/31/2015 01/31/2015 Count 5:15pm 5:38pm Hemoglobin 12.5 gm/dl L 14.0-18.0 01/31/2015 01/31/2015 5:15pm 5:38pm Hematocrit 34.8 % L 40-54 01/31/2015 01/31/2015 5:15pm 5:38pm Mean 114.9 fl H 80-94 01/31/2015 01/31/2015 Corpuscular 5:15pm 5:38pm Volume Mean 41 pg H 26-32 01/31/2015 01/31/2015 Corpuscular 5:15pm 5:38pm Hemoglobin Mean 36 g/dl 32-36 01/31/2015 01/31/2015 Corpuscular 5:15pm 5:38pm Hemoglobin Concent Red Cell 50.3 fL H 35.1-43.9 01/31/2015 01/31/2015 Distributio 5:15pm 5:38pm n-SD RDW 12.5 % 11.5-14.5 01/31/2015 01/31/2015 Coefficient 5:15pm 5:38pm of Variation Platelet 463 K/mm3 H 150-450 01/31/2015 01/31/2015 Count 5:15pm 5:38pm Mean 9.7 fl 9.4-12.4 01/31/2015 01/31/2015 Platelet 5:15pm 5:38pm Volume Neutrophils 56.0 % 50-70 01/31/2015 01/31/2015 (%) (Auto) 5:15pm 5:38pm Lymphocytes 31.6 % 18-42 01/31/2015 01/31/2015 (%) (Auto) 5:15pm 5:38pm Monocytes 10.7 % 2-11 01/31/2015 01/31/2015 (%) (Auto) 5:15pm 5:38pm Eosinophils 1.3 % 1-3 01/31/2015 01/31/2015 (%) (Auto) 5:15pm 5:38pm Basophils 0.4 % 0-2 01/31/2015 01/31/2015 (%) (Auto) 5:15pm 5:38pm Neutrophils 4.5 2-8 01/31/2015 01/31/2015 # (Auto) 5:15pm 5:38pm Lymphocytes 2.5 1-5 01/31/2015 01/31/2015 # (Auto) 5:15pm 5:38pm Monocytes # 0.9 0.1-1.0 01/31/2015 01/31/2015 (Auto) 5:15pm 5:38pm Eosinophils 0.1 0-0.4 01/31/2015 01/31/2015 # (Auto) 5:15pm 5:38pm Basophils # 0.0 K/mm3 0-0.2 01/31/2015 01/31/2015 (Auto) 5:15pm 5:38pm Platelet NORMAL NORMAL 01/31/2015 01/31/2015 Estimate 5:15pm 6:54pm Anisocytosi 1+ 01/31/2015 01/31/2015 s 5:15pm 6:54pm Macrocytosi 3+ 01/31/2015 01/31/2015 s 5:15pm 6:54pm Hemoglobin 5.9 % 4.5-6.2 01/31/2015 01/31/2015 A1c 5:15pm 5:52pm Random 90 mg/dL 70-110 01/31/2015 01/31/2015 Glucose 5:15pm 5:52pm Blood Urea 5 mg/dL L 7-01/31/2015 01/31/2015 Nitrogen 5:15pm 5:52pm Creatinine 0.7 mg/dL 0.6-1.3 01/31/2015 01/31/2015 5:15pm 5:52pm BUN/Creatin 7.1 L 12-01/31/2015 01/31/2015 ine Ratio 5:15pm 5:52pm Sodium 137 mEq/L 135-155 01/31/2015 01/31/2015 Level 5:15pm 5:52pm Potassium 3.7 mEq/L 3.5-5.1 01/31/2015 01/31/2015 Level 5:15pm 5:52pm Chloride 100 mEq/L 98-107 01/31/2015 01/31/2015 Level 5:15pm 5:52pm Carbon 27 mEq/L 21-32 01/31/2015 01/31/2015 Dioxide 5:15pm 5:52pm Level Anion Gap 13.7 10-20 01/31/2015 01/31/2015 5:15pm 5:52pm Calcium 8.3 mg/dL 8.2-10.0 01/31/2015 01/31/2015 Level 5:15pm 5:52pm Glomerular 119 01/31/2015 01/31/2015 At increased risk Risk factors for CKD Filtration 5:15pm 5:52pm are present but w/o >90 Rate Calc markers of kidney damage 1 Kidney damage w/ normal or >90 increased GFR 2 Kidney damage w/ mild reduc- 60-89 tion of GFR 3 Moderate reduction of GFR 30-59 4 Severe reduction of GFR 15-29 5 Kidney Failure <15 Total 7.5 gm/dL 6.4-8.2 01/31/2015 01/31/2015 Protein 5:15pm 5:52pm Albumin 3.9 gm/dL 3.4-5.0 01/31/2015 01/31/2015 5:15pm 5:52pm Albumin/Leslie 1.1 01/31/2015 01/31/2015 bulin Ratio 5:15pm 5:52pm Total 0.40 mg/dL 0.2-1.0 01/31/2015 01/31/2015 Bilirubin 5:15pm 5:52pm Aspartate 64 U/L H 15-37 01/31/2015 01/31/2015 Amino 5:15pm 5:52pm Transf (AST/SGOT) Alanine 89 U/L H 12-78 01/31/2015 01/31/2015 Aminotransf 5:15pm 5:52pm erase (ALT/SGPT) Alkaline 91.0 U/L 46-116 01/31/2015 01/31/2015 Phosphatase 5:15pm 5:52pm Thyroid 3.43 uIU/ml 0.35-5.50 01/31/2015 01/31/2015 Stimulating 5:15pm 6:03pm Hormone (TSH) Globulin 3.6 gm/dL 2.0-4.5 01/31/2015 01/31/2015 5:15pm 5:52pm Hemoglobin 6.5 % H 4.5-6.2 05/03/2015 05/03/2015 A1c 8:53am 9:28am Cholesterol 181 mg/dL 136-200 05/03/2015 05/03/2015 Level 8:53am 9:41am Triglycerid 44 mg/dL L 48-250 05/03/2015 05/03/2015 es Level 8:53am 9:41am LDL 95 mg/dL 1-130 05/03/2015 05/03/2015 INTERPRETATION: Cholesterol 8:53am 9:41am LDL-Cholesterol Therapeutic Goal: <100 mg/dL if CHD is present <130 mg/dL if no CHD and 2 or more risk factors <160 mg/dL if no CHD HDL 77 mg/dL H 35-60 05/03/2015 05/03/2015 Coronary Heart Disease (CHD ) Risk Factors: Cholesterol 8:53am 9:41am 1+ Men >44 years 1+ Women >54 years 1+ Hypertension 1+ Current smoker 1+ Family history of premature CHD 1+ Diabetes mellitus 1+ HDL Cholesterol <40 mg/dL 1- HDL Cholesterol >59 mg/dL Urine 29.0 07/11/2015 07/11/2015 Microalbumin/Creatinine Reference Interval Microalbumi 3:36pm 4:12pm Excretion rate: less than 30 mg albumin/g creatinine n/Creatinin e Ratio Urine 1.7 mg/L 07/11/2015 07/11/2015 Microalbumi 3:36pm 4:12pm n Urine 5.8 mg/dL L 30-125 07/11/2015 07/11/2015 Random 3:36pm 4:12pm Creatinine White Blood 6.09 K/mm3 4.5-10.5 05/15/2016 05/15/2016 Count 2:30pm 2:42pm Red Blood 2.99 M/mm3 L 4.60-6.00 05/15/2016 05/15/2016 Count 2:30pm 2:42pm Hemoglobin 12.4 gm/dl L 14.0-18.0 05/15/2016 05/15/2016 2:30pm 2:42pm Hematocrit 35.8 % L 40-54 05/15/2016 05/15/2016 2:30pm 2:42pm Mean 119.7 fl H 80-94 05/15/2016 05/15/2016 Corpuscular 2:30pm 2:42pm Volume Mean 42 pg H 26-32 05/15/2016 05/15/2016 Corpuscular 2:30pm 2:42pm Hemoglobin Mean 35 g/dl 32-36 05/15/2016 05/15/2016 Corpuscular 2:30pm 2:42pm Hemoglobin Concent Red Cell 51.2 fL H 35.1-43.9 05/15/2016 05/15/2016 Distributio 2:30pm 2:42pm n-SD RDW 12.0 % 11.5-14.5 05/15/2016 05/15/2016 Coefficient 2:30pm 2:42pm of Variation Platelet 443 K/mm3 150-450 05/15/2016 05/15/2016 Count 2:30pm 2:42pm Mean 10.1 fl 9.4-12.4 05/15/2016 05/15/2016 Platelet 2:30pm 2:42pm Volume Neutrophils 59.5 % 50-70 05/15/2016 05/15/2016 (%) (Auto) 2:30pm 2:42pm Lymphocytes 26.6 % 18-42 05/15/2016 05/15/2016 (%) (Auto) 2:30pm 2:42pm Monocytes 12.2 % H 2-11 05/15/2016 05/15/2016 (%) (Auto) 2:30pm 2:42pm Eosinophils 1.0 % 1-3 05/15/2016 05/15/2016 (%) (Auto) 2:30pm 2:42pm Basophils 0.7 % 0-2 05/15/2016 05/15/2016 (%) (Auto) 2:30pm 2:42pm Neutrophils 3.6 2-8 05/15/2016 05/15/2016 # (Auto) 2:30pm 2:42pm Lymphocytes 1.6 1-5 05/15/2016 05/15/2016 # (Auto) 2:30pm 2:42pm Monocytes # 0.7 0.1-1.0 05/15/2016 05/15/2016 (Auto) 2:30pm 2:42pm Eosinophils 0.1 0-0.4 05/15/2016 05/15/2016 # (Auto) 2:30pm 2:42pm Basophils # 0.0 K/mm3 0-0.2 05/15/2016 05/15/2016 (Auto) 2:30pm 2:42pm Platelet INCREASED H NORMAL 05/15/2016 05/15/2016 Estimate 2:30pm 2:57pm Anisocytosi 1+ 05/15/2016 05/15/2016 s 2:30pm 2:57pm Macrocytosi 3+ 05/15/2016 05/15/2016 s 2:30pm 2:57pm Hemoglobin 5.7 % 4.5-6.2 05/15/2016 05/15/2016 A1c 12:58pm 2:54pm Random 126 mg/dL H 70-110 05/15/2016 05/15/2016 Glucose 12:58pm 3:04pm Blood Urea 11 mg/dL 7-18 05/15/2016 05/15/2016 Nitrogen 12:58pm 3:04pm Creatinine 0.77 mg/dL 0.550-1.3 05/15/2016 05/15/2016 NOTE REFERENCE RANGE CHANGE 12:58pm 3:04pm 02/06/15 REFERENCE RANGE CHANGE DUE TO NEW REAGENT PREVIOUS RANGE: 0.6-1.3 mg/dL NEW RANGE: 0.550-1.3 mg/dL BUN/Creatin 14.28 12-30 05/15/2016 05/15/2016 ine Ratio 12:58pm 3:04pm Sodium 139 mEq/L 135-155 05/15/2016 05/15/2016 Level 12:58pm 3:04pm Potassium 4.2 mEq/L 3.5-5.1 05/15/2016 05/15/2016 Level 12:58pm 3:04pm Chloride 100 mEq/L 98-107 05/15/2016 05/15/2016 Level 12:58pm 3:04pm Carbon 26 mEq/L 21-32 05/15/2016 05/15/2016 Dioxide 12:58pm 3:04pm Level Anion Gap 17.2 10-05/15/2016 05/15/2016 12:58pm 3:04pm Calcium 8.7 mg/dL 8.2-10.0 05/15/2016 05/15/2016 Level 12:58pm 3:04pm Glomerular 106 05/15/2016 05/15/2016 At increased risk Risk factors for CKD Filtration 12:58pm 3:04pm are present but w/o >90 Rate Calc markers of kidney damage 1 Kidney damage w/ normal or >90 increased GFR 2 Kidney damage w/ mild reduc- 60-89 tion of GFR 3 Moderate reduction of GFR 30-59 4 Severe reduction of GFR 15-29 5 Kidney Failure <15 Cholesterol 136 mg/dL 136-200 05/15/2016 05/15/2016 Level 12:58pm 3:04pm Triglycerid 77 mg/dL 48-250 05/15/2016 05/15/2016 es Level 12:58pm 3:04pm Total 7.3 gm/dL 6.4-8.2 05/15/2016 05/15/2016 Protein 12:58pm 3:04pm Albumin 3.7 gm/dL 3.4-5.0 05/15/2016 05/15/2016 12:58pm 3:04pm Albumin/Leslie 1.0 05/15/2016 05/15/2016 bulin Ratio 12:58pm 3:04pm Total 0.32 mg/dL 0.2-1.0 05/15/2016 05/15/2016 Bilirubin 12:58pm 3:04pm Aspartate 58 U/L H 15-37 05/15/2016 05/15/2016 Amino 12:58pm 3:04pm Transf (AST/SGOT) Alanine 48 U/L 12-78 05/15/2016 05/15/2016 Aminotransf 12:58pm 3:04pm erase (ALT/SGPT) Alkaline 114.0 U/L 46-116 05/15/2016 05/15/2016 Phosphatase 12:58pm 3:04pm LDL 78 mg/dL 1-130 05/15/2016 05/15/2016 INTERPRETATION: Cholesterol 12:58pm 3:04pm LDL-Cholesterol Therapeutic Goal: <100 mg/dL if CHD is present <130 mg/dL if no CHD and 2 or more risk factors <160 mg/dL if no CHD HDL 43 mg/dL 35-60 05/15/2016 05/15/2016 Coronary Heart Disease (CHD) Risk Factors: Cholesterol 12:58pm 3:04pm _ 1+ Men >44 years 1+ Women >54 years 1+ Hypertension 1+ Current smoker 1+ Family history of premature CHD 1+ Diabetes mellitus 1+ HDL Cholesterol <40 mg/dL 1- HDL Cholesterol >59 mg/dL Free 1.08 ng/dL 0.89-1.76 05/15/2016 05/15/2016 Thyroxine 12:58pm 3:09pm Thyroid 3.38 uIU/ml 0.35-5.50 05/15/2016 05/15/2016 Stimulating 12:58pm 3:10pm Hormone (TSH) Globulin 3.6 gm/dL 2.0-4.5 05/15/2016 05/15/2016 12:58pm 3:04pm Arterial 7.41 7.35-7.45 05/26/2016 05/26/2016 Blood pH 10:40am 10:48am Arterial 37 mm/Hg 35-45 05/26/2016 05/26/2016 Blood 10:40am 10:48am Partial Pressure CO2 Arterial 69 mmHg L 80-105 05/26/2016 05/26/2016 Blood 10:40am 10:48am Partial Pressure O2 Arterial 23 MMOL/L 22-26 05/26/2016 05/26/2016 Blood HCO3 10:40am 10:48am Arterial -1 MMOL/L -2-3 05/26/2016 05/26/2016 Blood Base 10:40am 10:48am Excess Arterial 94 % L 95-98 05/26/2016 05/26/2016 Blood 10:40am 10:48am Oxygen Saturation Arterial 25 MMOL/L 25-30 05/26/2016 05/26/2016 Blood Total 10:40am 10:48am CO2 Procedures Procedure Status Date Provider(s) COLONOSCOPY W/LESION REMOVAL Completed 11/12/11 Tien Mcdonald MD [facility] F/E/E/N/L/M 2.5 CM/< Completed 11/05/15 Selina Villatoro Encounters Encounter Location Arrival/Admit Date Discharge/Depart Date Attending Provider Departed [facility] 05/26/16 9:26[facility] 05/26/16 9:24am [facility] 05/20/16 1:30pm Srinivasan [facility] Registered [facility] 05/20/16 1:30pm [facility] Departed Clinic [facility] 05/15/16 12:58pm 05/15/16 11:59pm Srinivasan [facility] CTR Registered [facility] 05/15/16 12:58pm Srinivasan [facility] CTR Registered [place] 04/02/16 1:04pm Srinivasan [facility] CTR Registered [facility] 02/20/16 1:00pm Srinivasan [facility] CTR Office Visit [facility] 02/18/16 11:15am Srinivasan, [facility] Registered [facility] 01/10/16 1:03pm Srinivasan [facility] CTR Registered [place] 11/14/15 12:59pm Srinivasan [facility] CTR Office Visit [facility] 11/14/15 11:30am [facility] PA Office Visit [facility] 11/09/15 9:30am [facility] Selina GARCIA Departed [facility] 11/05/15 6:25pm 11/05/15 9:09pm Shauna [facility] Room [facility] Selina GARCIA CTR Departed [facility] 11/05/15 10:45am 11/05/15 1:20pm Shauna [facility] Selina GARCIA CTR Registered [facility] 10/03/15 1:00pm [facility] 08/22/15 1:01pm Srinivasan, [facility] Office [facility] 07[facility]23/15 [facility] Registered [place] 05/30/15 1:01pm Zeferinooscar, [facility] Office Visit [facility] 05/29/15 4:30pm Zeferinooscar, [facility] Registered [facility] 05/03/15 7:57am Zeferinooscar, [facility] CTR Registered [place] 05/02/15 8:48am Srinivasan, [facility] CTR Registered [place] 03/21/15 12:55pm Zeferinooscar, [facility] Office Visit [facility] 02/16/15 10:30am Srinivasan, [facility] Registered [facility] 01/31/15 12:[facility] Registered [place] 12/20/14 1:00pm Srinivasan, [facility] CTR Registered [place] 11/06/14 1:08pm Srinivasan, [facility] CTR Registered [place] 09/18/14 12:50pm Zeferinooscar, [facility] CTR Departed Clinic [facility] 09/05/14 8:51am 09/05/14 11:59pm Srinivasan, [facility] CTR Office Visit [facility] 09/04/14 2:00pm Zeferinooscar, [facility] Office Visit [facility] 08/17/14 1:30pm Srinivasan, [facility] Registered [facility] 08/16/14 10:04am Srinivasan, [facility] Office Visit [facility] 07/25/14 10:00am Srinivasan, [facility] Registered [facility] 04/26/14 12:42pm Srinivasan, [facility] CTR Office Visit [facility] 03/15/14 1:00pm Srinivasan [facility] Registered [place] 03/09/14 1:01pm [facility] 01/03/14 11:30am [facility] [place] 12/22/13 8:57am [facility] [place] 11/22/13 10:54am [facility] Reg[facility] [place] 10/25/13 8:58am Srinivasan, [facility] CTR Office [facility] 09/28/13 1:15pm Srinivasan [facility] Office Visit [facility] 07/11/13 11:00am Srinivasan, [facility] Registered [place] 07/04/13 7:58am [facility] 04/27/13 9:30am [facility] Office Visit [facility] 02/02/13 10:00am [facility] A PA Discharged [place] 10/22/12 2:12pm 10/24/12 4:50pm Juve Mattson [facility] CTR Departed [place] 10/22/12 9:11am 10/22/12 2:12pm Juve Mattson [facility] CTR Registered [place] 06/25/12 1:23pm [facility] 06/10/12 3:15pm Srinivasan [facility] Discharged [place] 05/12/12 1:20pm 06/09/12 11:59pm Juve Mattson [facility] CTR Office Visit [facility] 05/10/12 10:45am Srinivasan [facility] Registered [place] 05/05/12 9:45am [facility] Registered [place] 03/31/12 12:50pm [facility] Reg[facility] [place] 02/18/12 1:24pm [facility] 02/18/12 1:00pm Joy, [facility] A PA Registered [place] 02/09/12 10:06am [facility] Perla PA CTR Office Visit [facility] 02/09/12 9:30am [facility] A PA Departed [place] 02/01/12 7:30am 02/01/12 9:50am Dorian Carmona [facility] Hiram FERNANDO CTR Registered [place] 01/07/12 1:24pm [facility] Registered [place] 11/19/11 1:32pm Srinivasan [facility] CTR Registered [place] 11/12/11 9:58am Tien Mcdonald [facility] Care CTR Registered [place] 10/01/11 1:10pm [facility] 09/24/11 2:15pm Srinivasan [facility] Departed [place] 09/17/11 10:41am 09/17/11 2:05pm [facility] CTR Registered [place] 08/26/11 12:54pm Srinivasan [facility] CTR Discharged [place] 08/15/11 2:34pm 08/18/11 5:40pm [facility] 08/15/11 11:45am [facility] 08/12/11 11:45am Srinivasan [facility] Registered [place] 07/14/11 1:12pm Srinivasan [facility] CTR Discharged [place] 07/11/11 1:56pm 08/09/11 11:59pm [facility] [place] 05/21/11 1:29pm 05/21/11 11:59pm [place], [facility] CTR Registered [place] 05/19/11 1:00pm [facility] 04/08/11 9:45am Srinivasan [facility] Registered [place] 04/07/11 12:54pm [facility] 03/25/11 11:15am Srinivasan, [facility] Registered [place] 03/11/11 12:55pm Srinivasan, [facility] CTR Registered [place] 02/11/11 1:16pm Srinivasan, [facility] CTR Registered [place] 01/27/11 1:13pm Srinivasan [facility] CTR Discharged [place] 12/16/10 12:49pm 01/07/11 11:59pm Srinivasan [facility] CTR Office [facility] 11/28/10 1:45pm Srinivasan [facility] Office Visit [facility] 10/23/10 1:00pm Srinivasan [facility] Office Visit [facility] 08/26/10 1:30pm Srinivasan [facility] Office Visit [facility] 08/22/10 1:45pm Srinivasan [facility] Office Visit [facility] 06[facility]07/10 1:45pm [facility] Nathan Quintana DO Office Visit [facility] 02/06/10 4:45pm [facility] Office Visit [facility] 04/03/09 9:45am Sirnivasan [facility] Office Visit [facility] 08/29/08 9:00am [facility] A PA Office Visit [facility] 06/05/08 2:15pm [facility] A PA Office Visit [facility] 09[facility]14/07 10:00am Srinivasan [facility] Discharged [place] 06/11/07 12:52pm 07/09/07 11:59pm [place] 06/02/07 9:00am Srinivasan [facility] MD Office Visit [facility] 05/20/07 10:45am Srinivasan [facility] Departed Clinic [place] 05/19/07 8:38am 05/19/07 11:59pm Srinivasan [facility] CTR Office Visit [facility] 05/14/07 12:15pm Srinivasan [facility] Departed Clinic [place] 04/13/07 9:19am 04/13/07 11:59pm [facility] Perla PA CTR Departed Clinic [place] 12/02/06 9:19am 12/02/06 11:59pm Srinivasan [facility] CTR Departed Clinic [place] 03/11/06 9:53am 03/11/06 11:59pm Srinivasan [facility] CTR Departed Clinic [place] 12/22/05 5:01pm 12/22/05 11:59pm [facility] [place] 09/29/05 10:33am 09/29/05 11:59[facility] [place] 07/05/05 10:11am 07/08/05 10:[facility]am [facility] [place] 07/05/05 8:29am 07/05/05 10:11am [place], Emergency Room [facility] Nathan Quintana DO CTR Departed Clinic [place] 03/26/05 8:23am 03/26/05 11:59pm [facility] CTR Departed [facility] [place] 02/21/05 2:11pm 02/21/05 11:59pm [facility] R[facility]C Departed Clinic [place] 11/11/04 3:25pm 11/11/04 11:59pm [facility] [place] 11/07/04 3:47pm 11/07/04 11:59pm [facility] [place] 12:00am 04/19/10 11:59pm [facility] CTR Departed [place] 12:00am 08/09/10 2:10pm Emergency Room [facility] CTR Discharged [place] 12:00am 08/19/10 2:52pm Inpatient [facility] CTR Departed [facility] 12:00am 08/26/10 11:59pm [facility] CTR Registered [place] 12:00am [facility] CTR Departed [facility] [place] 12:00am 08/31/07 11:59pm [facility] CTR Departed [facility] [place] 12:00am 10/26/07 11:59pm [facility] CTR Departed [facility] [place] 12:00am 12/29/07 11:59pm [facility] CTR Departed [facility] 12:00am 04/03/09 11:59pm [facility] CTR
--- OUTSIDE RECORDS SUMMARY | 2017-06-17 10:45 | External Medical Summary | Continuity of Care Document ---
:1945 Author Organization [facility] Care Team Providers Name Role Phone Juve Mattson MD Unavailable Insurance Providers Payer Name Policy Number Subscriber Name Relationship [facility] [id number] Ag mSith. 18 Self / Same As Patient Chief Complaint and Reason for Visit Chief Complaint ABD PAIN Reason for Visit Screening PSA Status post fall Problems Active Problems Medical Problem Onset Date Status Acute generalized abdominal pain Unknown Acute Chronic pain syndrome Unknown Acute Facial contusion Unknown Acute Nausea & vomiting Unknown Acute Psoriatic arthritis Unknown Acute Past [...] Units Route Directions Days/Qty Instructions Start Date Diphenhydramine Hcl 50 Mg Oral 1-2 Hs 02/16/15 50 Mg Sulfasalazine 500 Mg 500 Mg Oral Three Times A 270 05/20/16 Day Amlodipine Besylate 10 Mg Oral Daily @0900 90 05/22/16 10 Mg Omeprazole 20 Mg 20 Mg Oral Daily @0900 30 05/22/16 Baclofen 10 Mg 10 Mg Oral Twice A Day 60 05/23/16 Metformin Hcl 500 Mg 0.5 Tab Oral Daily @0900 45 DOSE CHANGE 05/23/16 Losartan Potassium 25 25 Mg Oral Daily @0900 90 06/17/16 Mg Atorvastatin Calcium 20 Mg Oral Daily @ Hs 90 06/17/16 20 Mg Fluoxetine Hcl 40 Mg 40 Mg Oral Daily @0900 30 07/22/16 Lorazepam 1 Mg 1 Mg Oral Three Times A 90 RX #[id number] 08/14/16 Day as needed for Anxiety Hydrocodone/Acetamino 1 Tab Oral Every 6 Hours 120 RX #[id number] 08/14/16 phen 7.5MG/325MG 1 as needed for Each Pain Past Home Medications Medication Directions Ordered Status [Buspirone Hcl] , 15 Mg Oral Twice A Day 11/06/08 Discontinued Amlodipine Besylate 10 Mg Tab, 10 Daily @89902/12/09 Discontinued Mg Oral Amlodipine Besylate 10 Mg Tab, 10 Daily @89903/22/09 Discontinued Mg Oral [Fluoxetine Hcl 40MG] , [...] 1 Cap.ec 4 Times Daily 10/04/09 Discontinued Capsule., 1 Cap.ec Oral [Hydroco-Apap 7.5/500] , Oral [...] Oral [Simvastin] , 20 Mg Daily @ 09/18/11 Discontinued Amlodipine Besylate 10 Mg Tab, [...] Each Three Times A Day 12/19/11 Discontinued Capsule.dr, 1 Each Oral Folic Acid 1 Mg [...] Oral Three Times A Day 02/21/13 Discontinued [Clifton 7.5/325] , 1 Tab Oral Every 4-6 Hours As Needed 02/22/13 Discontinued [Lorazepam] , 1 Mg Oral Three Times A Day 03/21/13 Discontinued [Clifton 7.5/325] , 1 Tab Oral Every 4-6 Hours As Needed 03/28/13 Discontinued [Lorazepam] , 1 Mg Oral Tid Prn 04/18/13 Discontinued [Clifton 7.5/325] , 1 Tab Oral 4 Times [...] , 20 Mg Oral Daily @89909/28/13 Discontinued [Clifton 7.5/325] , 1 Tab Oral 4 Times [...] 1 Mg Tab, 1 Mg Oral Daily @89901/03/14 Discontinued [Lorazepam] , 1 Mg Oral Tid Prn 01/03/14 Discontinued [Clifton 7.5/325] , 1 Tab Oral 4 Times [...] Oral Losartan Potassium 25 Mg Tablet, Daily @89908/23/14 Discontinued 25 Mg Oral Aspirin 81 Mg Tablet.dr 81 Mg Daily @89909/04/14 Discontinued Oral Hydrocodone/Acetaminophen Four Times A Day as [...] Fluoxetine Hcl 40 Mg Capsule, 40 Daily @0910/25/14 Discontinued Mg Oral Sulfasalazine 500 Mg Tablet, 500 Three Times A Day 11/22/14 Discontinued Mg Oral Metformin Hcl 500 Mg Tablet, 500 Daily @0911/23/14 Discontinued Mg Oral Amlodipine Besylate 10 Mg [...] Discontinued Losartan Potassium 25 Mg Tablet, Daily @0900 02/22/15 Discontinued 25 Mg Oral Atorvastatin Calcium 20 [...] 1 Each Pain Oral Omeprazole 20 Mg Capsule.dr, 20 Daily @89907/23/15 Discontinued Mg Oral Fluoxetine Hcl 40 Mg Capsule, 40 Daily @89907/23/15 Discontinued Mg Oral Hydrocodone/Acetaminophen Four Times A Day as needed for 07/23/15 Discontinued 7.5MG/325MG 1 Each Tablet, 1 Each Pain Oral Baclofen 10 Mg Tab, 10 Mg Oral Twice A Day 07/23/15 Discontinued Flu Vacc Ts 2015- (65YR+)/Pf Once 07/23/15 Discontinued 180 Mcg/0.5 Ml Syringe, 180 Mcg Intramusc Lorazepam 1 Mg Tablet, 1 Mg Oral Three Times A Day 08/09/15 Discontinued Amlodipine Besylate 10 Mg Tablet, Daily @89908/21/15 Discontinued 10 Mg Oral Losartan Potassium 25 Mg Tablet, Daily @89908/21/15 Discontinued 25 Mg Oral Hydrocodone/Acetaminophen Four Times A Day as needed for 08/21/15 Discontinued 7.5MG/325MG 1 Each Tablet, 1 Each Pain Oral Atorvastatin Calcium 20 Mg Daily @ Hs 09/04/15 Discontinued Tablet, 20 Mg Oral Hydrocodone/Acetaminophen Four [...] A Day 03/25/16 Discontinued Omeprazole 20 Mg Capsule.dr 20 Daily @89903/31/16 Discontinued Mg Oral Lorazepam 1 Mg Tablet, 1 Mg Oral Three Times A Day 04/25/16 Discontinued Hydrocodone/Acetaminophen Every 6 Hours as needed for 05/01/16 Discontinued 7.5MG/325MG 1 Each Tablet, 1 Tab Pain Oral Metformin Hcl 500 Mg Tablet, 250 Daily @0900 05/20/16 Discontinued Mg Oral Lorazepam 1 Mg Tablet, 1 Mg Oral Three Times A Day 05/23/16 Discontinued Hydrocodone/Acetaminophen Every 6 Hours as needed for 07/14/16 Discontinued 7.5MG/325MG 1 Each Tablet, 1 Tab Pain Oral Flu Vacc [id number](65UP)/Mf59c/Pf 45 Once 08/14/16 Discontinued Mcg/0.5 Ml Syringe, 45 Mcg Intramusc Social History No social history. Hospital Discharge Instructions Current inpatient/outpatient. Discharge instructions are currently unavailable. Plan of Care Prescriptions Functional Status No functional status results. Allergies, Adverse Reactions, Alerts Allergen Type Severity Reaction Status Last Updated Penicillin Allergy Unknown Active 08/15/11 Amoxicillin Allergy Unknown UNKNOWN Active 08/08/08 Aripiprazole Adverse Reaction Unknown Active 09/04/14 Immunizations Name Given Type INFLUENZA (FLU) 08/14/16 Administered Vital Signs Acute Vital Signs Vital Response Date/Time Height 5 ft 9 in Weight 195 lb Body Mass Index 28.9 kg/m^2 Ambulatory Vital Signs Vital Response Date/Time Height 5 ft 6 in 08/14/2016 1:30pm Weight 204 lbs 8 oz 08/14/2016 1:30pm Temperature, Temporal 97.5 degrees F 08/14/2016 1:30pm Blood Pressure, Sitting 150/86 mm Hg 08/14/2016 1:30pm Pulse Rate 71 bpm 08/14/2016 1:30pm Respiration Rate 20 bpm 08/14/2016 1:30pm Body Surface Area 2.11 m2 08/14/2016 1:30pm Body Mass Index 33.0 kg/m2 08/14/2016 1:30pm Pulse Oximetry Pulse Oximetry 08/14/2016 1:30pm Results Laboratory Results Test Name Result Units [...] 11/07/2004 Level 4:20pm 5:43pm Carbon 21 mEq/L 21-11/07/2004 11/07/2004 Dioxide 4:20pm 5:43pm Level Anion Gap 16.0 10-20 11/07/2004 11/07/2004 4:20pm 5:43pm Calcium 9.1 mg/dL 8.2-10.0 [...] CALLED TO AG Count 8:05am 8:37am @0835 07-08-05. Red Blood 3.3 M/mm3 L 4.60-6.00 07/08/2005 [...] 1.020 1.005-1.035 07/07/2005 07/07/2005 Specific 5:00pm 6:58pm Martin Urine 1+ SMALL NEGATIVE 07/07/2005 07/07/2005 Occult [...] 1.015 1.005-1.035 04/03/2009 04/03/2009 Specific 10:23am 12:05pm Martin Urine NEGATIVE NEGATIVE 04/03/2009 04/03/2009 Occult 10:23am [...] Dioxide 10:23am 11:51am Level Anion Gap 19.8 10-20 04/03/2009 04/03/2009 10:23am 11:51am Calcium 9.3 mg/dL 8.2-10.0 [...] 1.020 1.005-1.035 04/19/2010 04/19/2010 Specific 11:15am 12:33pm Martin Urine NEGATIVE NEGATIVE 04/19/2010 04/19/2010 Occult 11:15am [...] 04/19/2010 04/19/2010 7:40am 9:16am BUN/Creatin 8.8 L 12-04/19/2010 04/19/2010 ine Ratio 7:40am 9:16am Sodium 139 mEq/L 135-155 04/19/2010 04/19/2010 Level 7:40am 9:16am Potassium 4.5 mEq/L 3.5-5.1 04/19/2010 04/19/2010 Level 7:40am 9:16am Chloride 100 mEq/L 98-107 04/19/2010 04/19/2010 Level 7:40am 9:16am Carbon 27 mEq/L 21-32 04/19/2010 04/19/2010 Dioxide 7:40am 9:16am Level Anion Gap 16.5 10-04/19/2010 04/19/2010 7:40am 9:16am Calcium 9.4 mg/dL 8.2-10.0 [...] mEq/L CL 21-32 08/09/2010 08/09/2010 PHONED TO ANISE Dioxide 12:26pm 1:05pm AT 1300 Level Anion Gap [...] 25-115 08/09/2010 08/09/2010 Level 12:26pm 1:05pm Lipase 03764 U/L H 73-393 08/09/2010 08/09/2010 12:26pm 1:05pm [...] 08/19/2010 08/19/2010 6:20am 7:39am BUN/Creatin 2.9 L 12-08/19/2010 08/19/2010 ine Ratio 6:20am 7:39am Sodium 146 [...] <=1.005 1.005-1.035 05/21/2011 05/21/2011 Specific 1:21pm 2:12pm Martin Urine TRACE NEGATIVE 05/21/2011 05/21/2011 Occult 1:21pm [...] 1.010 1.005-1.035 08/15/2011 08/15/2011 Specific 8:50pm 9:13pm Martin Urine NEGATIVE NEGATIVE 08/15/2011 08/15/2011 Occult 8:50pm [...] 08/18/2011 08/18/2011 6:20am 7:13am BUN/Creatin 3.8 L 12-08/18/2011 08/18/2011 ine Ratio 6:20am 7:13am Sodium 138 [...] AMI=greater than 1.35 ng/ml Myoglobin 27.0 NG/ML 21-98 02/01/2012 02/01/2012 --- 02/01/12 1013 --- 7:42am 10:14am MYOGLOBIN previously reported as: 388.0 H NG/ML Random 178 mg/dL H 70-110 02/01/2012 02/01/2012 Glucose 7:42am 8:34am Blood Urea 5 mg/dL L 702/01/2012 02/01/2012 Nitrogen 7:42am 8:34am Creatinine 1.3 mg/dL 0.6-1.3 02/01/2012 02/01/2012 7:42am 8:34am BUN/Creatin 3.8 L 08-0802/01/2012 02/01/2012 ine Ratio 7:42am 8:34am Sodium 135 mEq/L 135-155 02/01/2012 02/01/2012 Level 7:42am 8:34am Potassium 2.3 mEq/L CL 3.5-5.1 02/01/2012 02/01/2012 NOTIFIED [facility] @ [facility] @Repeated by: Angela Gupta Level 7:42am 10:14am 02/01/12 0831 --- 02/01/12 1014 --- K previously reported as: 2.3 CL mEq/L NOTIFIED [facility] @ [facility] @Repeated by: Angela Gupta 02/01/12 0831 Chloride 89 mEq/L L 98-107 02/01/2012 02/01/2012 --- 02/01/12 1014 --- Level 7:42am 10:14am CL previously reported as: 90 L mEq/L Carbon 29 mEq/L 02/01/2012 02/01/2012 Dioxide 7:42am 8:34am Level Anion Gap 19.3 10-20 02/01/2012 02/01/2012 --- 02/01/12 1014 --- 7:42am 10:14am [...] GFR 15-29 5 Kidney Failure <15 Total 8.3 gm/dL [...] 8:00am 8:40am Blood Urea 3 mg/dL L 7-18 10/24/2012 10/24/2012 Nitrogen 8:00am 8:40am Creatinine 0.8 mg/dL # 0.6-1.3 10/24/2012 10/24/2012 8:00am 8:40am BUN/Creatin 3.8 L 12-30 10/24/2012 10/24/2012 ine Ratio 8:00am 8:40am Sodium 136 [...] GFR 30-59 4 Severe reduction of GFR 5 Kidney Failure <15 Total 6.4 gm/dL [...] 11/22/2013 11/22/2013 11:00am 11:42am BUN/Creatin 7.8 L 12-30 11/22/2013 11/22/2013 ine Ratio 11:00am 11:42am Sodium 135 [...] 12/22/2013 12/22/2013 NOTE REFERENCE RANGE CHANGE Aminotransf 9:15 10:17am erase 02/09/12 REFERENCE RANGE CHANGE DUE [...] 0.6-1.3 03/09/2014 03/09/2014 UNK 2:06pm BUN/Creatin 13.3 12-30 03/09/2014 03/09/2014 ine Ratio UNK 2:06pm Sodium 134 [...] Glucose 10:30am 11:19am Blood Urea 12 mg/dL 7-18 08/16/2014 08/16/2014 Nitrogen 10:30am 11:19am Creatinine 1.0 mg/dL 0.6-1.3 08/16/2014 08/16/2014 10:30am 11:19am BUN/Creatin 12.0 12-08/16/2014 08/16/2014 ine Ratio 10:30am 11:19am Sodium 136 [...] GFR 15- 5 Kidney Failure <15 Total 8.0 gm/dL [...] 5:15pm 5:52pm Blood Urea 5 mg/dL L 7-18 01/31/2015 01/31/2015 Nitrogen 5:15pm 5:52pm Creatinine 0.7 mg/dL 0.6-1.3 01/31/2015 01/31/2015 5:15pm 5:52pm BUN/Creatin 7.1 L 12-30 01/31/2015 01/31/2015 ine Ratio 5:15pm 5:52pm Sodium 137 mEq/L 135-155 01/31/2015 01/31/2015 Level 5:15pm 5:52pm Potassium 3.7 mEq/L 3.5-5.1 01/31/2015 01/31/2015 Level 5:15pm 5:52pm Chloride 100 mEq/L 98-107 01/31/2015 01/31/2015 Level 5:15pm 5:52pm Carbon 27 mEq/L 21-32 01/31/2015 01/31/2015 Dioxide 5:15pm 5:52pm Level Anion Gap 13.7 10-01/31/2015 01/31/2015 5:15pm 5:52pm Calcium 8.3 mg/dL 8.2-10.0 [...] GFR 30-59 4 Severe reduction of GFR 5 Kidney Failure <15 Total 7.5 gm/dL [...] Dioxide 12:58pm 3:04pm Level Anion Gap 17.2 10-20 05/15/2016 05/15/2016 12:58pm 3:04pm Calcium 8.7 mg/dL 8.2-10.0 [...] 05/26/2016 05/26/2016 Blood Total 10:40am 10:48am CO2 White Blood 17.71 K/mm3 H 4.5-10.5 08/20/2016 08/20/2016 Count 6:49pm 6:57pm Red Blood 3.50 M/mm3 L 4.60-6.00 08/20/2016 08/20/2016 Count 6:49pm 6:57pm Hemoglobin 12.4 gm/dl L 14.0-18.0 08/20/2016 08/20/2016 6:49pm 6:57pm Hematocrit 35.4 % L 40-54 08/20/2016 08/20/2016 6:49pm 6:57pm Mean 101.1 fl H 80-94 08/20/2016 08/20/2016 Corpuscular 6:49pm 6:57pm Volume Mean 35 pg H 26-32 08/20/2016 08/20/2016 Corpuscular 6:49pm 6:57pm Hemoglobin Mean 35 g/dl 32-36 08/20/2016 08/20/2016 Corpuscular 6:49pm 6:57pm Hemoglobin Concent Red Cell 50.9 fL H 35.1-43.9 08/20/2016 08/20/2016 Distributio 6:49pm 6:57pm n-SD RDW 15.4 % H 11.5-14.5 08/20/2016 08/20/2016 Coefficient 6:49pm 6:57pm of Variation Platelet 312 K/mm3 150-450 08/20/2016 08/20/2016 Count 6:49pm 6:57pm Mean 8.6 fl L 9.4-12.4 08/20/2016 08/20/2016 Platelet 6:49pm 6:57pm Volume Neutrophils 90.2 % H 50-70 08/20/2016 08/20/2016 (%) (Auto) 6:49pm 6:57pm Lymphocytes 3.8 % L 18-42 08/20/2016 08/20/2016 (%) (Auto) 6:49pm 6:57pm Monocytes 6.0 % 2-11 08/20/2016 08/20/2016 (%) (Auto) 6:49pm 6:57pm Eosinophils 0.0 % L 1-3 08/20/2016 08/20/2016 (%) (Auto) 6:49pm 6:57pm Basophils 0.0 % 0-2 08/20/2016 08/20/2016 (%) (Auto) 6:49pm 6:57pm Neutrophils 16.0 H 2-8 08/20/2016 08/20/2016 # (Auto) 6:49pm 6:57pm Lymphocytes 0.7 L 1-5 08/20/2016 08/20/2016 # (Auto) 6:49pm 6:57pm Monocytes # 1.1 H 0.1-1.0 08/20/2016 08/20/2016 (Auto) 6:49pm 6:57pm Eosinophils 0.0 0-0.4 08/20/2016 08/20/2016 # (Auto) 6:49pm 6:57pm Basophils # 0.0 K/mm3 0-0.2 08/20/2016 08/20/2016 (Auto) 6:49pm 6:57pm Platelet NORMAL NORMAL 08/20/2016 08/20/2016 Estimate 6:49pm 7:08pm Macrocytosi 2+ 08/20/2016 08/20/2016 s 6:49pm 7:08pm Stool NEGATIVE NEGATIVE 08/20/2016 08/20/2016 Occult 7:10pm 7:28pm Blood Random 169 mg/dL H 70-110 08/20/2016 08/20/2016 Glucose 6:49pm 7:23pm Blood Urea 11 mg/dL 718 08/20/2016 08/20/2016 Nitrogen 6:49pm 7:23pm Creatinine 1.28 mg/dL 0.550-1.3 08/20/2016 08/20/2016 NOTE REFERENCE RANGE CHANGE 6:49pm 7:23pm 02/06/15 REFERENCE RANGE CHANGE DUE TO NEW REAGENT PREVIOUS RANGE: 0.6-1.3 mg/dL NEW RANGE: 0.550-1.3 mg/dL BUN/Creatin 8.59 L 08-0808/20/2016 08/20/2016 ine Ratio 6:49pm 7:23pm Sodium 138 mEq/L 135-155 08/20/2016 08/20/2016 Level 6:49pm 7:23pm Potassium 2.7 mEq/L L 3.5-5.1 08/20/2016 08/20/2016 Level 6:49pm 7:23pm Chloride 92 mEq/L L 98-107 08/20/2016 08/20/2016 Level 6:49pm 7:23pm Carbon 22 mEq/L 21-32 08/20/2016 08/20/2016 Dioxide 6:49pm 7:23pm Level Anion Gap 26.7 H 10-20 08/20/2016 08/20/2016 6:49pm 7:23pm Calcium 8.9 mg/dL 8.2-10.0 08/20/2016 08/20/2016 Level 6:49pm 7:23pm Glomerular 59 08/20/2016 08/20/2016 At increased risk Risk factors for CKD Filtration 6:49pm 7:23pm are present but w/o >90 Rate Calc markers of kidney damage 1 Kidney damage w/ normal or >90 increased GFR 2 Kidney damage w/ mild reduc- 60-89 tion of GFR 3 Moderate reduction of GFR 30-59 4 Severe reduction of GFR 15-29 5 Kidney Failure <15 Total 7.8 gm/dL 6.4-8.2 08/20/2016 08/20/2016 Protein 6:49pm 7:23pm Albumin 4.3 gm/dL 3.4-5.0 08/20/2016 08/20/2016 6:49pm 7:23pm Albumin/Leslie 1.2 08/20/2016 08/20/2016 bulin Ratio 6:49pm 7:23pm Total 0.74 mg/dL 0.2-1.0 08/20/2016 08/20/2016 Bilirubin 6:49pm 7:23pm Aspartate 30 U/L 15-37 08/20/2016 08/20/2016 Amino 6:49pm 7:23pm Transf (AST/SGOT) Alanine 17 U/L 12-78 08/20/2016 08/20/2016 Aminotransf 6:49pm 7:23pm erase (ALT/SGPT) Alkaline 106.0 U/L 46-116 08/20/2016 08/20/2016 Phosphatase 6:49pm 7:23pm Amylase 50 U/L 25-115 08/20/2016 08/20/2016 Level 6:49pm 7:23pm Lipase 41 U/L L 73-393 08/20/2016 08/20/2016 6:49pm 7:23pm C. NEGATIVE NEGATIVE 08/20/2016 08/20/2016 difficile 7:10pm 8:14pm Toxin B Gene (PCR) Clostridium NEGATIVE NEGATIVE 08/20/2016 08/20/2016 difficile 7:10pm 8:14pm [id number] Giardia Negative NEGATIVE 08/20/2016 08/20/2016 Antigen 7:10pm 7:49pm Stool Negative NEGATIVE 08/20/2016 08/20/2016 Cryptospori 7:10pm 7:49pm dium Antigen Campylobact NEGATIVE NONE DETECT 08/20/2016 08/20/2016 Absence of Campylobacter antigen or levels below the limit er Antigen 7:10pm 7:56pm of detection for the assay. Stool for No None 08/20/2016 08/20/2016 White Cells WBC's 7:10pm 7:44pm Observed Globulin 3.5 gm/dL 2.0-4.5 08/20/2016 08/20/2016 6:49pm 7:23pm Procedures Procedure Status Date Provider(s) COLONOSCOPY W/LESION REMOVAL Completed 11/12/11 Tien Mcdonald MD [facility] F/E/E/N/L/M 2.5 CM/< Completed 11/05/15 Selina Villatoro Encounters Encounter Location Arrival/Admit Date Discharge/Depart Date Attending Provider Admitted [place] 08/20/16 8:15pm Juve Mattson Inpatient (obs) [facility] Mary FERNANDO CTR Departed [place] 08/20/16 6:12pm 08/20/16 8:15pm Shauna Emergency Room [facility] Mary GARCIA CTR Office Visit [facility] 08/14/16 1:15pm Juve Mattson [facility] Registered [facility] 08/14/16 1:15pm Juve Mattson [facility] Registered [place] 08/06/16 1:22pm Juve Mattson [facility] Kwesi Hernandez MD CTR Registered [place] 06/26/16 1:01pm Juve Mattson [facility] Mary FERNANDO CTR Departed Clinic [place] 05/26/16 9:26am 05/26[facility]16 [facility] [place] 05/26/16 9:24am 05/26/16 11:59pm Srinivasan [facility] CTR Office Visit [facility] 05/20/16 1:30pm Srinivasan [facility] Departed Clinic [place] 05/15/16 12:58pm 05/15/16 11:59pm Srinivasan, [facility] CTR Registered [place] 05/15/16 12:58pm Zeferinooscar, [facility] CTR Registered [place] 04/02/16 1:04pm Srinivasan, [facility] CTR Registered [place] 02/20/16 1:00pm Srinivasan, [facility] CTR Office Visit [facility] 02/18/16 11:15am Srinivasan, [facility] MD Registered [place] 01/10/16 1:03pm Srinivasan, [facility] CTR Registered [place] 11/14/15 12:59pm Srinivasan, [facility] CTR Office Visit [facility] 11/14/15 11:30am [facility] A PA Office Visit [facility] 11/09/15 9:30am [facility] Selina [employer]PERATOR-C Departed [place] 11/05/15 6:25pm 11/05/15 9:09pm Shauna, Emergency Room [facility] Medical Selina [employer] LO[employer]ING OPERATOR-C CTR Departed [place] 11/05/15 10:45am 11/05/15 1:20pm Shauna, Emergency Room [facility] Medical Selina [employer]-C CTR Registered [place] 10/03/15 1:00pm Srinivasan [facility] CTR Registered [place] 08/22/15 1:01pm Srinivasan [facility] CTR Office Visit [facility] 07/23/15 2:45pm [facility] A PA Registered [place] 07/11/15 12:50pm Srinivasan, [facility] CTR Registered [place] 05/30/15 1:01pm Srinivasan, [facility] CTR Office Visit [facility] 05/29/15 4:30pm Srinivasan, [facility] Registered [place] 05/03/15 7:57am Srinivasan, [facility] CTR Registered [place] 05/02/15 8:48am Srinivasan, [facility] CTR Registered [place] 03/21/15 12:[facility] Office Visit [facility] 02/16/15 10:30am [facility] Registered [place] 01/31/15 12:52pm [facility] CTR Registered [place] 12/20/14 1:00pm Srinivasan, [facility] CTR Registered [place] 11/06/14 1:08pm Srinivasan, [facility] CTR Registered [place] 09/18/14 12:50pm Srinivasan, [facility] CTR Departed Clinic [place] 09/05/14 8:51am 09/05/14 11:59pm Srinivasan, [facility] CTR Office Visit [facility] 09/04/14 2:00pm Srinivasan, [facility] Office Visit [facility] 08/17/14 1:30pm Srinivasan, [facility] Registered [place] 08/16/14 10:04am Srinivasan, [facility] CTR Office Visit [facility] 07/25/14 10:00am Srinivasan, [facility] Registered [place] 04/26/14 12:42pm Srinivasan, [facility] CTR Office Visit [facility] 03/15/14 1:00pm Srinivasan, [facility] Registered [place] 03/09/14 1:01pm Srinivasan, [facility] CTR Office Visit [facility] 01/03/14 11:30am Srinivasan, [facility] Registered [place] 12/22/13 8:57am Srinivasan, [facility] CTR Registered [place] 11/22/13 10:54am [facility] [place] 10/25/13 8:58am [facility] 09/28/13 1:15pm [email or web address] 07/11/13 11:00am Srinivasan [facility] Registered [place] 07/04/13 7:58am [facility] 04/27/13 9:30am [facility] A PA Office Visit [facility] 02/02/13 10:00am [facility] Perla PA Discharged [place] 10/22/12 2:12pm 10/24/12 4:50pm [facility] [place] 10/22/12 9:11am 10/22/12 2:12pm Juve Mattson [facility] CTR Registered [place] 06/25/12 1:23pm [facility] 06/10/12 3:15pm [email or web address] Discharged [place] 05/12/12 1:20pm 06/09/12 11:59pm Juve Mattson [facility] CTR Office Visit [facility] 05/10/12 10:45am Srinivasan [facility] Registered [place] 05/05/12 9:45am [facility] [place] 03/31/12 12:50pm [facility] [place] 02/18/12 1:24pm [facility] 02/18/12 1:00pm [facility] A PA Registered [place] 02/09/12 10:06am [facility] Mary Duncan PA CTR Office Visit [facility] 02/09/12 9:30am Rufino [facility] Perla PA Departed [place] 02/01/12 7:30am 02/01/12 9:50am Dorian Carmona Emergency Room [facility] Hiram FERNANDO CTR Registered [place] 01/07/12 1:24pm [facility] Registered [place] 11/19/11 1:32pm [facility] [place] 11/12/11 9:58am Tien Mcdonald [facility] Perla FER[facility] CTR Registered [place] 10/01/11 1:10pm [facility] 09/24/11 2:15pm [email or web address] Departed [place] 09/17/11 10:41am 09/17/11 2:05pm Juve Mattson [facility] Mary FERNANDO CTR Registered [place] 08/26/11 12:54pm [facility] Dis[facility] [place] 08/15/11 2:34pm 08/18/11 5:40pm Juve Mattson [facility] CTR Office Visit [facility] 08/15/11 11:45am Srinivasan [facility] Office Visit [facility] 08/12/11 11:45am Srinivasan [facility] Registered [place] 07/14/11 1:12pm [facility] [place] 07/11/11 1:56pm 08/09/11 11:59pm Juve Mattson [facility] CTR Departed Clinic [place] 05/21/11 1:29pm 05/21/11 11:59pm [facility] [place] 05/19/11 1:[facility] 04/08/11 9:45am Srinivasan [facility] Registered [place] 04/07/11 12:54pm [facility] 03/25/11 11:15am Srinivasan [facility] Registered [place] 03/11/11 12:55pm Srinivasan, [facility] CTR Registered [place] 02/11/11 1:16pm Srinivasan [facility] CTR Registered [place] 01/27/11 1:13pm Srinivasan [facility] CTR Discharged [place] 12/16/10 12:49pm 01/07/11 11:59pm Srinivasan [facility] Office Visit [facility] 11/28/10 1:45pm Srinivasan [facility] Office Visit [facility] 10/23/10 1:00pm Srinivasan [facility] Office Visit [facility] 08/26/10 1:30pm Srinivasan [facility] [place] [facility] 08/22[facility]10 1:45pm Srinivasan [facility] Office Visit [facility] 06/07/10 1:45pm [email or web address] Nathan Quintana DO Office Visit [facility] 02/06/10 4:45pm [facility] A PA Office Visit [facility] 04/03/09 9:45am Srinivasan [facility] Office Visit [facility] 08/29/08 9:00am [facility] A PA Office Visit [facility] 06/05/08 2:15pm [facility] A PA Office Visit [facility] 09/14/07 10:00am Srinivasan [facility] Discharged [place] 06/11/07 12:52pm 07/09/07 11:59pm [facility] 06/02/07 9:00am Srinivasan [facility] Office Visit [facility] [[email or web address] 05/20/07 10:45am Srinivasan [facility] Departed Clinic [place] 05/19/07 8:38am 05/19/07 11:59pm Srinivasan [facility] CTR Office Visit [facility] 05/14/07 12:15pm Srinivasan [facility] Departed Clinic [place] 04/13/07 9:19am 04/13/07 11:59pm Joy, [facility] Perla PA CTR Departed [facility] 12/02/06 9:19am 12/02/06 11:59pm [facility] [place] 03/11/06 9:53am 03/11/06 11:[facility] [place] 12/22/05 5:01pm 12/22/05 11:59[facility] [place] 09/29/05 10:33am 09/29/05 11:59pm [facility] [place] 07/05/05 10:11am 07/08/05 10:35am Juve Mattson [facility] CTR Departed [place] 07/05/05 8:29am 07/05/05 10:11am [place], Emergency Room [facility] Medical Nathan Quintana DO CTR Departed [facility] [place] 03/26/05 8:23am 03/26/05 [facility] Dep[facility] [place] 02/21/05 2:11pm 02/21/05 11:[facility] Dep[facility]ed [facility] 11/11/04 3:25pm 11/11/04 11:59pm [facility] [place] 11/07/04 3:47pm 11/07/04 11:59pm [facility] 12:00am 04/19/10 11:59pm [facility] CTR Departed [place] 12:00am 08/09/10 2:10pm Emergency Room [facility] Medical CTR Discharged [place] 12:00am 08/19/10 2:52pm Inpatient [facility] CTR Departed [facility] 12:00am 08/26/10 11:59pm [facility] CTR Registered [place] 12:00am [facility] Dep[facility]ed [facility] [place] 12:00am 08/31/07 11:59pm [facility] CTR Departed [facility] 12:00am 10/26/07 11:59pm [facility] CTR Departed [facility] 12:00am 12/29/07 11:59pm [facility] CTR Departed [facility] 12:00am 04/03/09 11:59pm [facility] CTR Recent Diagnosis Screening PSA Status post fall
--- OUTSIDE RECORDS SUMMARY | 2017-06-17 10:48 | External Medical Summary | Continuity of Care Document ---
:1945 Author Organization [facility] Care Team Providers Name Role Phone Juve Mattson MD Unavailable Insurance Providers Payer Name Policy Number Subscriber Name Relationship [facility] 150 [id number] Ag Leal. 18 Self / Same As Patient Chief Complaint and Reason for Visit Reason for Visit OTH MED,LT,CURRENT USE SCREEN-THYROID DISORDER Screening PSA Status post fall Problems Active Problems Medical Problem Onset Date Status Acute generalized abdominal pain Unknown Acute Chronic pain syndrome Unknown Acute Diarrhea Unknown Acute Diverticulitis Unknown Acute Facial contusion Unknown Acute Nausea Unknown Acute Nausea & vomiting Unknown Acute [...] Directions Days/Qty Instructions Start Date Diphenhydramine Hcl 50-100 Mg Oral Daily @ Hs 02/16/15 50 Mg Baclofen 10 Mg 10 Mg Oral Twice A Day 60 05/23/16 Losartan Potassium 25 Mg Oral Daily @0900 90 06/17/16 25 Mg Atorvastatin 20 Mg Oral Daily @ Hs 90 11/08/16 Calcium 20 Mg Lorazepam 1 Mg 1 Mg Oral Three Times A 90 RX #[id number] 08/14/16 Day as needed for Anxiety Hydrocodone/Acetami 1 Tab Oral Every 6 Hours 120 RX #[id number] 08/14/16 nophen 7.5MG/325MG as needed for 1 Each Pain Tetrahydrz/Dext 1 Drop Each Eye Twice A Day 08/22/16 70/Peg 400/Pvp 15 Ml Ciprofloxacin Hcl 250 Mg Oral Twice A Day 5 Days 08/25/16 250 Mg Metronidazole 500 500 Mg Oral Twice A Day 5 Days 08/25/16 Mg Sulfasalazine 500 500 Mg Oral Three Times A 270 08/25/16 Mg Day Amlodipine Besylate 10 Mg Oral Daily @0900 90 08/25/16 10 Mg Fluoxetine Hcl 40 40 Mg Oral Daily @0900 30 08/25/16 Mg Metformin Hcl 500 250 Mg Oral Daily @0900 45 TAKE 1/2 TAB 08/25/16 Mg (250 MG) DAILY Pantoprazole Sodium 40 Mg Oral Daily @0900 60 08/25/16 40 Mg Past Home Medications Medication Directions Ordered Status [Buspirone Hcl] , 15 Mg Oral Twice A Day 11/06/08 Discontinued Amlodipine Besylate 10 Mg Tab, 10 Daily @0900 02/12/09 Discontinued Mg Oral Amlodipine Besylate 10 Mg Tab, 10 Daily @00 03/22/09 Discontinued Mg Oral [Fluoxetine Hcl 40MG] , 40 Mg Daily @00 04/19/09 Discontinued Oral [Hydroco-Apap 7.5/500] , Oral Every 4-6 Hours As Needed 04/23/09 Discontinued [Omeprazole] , 20 Mg Oral 2 Caps Daily 05/01/09 Discontinued [Lovastatin] , 40 Mg Oral Daily @0900 05/28/09 Discontinued [Hydroco-Apap 7.5/500] , Oral Every 4-6 Hours As Needed 06/05/09 Discontinued [Hydroco-Apap 7.5/500] , Oral Every 4-6 Hours As Needed 08/17/09 Discontinued [Hydroco-Apap 7.5/500] , Oral Every 4-6 Hours As Needed 10/04/09 Discontinued [Lovastatin] , 40 Mg Oral Daily @89910/04/09 Discontinued [Fluoxetine Hcl 40MG] , 40 Mg Daily @89910/04/09 Discontinued Oral Amlodipine Besylate 10 Mg Tab, 10 Daily @0900 10/04/09 Discontinued Mg Oral Amylase/Lipase/Protease 1 Cap.ec 4 [...] A Day 11/24/12 Discontinued Sulfasalazine 500 Mg Tablet., Three Times A Day 12/16/12 Discontinued 500 [...] Oral Three Times A Day 02/21/13 Discontinued [[place] 7.5/325] , 1 Tab Oral Every 4-6 Hours As Needed 02/22/13 Discontinued [Lorazepam] , 1 Mg Oral Three Times A Day 03/21/13 Discontinued [[place] 7.5/325] , 1 Tab Oral Every 4-6 Hours As Needed 03/28/13 Discontinued [Lorazepam] , 1 Mg Oral Tid Prn 04/18/13 Discontinued [[place] 7.5/325] , 1 Tab Oral 4 Times Daily 04/27/13 Discontinued Metformin Hcl 500 Mg Tab, 500 Mg Daily @89904/27/13 Discontinued Oral Losartan Potassium 25 Mg Tablet, One A Day 06/13/13 Discontinued 25 Mg Oral Amylase/Lipase/Protease 1 Each Three Times A Day 07/05/13 Discontinued Capsule., 1 Each Oral Losartan Potassium 25 Mg [...] , 20 Mg Oral Daily @89909/28/13 Discontinued [[place] 7.5/325] , 1 Tab Oral 4 Times Daily 09/28/13 Discontinued Metformin Hcl 500 Mg Tab, 500 Mg Daily @89909/28/13 Discontinued Oral Amylase/Lipase/Protease 1 Each Three Times A Day 09/28/13 Discontinued Capsule., 1 Each Oral Levothyroxine Sodium 50 Mcg Tab, One A Day 09/28/13 Discontinued 50 Mcg Oral [Lorazepam] , 1 Mg Oral Tid Prn 09/28/13 Discontinued [Methotrexate] , 7.5 Mg Oral Weekly On Fridays09/28/13 Discontinued [Methotrexate] , 7.5 Mg Oral Weekly On Fridays11/24/13 Discontinued Folic Acid 1 Mg Tab, 1 Mg Oral Daily @89901/03/14 Discontinued [Lorazepam] , 1 Mg Oral Tid Prn 01/03/14 Discontinued [[place] 7.5/325] , 1 Tab Oral 4 Times [...] Oral Losartan Potassium 25 Mg Tablet, Daily @0908/23/14 Discontinued 25 Mg Oral Aspirin 81 Mg Tablet.dr, 81 Mg Daily @0900 09/04/14 Discontinued Oral Hydrocodone/Acetaminophen Four Times A Day [...] Metformin Hcl 500 Mg Tablet, 500 Daily @0900 11/23/14 Discontinued Mg Oral Amlodipine Besylate 10 Mg Tablet, Daily @0900 11/23/14 Discontinued 10 Mg Oral Hydrocodone/Acetaminophen Four Times [...] Oral Omeprazole 20 Mg Capsule., 20 Daily @89907/23/15 Discontinued Mg Oral Fluoxetine [...] Discontinued Amlodipine Besylate 10 Mg Tablet, Daily @0908/21/15 Discontinued 10 Mg Oral Losartan Potassium 25 Mg Tablet, Daily @0908/21/15 Discontinued 25 Mg Oral Hydrocodone/Acetaminophen Four Times [...] Discontinued Omeprazole 20 Mg Capsule.dr 20 Daily @0900 08/22/16 Discontinued Mg Oral Lorazepam 1 Mg Tablet, 1 Mg Oral Three Times A Day 04/25/16 Discontinued Hydrocodone/Acetaminophen Every 6 Hours as needed for 05/01/16 Discontinued 7.5MG/325MG 1 Each Tablet, 1 Tab Pain Oral Sulfasalazine 500 Mg Tablet, 500 Three Times A Day 05/20/16 Discontinued Mg Oral Metformin Hcl 500 Mg Tablet, 250 Daily @0900 05/20/16 Discontinued Mg Oral Amlodipine Besylate 10 Mg Tablet, Daily @89905/22/16 Discontinued 10 Mg Oral Omeprazole 20 Mg Capsule.dr, 20 Daily @89905/22/16 Discontinued Mg Oral Metformin Hcl 500 Mg Tablet, 0.5 Daily @89905/23/16 Discontinued Tab Oral Lorazepam 1 Mg Tablet, 1 Mg Oral Three Times A Day 05/23/16 Discontinued Hydrocodone/Acetaminophen Every 6 Hours as needed for 07/14/16 Discontinued 7.5MG/325MG 1 Each Tablet, 1 Tab Pain Oral Fluoxetine Hcl 40 Mg Capsule, 40 Daily @89907/22/16 Discontinued Mg Oral Flu Vacc Sp0693(65UP)/Mf59c/Pf 45 Once 08/14/16 Discontinued Mcg/0.5 Ml Syringe, 45 Mcg Intramusc Metformin Hcl 500 Mg Tablet, 250 Daily @89908/25/16 Discontinued Mg Oral Social History Query Response Start Date Stop Date Smoking Status Former smoker Hospital Discharge Instructions PHYSICIAN DISCHARGE ORDERS Homecare Instructions ACTIVITY ORDERS: Activity: No restrictions Normal activity as lennox DIET ORDERS: Diet: Other Comment: 1600 CALORIE, SOFT DIABETIC DIET Continue Diabetes Monitoring: Continue Diabetes Monitoring?: Y FASTING EVERY MORNING AND NEEDED-RECORD BLOOD SUGARS & TAKE TO F/U APPT WEIGHT MONITORING: Weight Monitoring: Daily Take Wt. Log to Dr. levin VALUABLES ON DISMISSAL Valuables returned on D/C Valuables returned: ALL BELONGINGS RETURNED TO PATIENT & SENT HOME WITH HIM. Patient verifies return of all valuables on discharge: Yes Plan of Care Discharge Date 08/25/16 2:46pm Disposition HOME, SELF-CARE Instructions/Education Provided Pantoprazole (By injection) Diverticulitis (DC) Anemia (DC) Prescriptions See Medication Section Follow-up Orders CBC w/ Diff CMP Referrals Juve Mattson MD (Medical) - 08/29/16 Address: [address] [place], [place] [address] [address] Reason(s) for Referral: Acute generalized abdominal pain Diverticulitis Hospital discharge follow-up Care Plan and Goals Functional Status No functional status results. Allergies, Adverse Reactions, Alerts Allergen Type Severity Reaction Status Last Updated Penicillin Allergy Unknown Hives Active 08/22/16 Amoxicillin Allergy Unknown UNKNOWN Active 08/22/16 Aripiprazole Adverse Reaction Unknown Confusion Active 08/22/16 Immunizations Name Given Type INFLUENZA (FLU) 08/14/16 Administered Pneumococcal conjugate PCV 13 08/22/16 Administered Vital Signs Acute Vital Signs Vital [...] Glucose 4:20pm 5:43pm Blood Urea 17 mg/dL 7-25 11/07/2004 11/07/2004 Nitrogen 4:20pm 5:43pm Creatinine 1.1 mg/dL [...] 1.020 1.005-1.035 07/07/2005 07/07/2005 Specific 5:00pm 6:58pm [place] Urine 1+ SMALL NEGATIVE 07/07/2005 07/07/2005 Occult [...] 1.015 1.005-1.035 04/03/2009 04/03/2009 Specific 10:23am 12:05pm [place] Urine NEGATIVE NEGATIVE 04/03/2009 04/03/2009 Occult 10:23am [...] 1.020 1.005-1.035 04/19/2010 04/19/2010 Specific 11:15am 12:33pm [place] Urine NEGATIVE NEGATIVE 04/19/2010 04/19/2010 Occult 11:15am [...] 25-115 08/09/2010 08/09/2010 Level 12:26pm 1:05pm Lipase 57463 U/L H 73-393 08/09/2010 08/09/2010 12:26pm 1:05pm [...] <=1.005 1.005-1.035 05/21/2011 05/21/2011 Specific 1:21pm 2:12pm [place] Urine TRACE NEGATIVE 05/21/2011 05/21/2011 Occult 1:21pm [...] 1.010 1.005-1.035 08/15/2011 08/15/2011 Specific 8:50pm 9:13pm [place] Urine NEGATIVE NEGATIVE 08/15/2011 08/15/2011 Occult 8:50pm [...] 7:42am 8:34am Blood Urea 5 mg/dL L 7-18 02/01/2012 02/01/2012 Nitrogen 7:42am 8:34am Creatinine 1.3 mg/dL 0.6-1.3 02/01/2012 02/01/2012 7:42am 8:34am BUN/Creatin 3.8 L -02/01/2012 02/01/2012 ine Ratio 7:42am 8:34am Sodium 135 mEq/L 135-155 02/01/2012 02/01/2012 Level 7:42am 8:34am Potassium 2.3 mEq/L CL 3.5-5.1 02/01/2012 02/01/2012 NOTIFIED [facility] @ [facility] @Repeated by: Angela Gupta Level 7:42am 10:14am 02/01/12 0831 --- 02/01/12 1014 --- K previously reported as: 2.3 CL mEq/L NOTIFIED [facility] @ [facility] @Repeated by: Angela Gupta 02/01/12830 Chloride 89 mEq/L L 98-107 02/01/2012 02/01/2012 --- 02/01/12 1014 --- Level 7:42am 10:14am CL previously reported as: 90 L mEq/L Carbon 29 mEq/L -02/01/2012 02/01/2012 Dioxide 7:42am 8:34am Level Anion Gap 19.3 -02/01/2012 02/01/2012 --- 02/01/12 1014 --- 7:42am 10:14am [...] 07/04/2013 07/04/2013 8:00am 9:09am BUN/Creatin 7.3 L 12-07/04/2013 07/04/2013 ine Ratio 8:00am 9:09am Sodium 134 [...] REFERENCE RANGE CHANGE Aminotransf 8:00am 9:09am erase 7/2/12 REFERENCE RANGE CHANGE DUE TO NEW REAGENT [...] Dioxide UNK 4:28pm Level Anion Gap 13.1 10-04/26/2014 04/26/2014 UNK 4:28pm Calcium 8.9 mg/dL 8.2-10.0 [...] 0.6-1.3 08/16/2014 08/16/2014 10:30am 11:19am BUN/Creatin 12.0 12-30 08/16/2014 08/16/2014 ine Ratio 10:30am 11:19am Sodium 136 [...] Glucose 6:49pm 7:23pm Blood Urea 11 mg/dL 7-18 08/20/2016 08/20/2016 Nitrogen 6:49pm 7:23pm Creatinine 1.28 mg/dL 0.550-1.3 08/20/2016 08/20/2016 NOTE REFERENCE RANGE CHANGE 6:49pm 7:23pm 02/06/15 REFERENCE RANGE CHANGE DUE TO NEW REAGENT PREVIOUS RANGE: 0.6-1.3 mg/dL NEW RANGE: 0.550-1.3 mg/dL BUN/Creatin 8.59 L 12-30 08/20/2016 08/20/2016 ine Ratio 6:49pm 7:23pm Sodium 138 [...] 7:10pm 7:56pm of detection for the assay. Shiga Toxin SHIGA TOXIN NONE DETECT 08/20/2016 08/21/2016 2 SENT TO 7:10pm 6:11am REFERENCE LAB FOR TESTING Stool for No None 08/20/2016 08/20/2016 White Cells WBC's 7:10pm 7:44pm Observed Globulin 3.5 gm/dL 2.0-4.5 08/20/2016 08/20/2016 6:49pm 7:23pm Salmonella/ See Separate 08/20/2016 08/24/2016 Shigella Report 7:10pm 6:08am Culture (LAB) White Blood 12.96 K/mm3 H 4.5-10.5 08/21/2016 08/21/2016 Count 6:45am 7:17am Red Blood 3.10 M/mm3 L 4.60-6.00 08/21/2016 08/21/2016 Count 6:45am 7:17am Hemoglobin 11.2 gm/dl L 14.0-18.0 08/21/2016 08/21/2016 6:45am 7:17am Hematocrit 32.1 % L 40-54 08/21/2016 08/21/2016 6:45am 7:17am Mean 103.5 fl H 80-94 08/21/2016 08/21/2016 Corpuscular 6:45am 7:17am Volume Mean 36 pg H 26-32 08/21/2016 08/21/2016 Corpuscular 6:45am 7:17am Hemoglobin Mean 35 g/dl 32-36 08/21/2016 08/21/2016 Corpuscular 6:45am 7:17am Hemoglobin Concent Red Cell 52.7 fL H 35.1-43.9 08/21/2016 08/21/2016 Distributio 6:45am 7:17am n-SD RDW 15.8 % H 11.5-14.5 08/21/2016 08/21/2016 Coefficient 6:45am 7:17am of Variation Platelet 262 K/mm3 150-450 08/21/2016 08/21/2016 Count 6:45am 7:17am Mean 8.8 fl L 9.4-12.4 08/21/2016 08/21/2016 Platelet 6:45am 7:17am Volume Neutrophils 85.4 % H 50-70 08/21/2016 08/21/2016 (%) (Auto) 6:45am 7:17am Lymphocytes 5.3 % L 18-42 08/21/2016 08/21/2016 (%) (Auto) 6:45am 7:17am Monocytes 9.2 % 2-11 08/21/2016 08/21/2016 (%) (Auto) 6:45am 7:17am Eosinophils 0.0 % L 1-3 08/21/2016 08/21/2016 (%) (Auto) 6:45am 7:17am Basophils 0.1 % 0-2 08/21/2016 08/21/2016 (%) (Auto) 6:45am 7:17am Neutrophils 11.1 H 2-8 08/21/2016 08/21/2016 # (Auto) 6:45am 7:17am Lymphocytes 0.7 L 1-5 08/21/2016 08/21/2016 # (Auto) 6:45am 7:17am Monocytes # 1.2 H 0.1-1.0 08/21/2016 08/21/2016 (Auto) 6:45am 7:17am Eosinophils 0.0 0-0.4 08/21/2016 08/21/2016 # (Auto) 6:45am 7:17am Basophils # 0.0 K/mm3 0-0.2 08/21/2016 08/21/2016 (Auto) 6:45am 7:17am Platelet NORMAL NORMAL 08/21/2016 08/21/2016 Estimate 6:45am 7:45am Anisocytosi 2+ 08/21/2016 08/21/2016 s 6:45am 7:45am Macrocytosi 1+ 08/21/2016 08/21/2016 s 6:45am 7:45am Stomatocyte 1+ 08/21/2016 08/21/2016 s 6:45am 7:45am Giant 1+ 08/21/2016 08/21/2016 Platelets 6:45am 7:45am Urine Color ORANGE STRAW 08/21/2016 08/21/2016 COLOR INTENSITY OF URINE MAY CAUSE FALSE RESULTS ON URINE 3:34pm 3:54pm DIPSTICK Urine CLEAR CLEAR 08/21/2016 08/21/2016 Appearance 3:34pm 3:54pm Urine NEGATIVE mg/dL NEGATIVE 08/21/2016 08/21/2016 Glucose 3:34pm 3:54pm (UA) Urine 1+ SMALL H NEGATIVE 08/21/2016 08/21/2016 Bilirubin 3:34pm 3:54pm Urine 15 SMALL mg/dL H NEGATIVE 08/21/2016 08/21/2016 Ketones 3:34pm 3:54pm Urine 1.020 1.005-1.035 08/21/2016 08/21/2016 Specific 3:34pm 3:54pm [place] Urine NEGATIVE NEGATIVE 08/21/2016 08/21/2016 Occult 3:34pm 3:54pm Blood Urine pH 6.0 08/21/2016 08/21/2016 3:34pm 3:54pm Urine 1+ 30 mg/dL mg/dL H NEGATIVE 08/21/2016 08/21/2016 Protein 3:34pm 3:54pm Urine 0.2 E.U./dL NORMAL 08/21/2016 08/21/2016 Urobilinoge 3:34pm 3:54pm n Urine POSITIVE H NEGATIVE 08/21/2016 08/21/2016 URINE HAS BEEN Nitrate 3:34pm 3:54pm SENT FOR CULTURE Urine NEGATIVE NEGATIVE 08/21/2016 08/21/2016 Leukocyte 3:34pm 3:54pm Esterase Urine WBC 0-1 /hpf H NONE 08/21/2016 08/21/2016 3:34pm 3:54pm Urine OCCASSIONAL /lpf OCCASSIONAL 08/21/2016 08/21/2016 Squamous 3:34pm 3:54pm Epithelial Cells Urine 1-2 /lpf H NONE 08/21/2016 08/21/2016 Hyaline 3:34pm 3:54pm Casts Urine Mucus MODERATE /lpf H NONE 08/21/2016 08/21/2016 3:34pm 3:54pm Troponin I < 0.02 NG/ML 0-0.50 08/21/2016 08/21/2016 Negative 0.1 - 0.50 ng/ml 2:25pm 2:59pm Inconclusive 0.50 - 1.35 ng/ml (suggest repeat in 3- 6 hrs.) Probable AMI=greater than 1.35 ng/ml Random 159 mg/dL H 70-110 08/21/2016 08/21/2016 Glucose 6:45am 7:51am Blood Urea 15 mg/dL 7-18 08/21/2016 08/21/2016 Nitrogen 6:45am 7:51am Creatinine 0.87 mg/dL # 0.550-1.3 08/21/2016 08/21/2016 NOTE REFERENCE RANGE CHANGE 6:45am 7:51am 02/06/15 REFERENCE RANGE CHANGE DUE TO NEW REAGENT PREVIOUS RANGE: 0.6-1.3 mg/dL NEW RANGE: 0.550-1.3 mg/dL BUN/Creatin 17.24 -08/21/2016 08/21/2016 ine Ratio 6:45am 7:51am Sodium 138 mEq/L 135-155 08/21/2016 08/21/2016 Level 6:45am 7:51am Potassium 4.0 mEq/L 3.5-5.1 08/21/2016 08/21/2016 Level 6:45am 7:51am Chloride 100 mEq/L 98-107 08/21/2016 08/21/2016 Level 6:45am 7:51am Carbon 29 mEq/L 21-32 08/21/2016 08/21/2016 Dioxide 6:45am 7:51am Level Anion Gap 13.0 10-20 08/21/2016 08/21/2016 6:45am 7:51am Calcium 7.8 mg/dL L 8.2-10.0 08/21/2016 08/21/2016 Level 6:45am 7:51am Glomerular 92 08/21/2016 08/21/2016 At increased risk Risk factors for CKD Filtration 6:45am 7:51am are present but w/o >90 Rate Calc markers of kidney damage 1 Kidney damage w/ normal or >90 increased GFR 2 Kidney damage w/ mild reduc- 60-89 tion of GFR 3 Moderate reduction of GFR 30-59 4 Severe reduction of GFR 15-29 5 Kidney Failure <15 Total 6.6 gm/dL 6.4-8.2 08/21/2016 08/21/2016 Protein 6:45am 7:51am Albumin 3.6 gm/dL 3.4-5.0 08/21/2016 08/21/2016 6:45am 7:51am Albumin/Leslie 1.2 08/21/2016 08/21/2016 bulin Ratio 6:45am 7:51am Total 0.65 mg/dL 0.2-1.0 08/21/2016 08/21/2016 Bilirubin 6:45am 7:51am Aspartate 28 U/L 15-37 08/21/2016 08/21/2016 Amino 6:45am 7:51am Transf (AST/SGOT) Alanine 16 U/L 12-78 08/21/2016 08/21/2016 Aminotransf 6:45am 7:51am erase (ALT/SGPT) Alkaline 95.0 U/L 46-116 08/21/2016 08/21/2016 Phosphatase 6:45am 7:51am Urine No Growth at NONE 08/21/2016 08/22/2016 Culture 12hrs 3:34pm 6:44am Result 1 Urine No Growth @ NONE 08/21/2016 08/22/2016 Culture 24hrs 3:34pm 3:27pm Result 2 Urine No Growth @ NONE 08/21/2016 08/23/2016 Culture 48hrs 3:34pm 6:32pm Result 3 Globulin 3.0 gm/dL 2.0-4.5 08/21/2016 08/21/2016 6:45am 7:51am White Blood 8.72 K/mm3 4.5-10.5 08/24/2016 08/24/2016 Count 7:30am 7:40am Red Blood 2.79 M/mm3 L 4.60-6.00 08/24/2016 08/24/2016 Count 7:30am 7:40am Hemoglobin 9.8 gm/dl L 14.0-18.0 08/24/2016 08/24/2016 7:30am 7:40am Hematocrit 29.0 % L 40-54 08/24/2016 08/24/2016 7:30am 7:40am Mean 103.9 fl H 80-94 08/24/2016 08/24/2016 Corpuscular 7:30am 7:40am Volume Mean 35 pg H 26-32 08/24/2016 08/24/2016 Corpuscular 7:30am 7:40am Hemoglobin Mean 34 g/dl 32-36 08/24/2016 08/24/2016 Corpuscular 7:30am 7:40am Hemoglobin Concent Red Cell 55.4 fL H 35.1-43.9 08/24/2016 08/24/2016 Distributio 7:30am 7:40am n-SD RDW 15.9 % H 11.5-14.5 08/24/2016 08/24/2016 Coefficient 7:30am 7:40am of Variation Platelet 245 K/mm3 150-450 08/24/2016 08/24/2016 Count 7:30am 7:40am Mean 8.4 fl L 9.4-12.4 08/24/2016 08/24/2016 Platelet 7:30am 7:40am Volume Neutrophils 67.4 % 50-70 08/24/2016 08/24/2016 (%) (Auto) 7:30am 7:40am Lymphocytes 21.4 % 18-42 08/24/2016 08/24/2016 (%) (Auto) 7:30am 7:40am Monocytes 9.9 % 2-11 08/24/2016 08/24/2016 (%) (Auto) 7:30am 7:40am Eosinophils 1.0 % 1-3 08/24/2016 08/24/2016 (%) (Auto) 7:30am 7:40am Basophils 0.3 % 0-2 08/24/2016 08/24/2016 (%) (Auto) 7:30am 7:40am Neutrophils 5.9 2-8 08/24/2016 08/24/2016 # (Auto) 7:30am 7:40am Lymphocytes 1.9 1-5 08/24/2016 08/24/2016 # (Auto) 7:30am 7:40am Monocytes # 0.9 0.1-1.0 08/24/2016 08/24/2016 (Auto) 7:30am 7:40am Eosinophils 0.1 0-0.4 08/24/2016 08/24/2016 # (Auto) 7:30am 7:40am Basophils # 0.0 K/mm3 0-0.2 08/24/2016 08/24/2016 (Auto) 7:30am 7:40am Platelet NORMAL NORMAL 08/24/2016 08/24/2016 Estimate 7:30am 8:34am Polychromas 1+ 08/24/2016 08/24/2016 ia 7:30am 8:34am Anisocytosi 1+ 08/24/2016 08/24/2016 s 7:30am 8:34am Macrocytosi 1+ 08/24/2016 08/24/2016 s 7:30am 8:34am Giant 1+ 08/23/2016 08/23/2016 Platelets 6:55am 8:08am Troponin I < 0.02 NG/ML 0-0.50 08/23/2016 08/23/2016 Negative 0.1 - 0.50 ng/ml 6:55am 8:54am Inconclusive 0.50 - 1.35 ng/ml (suggest repeat in 3- 6 hrs.) Probable AMI=greater than 1.35 ng/ml Random 112 mg/dL H 70-110 08/24/2016 08/24/2016 Glucose 7:30am 8:08am Blood Urea 7 mg/dL 7-18 08/24/2016 08/24/2016 Nitrogen 7:30am 8:08am Creatinine 0.60 mg/dL 0.550-1.3 08/24/2016 08/24/2016 NOTE REFERENCE RANGE CHANGE 7:30am 8:08am 02/06/15 REFERENCE RANGE CHANGE DUE TO NEW REAGENT PREVIOUS RANGE: 0.6-1.3 mg/dL NEW RANGE: 0.550-1.3 mg/dL BUN/Creatin 11.66 L 12-30 08/24/2016 08/24/2016 ine Ratio 7:30am 8:08am Sodium 136 mEq/L 135-155 08/24/2016 08/24/2016 Level 7:30am 8:08am Potassium 3.2 mEq/L L 3.5-5.1 08/24/2016 08/24/2016 Level 7:30am 8:08am Chloride 99 mEq/L 98-107 08/24/2016 08/24/2016 Level 7:30am 8:08am Carbon 29 mEq/L 21-32 08/24/2016 08/24/2016 Dioxide 7:30am 8:08am Level Anion Gap 11.2 10-20 08/24/2016 08/24/2016 7:30am 8:08am Calcium 6.9 mg/dL CL 8.2-10.0 08/24/2016 08/24/2016 PHONED AT 0808 TO JUSTINA Level 7:30am 8:08am Repeated by: Aubree Goins 08/24/16 0808 Glomerular 141 08/24/2016 08/24/2016 At increased risk Risk factors for CKD Filtration 7:30am 8:08am are present but w/o >90 Rate Calc markers of kidney damage 1 Kidney damage w/ normal or >90 increased GFR 2 Kidney damage w/ mild reduc- 60-89 tion of GFR 3 Moderate reduction of GFR 30-59 4 Severe reduction of GFR 15-29 5 Kidney Failure <15 Total 6.2 gm/dL L 6.4-8.2 08/24/2016 08/24/2016 Protein 7:30am 8:08am Albumin 3.0 gm/dL L 3.4-5.0 08/24/2016 08/24/2016 7:30am 8:08am Albumin/Leslie 0.9 08/24/2016 08/24/2016 bulin Ratio 7:30am 8:08am Total 0.39 mg/dL 0.2-1.0 08/24/2016 08/24/2016 Bilirubin 7:30am 8:08am Aspartate 27 U/L 15-37 08/24/2016 08/24/2016 Amino 7:30am 8:08am Transf (AST/SGOT) Alanine 13 U/L 12-78 08/24/2016 08/24/2016 Aminotransf 7:30am 8:08am erase (ALT/SGPT) Alkaline 54.0 U/L 46-116 08/24/2016 08/24/2016 Phosphatase 7:30am 8:08am Lipase 40 U/L L 73-393 08/23/2016 08/23/2016 6:55am 8:12am Globulin 3.2 gm/dL 2.0-4.5 08/24/2016 08/24/2016 7:30am 8:08am Procedures Procedure Status Date Provider(s) COLONOSCOPY W/LESION REMOVAL Completed 11/12/11 Tien Mcdonald MD [facility] F/E/E/N/L/M 2.5 CM/< Completed 11/05/15 Selina Villatoro Encounters Encounter Location Arrival/Admit Date Discharge/Depart Date Attending Provider Discharged [place] 08/22/16 3:05pm 08/25/16 2:46pm Juve Mattson [facility] Discharged [place] 08/20/16 8:15pm 08/22/16 3:05pm Juve Mattson [facility] (obs) [facility] Departed [place] 08/20/16 6:12pm 08/20/16 8:15pm [facility] Selina GARCIA CTR Office Visit [facility] 08/14/16 1:15pm Srinivasan [facility] Registered [facility] [place] [facility] [place] [facility] Dep[facility] Clinic [place] 05/26/16 9:26am 05/26/16 11:59pm Juve Mattson [facility] Departed Clinic [place] 05/26/16 9:24am 05/26/16 11:59pm Juve Mattson [facility] Office Visit [facility] 05/20/16 1:30pm Srinivasan [facility] Departed Clinic [place] 05/15/16 12:58pm 05/15/[facility] 11:59pm [facility] [place] [facility] 12:58[facility] [place] 04/02[facility]:04[facility] [place] 02/20[facility]16 [facility]:00[facility] Visit [facility] 02/18/16 11:15am Srinivasan [facility] Registered [place] 01/10/16 1:03pm [facility] [place] 11/14/15 12:59pm [facility] Mary FERNANDO CTR Office Visit [facility] 11/14/15 11:30am [facility] A PA Office Visit [facility] 11/09/15 9:30am [facility] Selina P[employer] CON[employer]OR OPERATOR-C Departed [place] 11/05/15 6:25pm 11/05/15 9:09pm [facility] Emergency Room [facility] Selina PIG CONVEYOR OPERATOR-C CTR Departed [place] 11/05/15 10:45am 11/05/15 1:20pm [facility] Room [facility] Selina PIG CONVEYOR OPERATOR-C CTR Registered [place] 10/03/15 1:00pm [facility] FERNA[facility] CTR Registered [place] 08/22/15 1:01pm [facility] 07/23/15 2:45pm [facility] A PA Registered [place] 07/11/15 12:50pm [facility]ivasan[facility] Mary FERNANDO CTR Registered [place] 05/30/15 1:01pm [facility] 05/29/15 4:30pm Srinivasan [facility] Registered [place] 05/03/15 7:57am [facility] Reg[facility] [place] 05/02/15 8:48am [facility] Reg[facility] [place] 03/21/15 12:55pm [facility] 02/16/15 10:30am Srinivasan [facility] Registered [place] 01/31/15 12:52pm [facility] Mary FERNANDO CTR Registered [place] 12/20/14 1:00pm [facility] FERNAND[facility] CTR Registered [place] 11/06/14 1:08pm [facility] Registered [place] 09/18/14 12:50pm Srinivasan, [facility] CTR Departed Clinic [place] 09/05/14 8:51am 09/05/14 11:59pm Srinivasan [facility] CTR Office Visit [facility] 09/04/14 2:00pm Srinivasan, [facility] Office Visit [facility] 08/17/14 1:30pm [facility]rinivasan, [facility] [facility] Registered [place] 08/16/14 10:04am Srinivasan, [facility] CTR Office Visit [facility] 07/25/14 10:00am Srinivasan, [facility] Registered [place] 04/26/14 12:42pm Srinivasan, [facility] CTR Office Visit [facility] 03/15/14 1:00pm Srinivasan, [facility] Registered [place] 03/09/14 1:01pm Srinivasan, [facility] CTR Office Visit [facility] 01/03/14 11:30am Srinivasan, [facility] Registered [place] 12/22/13 8:57am Srinivasan, [facility] CTR Registered [place] 11/22/13 10:54am Srinivasan, [facility] CTR Registered [place] 10/25/13 8:58am Srinivasan, [facility] CTR Office Visit [facility] 09/28/13 1:15pm Srinivasan [facility] Office Visit [facility] 07/11/13 11:00am Srinivasan, [facility] Registered [place] 07/04/13 7:58am Srinivasan, [facility] CTR Office Visit [facility] 04/27/13 9:30am [facility] A PA Office Visit [facility] 02/02/13 10:00am [facility] A PA Discharged [place] 10/22/12 2:12pm 10/24/12 4:50pm [facility] Departed [place] 10/22/12 9:11am 10/22/12 2:12pm Juve Mattson [facility] CTR Registered [place] 06/25/12 1:23pm [facility] 06/10/12 3:15pm Srinivasan [facility] Discharged [place] 05/12/12 1:20pm 06/09/12 11:59pm [facility] 05/10/12 10:45am Srinivasan, [facility] Registered [place] 05/05/12 9:45am Srinivasan [facility] CTR Registered [place] 03/31/12 12:50pm Srinivasan [facility] CTR Registered [place] 02/18/12 1:24pm Srinivasan [facility] CTR Office Visit [facility] 02/18/12 1:00pm [facility] A PA Registered [place] 02/09/12 10:06am [facility] Perla PA CTR Office Visit [facility] 02/09/12 9:30am [facility] A PA Departed [place] 02/01/12 7:30am 02/01/12 9:50am Dorian Carmona [facility] Hiram FERNANDO CTR Registered [place] 01/07/12 1:24pm [facility] Registered [place] 11/19/11 1:32pm [facility] Registered [place] 11/12/11 9:58am Tien Mcdonald [facility] Perla FERNANDO Care CTR Registered [place] 10/01/11 1:10pm [facility] 09/24/11 2:15pm Srinivasan [facility] Departed [place] 09/17/11 10:41am 09/17/11 2:05pm Juve Mattson [facility] CTR Registered [place] 08/26/11 12:54pm [facility] CTR Discharged [place] 08/15/11 2:34pm 08/18/11 5:40pm [facility] 08/15/11 11:45am Srinivasan [facility] Office Visit [facility] 08/12/11 11:45am Srinivasan [facility] Registered [place] 07/14/11 1:12pm [facility] CTR Discharged [place] 07/11/11 1:56pm 08/09/11 11:59pm [facility] Dep[facility] Clinic [place] 05/21/11 1:29pm 05/21/11 11:59pm Srinivasan [facility] CTR Registered [place] 05/19/11 1:00pm Srinivasan [facility] CTR Office Visit [facility] 04/08/11 9:45am Srinivasan [facility] Registered [place] 04/07/11 12:54pm Srinivasan [facility] CTR Office Visit [facility] 03/25/11 11:15am Srinivasan [facility] Registered [place] 03/11/11 12:55pm Srinivasan [facility] CTR Registered [place] 02/11/11 1:16pm Srinivasan [facility] CTR Registered [place] 01/27/11 1:13pm Srinivasan [facility] CTR Discharged [place] 12/16/10 12:49pm 01/07/11 11:59pm [facility] 11/28/10 1:45pm Srinivasan [facility] Office Visit [facility] 10/23/10 1:00pm Srinivasan [facility] Office Visit [facility] 08/26/10 1:30pm Srinivasan [facility] Office Visit [facility] 08/22/10 1:45pm Srinivasan [facility] Office Visit [facility] 06/07/10 1:45pm [facility] Nathan Lilian DO Office Visit [facility] 02/06/10 4:45pm [facility] A PA Office Visit [facility] 04/03/09 9:45am Srinivasan [facility] Office Visit [facility] 08/29/08 9:00am [facility] A PA Office Visit [facility] 06/05/08 2:15pm [facility] A PA Office Visit [facility] 09/14/07 10:00am Zeferinooscar [facility] Discharged [place] 06/11/07 12:52pm 07/09/07 11:59pm Juve Mattson [facility] CTR Office Visit [facility] 06/02/07 9:00am Srinivasan [facility] Office Visit [facility] 05/20/07 10:45am Srinivasan [facility] Departed Clinic [place] 05/19/07 8:38am 05/19/07 11:59pm Juve Mattson [facility] CTR Office Visit [facility] 05/14/07 12:15pm Zeferinooscar [facility] Departed Clinic [place] 04/13/07 9:19am 04/13/07 11:59pm [facility] Dep[facility]ed Clinic [place] 12/02/06 9:19am 12/02/06 11:59pm [facility] [place] 03/11/06 9:53am 03/11/06 11:59pm [facility] [place] 12/22/05 5:01pm 12/22/05 11:59pm Juve Mattson [facility] CTR Departed Clinic [place] 09/29/05 10:33am 09/29/05 11:59pm [facility] Discharged [place] 07/05/05 10:11am 07/08/05 10:35am Juve Mattson Inpatient [facility] CTR Departed [place] 07/05/05 8:29am 07/05/05 10:11am Milag[place], Emergency Room [facility] Nathan Quintana DO CTR Departed Clinic [place] 03/26/05 8:23am 03/26/05 11:[facility]pm [facility] Dep[facility]ed Clinic [place] 02/21/05 2:11pm 02/21/05 11:59pm [facility] [place] [facility] Departed Clinic [place] 11/11/04 3:25pm 11/11/04 11:59pm Juve Mattson [facility] CTR Departed Clinic [place] 11/07/04 3:47pm 11/07/04 11:59pm Juve Mattson [facility] CTR Departed Clinic [place] 12:00am 04/19/10 11:59pm [facility] CTR Departed [place] 12:00am 08/09/10 2:10pm Emergency Room [facility] CTR Discharged [place] 12:00am 08/19/10 2:52pm Inpatient [facility] CTR Departed Clinic [place] 12:00am 08/26/10 11:59pm [facility] CTR Registered [place] 12:00am [facility] CTR Departed Clinic [place] 12:00am 08/31/07 11:59pm [facility] CTR Departed Clinic [place] 12:00am 10/26/07 11:59pm [facility] CTR Departed Clinic [place] 12:00am 12/29/07 11:59pm [facility] CTR Departed Clinic [place] 12:00am 04/03/09 11:59pm [facility] CTR Recent Diagnosis OTH MED,LT,CURRENT USE SCREEN-THYROID DISORDER Screening PSA Status post fall
--- OUTSIDE RECORDS SUMMARY | 2017-06-17 10:50 | External Medical Summary | Continuity of Care Document ---
:1945 Author Organization [facility] Care Team Providers Name Role Phone Juve Mattson MD Unavailable Insurance Providers Payer Name Policy Number Subscriber Name Relationship [facility] [id number] Ag Smith. 18 Self / Same As [...] 1 Tab Oral Every 6 Hours [id number] 09/22/16 phen 7.5MG/325MG 1 as needed for [...] Oral Three Times A Day 02/21/13 Discontinued [[place] 7.5/325] , 1 Tab Oral Every 4-6 Hours As Needed 02/22/13 Discontinued [Lorazepam] , 1 Mg Oral Three Times A Day 03/21/13 Discontinued [[place] 7.5/325] , 1 Tab Oral Every 4-6 Hours As Needed 03/28/13 Discontinued [Lorazepam] , 1 Mg Oral Tid Prn 04/18/13 Discontinued [[place] 7.5/325] , 1 Tab Oral 4 Times [...] , 20 Mg Oral Daily @89909/28/13 Discontinued [[place] 7.5/325] , 1 Tab Oral 4 Times [...] 1 Mg Oral Tid Prn 01/03/14 Discontinued [[place] 7.5/325] , 1 Tab Oral 4 Times [...] 1.020 1.005-1.035 07/07/2005 07/07/2005 Specific 5:00pm 6:58pm [place] Urine 1+ SMALL NEGATIVE 07/07/2005 07/07/2005 Occult [...] 1.015 1.005-1.035 04/03/2009 04/03/2009 Specific 10:23am 12:05pm [place] Urine NEGATIVE NEGATIVE 04/03/2009 04/03/2009 Occult 10:23am [...] 1.020 1.005-1.035 04/19/2010 04/19/2010 Specific 11:15am 12:33pm [place] Urine NEGATIVE NEGATIVE 04/19/2010 04/19/2010 Occult 11:15am [...] 25-115 08/09/2010 08/09/2010 Level 12:26pm 1:05pm Lipase [id number] U/L H 73-393 08/09/2010 08/09/2010 12:26pm 1:05pm [...] <=1.005 1.005-1.035 05/21/2011 05/21/2011 Specific 1:21pm 2:12pm [place] Urine TRACE NEGATIVE 05/21/2011 05/21/2011 Occult 1:21pm [...] 1.010 1.005-1.035 08/15/2011 08/15/2011 Specific 8:50pm 9:13pm [place] Urine NEGATIVE NEGATIVE 08/15/2011 08/15/2011 Occult 8:50pm [...] Date Discharge/Depart Date Attending Provider Departed Clinic [place] 05/26/16 9:26am 05/26/16 11:59pm [facility] CTR Departed [facility] 05/26/16 9:24am 05/26/16 11:59pm [facility] 05/20/16 1:30pm Srinivasan [facility] Registered [facility] 05/20/16 1:30pm Zeferinooscar [facility] Departed Clinic [place] 05/15/16 12:58pm 05/15/16 11:59pm Srinivasan [facility] CTR Registered [place] 05/15/16 12:58pm Srinivasan [facility] CTR Registered [place] 04/02/16 1:04pm Srinivasan [facility] CTR Registered [place] 02/20/16 1:00pm Srinivasan [facility] CTR Office Visit [facility] 02/18/16 11:15am Srinivasan, [facility] Registered [place] 01/10/16 1:03pm Srinivasan [facility] CTR Registered [place] 11/14/15 12:59pm Srinivasan [facility] CTR Office Visit [facility] 11/14/15 11:30am [facility] A PA Office Visit [facility] 11/09/15 9:30am [facility] Selina GARCIA Departed [place] 11/05/15 6:25pm 11/05/15 9:09pm Shauna [facility] Room [facility] Selina GARCIA CTR Departed [place] 11/05/15 10:45am 11/05/15 1:20pm Shauna Emergency Room [facility] Selina GARCIA CTR Registered [place] 10/03/15 1:00pm [facility] [place] 08/22/15 1:01pm Srinivasan, [facility] CTR Office Visit [facility] 07/23/15 2:[facility]pm [facility] Registered [place] 07/11/15 12[facility] CTR Registered [place] 05/30/15 1:01pm Zeferinooscar, [facility] CTR Office Visit [facility] 05/29/15 4:30pm Zeferinooscar, [facility] Registered [place] 05/03/15 7:57am Zeferinooscar, [facility] CTR Registered [place] 05/02/15 8:48am Srinivasan, [facility] CTR Registered [place] 03/21/15 12:55pm Zeferinooscar, [facility] CTR Office Visit [facility] 02/16/15 10:30am Srinivasan, [facility] Registered [place] 01/31/15 12:52pm [facility] CTR Registered [place] 12/20/14 1:00pm Srinivasan, [facility] CTR Registered [place] 11/06/14 1:08pm Srinivasan, [facility] CTR Registered [place] 09/18/14 12:50pm Zeferinooscar, [facility] CTR Departed Clinic [place] 09/05/14 8:51am 09/05/14 11:59pm Srinivasan, [facility] CTR Office Visit [facility] 09/04/14 2:00pm Zeferinooscar, [facility] Office Visit [facility] 08/17/14 1:30pm Srinivasan, [facility] Registered [place] 08/16/14 10:04am Srinivasan, [facility] CTR Office Visit [facility] 07/25/14 10:00am Srinivasan, [facility] Registered [place] 04/26/14 12:42pm Srinivasan, [facility] CTR Office Visit [facility] 03/15/14 1:00pm Srinivasan [facility] Registered [place] 03/09/14 1:01pm [facility] 01/03/14 11:30am [facility] [place] 12/22/13 8:57am [facility] [place] 11/22/13 10:54am [facility] Reg[facility] [place] 10/25/13 8:58am Srinivasan, [facility] CTR Office Visit [facility] 09/28/13 1:15pm Srinivasan [facility] Office Visit [facility] 07/11/13 11:00am Srinivasan, [facility] Registered [place] 07/04/13 7:58am [facility] 04/27/13 9:30am [facility] A PA Office Visit [facility] 02/02/13 10:00am [facility] A PA Discharged [place] 10/22/12 2:12pm 10/24/12 4:50pm Juve Mattson [facility] CTR Departed [place] 10/22/12 9:11am 10/22/12 2:12pm Juve Mattson [facility] CTR Registered [place] 06/25/12 1:23pm [facility] 06/10/12 3:15pm Srinivasan [facility] Discharged [place] 05/12/12 1:20pm 06/09/12 11:59pm Juve Mattson [facility] CTR Office Visit [facility] 05/10/12 10:45am Srinivasan [facility] Registered [place] 05/05/12 9:45am [facility] Registered [place] 03/31/12 12:50pm [facility] Reg[facility] [place] 02/18/12 1:24pm [facility] 02/18/12 1:00pm Joy, [facility] A PA Registered [place] 02/09/12 10:06am [facility] Perla PA CTR Office Visit [facility] 02/09/12 9:30am [facility] A PA Departed [place] 02/01/12 7:30am 02/01/12 9:50am Dorian Carmona Emergency Room [facility] Hiram FERNANDO CTR Registered [place] 01/07/12 1:24pm [facility] Registered [place] 11/19/11 1:32pm Srinivasan [facility] CTR Registered [place] 11/12/11 9:58am Tien Mcdonald [facility] MD Care CTR Registered [place] 10/01/11 1:10pm [facility] 09/24/11 2:15pm Srinivasan [facility] Departed [place] 09/17/11 10:41am 09/17/11 2:05pm Javi Mattsonzy [facility] CTR Registered [place] 08/26/11 12:54pm Srinivasan [facility] CTR Discharged [place] 08/15/11 2:34pm 08/18/11 5:40pm [facility] 08/15/11 11:45am [facility] 08/12/11 11:45am Srinivasan [facility] Registered [place] 07/14/11 1:12pm Srinivasan [facility] CTR Discharged [place] 07/11/11 1:56pm 08/09/11 11:59pm [facility] [place] 05/21/11 1:29pm 05/21/11 11:59pm Sl[place], [facility] CTR Registered [place] 05/19/11 1:00pm [facility] 04/08/11 9:45am Srinivasan [facility] Registered [place] 04/07/11 12:54pm [facility] 03/25/11 11:15am Srinivasan, [facility] Registered [place] 03/11/11 12:55pm Srinivasan, [facility] CTR Registered [place] 02/11/11 1:16pm Srinivasan, [facility] CTR Registered [place] 01/27/11 1:13pm Srinivasan [facility] CTR Discharged [place] 12/16/10 12:49pm 01/07/11 11:59pm Srinivasan [facility] CTR Office Visit [facility] 11/28/10 1:45pm Srinivasan [facility] Office Visit [facility] 10/23/10 1:00pm Srinivasan [facility] Office Visit [facility] 08/26/10 1:30pm Srinivasan [facility] Office Visit [facility] 08/22/10 1:45pm Srinivasan [facility] Office Visit [facility] 06/07/10 1:45pm [facility] Nathan Quintana DO Office Visit [facility] 02/06/10 4:45pm [facility] A PA Office Visit [facility] 04/03/09 9:45am Srinivasan [facility] Office Visit [facility] 08/29/08 9:00am [facility] A PA Office Visit [facility] 06/05/08 2:15pm [facility] A PA Office Visit [facility] 09/14/07 10:00am Srinivasan [facility] Discharged [place] 06/11/07 12:52pm 07/09/07 11:59pm [place], [facility] 06/02/07 9:00am Srinivasan [facility] MD Office Visit [facility] 05/20/07 10:45am Srinivasan [facility] Departed Clinic [place] 05/19/07 8:38am 05/19/07 11:59pm Srinivasan [facility] CTR Office Visit [facility] 05/14/07 12:15pm Srinivasan [facility] Departed Clinic [place] 04/13/07 9:19am 04/13/07 11:59pm [facility] Perla PA CTR Departed Clinic [place] 12/02/06 9:19am 12/02/06 11:59pm Srinivasan [facility] CTR Departed Clinic [place] 03/11/06 9:53am 03/11/06 11:59pm Srinivasan [facility] CTR Departed Clinic [place] 12/22/05 5:01pm 12/22/05 11:59pm [facility] [place] 09/29/05 10:33am 09/29/05 11:59pm [facility] Discharged [place] 07/05/05 10:11am 07/08/05 10:35[facility] [place] 07/05/05 8:29am 07/05/05 10:11am Milag[place], Emergency Room [facility] Nathan Quintana DO CTR Departed Clinic [place] 03/26/05 8:23am 03/26/05 11:[facility]pm [facility] CTR Departed Clinic [place] 02/21/05 2:11pm 02/21/05 11:59pm [facility] [place] [facility] Departed Clinic [place] 11/11/04 3:25pm 11/11/04 11:59pm [facility] [place] 11/07/04 3:47pm 11/07/04 11:59pm [facility] [place] 12:00am 04/19/10 11:59pm [facility] CTR Departed [place] 12:00am 08/09/10 2:10pm Emergency Room [facility] CTR Discharged [place] 12:00am 08/19/10 2:52pm Inpatient [facility] CTR Departed [facility] [place] 12:00am 08/26/10 11:59pm [facility] CTR Registered [place] 12:00am [facility] Medical CTR Departed [facility] [place] 12:00am 08/31/07 11:59pm [facility] CTR Departed [facility] [place] 12:00am 10/26/07 11:59pm [facility] CTR Departed [facility] [place] 12:00am 12/29/07 11:59pm [facility] CTR Departed [facility] 12:00am 04/03/09 11:59pm [facility] CTR
--- OUTSIDE RECORDS SUMMARY | 2017-06-17 10:52 | External Medical Summary | Continuity of Care Document ---
:1945 Author Organization [facility] Care Team Providers Name Role Phone Juve Mattson MD Unavailable Insurance Providers Payer Name Policy Number Subscriber Name Relationship [facility] [id number] Ag Smith. 18 Self / Same As Patient Chief [...] Mg Oral Three Times A 90 RX #[id number] 08/14/16 Day as needed for Anxiety Hydrocodone/Acetamino 1 Tab Oral Every 6 Hours 120 RX #[id number] 08/14/16 phen 7.5MG/325MG 1 as needed for [...] Oral Three Times A Day 02/21/13 Discontinued [Ward 7.5/325] , 1 Tab Oral Every 4-6 Hours As Needed 02/22/13 Discontinued [Lorazepam] , 1 Mg Oral Three Times A Day 03/21/13 Discontinued [Ward 7.5/325] , 1 Tab Oral Every 4-6 Hours As Needed 03/28/13 Discontinued [Lorazepam] , 1 Mg Oral Tid Prn 04/18/13 Discontinued [Ward 7.5/325] , 1 Tab Oral 4 Times [...] , 20 Mg Oral Daily @89909/28/13 Discontinued [Ward 7.5/325] , 1 Tab Oral 4 Times [...] 1 Mg Oral Tid Prn 01/03/14 Discontinued [Ward 7.5/325] , 1 Tab Oral 4 Times [...] Tablet, 1 Tab Pain Oral Flu Vacc [id number](65UP)/Mf59c/Pf 45 Once 08/14/16 Discontinued Mcg/0.5 Ml Syringe, 45 Mcg Intramusc Social History Query Response Start Date Stop Date Smoking Status Former smoker Hospital Discharge Instructions No hospital discharge instructions. Plan of Care Discharge Date 08/22/16 3:05pm Disposition ADMITTED INPATIENT Instructions/Education Provided Acute Nausea and Vomiting (GEN) Prescriptions See Medication Section Functional Status No [...] 1.020 1.005-1.035 07/07/2005 07/07/2005 Specific 5:00pm 6:58pm [place]rine 1+ SMALL NEGATIVE 07/07/2005 07/07/2005 Occult [...] 1.015 1.005-1.035 04/03/2009 04/03/2009 Specific 10:23am 12:05pm [place] NEGATIVE NEGATIVE 04/03/2009 04/03/2009 Occult 10:23am [...] 1.020 1.005-1.035 04/19/2010 04/19/2010 Specific 11:15am 12:33pm [place] NEGATIVE NEGATIVE 04/19/2010 04/19/2010 Occult 11:15am [...] 25-115 08/09/2010 08/09/2010 Level 12:26pm 1:05pm Lipase 70089 U/L H 73-393 08/09/2010 08/09/2010 12:26pm 1:05pm [...] <=1.005 1.005-1.035 05/21/2011 05/21/2011 Specific 1:21pm 2:12pm [place] TRACE NEGATIVE 05/21/2011 05/21/2011 Occult 1:21pm [...] 1.010 1.005-1.035 08/15/2011 08/15/2011 Specific 8:50pm 9:13pm [place] NEGATIVE NEGATIVE 08/15/2011 08/15/2011 Occult 8:50pm [...] CL 3.5-5.1 02/01/2012 02/01/2012 NOTIFIED [facility]CO @ 32 @Repeated by: Angela Gupta Level 7:42am 10:14am 02/01/12 0831 --- 02/01/12 1014 --- K previously reported as: 2.3 CL mEq/L NOTIFIED [facility]CO @ 32 @Repeated by: Angela Gupta 02/01/1231 Chloride 89 mEq/L L 98-107 02/01/2012 02/01/2012 [...] 10/22/2012 10/22/2012 10:03am 10:45am BUN/Creatin 5.6 L 12-10/22/2012 10/22/2012 ine Ratio 10:03am 10:45am Sodium 137 [...] Dioxide 8:00am 8:40am Level Anion Gap 10.7 10-10/24/2012 10/24/2012 8:00am 8:40am Calcium 7.8 mg/dL L [...] GFR 30-59 4 Severe reduction of GFR 15 5 Kidney Failure <15 Total 6.4 gm/dL [...] Total 7.2 gm/dL 6.4-8.2 12/22/2013 12/22/2013 Protein 9:15 10:17am Albumin 3.8 gm/dL 3.4-5.0 12/22/2013 12/22/2013 9:15 10:17am Albumin/Leslie 1.1 12/22/2013 12/22/2013 bulin Ratio 9: 10:17am Total 0.17 mg/dL L 0.2-1.0 12/22/2013 12/22/2013 Bilirubin 9:15 10:17am Aspartate 20 U/L 15-37 12/22/2013 12/22/2013 Amino 9: 10:17am Transf (AST/SGOT) Alanine 20 U/L 12-78 12/22/2013 12/22/2013 NOTE REFERENCE RANGE CHANGE Aminotransf 9: 10:17am erase 02/09/12 REFERENCE RANGE CHANGE DUE TO NEW REAGENT (ALT/SGPT) PREVIOUS RANGE: 30-65 U/L NEW RANGE: 12-78 U/L Alkaline 86.0 U/L 50-136 12/22/2013 12/22/2013 Phosphatase 9:15 10:17am Globulin 3.4 gm/dL 2.0-4.5 12/22/2013 12/22/2013 9:15 10:17am White Blood 7.29 K/mm3 4.5-10.5 03/09/2014 [...] 0.6-1.3 04/26/2014 04/26/2014 UNK 4:28pm BUN/Creatin 12.0 12-04/26/2014 04/26/2014 ine Ratio UNK 4:28pm Sodium 134 [...] Dioxide 10:30am 11:19am Level Anion Gap 16.2 10-08/16/2014 08/16/2014 10:30am 11:19am Calcium 9.1 mg/dL 8.2-10.0 [...] NEW RANGE: 0.550-1.3 mg/dL BUN/Creatin 8.59 L 12-08/20/2016 08/20/2016 ine Ratio 6:49pm 7:23pm Sodium 138 [...] 3.5 gm/dL 2.0-4.5 08/20/2016 08/20/2016 6:49pm 7:23pm White Blood 12.96 K/mm3 H 4.5-10.5 08/21/2016 [...] 1.020 1.005-1.035 08/21/2016 08/21/2016 Specific 3:34pm 3:54pm [place] [facility] NEGATIVE NEGATIVE 08/21/2016 08/21/2016 Occult 3:34pm [...] Glucose 6:45am 7:51am Blood Urea 15 mg/dL 7-08/21/2016 08/21/2016 Nitrogen 6:45am 7:51am Creatinine 0.87 mg/dL # 0.550-1.3 08/21/2016 08/21/2016 NOTE REFERENCE RANGE CHANGE 6:45am 7:51am 02/06/15 REFERENCE RANGE CHANGE DUE TO NEW REAGENT PREVIOUS RANGE: 0.6-1.3 mg/dL NEW RANGE: 0.550-1.3 mg/dL BUN/Creatin 17.24 12-08/21/2016 08/21/2016 ine Ratio 6:45am 7:51am Sodium 138 [...] 08/22/2016 Culture 12hrs 3:34pm 6:44am Result 1 Globulin 3.0 gm/dL 2.0-4.5 08/21/2016 08/21/2016 6:45am 7:51am Procedures Procedure Status Date Provider(s) COLONOSCOPY W/LESION REMOVAL Completed 11/12/11 Tien Mcdonald MD RPR F/E/E/N/L/M 2.5 CM/< Completed 11/05/15 Selina Villatoro Encounters Encounter Location Arrival/Admit Date Discharge/Depart Date Attending Provider Discharged [place] 08/20/16 8:15pm 08/22/16 3:05pm Juve Mattson [facility] (obs) Kwesi Hernandez MD CTR Departed [place] 08/20/16 6:12pm 08/20/16 8:15pm Shauna, Emergency Room [facility] Selina GARCIA CTR Office Visit [facility] 08/14/16 [facility] 08/14/16 1:15pm Juve Mattson [facility] Registered [place] 08/06/16 1:22pm Juve Mattson [facility] Kwesi Hernandez MD CTR Registered [place] 06/26/16 1:01pm Juve Mattson [facility] Mary FERNANDO CTR Departed Clinic [place] 05/26/16 9:26am 05/26/16 11:59pm Juve Mattson MD CTR Departed Clinic [place] 05/26/16 9:24am 05/26/16 11:59pm Juve Mattson MD CTR Office Visit [facility] 05/20/16 1:[facility] [place] 05/15/16 12:58pm 05/15/16 11:59pm Juve Mattson [facility] CTR Registered [place] 05/15/16 12:58pm [facility] [place] 04/02/16 1:04pm [facility] [place] 02/20/16 1:00pm [facility] 02/18/16 11:15am Srinivasan, [facility] Registered [place] 01/10/16 1:03pm Srinivasan [facility] CTR Registered [place] 11/14/15 12:59pm Srinivasan [facility] CTR Office Visit [facility] 11/14/15 11:30am [facility] A PA Office Visit [facility] 11/09/15 9:30am [facility] Selina [employer]C Departed [place] 11/05/15 6:25pm 11/05/15 9:09pm [facility] Emergency Room [facility] Selina [employer] CTR Departed [place] 11/05/15 10:45am 11/05/15 1:20pm [facility] Emergency Room [facility] Selina [employer] CTR Registered [place] 10/03/15 1:00pm [facility] Registered [place] 08/22/15 1:01pm [facility] 07/23/15 2:45pm [facility] A PA Registered [place] 07/11/15 12:50pm Srinivasan [facility] CTR Registered [place] 05/30/15 1:01pm [facility] 05/29/15 4:30pm Srinivasan [facility] Registered [place] 05/03/15 7:57am Srinivasan [facility] CTR Registered [place] 05/02/15 8:48am Srinivasan [facility] CTR Registered [place] 03/21/15 12:55pm Srinivasan, [facility] CTR Office Visit [facility] 02/16/15 10:30am Srinivasan, [facility] Registered [place] 01/31/15 12:52pm Srinivasan, [facility] CTR Registered [place] 12/20/14 1:00pm Srinivasan, [facility] CTR Registered [place] 11/06/14 1:08pm Srinivasan, [facility] CTR Registered [place] 09/18/14 12:50pm Srinivasan, [facility] CTR Departed Clinic [place] 09/05/14 8:51am 09/05/14 11:59pm Srinivasan, [facility] CTR Office Visit [facility] 09/04/14 2:00pm Srinivasan, [facility] MD Office Visit [facility] 08/17/14 1:30pm Srinivasan, [facility] Registered [place] 08/16/14 10:04am Srinivasan, [facility] CTR Office Visit [facility] 07/25/14 10:00am Srinivasan, [facility] Registered [place] 04/26/14 12:42pm Srinivasan, [facility] CTR Office Visit [facility] 03/15/14 1:00pm Srinivasan, [facility] Registered [place] 03/09/14 1:01pm Srinivasan, [facility] CTR Office Visit [facility] 01/03/14 11:30am Srinivasan, [facility] Registered [place] 12/22/13 8:57am Srinivasan, [facility] CTR Registered [place] 11/22/13 10:54am Srinivasan, [facility] CTR Registered [place] 10/25/13 8:58am Srinivasan, [facility] CTR Office Visit [facility] 09/28/13 1:15pm Srinivasan, [facility] Office Visit [facility] 07/11/13 11:00am Srinivasan [facility] Registered [place] 07/04/13 7:58am [facility] 04/27/13 9:30am [facility] A PA Office Visit [facility] 02/02/13 10:00am [facility] A PA Discharged [place] 10/22/12 2:12pm 10/24/12 4:50pm [facility] [place] 10/22/12 9:11am 10/22/12 2:12pm [facility] [place] 06/25/12 1:23pm [facility] 06/10/12 3:15pm Srinivasan [facility] Discharged [place] 05/12/12 1:20pm 06/09/12 11:59pm [facility] 05/10/12 10:45am Srinivasan [facility] Registered [place] 05/05/12 9:45am Srinivasan [facility] CTR Registered [place] 03/31/12 12:50pm [facility] Reg[facility] [place] 02/18/12 1:24pm [facility] 02/18/12 1:00pm [facility] A PA Registered [place] 02/09/12 10:06am [facility] Perla PA CTR Office Visit [facility] 02/09/12 9:30am [facility] A PA Departed [place] 02/01/12 7:30am 02/01/12 9:50am Dorian Carmona [facility] Hiram FERNANDO CTR Registered [place] 01/07/12 1:24pm [facility] [place] 11/19/11 1:32pm [facility] Reg[facility] [place] 11/12/11 9:58am Tien Mcdonald [facility] CTR Registered [place] 10/01/11 1:10pm [facility] 09/24/11 2:15pm [facility] [place] 09/17/11 10:41am 09/17/11 2:05pm Juve Mattson [facility] CTR Registered [place] 08/26/11 12:54pm [facility] Dis[facility] [place] 08/15/11 2:34pm 08/18/11 5:40pm [facility] 08/15/11 11:45am Srinivasan [facility] Office Visit [facility] 08/12/11 11:45am Srinivasan, [facility] Registered [place] 07/14/11 1:12pm [facility] Discharged [place] 07/11/11 1:56pm 08/09/11 11:59pm [facility] [place] 05/21/11 1:29pm 05/21/11 11:59pm Srinivasan [facility] CTR Registered [place] 05/19/11 1:00pm [facility] 04/08/11 9:45am Srinivasan, [facility] Registered [place] 04/07/11 12:54pm [facility] 03/25/11 11:15am Srinivasan, [facility] Registered [place] 03/11/11 12:55pm Srinivasan [facility] CTR Registered [place] 02/11/11 1:16pm Srinivasan [facility] CTR Registered [place] 01/27/11 1:13pm [facility] Discharged [place] 12/16/10 12:49pm 01/07/11 11:59pm Juve Mattson [facility] CTR Office Visit [facility] 11/28/10 1:45pm [facility] 10/23/10 1:00pm Srinivasan [facility] Office Visit [facility] 08/26/10 1:30pm [facility] 08/22/10 1:45pm Srinivasan [facility] Office Visit [facility] 06/07/10 1:45pm [facility] Lilian DO Office Visit [facility] 02/06/10 4:45pm [facility] A PA Office Visit [facility] 04/03/09 9:45am Srinivasan [facility] Office Visit [facility] 08/29/08 9:00am [facility] A PA Office Visit [facility] 06/05/08 2:15pm [facility] A PA Office Visit [facility] 09/14/07 10:00am Srinivasan [facility] Discharged [place] 06/11/07 12:52pm 07/09/07 11:59pm Juve Mattson [facility] CTR Office Visit [facility] 06/02/07 9:00am Srinivasan [facility] Visit [facility] 05/20/07 10:45am Srinivasan [facility] Departed Clinic [place] 05/19/07 8:38am 05/19/07 11:59pm Juve Mattson [facility] CTR Office Visit [facility] 05/14/07 12:15pm Srinivasan [facility] Departed Clinic [place] 04/13/07 9:19am 04/13/07 11:59pm Rufino Abdiel [facility] Mary Duncan PA CTR Departed Clinic [place] 12/02/06 9:19am 12/02/06 11:59pm Juve Mattson [facility] CTR Departed Clinic [place] 03/11/06 9:53am 08/02/06 11:59pm Juve Mattson [facility] CTR Departed Clinic [place] 12/22/05 5:01pm 12/22/05 11:59pm Juve Mattson [facility] Mary FERNANDO CTR Departed Clinic [place] 09/29/05 10:33am 09/29/05 11:59pm Juve Mattson [facility] CTR Discharged [place] 07/05/05 10:11am 07/08/05 10:35am Juve Mattson [facility] CTR Departed [place] 07/05/05 8:29am 07/05/05 10:11am [place], Emergency Room [facility] Nathan Quintana DO CTR Departed Clinic [place] 03/26/05 8:23am 03/26/05 11:59pm [facility] Dep[facility] Clinic [place] 02/21/05 2:11pm 02/21/05 11:59pm [facility] Dep[facility]ed Clinic [place] 11/11/04 3:25pm 11/11/04 11:59pm Juve Mattson [facility] Mary FERNANDO CTR Departed Clinic [place] 11/07/04 3:47pm 11/07/04 11:59pm Juve Mattson [facility] CTR Departed Clinic [place] 12:00am 04/19/10 11:59pm [facility] CTR Departed [place] 12:00am 08/09/10 2:10pm Emergency Room [facility] CTR Discharged [place] 12:00am 08/19/10 2:52pm Inpatient [facility] CTR Departed Clinic [place] 12:00am 08/26/10 11:59pm [facility] CTR Registered [place] 12:00am Clinic [facility] CTR Departed Clinic [place] 12:00am 08/31/07 11:59pm [facility] CTR Departed Clinic [place] 12:00am 10/26/07 11:59pm [facility] CTR Departed Clinic [place] 12:00am 12/29/07 11:59pm [facility] CTR Departed Clinic [place] 12:00am 04/03/09 11:59pm [facility] CTR Recent Diagnosis Screening PSA Status post fall
--- OUTSIDE RECORDS SUMMARY | 2017-06-17 10:54 | External Medical Summary | Continuity of Care Document ---
:1945 Author Organization [facility] Care Team Providers Name Role Phone Juve Mattson MD Unavailable Insurance Providers Payer Name Policy Number Subscriber Name [facility] [id number] Ag Smith. 18 Self / Same As [...] 40 Mg Oral Daily @0900 30 07/23/15 Amlodipine Besylate 10 Mg Oral Daily @0900 90 08/21/15 10 Mg Losartan Potassium 25 Mg Oral Daily @0900 90 08/21/15 25 Mg Metformin Hcl 500 Mg 500 Mg Oral Daily @0900 90 08/21/15 Atorvastatin Calcium 20 Mg Oral Daily @ Hs 90 09/04/15 20 Mg Hydrocodone/Acetamin 1 Each Oral Every 6 Hours 150 [id number] 02/18/16 ophen 7.5MG/325MG 1 as needed for Each Pain Sulfasalazine 500 Mg 500 Mg Oral Three Times A 270 PATIENT IS DUE Day FOR LABS Hydrocodone/Acetamin 1 Tab Oral Every 6 Hours 150 [id number] 03/24/16 ophen 7.5MG/325MG 1 as needed for Each Pain Baclofen 10 Mg 10 Mg Oral Twice A Day 60 03/25/16 Omeprazole 20 Mg 20 Mg Oral Daily @0900 30 03/31/16 Lorazepam 1 Mg 1 Mg Oral Three Times A 90 04/25/16 Day Hydrocodone/Acetamin 1 Tab Oral Every 6 Hours 150 [id number] 05/01/16 ophen 7.5MG/325MG 1 as needed for Each Pain [...] 1 Cap.ec 4 Times Daily 10/04/09 Discontinued Capsule.dr, 1 Cap.ec Oral [Hydroco-Apap 7.5/500] , Oral [...] Each Three Times A Day 09/18/11 Discontinued Capsule., 1 Each Oral [Simvastin] , 20 Mg [...] Oral Three Times A Day 02/21/13 Discontinued [[place] 7.5/325] , 1 Tab Oral Every 4-6 Hours As Needed 02/22/13 Discontinued [Lorazepam] , 1 Mg Oral Three Times A Day 03/21/13 Discontinued [[place] 7.5/325] , 1 Tab Oral Every 4-6 Hours As Needed 03/28/13 Discontinued [Lorazepam] , 1 Mg Oral Tid Prn 04/18/13 Discontinued [[place] 7.5/325] , 1 Tab Oral 4 Times [...] Oral [Omeprazole] , 20 Mg Oral Daily @09/28/13 Discontinued [[place] 7.5/325] , 1 Tab Oral 4 Times Daily 09/28/13 Discontinued Metformin Hcl 500 Mg Tab, 500 Mg Daily @0909/28/13 Discontinued Oral Amylase/Lipase/Protease 1 Each Three Times [...] 1 Mg Oral Tid Prn 01/03/14 Discontinued [[place] 7.5/325] , 1 Tab Oral 4 Times [...] Oral Omeprazole 20 Mg Capsule.dr, 20 Daily @0900 07/23/15 Discontinued Mg Oral Hydrocodone/Acetaminophen Four Times A Day as needed for 07/23/15 Discontinued 7.5MG/325MG 1 Each Tablet, 1 Each Pain Oral Baclofen 10 Mg Tab, 10 Mg Oral Twice A Day 07/23/15 Discontinued Flu Vacc Ts 2015- (65YR+)/Pf Once 07/23/15 Discontinued 180 Mcg/0.5 Ml Syringe, 180 Mcg Intramusc Lorazepam 1 Mg Tablet, 1 Mg Oral Three Times A Day 08/09/15 Discontinued Hydrocodone/Acetaminophen Four Times A Day as [...] Mg Oral Twice A Day 02/21/16 Discontinued Social History No social history. Hospital Discharge [...] Response Date/Time Height 5 ft 6 in 02/18/2016 11:29am Weight 202 lbs 02/18/2016 11:29am Temperature, Temporal 97.2 degrees F 02/18/2016 11:29am Blood Pressure, Sitting, Left Arm 142/90 mm Hg 02/18/2016 11:29am Pulse Rate 90 bpm 02/18/2016 11:29am Respiration Rate 20 bpm 02/18/2016 11:29am Body Surface Area 2.10 m2 02/18/2016 11:29am Body Mass Index 32.6 kg/m2 02/18/2016 11:29am Pulse Oximetry Pulse Oximetry 02/18/2016 11:29am Results Laboratory Results Test Name Result Units [...] 0.6-1.3 11/07/2004 11/07/2004 4:20pm 5:43pm BUN/Creatin 15.5 -11/07/2004 11/07/2004 ine Ratio 4:20pm 5:43pm Sodium 134 [...] 1.020 1.005-1.035 07/07/2005 07/07/2005 Specific 5:00pm 6:58pm [place] Urine 1+ SMALL NEGATIVE 07/07/2005 07/07/2005 Occult [...] 1.015 1.005-1.035 04/03/2009 04/03/2009 Specific 10:23am 12:05pm [place] Urine NEGATIVE NEGATIVE 04/03/2009 04/03/2009 Occult 10:23am [...] 0.6-1.3 04/03/2009 04/03/2009 10:23am 11:51am BUN/Creatin 12.5 12-04/03/2009 04/03/2009 ine Ratio 10:23am 11:51am Sodium 139 [...] GFR 15 5 Kidney Failure <15 Total 9.1 gm/dL [...] 1.020 1.005-1.035 04/19/2010 04/19/2010 Specific 11:15am 12:33pm [place] Urine NEGATIVE NEGATIVE 04/19/2010 04/19/2010 Occult 11:15am [...] 0.6-1.3 08/09/2010 08/09/2010 12:26pm 1:05pm BUN/Creatin 18.2 12-30 08/09/2010 08/09/2010 ine Ratio 12:26pm 1:05pm Sodium 134 mEq/L L 135-155 08/09/2010 08/09/2010 Level 12:26pm 1:05pm Potassium 3.0 mEq/L L 3.5-5.1 08/09/2010 08/09/2010 Level 12:26pm 1:05pm Chloride 88 mEq/L L 98-107 08/09/2010 08/09/2010 Level 12:26pm 1:05pm Carbon 10 mEq/L CL 21-32 08/09/2010 08/09/2010 PHONED TO THIEN Amalia 12:26pm 1:05pm AT 1300 Level Anion Gap [...] 25-115 08/09/2010 08/09/2010 Level 12:26pm 1:05pm Lipase 84138 U/L H 73-393 08/09/2010 08/09/2010 12:26pm 1:05pm [...] Glucose 7:39am 8:41am Blood Urea 14 mg/dL 7-10/21/2010 10/21/2010 Nitrogen 7:39am 8:41am Creatinine 0.9 mg/dL 0.6-1.3 10/21/2010 10/21/2010 7:39am 8:41am BUN/Creatin 15.6 12-30 10/21/201010/21/2010 ine Ratio 7:39am 8:41am Sodium 138 mEq/L [...] of GFR 15 5 Kidney Failure <15 Magnesium 2.0 mg/dL [...] <=1.005 1.005-1.035 05/21/2011 05/21/2011 Specific 1:21pm 2:12pm [place] Urine TRACE NEGATIVE 05/21/2011 05/21/2011 Occult 1:21pm [...] 1.010 1.005-1.035 08/15/2011 08/15/2011 Specific 8:50pm 9:13pm [place] Urine NEGATIVE NEGATIVE 08/15/2011 08/15/2011 Occult 8:50pm [...] @Repeated by: Angela Gupta Level 7:42am 10:14am 02/01/1231 --- 02/01/12 1014 --- K previously reported as: 2.3 CL mEq/L NOTIFIED CCUO @ [email or web address] @Repeated by: Angela Gupta 02/01/1231 Chloride 89 mEq/L L 98-107 02/01/2012 02/01/2012 --- 02/01/12 1014 --- Level 7:42am 10:14am CL previously reported as: 90 L mEq/L Carbon 29 mEq/L 21-02/01/2012 02/01/2012 Dioxide 7:42am 8:34am Level Anion Gap [...] 0.6-1.3 05/05/2012 05/05/2012 10:00am 11:00am BUN/Creatin 18.9 12-05/05/2012 05/05/2012 ine Ratio 10:00am 11:00am Sodium 138 mEq/L 135-155 05/05/2012 05/05/2012 Level 10:00am 11:00am Potassium 4.0 mEq/L 3.5-5.1 05/05/2012 05/05/2012 Level 10:00am 11:00am Chloride 102 mEq/L 98-107 05/05/2012 05/05/2012 Level 10:00am 11:00am Carbon 28 mEq/L 21-32 05/05/2012 05/05/2012 Dioxide 10:00am 11:00am Level Anion Gap 12.0 10-05/05/2012 05/05/2012 10:00am 11:00am Calcium 9.4 mg/dL 8.2-10.0 [...] of GFR 5 Kidney Failure <15 Total 7.3 gm/dL [...] 9:15am 10:17am Level Anion Gap 9.3 L 10-12/22/2013 12/22/2013 9:15am 10:17am Calcium 8.9 mg/dL 8.2-10.0 [...] of GFR 5 Kidney Failure <15 Total 7.2 gm/dL [...] 3.6 gm/dL 2.0-4.5 05/15/2016 05/15/2016 12:58pm 3:04pm Procedures Procedure Status Date Provider(s) COLONOSCOPY W/LESION REMOVAL Completed 11/12/11 Tien Mcdonald MD RPR F/E/E/N/L/M 2.5 CM/< Completed 11/05/15 Selina Villatoro Encounters Encounter Location Arrival/Admit Date Discharge/Depart Date Attending Provider Office Visit [facility] 05/20/16 1:30pm Srinivasan [facility] Departed [facility] [place] 05/15/16 12:58pm 05/15/16 11:59pm Juve Mattson MD CTR Registered [place] [facility] Registered [place] 04/02/16 [facility] [place] 02/20/16 1:00pm Juve Mattson [facility] Kwesi Hernandez MD CTR Office Visit [facility] 02/18/16 11:15am Srinivasan [facility] Registered [place] [facility] 02[facility]18[facility]16 [facility] [place] [facility] [place] [facility]14[facility] Office Visit [facility] 11/14/15 11:30am [facility] A PA Office Visit [facility] 11/09/15 9:30am [facility] Selina SALVAGE MACHINE OPERATOR-C Departed [place] 11/05/15 6:25pm 11/05/15 9:09pm [facility] Selina SALVAGE MACHINE OPERATOR-C CTR Departed [place] 11/05/15 10:45am 11/05/15 1:20pm [facility] Emergency [facility] Selina SALVAGE MACHINE OPERATOR-C CTR Registered [place] 10/03/15 1:00pm [facility] Mary FERNANDO CTR Registered [place] 08/22/15 1:01pm Srinivasan, [facility] CTR Office Visit [facility] 07/23/15 2:45pm [facility] A PA Registered [place] 07/11/15 12:50pm [facility] Mary FERNANDO CTR Registered [place] 05/30/15 1:01pm [facility] CTR Office Visit [facility] 05/29/15 4:30pm [facility] Registered [place] 05/03/15 7:57am [facility] CTR Registered [place] 05/02/15 8:48am [facility] CTR Registered [place] 03/21/15 12:55pm [facility] CTR Office Visit [facility] 02/16/15 10:30am [facility] Registered [place] 01/31/15 12:52pm [facility] CTR Registered [place] 12/20/14 1:00pm [facility] CTR Registered [place] 11/06/14 1:08pm [facility] CTR Registered [place] 09/18/14 12:50pm [facility]rin[facility] CTR Departed Clinic [place] 09/05/14 8:51am 09/05/14 11:59pm Srinivasan [facility] CTR Office Visit [facility] 09/04/14 2:00pm Srinivasan [facility] Office Visit [facility] 08/17/14 1:30pm Srinivasan [facility] Registered [place] 08/16/14 10:04am Srinivasan, [facility] CTR Office Visit [facility] 07/25/14 10:00am Srinivasan, [facility] Registered [place] 04/26/14 12:42pm Srinivasan [facility] CTR Office Visit [facility] 03/15/14 1:00pm Srinivasan [facility] Registered [place] 03/09/14 1:01pm Srinivasan [facility] CTR Office Visit [facility] 01/03/14 11:30am Srinivasan [facility] Registered [place] 12/22/13 8:57am Srinivasan, [facility] CTR Registered [place] 11/22/13 10:54am Srinivasan [facility] CTR Registered [place] 10/25/13 8:58am Srinivasan [facility] CTR Office Visit [facility] 09/28/13 1:15pm Srinivasan [facility] Office Visit [facility] 07/11/13 11:00am Srinivasan [facility] Registered [place] 07/04/13 7:58am Srinivasan [facility] CTR Office Visit [facility] 04/27/13 9:30am [facility] A PA Office Visit [facility] 02/02/13 10:00am [facility] A PA Discharged [place] 10/22/12 2:12pm 10/24/12 4:50pm [facility] Dep[facility] [place] 10/22/12 9:11am 10/22/12 2:12pm Juve Mattson [facility] CTR Registered [place] 06/25/12 1:23pm [facility] 06/10/12 3:15[facility] [place] 05/12/12 1:20pm 06/09/12 11:59pm [facility] 05/10/12 10:45am Srinivasan [facility] Registered [place] 05/05/12 9:45am Srinivasan [facility] CTR Registered [place] 03/31/12 12:50pm [facility] [place] 02/18/12 1:24pm [facility] 02/18/12 1:00pm [facility] A PA Registered [place] 02/09/12 10:06am [facility] CTR Office Visit [facility] 02/09/12 9:30am [facility] Perla PA Departed [place] 02/01/12 7:30am 02/01/12 9:50am Dor[facility] Hiram FERNANDO CTR Registered [place] 01/07/12 1:24pm [facility] [place] 11/19/11 1:32pm [facility] Registered [place] 11/12/11 9:58am Tien Mcdonald [facility] Perla FERNANDO Care CTR Registered [place] 10/01/11 1:10pm [facility] 09/24/11 2:15pm [facility] [place] 09/17/11 10:41am 09/17/11 2:05pm Juve Mattson [facility] CTR Registered [place] 08/26/11 12:54pm [facility] Dis[facility] [place] 08/15/11 2:34pm 08/18/11 5:40pm [facility] 08/15/11 11:45am Srin[facility]an [facility] Office Visit [facility] 08/12/11 11:45am [facility]rinivasan [facility] Registered [place] 07/14/11 1:12pm [facility] Dis[facility] [place] 07/11/11 1:56pm 08/09/11 11:59pm [facility] [place] 05/21/11 1:29pm 05/21/11 11:59pm Srinivasan [facility] CTR Registered [place] 05/19/11 1:00pm Srin[facility]an [facility] CTR Office Visit [facility] 04/08/11 9:45am Srinivasan [facility] Registered [place] 04/07/11 12:54pm Srinivasan [facility] CTR Office Visit [facility] 03/25/11 11:15am Srinivasan [facility] Registered [place] 03/11/11 12:55pm Srinivasan [facility] CTR Registered [place] 02/11/11 1:16pm Srin[facility] CTR Registered [place] 01/27/11 1:13pm Srin[facility]an [facility] CTR Discharged [place] 12/16/10 12:49pm 01/07/11 11:59pm [facility] 11/28/10 1:45pm Srinivasan [facility] Office Visit [facility] 10/23/10 1:00pm Srinivasan [facility] Office Visit [facility] 08/26/10 1:30pm Srinivasan [facility] Office Visit [facility] 08/22/10 1:45pm Srinivasan [facility] Office Visit [facility] 10/29/10 1:45pm [facility] Nathan Quintana DO Office Visit [facility] 02/06/10 4:45pm [facility] A PA Office Visit [facility] 04/03/09 9:45am [facility]an [facility] MD Office Visit [facility] 08/29/08 9:00am [facility] A PA Office Visit [facility] 06/05/08 2:15pm [facility] A PA Office Visit [facility] 09/14/07 10:00am [facility] MD Discharged [place] 06/11/07 12:52pm 07/09/07 11:59pm Juve Mattson [facility] CTR Office Visit [facility] 06/02/07 9:00am [facility] MD Office Visit [facility] 05/20/07 10:45am [facility]rinivasan [facility] Departed Clinic [place] 05/19/07 8:38am 05/19/07 11:59pm Juve Mattson [facility] CTR Office Visit [facility] 05/14/07 12:15pm [facility]rinivasan [facility] Departed [facility] [place] 04/13/07 9:19am 04/13/07 11:59pm Joy, [facility] Perla PA CTR Departed Clinic [place] 12/02/06 9:19am 12/02/06 11:59pm Juve Mattson MD CTR Departed Clinic [place] 03/11/06 9:53am 03/11/06 11:59pm Juve Mattson [facility] CTR Departed [facility] [place] 12/22/05 5:01pm 12/22/05 11:59pm Juve Mattson [facility] Mary FERNANDO CTR Departed Clinic [place] 09/29/05 10:33am 09/29/05 11:59pm Juve Mattson MD CTR Discharged [place] 07/05/05 10:11am 07/08/05 10:35am Juve Mattson [facility] Mary FERNANDO CTR Departed [place] 07/05/05 8:29am 07/05/05 10:11am [place], Emergency Room [facility] Nathan Quintana DO CTR Departed [facility] [place] 03/26/05 8:23am 03/26/05 11:59pm [facility] Ezra Lima [facility] CTR Departed [facility] [place] 02/21/05 2:11pm 02/21/05 11:59pm [facility] CTR RPA-C Departed Clinic [place] 11/11/04 3:25pm 11/11/04 11:59pm Juve Mattson [facility] CTR [facility] [place] 11/07/04 3:47pm 11/07/04 11:59pm Juve Mattson [facility] [place] 12:00am 04/19/10 11:59pm [facility] CTR Departed [place] 12:00am 08/09/10 2:10pm Emergency Room [facility] CTR Discharged [place] 12:00am 08/19/10 2:52pm Inpatient [facility] CTR Departed [facility] [place] 12:00am 08/26/10 11:59pm [facility] CTR Registered [place] 12:00am [facility] CTR Departed Clinic [place] 12:00am 08/31/07 11:59pm [facility] [place] 12:00am 10/26/07 11:59pm [facility] CTR Departed [facility] [place] 12:00am 12/29/07 11:59pm [facility] CTR Departed [facility] [place] 12:00am 04/03/09 11:59pm [facility] Medical CTR
--- OUTSIDE RECORDS SUMMARY | 2017-06-17 10:56 | External Medical Summary | Continuity of Care Document ---
:1945 Author Organization [facility] Care Team Providers Name Role Phone Juve Mattson MD Unavailable Insurance Providers Payer Name Policy Number Subscriber Name Relationship [facility] 150 [id number] Ag Smith. 18 Self / Same As [...] Mg Oral Daily @ Hs 90 06/17/16 Calcium 20 Mg Lorazepam 1 Mg 1 Mg Oral Three Times A 90 RX #[id number] 08/14/16 Day as needed for Anxiety Hydrocodone/Acetami 1 Tab Oral Every 6 Hours 120 RX #[id number] 08/14/16 nophen 7.5MG/325MG as needed for 1 Each Pain Tetrahydrz/Dext 1 Drop Each Eye Twice A Day 08/22/16 70/Peg 400/Pvp 15 Ml Sulfasalazine 500 500 Mg Oral Three Times A 270 08/25/16 Mg Day Amlodipine Besylate 10 Mg Oral Daily @0900 90 08/25/16 10 Mg Fluoxetine Hcl 40 40 Mg Oral Daily @0900 30 08/25/16 Mg Metformin Hcl 500 250 Mg Oral Daily @00 45 TAKE 1/2 TAB 08/25/16 Mg (250 MG) DAILY Pantoprazole Sodium 40 Mg Oral Daily @0900 60 08/25/16 40 Mg Dexlansoprazole 60 09/01/16 Mg Past Home Medications Medication Directions Ordered [...] @89912/31/09 Discontinued [Hydroc/Apap 7.5/500] , Denied Per S.shine 02/06/10 Discontinued [Omeprazole] , 20 Mg Oral [...] Oral Three Times A Day 02/21/13 Discontinued [Kotlik 7.5/325] , 1 Tab Oral Every 4-6 Hours As Needed 02/22/13 Discontinued [Lorazepam] , 1 Mg Oral Three Times A Day 03/21/13 Discontinued [Kotlik 7.5/325] , 1 Tab Oral Every 4-6 Hours As Needed 03/28/13 Discontinued [Lorazepam] , 1 Mg Oral Tid Prn 04/18/13 Discontinued [Kotlik 7.5/325] , 1 Tab Oral 4 Times [...] , 20 Mg Oral Daily @89909/28/13 Discontinued [Kotlik 7.5/325] , 1 Tab Oral 4 Times [...] 1 Mg Oral Tid Prn 01/03/14 Discontinued [Kotlik 7.5/325] , 1 Tab Oral 4 Times [...] Discontinued 25 Mg Oral Aspirin 81 Mg Tablet., 81 Mg Daily @89909/04/14 Discontinued Oral Hydrocodone/Acetaminophen [...] 20 Daily @0900 07/23/15 Discontinued Mg Oral Fluoxetine Hcl 40 Mg Capsule, 40 Daily @0900 07/23/15 Discontinued Mg Oral Hydrocodone/Acetaminophen Four Times A Day as needed for 12/14/15 Discontinued 7.5MG/325MG 1 Each Tablet, 1 Each [...] Metformin Hcl 500 Mg Tablet, 250 Daily @0916 Discontinued Mg Oral Amlodipine Besylate 10 Mg [...] Fluoxetine Hcl 40 Mg Capsule, 40 Daily @0907/22/16 Discontinued Mg Oral Flu Vacc [id number](65UP)/Mf59c/Pf 45 Once 08/14/16 Discontinued Mcg/0.5 Ml Syringe, 45 Mcg Intramusc Metformin Hcl 500 Mg Tablet, 250 Daily @0908/25/16 Discontinued Mg Oral Social History Query Response Start Date Stop Date Smoking Status Former smoker Hospital Discharge Instructions Current inpatient/outpatient. Discharge instructions are currently unavailable. Plan of Care Prescriptions Follow-up Orders Microalbumin/Creatin US Echocardiogram Functional Status No functional status results. Allergies, Adverse Reactions, Alerts Allergen Type Severity Reaction Status Last Updated Penicillin Allergy Unknown Hives Active 08/22/16 Amoxicillin Allergy Unknown UNKNOWN Active 08/22/16 Aripiprazole Adverse Reaction Unknown Confusion Active 08/22/16 Immunizations Name Given Type INFLUENZA (FLU) 08/14/16 Administered Pneumococcal conjugate PCV 13 08/22/16 Administered Vital Signs Acute Vital Signs Vital Response Date/Time Height 5 ft 6 in Weight 198 lb Body Mass Index 32.0 kg/m^2 Ambulatory Vital Signs Vital Response Date/Time Height 5 ft 6 in 09/01/2016 1:26pm Weight 198 lbs 4 oz 09/01/2016 1:26pm Temperature, Temporal 97.3 degrees F 09/01/2016 1:26pm Blood Pressure, Sitting, Left Arm 102/70 mm Hg 09/01/2016 1:26pm Pulse Rate 92 bpm 09/01/2016 1:26pm Respiration Rate 18 bpm 09/01/2016 1:26pm Body Surface Area 2.08 m2 09/01/2016 1:26pm Body Mass Index 32.0 kg/m2 09/01/2016 1:26pm Pulse Oximetry Pulse Oximetry 09/01/2016 1:26pm Results Laboratory Results Test Name Result Units [...] 0.6-1.3 11/07/2004 11/07/2004 4:20pm 5:43pm BUN/Creatin 15.5 08-0811/07/2004 11/07/2004 ine Ratio 4:20pm 5:43pm Sodium 134 mEq/L L 135-155 11/07/2004 11/07/2004 Level 4:20pm 5:43pm Potassium 4.0 mEq/L 3.5-5.1 11/07/2004 11/07/2004 Level 4:20pm 5:43pm Chloride 101 mEq/L 98-107 11/07/2004 11/07/2004 Level 4:20pm 5:43pm Carbon 21 mEq/L 11/07/2004 11/07/2004 Dioxide 4:20pm 5:43pm Level Anion Gap [...] 1.020 1.005-1.035 07/07/2005 07/07/2005 Specific 5:00pm 6:58pm [facility] Urine 1+ SMALL NEGATIVE 07/07/2005 07/07/2005 Occult [...] 1.015 1.005-1.035 04/03/2009 04/03/2009 Specific 10:23am 12:05pm [facility] Urine NEGATIVE NEGATIVE 04/03/2009 04/03/2009 Occult 10:23am [...] 1.020 1.005-1.035 04/19/2010 04/19/2010 Specific 11:15am 12:33pm [facility] Urine NEGATIVE NEGATIVE 04/19/2010 04/19/2010 Occult 11:15am [...] 0.6-1.3 08/09/2010 08/09/2010 12:26pm 1:05pm BUN/Creatin 18.2 1208/09/2010 08/09/2010 ine Ratio 12:26pm 1:05pm Sodium 134 [...] 25-115 08/09/2010 08/09/2010 Level 12:26pm 1:05pm Lipase 95882 U/L H 73-393 08/09/2010 08/09/2010 12:26pm 1:05pm [...] reduction of GFR 5 Kidney Failure <15 Magnesium 1.5 mg/dL [...] <=1.005 1.005-1.035 05/21/2011 05/21/2011 Specific 1:21pm 2:12pm [facility] Urine TRACE NEGATIVE 05/21/2011 05/21/2011 Occult 1:21pm [...] 1.010 1.005-1.035 08/15/2011 08/15/2011 Specific 8:50pm 9:13pm [facility] Urine NEGATIVE NEGATIVE 08/15/2011 08/15/2011 Occult 8:50pm [...] AMI=greater than 1.35 ng/ml Myoglobin 27.0 NG/ML -02/01/2012 02/01/2012 --- 02/01/12 1013 --- 7:42am 10:14am MYOGLOBIN previously reported as: 388.0 H NG/ML Random 178 mg/dL H 70-110 02/01/2012 02/01/2012 Glucose 7:42am 8:34am Blood Urea 5 mg/dL L 7-02/01/2012 02/01/2012 Nitrogen 7:42am 8:34am Creatinine 1.3 mg/dL 0.6-1.3 02/01/2012 02/01/2012 7:42am 8:34am BUN/Creatin 3.8 L 12-02/01/2012 02/01/2012 ine Ratio 7:42am 8:34am Sodium 135 mEq/L 135-155 02/01/2012 02/01/2012 Level 7:42am 8:34am Potassium 2.3 mEq/L CL 3.5-5.1 02/01/2012 02/01/2012 NOTIFIED [facility] @ [facility] @Repeated by: Angela Gupta Level 7:42am 10:14am 02/01/12 0831 --- 02/01/12 1014 --- K previously reported as: 2.3 CL mEq/L NOTIFIED [facility] @ [facility] @Repeated by: Angela Gupta 02/01/12830 Chloride 89 [...] 10:17am Albumin/Leslie 1.1 12/22/2013 12/22/2013 bulin Ratio 9:15 10:17am Total 0.17 mg/dL L 0.2-1.0 12/22/2013 [...] 1.020 1.005-1.035 08/21/2016 08/21/2016 Specific 3:34pm 3:54pm [facility] Urine NEGATIVE NEGATIVE 08/21/2016 08/21/2016 Occult 3:34pm [...] Glucose 7:30am 8:08am Blood Urea 7 mg/dL 02-2408/24/2016 08/24/2016 Nitrogen 7:30am 8:08am Creatinine 0.60 mg/dL 0.550-1.3 08/24/2016 08/24/2016 NOTE REFERENCE RANGE CHANGE 7:30am 8:08am 02/06/15 REFERENCE RANGE CHANGE DUE TO NEW REAGENT PREVIOUS RANGE: 0.6-1.3 mg/dL NEW RANGE: 0.550-1.3 mg/dL BUN/Creatin 11.66 L 12-08/24/2016 08/24/2016 ine Ratio 7:30am 8:08am Sodium 136 mEq/L 135-155 08/24/2016 08/24/2016 Level 7:30am 8:08am Potassium 3.2 mEq/L L 3.5-5.1 08/24/2016 08/24/2016 Level 7:30am 8:08am Chloride 99 mEq/L 98-107 08/24/2016 08/24/2016 Level 7:30am 8:08am Carbon 29 mEq/L 21-32 08/24/2016 08/24/2016 Dioxide 7:30am 8:08am Level Anion Gap 11.2 10-20 08/24/2016 08/24/2016 7:30am 8:08am Calcium 6.9 mg/dL CL 8.2-10.0 08/24/2016 08/24/2016 PHONED AT 0808 TO [place] Level 7:30am 8:08am Repeated by: Aubree Carmichael-Davonte 08/24/16 0808 Glomerular 141 08/24/2016 08/24/2016 At [...] 3.2 gm/dL 2.0-4.5 08/24/2016 08/24/2016 7:30am 8:08am White Blood 7.92 K/mm3 4.5-10.5 09/01/2016 09/01/2016 Count 10:46am 11:07am Red Blood 3.37 M/mm3 L 4.60-6.00 09/01/2016 09/01/2016 Count 10:46am 11:07am Hemoglobin 11.8 gm/dl L 14.0-18.0 09/01/2016 09/01/2016 10:46am 11:07am Hematocrit 35.5 % L 40-54 09/01/2016 09/01/2016 10:46am 11:07am Mean 105.3 fl H 80-94 09/01/2016 09/01/2016 Corpuscular 10:46am 11:07am Volume Mean 35 pg H 26-32 09/01/2016 09/01/2016 Corpuscular 10:46am 11:07am Hemoglobin Mean 33 g/dl 32-36 09/01/2016 09/01/2016 Corpuscular 10:46am 11:07am Hemoglobin Concent Red Cell 64.8 fL H 35.1-43.9 09/01/2016 09/01/2016 Distributio 10:46am 11:07am n-SD RDW 17.6 % H 11.5-14.5 09/01/2016 09/01/2016 Coefficient 10:46am 11:07am of Variation Platelet 484 K/mm3 H 150-450 09/01/2016 09/01/2016 Count 10:46am 11:07am Mean 9.0 fl L 9.4-12.4 09/01/2016 09/01/2016 Platelet 10:46am 11:07am Volume Neutrophils 58.7 % 50-70 09/01/2016 09/01/2016 (%) (Auto) 10:46am 11:07am Lymphocytes 26.4 % 18-42 09/01/2016 09/01/2016 (%) (Auto) 10:46am 11:07am Monocytes 13.5 % H 2-11 09/01/2016 09/01/2016 (%) (Auto) 10:46am 11:07am Eosinophils 1.0 % 1-3 09/01/2016 09/01/2016 (%) (Auto) 10:46am 11:07am Basophils 0.4 % 0-2 09/01/2016 09/01/2016 (%) (Auto) 10:46am 11:07am Neutrophils 4.7 2-8 09/01/2016 09/01/2016 # (Auto) 10:46am 11:07am Lymphocytes 2.1 1-5 09/01/2016 09/01/2016 # (Auto) 10:46am 11:07am Monocytes # 1.1 H 0.1-1.0 09/01/2016 09/01/2016 (Auto) 10:46am 11:07am Eosinophils 0.1 0-0.4 09/01/2016 09/01/2016 # (Auto) 10:46am 11:07am Basophils # 0.0 K/mm3 0-0.2 09/01/2016 09/01/2016 (Auto) 10:46am 11:07am Platelet INCREASED H NORMAL 09/01/2016 09/01/2016 Estimate 10:46am 11:21am Anisocytosi 1+ 09/01/2016 09/01/2016 s 10:46am 11:21am Macrocytosi 1+ 09/01/2016 09/01/2016 s 10:46am 11:21am Target 1+ 09/01/2016 09/01/2016 Cells 10:46am 11:21am Giant 1+ 09/01/2016 09/01/2016 Platelets 10:46am 11:21am Random 117 mg/dL H 70-110 09/01/2016 09/01/2016 Glucose 10:46am 11:25am Blood Urea 13 mg/dL 7-18 09/01/2016 09/01/2016 Nitrogen 10:46am 11:25am Creatinine 0.71 mg/dL 0.550-1.3 09/01/2016 09/01/2016 NOTE REFERENCE RANGE CHANGE 10:46am 11:25am 02/06/15 REFERENCE RANGE CHANGE DUE TO NEW REAGENT PREVIOUS RANGE: 0.6-1.3 mg/dL NEW RANGE: 0.550-1.3 mg/dL BUN/Creatin 18.30 12-09/01/2016 09/01/2016 ine Ratio 10:46am 11:25am Sodium 139 mEq/L 135-155 09/01/2016 09/01/2016 Level 10:46am 11:25am Potassium 4.3 mEq/L 3.5-5.1 09/01/2016 09/01/2016 Level 10:46am 11:25am Chloride 102 mEq/L 98-107 09/01/2016 09/01/2016 Level 10:46am 11:25am Carbon 29 mEq/L 21-32 09/01/2016 09/01/2016 Dioxide 10:46am 11:25am Level Anion Gap 12.3 10-20 09/01/2016 09/01/2016 10:46am 11:25am Calcium 8.6 mg/dL 8.2-10.0 09/01/2016 09/01/2016 Level 10:46am 11:25am Glomerular 116 09/01/2016 09/01/2016 At increased risk Risk factors for CKD Filtration 10:46am 11:25am are present but w/o >90 Rate Calc markers of kidney damage 1 Kidney damage w/ normal or >90 increased GFR 2 Kidney damage w/ mild reduc- 60-89 tion of GFR 3 Moderate reduction of GFR 30-59 4 Severe reduction of GFR 15-29 5 Kidney Failure <15 Total 6.8 gm/dL 6.4-8.2 09/01/2016 09/01/2016 Protein 10:46am 11:25am Albumin 3.7 gm/dL 3.4-5.0 09/01/2016 09/01/2016 10:46am 11:25am Albumin/Leslie 1.2 09/01/2016 09/01/2016 bulin Ratio 10:46am 11:25am Total 0.20 mg/dL 0.2-1.0 09/01/2016 09/01/2016 Bilirubin 10:46am 11:25am Aspartate 24 U/L 15-37 09/01/2016 09/01/2016 Amino 10:46am 11:25am Transf (AST/SGOT) Alanine 16 U/L 12-78 09/01/2016 09/01/2016 Aminotransf 10:46am 11:25am erase (ALT/SGPT) Alkaline 62.0 U/L 46-116 09/01/2016 09/01/2016 Phosphatase 10:46am 11:25am Globulin 3.1 gm/dL 2.0-4.5 09/01/2016 09/01/2016 10:46am 11:25am Procedures Procedure Status Date Provider(s) COLONOSCOPY W/LESION REMOVAL Completed 11/12/11 Tien Mcdonald MD RPR F/E/E/N/L/M 2.5 CM/< Completed 11/05/15 Selina Villatoro APRN-Anita Encounters Encounter Location Arrival/Admit Date Discharge/Depart Date Attending Provider Office Visit [facility] 09/01/16 1:15pm Srinivasan [facility] Registered [facility] 09/01[facility] [place] [facility]01/16 9:54am 09/01/16 11:59pm Juve Mattson [facility] CTR Registered [place] 09/01/16 9:53am [facility] Discharged [place] 08/22/16 3:05pm 08/25[facility] Discharged [place] 08/20/16 8:15pm 08/22/16 3:05pm Juve Mattson [facility] (obs) [facility] CTR Departed [place] 08/20/16 6:12pm 08/20/16 8:15pm [facility] Selina GARCIA CTR Office Visit [facility] 08/14/16 1:15pm Srinivasan [facility] Registered [place] 08/06/16 1:22pm [facility] Registered [place] 06/26/16 [facility] Departed Clinic [place] 05/26/16 9:26am 05/26/16 11:59pm Juve Mattson [facility] CTR Departed Clinic [place] 05/26/16 9:24am 05/26/16 11:59pm Juve Mattson [facility] CTR Office Visit [facility] 05/20/16 1:30pm Srinivasan [facility] Departed Clinic [place] 05/15/16 12:58pm 05/15/16 11:59pm Juve Mattson [facility] CTR Registered [place] 05/15/16 12:58pm [facility] Registered [place] 04/02/[facility] Registered [place] 02/20/16 1:00pm [facility] 02/18/16 11:15am Srinivasan [facility] Registered [place] 01/10/16 [facility] Registered [place] 11/14/15 12:59pm [facility] Visit [facility] 11/14/15 11:30am [facility] A PA Office Visit [facility] 11/09/15 9:30am [facility] Selina LPN CARE MANAGER-C Departed [place] 11/05/15 6:25pm 11/05/15 9:09pm [facility] Emergency Room [facility] Selina LPN CARE MANAGER-C CTR Departed [place] 11/05/15 10:45am 11/05/15 1:20pm [facility] Emergency Room [facility] Selina LPN CARE MANAGER-C CTR Registered [place] 10/03/15 1:00pm [facility] Registered [place] 08/22/15 1:01pm [facility] Office Visit [facility] 07/23/15 2:45pm [facility] A PA Registered [place] 07/11/15 12:50pm [facility] Registered [place] 05/30/15 1:01pm [facility] Office Visit [facility] 05/29/15 4:30pm Srinivasan [facility] Registered [place] 05/03/15 7:57am Srinivasan [facility] CTR Registered [place] 05/02/15 8:48am Srinivasan [facility] CTR Registered [place] 03/21/15 12:55pm Srinivasan [facility] CTR Office Visit [facility] 02/16/15 10:30am Srinivasan [facility] Registered [place] 01/31/15 12:52pm Srinivasan, [facility] CTR Registered [place] 12/20/14 1:00pm Srinivasan, [facility] CTR Registered [place] 11/06/14 1:08pm Srinivasan, [facility] CTR Registered [place] 09/18/14 12:50pm Srinivasan, [facility] CTR Departed Clinic [place] 09/05/14 8:51am 09/05/14 11:59pm Srinivasan, [facility] CTR Office Visit [place] 09/04/14 2:00pm Zeferinooscar, [facility] Office Visit [place] 08/17/14 1:30pm Srinivasan, [facility] Registered [place] 08/16/14 10:04am Srinivasan, [facility] CTR Office Visit [facility] 07/25/14 10:00am Srinivasan, [facility] Registered [place] 04/26/14 12:42pm Srinivasan, [facility] CTR Office Visit [facility] 03/15/14 1:00pm Srinivasan, [facility] Registered [place] 03/09/14 1:01pm Srinivasan, [facility] CTR Office Visit [facility] 01/03/14 11:30am Srinivasan, [facility] Registered [place] 12/22/13 8:57am Srinivasan, [facility] CTR Registered [place] 11/22/13 10:54am Srinivasan, [facility] CTR Registered [place] 10/25/13 8:58am Srinivasan, [facility] CTR Office Visit [place] 09/28/13 1:15pm Srinivasan [facility] Office Visit [place] 07/11/13 11:00am Srinivasan, [facility] Registered [place] 07/04/13 7:58am Srinivasan, [facility] CTR Office Visit [facility] 04/27/13 9:30am [facility] A PA Office Visit [facility] 02/02/13 10:00am [facility] A PA Discharged [place] 10/22/12 2:12pm 10/24/12 4:50pm Juve Mattson [facility] CTR Departed [place] 10/22/12 9:11am 10/22/12 2:12pm Juve Mattson [facility] CTR Registered [place] 06/25/12 1:23pm [facility] Office Visit [facility] 06/10/12 3:[facility] [place] 05/12/12 1:20pm 06/09/12 11:59pm [facility] 05/10/12 10:45[facility] [place] 05/05/12 9:45am [facility] Registered [place] 03/31/12 12:50pm [facility] Registered [place] 02/18/12 1:24pm [facility] Office Visit [facility] 02/18/12 1:00pm [facility] A PA Registered [place] 02/09/12 10:06am [facility] Perla PA CTR Office Visit [facility] 02/09/12 9:30am [facility] A PA Departed [place] 02/01/12 7:30am 02/01/12 9:50am Dorian Carmona [facility] Hiram FERNANDO CTR Registered [place] 01/07/12 1:24pm [facility] Registered [place] 11/19/11 1:32pm [facility] Registered [place] 11/12/11 9:58am Tien Mcdonald [facility] Perla FERNANDO Care CTR Registered [place] 10/01/11 1:10pm [facility] Office Visit [facility] 09/24/11 2:15pm Srinivasan [facility] Departed [place] 09/17/11 10:41am 09/17/11 2:05pm Juve Mattson [facility] CTR Registered [place] 08/26/11 12:54pm [facility] Discharged [place] 08/15/11 2:34pm 08/18/11 5:40pm [facility] 08/15/11 11:45am Srinivasan [facility] Office Visit [facility] 08/12/11 11:45am Srinivasan [facility] Registered [place] 07/14/11 1:12pm [facility] Discharged [place] 07/11/11 1:56pm 08/09/11 11:59pm [facility] [place] 05/21/11 1:29pm 05/21/11 11:59pm [facility] [place] 05/19/11 1:00pm [facility] Office Visit [facility] 04/08/11 9:45am Srinivasan, [facility] Registered [place] 04/07/11 12:54pm [facility] Office Visit [facility] 03/25/11 11:15am Srinivasan [facility] Registered [place] 03/11/11 12:55pm [facility] Registered [place] 02/11/11 1:16pm [facility] Registered [place] 01/27/11 1:13pm [facility] Discharged [place] 12/16/10 12:49pm 01/07/11 11:59pm [facility] 11/28/10 1:45pm Srinivasan [facility] Office Visit [facility] 10/23/10 1:00pm Srinivasan [facility] Office Visit [facility] 08/26/10 1:30pm Srinivasan [facility] Office Visit [facility] 08/22/10 1:45pm Srinivasan [facility] Office Visit [facility] 06/07/10 1:45pm [facility] Nathan Quintana DO Office Visit [facility] 02/06/10 4:45pm [facility] A PA Office Visit [facility] 04/03/09 9:45am Srinivasan [facility] Office Visit [facility] 08/29/08 9:00am [facility] A PA Office Visit [facility] 06/05/08 2:15pm [facility] A PA Office Visit [facility] 09/14/07 10:00am Srinivasan [facility] Discharged [place] 06/11/07 12:52pm 07/09/07 11:59pm Juve Mattson [facility] CTR Office Visit [facility] 06/02/07 9:00am Srinivasan [facility] Office Visit [facility] 05/20/07 10:45am Srinivasan [facility] Departed Clinic [place] 05/19/07 8:38am 05/19/07 11:59pm Juve Mattson [facility] CTR Office Visit [facility] 05/14/07 12:15pm Srinivasan [facility] Departed Clinic [place] 04/13/07 9:19am 04/13/07 11:59pm Rufino [facility] Perla PA CTR Departed Clinic [place] 12/02/06 9:19am 12/02/06 11:59pm Juve Mattson MD CTR Departed Clinic [place] 03/11/06 9:53am 03/11/06 11:59pm Juve Mattson [facility] CTR Departed Clinic [place] 12/22/05 5:01pm 12/22/05 11:59pm Juve Mattson [facility] CTR Departed Clinic [place] 09/29/05 10:33am 09/29/05 11:59pm Juve Mattson [facility] CTR Discharged [place] 07/05/05 10:11am 07/08/05 10:35am Juve Mattson [facility] CTR Departed [place] 07/05/05 8:29am 07/05/05 10:11am [place], Emergency Room [facility] Nathan Quintana DO CTR Departed Clinic [place] 03/26/05 8:23am 03/26/05 [facility] Departed Clinic [place] 02/21/05 2:11pm 02/21/05 11:59pm [facility] [facility] R[facility]C Departed Clinic [place] 11/11/04 3:25pm 11/11/04 11:59pm Juve Mattson [facility] Departed [facility] [place] 11/07/04 3:47pm 11/07/04 11:59pm Juve Mattson [facility] CTR Departed Clinic [place] 12:00am 04/19/10 11:59pm [facility] CTR Departed [place] 12:00am 08/09/10 2:10pm Emergency Room [facility] CTR Discharged [place] 12:00am 08/19/10 2:52pm Inpatient [facility] CTR Departed Clinic [place] 12:00am 08/26/10 11:59pm [facility] CTR Registered [place] 12:00am [facility] CTR Departed Clinic [place] 12:00am 08/31/07 11:59pm [facility] CTR Departed Clinic [place] 12:00am 10/26/07 11:59pm [facility] CTR Departed Clinic [place] 12:00am 12/29/07 11:59pm [facility] CTR Departed Clinic [place] 12:00am 04/03/09 11:59pm [facility] Medical CTR
--- OUTSIDE RECORDS SUMMARY | 2017-06-17 10:58 | External Medical Summary | Continuity of Care Document ---
:1945 Author Organization [facility] Care Team Providers Name Role Phone Juve Mattson MD Unavailable Insurance Providers Payer Name Policy Number Subscriber Name Relationship [facility] 150 [id number] [employer]. 18 Self / Same As Patient Chief Complaint and Reason for Visit Chief Complaint Facial/Scalp Injury Reason for Visit Status post fall Lip laceration [id number] Problems Active Problems Medical Problem Onset Date Status Chronic pain syndrome Unknown Acute Facial contusion Unknown Acute Lip laceration Unknown Acute Status post fall Unknown Acute Past Problems Medical Problem Onset Date ALCOHOL ABUSE-UNSPEC 08/22/2010 ANEMIA NEC 08/22/2010 CHRONIC PANCREATITIS 08/22/2010 DM (diabetes mellitus) Unknown Diabetes 06/28/2013 HTN 01/15/2011 HTN 06/28/2013 HYPOPOTASSEMIA 02/09/2012 HYPOSMOLALITY 08/22/2010 Hyperlipidemia 06/28/2013 Malaise 01/25/2015 OTH MED,LT,CURRENT USE 10/20/2013 RETINAL VASC OCCLUS NOS 09/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 SCREEN-THYROID DISORDER 06/28/2013 Screening PSA 06/28/2013 Medications Current Home Medications Medication Dose Units Route Directions Days/Qty Instructions Start Date Aspirin 81 Mg 81 Mg Oral Daily @0900 09/04/14 Sulfasalazine 500 Mg 500 Mg Oral Three Times A 270 11/22/14 Day Diphenhydramine Hcl 50 Mg Oral 1-2 Hs 02/16/15 50 Mg Omeprazole 20 Mg 20 Mg Oral Daily @89907/23/15 Fluoxetine Hcl 40 Mg 40 Mg Oral Daily @00 30 07/23/15 Baclofen 10 Mg 10 Mg Oral Twice A Day 60 07/23/15 Lorazepam 1 Mg 1 Mg Oral Three Times A 90 08/09/15 Day Amlodipine Besylate 10 Mg Oral Daily @09 90 08/21/15 10 Mg Losartan Potassium 25 25 Mg Oral Daily @09 90 08/21/15 Mg Metformin Hcl 500 Mg 500 Mg Oral Daily @09 90 08/21/15 Atorvastatin Calcium 20 Mg Oral Daily @ Hs 90 09/04/15 20 Mg Hydrocodone/Acetamino 1 Each Oral Four Times A 120 [id number] 10/18/15 phen 7.5MG/325MG 1 Day as needed Each for Pain Past Home Medications Medication Directions Ordered [...] Oral Three Times A Day 02/21/13 Discontinued [[place] 7.5/325] , 1 Tab Oral Every 4-6 Hours As Needed 02/22/13 Discontinued [Lorazepam] , 1 Mg Oral Three Times A Day 03/21/13 Discontinued [[place] 7.5/325] , 1 Tab Oral Every 4-6 Hours As Needed 03/28/13 Discontinued [Lorazepam] , 1 Mg Oral Tid Prn 04/18/13 Discontinued [[place] 7.5/325] , 1 Tab Oral 4 Times [...] , 20 Mg Oral Daily @89909/28/13 Discontinued [[place] 7.5/325] , 1 Tab Oral 4 Times [...] 1 Mg Oral Tid Prn 01/03/14 Discontinued [[place] 7.5/325] , 1 Tab Oral 4 Times [...] Capsule, 40 Daily @0910/25/14 Discontinued Mg Oral Metformin Hcl 500 Mg [...] 1 Each Tablet, 1 Each Pain Oral Flu Vacc Ts 2015- (65YR+)/Pf Once 07/23/15 Discontinued 180 Mcg/0.5 Ml Syringe, 180 Mcg Intramusc Hydrocodone/Acetaminophen Four Times A Day as needed for 08/21/15 Discontinued 7.5MG/325MG 1 Each Tablet, 1 Each Pain Oral Social History Query Response Start Date Stop Date Smoking Status Former smoker Hospital Discharge Instructions No hospital discharge instructions. Plan of Care Discharge Date 11/05/15 1:20pm Disposition HOME, SELF-CARE Condition at Discharge Stable Instructions/Education Provided Laceration (ED) Head Injury (ED) Forms Provided Patient Signature Page Prescriptions See Medication Section Referrals Juve Mattson MD - Additional Instructions/Education 1. Use Ice to the area of swelling several times for the next 24 hours. 2. Use warm salt water rinses after eating/ drinking and with oral care. 3. Apply pressure to lip if it is bleeding. 4. Continue your current medications as directed, including norco and Ativan as needed for pain/ anxiety. 5. Return to care if symptoms worsen or persist. Functional Status No functional status results. Allergies, Adverse Reactions, Alerts Allergen Type Severity Reaction Status Last Updated Penicillin Allergy Unknown Active 08/15/11 Amoxicillin Allergy Unknown UNKNOWN Active 08/08/08 Aripiprazole Adverse Reaction Unknown Active 09/04/14 Immunizations Name Given Type INFLUENZA (FLU) 07/23/15 Administered Vital Signs Acute Vital Signs Vital Response Date/Time Height 5 ft 8 in Weight 200 lb Body Mass Index 30.4 kg/m^2 Ambulatory Vital Signs Vital Response Date/Time Height 5 ft 6 in 07/23/2015 2:53pm Weight 203 lbs 4 oz 07/23/2015 2:53pm Temperature, Temporal 97.4 degrees F 07/23/2015 2:53pm Blood Pressure, Sitting, Left Arm 132/78 mm Hg 07/23/2015 2:53pm Pulse Rate 66 bpm 07/23/2015 2:53pm Respiration Rate 16 bpm 07/23/2015 2:53pm Body Surface Area 2.11 m2 07/23/2015 2:53pm Body Mass Index 32.8 kg/m2 07/23/2015 2:53pm Pulse Oximetry Pulse Oximetry 07/23/2015 2:53pm Results Laboratory Results Test Name Result Units [...] 1.020 1.005-1.035 07/07/2005 07/07/2005 Specific 5:00pm 6:58pm [place] Urine 1+ SMALL NEGATIVE 07/07/2005 07/07/2005 Occult [...] 1.015 1.005-1.035 04/03/2009 04/03/2009 Specific 10:23am 12:05pm [place] Urine NEGATIVE NEGATIVE 04/03/2009 04/03/2009 Occult 10:23am [...] 1.020 1.005-1.035 04/19/2010 04/19/2010 Specific 11:15am 12:33pm [place] Urine NEGATIVE NEGATIVE 04/19/2010 04/19/2010 Occult 11:15am [...] 25-115 08/09/2010 08/09/2010 Level 12:26pm 1:05pm Lipase 59103 U/L H 73-393 08/09/2010 08/09/2010 12:26pm 1:05pm [...] <=1.005 1.005-1.035 05/21/2011 05/21/2011 Specific 1:21pm 2:12pm [place] Urine TRACE NEGATIVE 05/21/2011 05/21/2011 Occult 1:21pm [...] 1.010 1.005-1.035 08/15/2011 08/15/2011 Specific 8:50pm 9:13pm [place] Urine NEGATIVE NEGATIVE 08/15/2011 08/15/2011 Occult 8:50pm [...] 30-125 07/11/2015 07/11/2015 Random 3:36pm 4:12pm Creatinine Procedures Procedure Status Date Provider(s) COLONOSCOPY W/LESION REMOVAL Completed 11/12/11 Tien Mcdoanld MD Encounters Encounter Location Arrival/Admit Date Discharge/Depart Date Attending Provider Departed [place] 11/05/15 10:45am 11/05/15 1:20pm [facility] [place] 10/03/15 1:00pm Srinivasan, [facility] CTR Registered [place] 08/22/15 1:01pm Srinivasan, [facility] CTR Office Visit [facility] 07/23/15 2:45pm [facility] A PA Registered [facility] 07/23/15 2:45pm [facility] A PA Registered [place] 07/11/15 12:50pm Zeferinooscar, [facility] CTR Registered [place] 05/30/15 1:01pm Zeferinooscar, [facility] CTR Office Visit [facility] 05/29/15 4:30pm Srinivasan, [facility] Registered [place] 05/03/15 7:57am Srinivasan, [facility] CTR Registered [place] 05/02/15 [facility] Registered [place] 03/21/15 12:55pm Srinivasan, [facility] CTR Office Visit [facility] 02/16/15 10:30am Srinivasan, [facility] Registered [place] 01/31/15 12:52pm Srinivasan, [facility] CTR Registered [place] 12/20/14 1:00pm Srinivasan, [facility] CTR Registered [place] 11/06/14 1:08pm Srinivasan, [facility] CTR Registered [place] 09/18/14 12:50pm Srinivasan, [facility] CTR Departed Clinic [place] 09/05/14 8:51am 09/05/14 11:59pm Srinivasan, [facility] CTR Office Visit [facility] 09/04/14 2:00pm Srinivasan, [facility] Office Visit [facility] 08/17/14 1:30pm Srinivasan, [facility] Registered [place] 08/16/14 10:04am Srinivasan, [facility] CTR Office Visit [facility] 07/25/14 10:00am Srinivasan, [facility] Registered [place] 04/26/14 12:42pm [facility] 03/15/14 1:00pm Srinivasan [facility] Registered [place] 03/09/14 1:01pm [facility] Office Visit [facility] 01/03/14 11:30am [facility] Registered [place] 12/22/13 8:57am Srinivasan [facility] CTR Registered [place] 11/22/13 10:54am Srinivasan [facility] CTR Registered [place] 10/25/13 8:58am Srinivasan [facility] CTR Office Visit [facility] 09/28/13 1:15pm Srinivasan [facility] Office Visit [facility] 07/11/13 11:00am Srinivasan [facility] Registered [place] 07/04/13 7:58am [facility] Office Visit [facility] 04/27/13 9:30am [facility] A PA Office Visit [facility] 02/02/13 10:00am [facility] A PA Discharged [place] 10/22/12 2:12pm 10/24/12 4:50pm [facility] Dep[facility]ed [place] 10/22/12 9:11am 10/22/12 2:12pm Juve Mattson [facility] CTR Registered [place] 06/25/12 1:23pm [facility] Office [facility] 06/10/12 3:15pm Srinivasan [facility] Discharged [place] 05/12/12 1:20pm 06/09/12 11:59pm [facility] 05/10/12 10:45am [facility] Registered [place] 05/05/12 9:45am [facility] Registered [place] 03/31/12 12:50pm [facility] Registered [place] 02/18/12 1:24pm [facility] Office Visit [facility] 02/18/12 1:00pm [facility] A PA Registered [place] 02/09/12 10:06am [facility] A PA CTR Office Visit [facility] 02/09/12 9:30am [facility] A PA Departed [place] 02/01/12 7:30am 02/01/12 9:50am Dorian Carmona Emergency Room [facility] Hiram FERNANDO CTR Registered [place] 01/07/12 1:24pm [facility] Registered [place] 11/19/11 1:32pm [facility] Registered [place] 11/12/11 9:58am Tien Mcdonald Surgical [facility] MD Care CTR Registered [place] 10/01/11 1:10pm [facility] 09/24/11 2:15pm [facility] Departed [place] 09/17/11 10:41am 09/17/11 2:05pm Juve Mattson [facility] CTR Registered [place] 08/26/11 12:54pm [facility] Discharged [place] 08/15/11 2:34pm 08/18/11 5:40pm [facility] 08/15/11 11:45am [facility] 08/12/11 11:45am Srinivasan [facility] Registered [place] 07/14/11 1:12pm [facility] Discharged [place] 07/11/11 1:56pm 08/09/11 11:59pm [facility] [place] 05/21/11 1:29pm 05/21/11 11:59[facility] [place] 05/19/11 1:00pm [facility] 04/08/11 9:45am Srinivasan, [facility] Registered [place] 04/07/11 12:54pm Srinivasan, [facility] CTR Office Visit [facility] 03/25/11 11:15am Srinivasan, [facility] Registered [place] 03/11/11 12:55pm Srinivasan, [facility] CTR Registered [place] 02/11/11 1:16pm Srinivasan, [facility] CTR Registered [place] 01/27/11 1:13pm Srinivasan, [facility] CTR Discharged [place] 12/16/10 12:49pm 01/07/11 11:59pm [facility] 11/28/10 1:45pm Srinivasan [facility] Office Visit [facility] 10/23/10 1:00pm Srinivasan [facility] Office Visit [facility] 08/26/10 1:30pm Srinivasan [facility] Office Visit [facility] 08/22/10 1:45pm Srinivasan [facility] Office Visit [facility] 06/07/10 1:45pm [facility] Nathan Quintana DO Office Visit [facility] 02/06/10 4:45pm [facility] A PA Office Visit [facility] 04/03/09 9:45am Srinivasan [facility] Office Visit [facility] 08/29/08 9:00am [facility] A PA Office Visit [facility] 06/05/08 2:15pm [facility] A PA Office Visit [facility] 09/14/07 10:00am Srinivasan [facility] Discharged [place] 06/11/07 12:52pm 07/09/07 11:59pm [facility] 06/02/07 9:00am Srinivasan [facility] Office Visit [facility] 05/20/07 10:45am Srinivasan [facility] Departed Clinic [place] 05/19/07 8:38am 05/19/07 11:59pm Srinivasan [facility] CTR Office Visit [facility] 05/14/07 12:15pm Srinivasan [facility] Departed Clinic [place] 04/13/07 9:19am 04/13/07 11:59pm Joy, [facility] Perla MORGAN CTR Departed Clinic [place] 12/02/06 9:19am 12/02/06 11:59pm Srinivasan [facility] CTR Departed Clinic [place] 03/11/06 9:53am 03/11/06 11:59pm Srinivasan [facility] CTR Departed Clinic [place] 12/22/05 5:01pm 12/22/05 11:59pm Srniivasan [facility] CTR Departed Clinic [place] 09/29/05 10:33am 09/29/05 11:59pm Srinivasan [facility] CTR Discharged [place] 07/05/05 10:11am 07/08/05 [facility] [place] 07/05/05 8:29am 07/05/05 10:11am Milagro, Emergency Room [facility] Nathan Quintana DO CTR Departed Clinic [place] 03/26/05 8:23am 03/26/05 11:59pm [facility] [place] [facility] CTR Departed Clinic [place] 02/21/05 2:11pm 02/21/05 11:[facility] Dep[facility]ed Clinic [place] 11/11/04 3:25pm 11/11/04 11:59pm Srinivasan [facility] CTR Departed Clinic [place] 11/07/04 3:47pm 11/07/04 11:59pm Juve Mattson [facility] MD CTR Departed Clinic [place] 12:00am 04/19/10 11:59pm [facility] CTR Departed [place] 12:00am 08/09/10 2:10pm Emergency Room [facility] CTR Discharged [place] 12:00am 08/19/10 2:52pm Inpatient [facility] CTR Departed [facility] [place] 12:00am 08/26/10 11:59pm [facility] CTR Registered [place] 12:00am [facility] CTR Departed [facility] [place] 12:00am 08/31/07 11:59pm [facility] CTR Departed [facility] [place] 12:00am 10/26/07 11:59pm [facility] CTR Departed Clinic [place] 12:00am 12/29/07 11:59pm [facility] CTR Departed Clinic [place] 12:00am 04/03/09 11:59pm [facility] CTR Recent Diagnosis
--- OUTSIDE RECORDS SUMMARY | 2017-06-17 11:00 | External Medical Summary | Continuity of Care Document ---
:1945 Author Organization [facility] Allergies Active Description Code Type Severity Reaction Onset Reported/ Identified Relationship Clinical to Patient Status Yes Penicillins 476 Aller mild to Hives 06/29/2015 gen moderate Group Medications Problems Date Dx Coded Attending Type Code Diagnosis Diagnosed By 07/03/2015 Feliberto Stevens H25.12 Age-Related Nuclear Cataract, Left Eye 09/04/2015 Feliberto Stevens H25.11 Age-Related Nuclear Cataract, Right Eye Procedures Results Encounters ACCT No. Visit Discharge Status Pt. Type Provider Facility Loc./Unit Complaint Date/Time [id number] 05/26/2017 05/26/2017 DIS Outpatient Carol Mcdonald SPL EGD with 15:00:00 10:25:00 [facility] [id number] 09/03/2015 09/03/2015 DIS Outpatient Carol Stevens OUTPT Right 14:15:00 23:59:00 [facility] W/Iol [id number] 07/02/2015 07/02/2015 DIS Outpatient Carol Stevens OUTPT Left [facility] 11:58:00 23:59:00 [facility] W/Iol [facility]
--- OUTSIDE RECORDS SUMMARY | 2017-06-17 11:00 | External Medical Summary | Continuity of Care Document ---
:1945 Author Organization [facility] Care Team Providers Name Role Phone Juve Mattson MD Unavailable Insurance Providers Payer Name Policy Number Subscriber Name Relationship [facility] 150 [id number] Ag Smith. 18 Self / Same As Patient Chief Complaint and Reason for Visit Chief Complaint EENT General Complain Reason for Visit Status post fall Lip laceration Problems Active Problems Medical Problem Onset Date [...] Diphenhydramine Hcl 50 Mg Oral 1-2 Hs 07/10/15 50 Mg Omeprazole 20 Mg 20 Mg Oral Daily @0900 07/23/15 Fluoxetine Hcl 40 Mg 40 Mg Oral Daily @0900 30 07/23/15 Baclofen 10 Mg 10 Mg Oral Twice A Day 60 07/23/15 Lorazepam 1 Mg 1 Mg Oral Three Times A 90 08/09/15 Day Amlodipine Besylate 10 Mg Oral Daily @0900 90 08/21/15 10 Mg Losartan Potassium 25 25 Mg Oral Daily @0900 90 08/21/15 Mg Metformin Hcl 500 Mg 500 Mg Oral Daily @0900 90 08/21/15 Atorvastatin Calcium 20 Mg Oral Daily @ 90 09/04/15 20 Mg Hydrocodone/Acetamino 1 Each Oral Four Times A 120 [id number] 10/18/15 phen 7.5MG/325MG 1 Day as needed [...] Oral Three Times A Day 02/21/13 Discontinued [[place] 7.5/325] , 1 Tab Oral Every 4-6 Hours As Needed 02/22/13 Discontinued [Lorazepam] , 1 Mg Oral Three Times A Day 03/21/13 Discontinued [[place] 7.5/325] , 1 Tab Oral Every 4-6 Hours As Needed 03/28/13 Discontinued [Lorazepam] , 1 Mg Oral Tid Prn 04/18/13 Discontinued [[place] 7.5/325] , 1 Tab Oral 4 Times [...] , 20 Mg Oral Daily @89909/28/13 Discontinued [[place] 7.5/325] , 1 Tab Oral 4 Times [...] 1 Mg Oral Tid Prn 01/03/14 Discontinued [[place] 7.5/325] , 1 Tab Oral 4 Times [...] Tablet, Daily @0908/23/14 Discontinued 25 Mg Oral Hydrocodone/Acetaminophen Four Times [...] Response Start Date Stop Date Smoking Status Never smoker Hospital Discharge Instructions No hospital discharge instructions. Plan of Care Discharge Date 11/05/15 9:09pm Disposition HOME, SELF-CARE Condition at Discharge Improved Instructions/Education Provided Suture Care (ED) Forms Provided Patient Signature Page Prescriptions See Medication Section Referrals Juve Mattson MD - Additional Instructions/Education stitches out in 3-4 days ( or thursday ) Warm salt water rinses after meals, with oral care and as needed. Continue with ice to the face and lip several times for next 12 hours, and then as needed for pain. Functional Status No functional status results. Allergies, [...] 0.6-1.3 11/07/2004 11/07/2004 4:20pm 5:43pm BUN/Creatin 15.5 12-30 11/07/2004 11/07/2004 ine Ratio 4:20pm 5:43pm Sodium 134 mEq/L L 135-155 11/07/2004 11/07/2004 Level 4:20pm 5:43pm Potassium 4.0 mEq/L 3.5-5.1 11/07/2004 11/07/2004 Level 4:20pm 5:43pm Chloride 101 mEq/L 98-107 11/07/2004 11/07/2004 Level 4:20pm 5:43pm Carbon 21 mEq/L 21-31 11/07/2004 11/07/2004 Dioxide 4:20pm 5:43pm Level Anion [...] 1.020 1.005-1.035 07/07/2005 07/07/2005 Specific 5:00pm 6:58pm Taylor Urine 1+ SMALL NEGATIVE 07/07/2005 07/07/2005 Occult [...] 1.015 1.005-1.035 04/03/2009 04/03/2009 Specific 10:23am 12:05pm Taylor Urine NEGATIVE NEGATIVE 04/03/2009 04/03/2009 Occult 10:23am [...] 1.020 1.005-1.035 04/19/2010 04/19/2010 Specific 11:15am 12:33pm Taylor Urine NEGATIVE NEGATIVE 04/19/2010 04/19/2010 Occult 11:15am [...] 25-115 08/09/2010 08/09/2010 Level 12:26pm 1:05pm Lipase 51689 U/L H 73-393 08/09/2010 08/09/2010 12:26pm 1:05pm [...] <=1.005 1.005-1.035 05/21/2011 05/21/2011 Specific 1:21pm 2:12pm Taylor Urine TRACE NEGATIVE 05/21/2011 05/21/2011 Occult 1:21pm [...] 1.010 1.005-1.035 08/15/2011 08/15/2011 Specific 8:50pm 9:13pm Taylor Urine NEGATIVE NEGATIVE 08/15/2011 08/15/2011 Occult 8:50pm [...] as: 2.3 CL mEq/L NOTIFIED [facility] @ [facility] @Repeated by: Angela Gupta 02/01/1231 Chloride 89 [...] 11/22/2013 Bilirubin 11:00am 11:42am Aspartate 20 U/L 15-11/22/2013 11/22/2013 Amino 11:00am 11:42am Transf (AST/SGOT) Alanine [...] increased risk Risk factors for CKD Filtration 9:15 10:17am are present but w/o >90 Rate [...] W/LESION REMOVAL Completed 11/12/11 Tien Mcdonald MD Encounters Encounter Location Arrival/Admit Date Discharge/Depart Date Attending Provider Departed [place] 11/05/15 6:25pm 11/05/15 9:09pm [facility] Selina GARCIA CTR Departed [place] 11/05/15 10:45am 11/05/15 1:20pm [facility] Room [facility] Selina GARCIA CTR Registered [place] 10/03[facility] [place] [facility] 07/23/15 2:45pm [facility] A PA Registered [facility] 07/23/15 2:45pm [facility] A PA Registered [place] 07/11/15 12:50pm [facility] [place] 05/30/15 1:01pm Zeferinooscar, [facility] CTR Office Visit [facility] 05/29/15 4:30pm Srinivasan, [facility] Registered [place] 05/03/15 7:57am Srinivasan, [facility] CTR Registered [place] 05/02/15 8:48am Zeferinooscar, [facility] CTR Registered [place] 03/21/15 12:55pm Srinivasan, [facility] CTR Office Visit [facility] 02/16/15 10:30am Srinivasan, [facility] Registered [place] 01/31/15 12:52pm Srinivasan, [facility] CTR Registered [place] 12/20/14 1:00pm Srinivasan, [facility] CTR Registered [place] 11/06/14 1:08pm Srinivasan, [facility] CTR Registered [place] 09/18/14 12:50pm Srinivasan, [facility] CTR Departed Clinic [place] 09/05/14 8:51am 09/05/14 11:59pm Srinivasan [facility] CTR Office Visit [facility] 09/04/14 2:00pm Srinivasan [facility] Office Visit [facility] 08/17/14 1:30pm Srinivasan [facility] Registered [place] 08/16/14 10:04am Srinivasan, [facility] CTR Office Visit [facility] 07/25/14 10:00am Srinivasan, [facility] Registered [place] 04/26/14 12:[facility] 03/15/14 1:00pm Srinivasan [facility] Registered [place] 03/09/14 1:01pm [facility] 01/03/14 11:30am Srinivasan, [facility] Registered [place] 12/22/13 8:57am Srinivasan, [facility] CTR Registered [place] 11/22/13 10:54am Srinivasan [facility] CTR Registered [place] 10/25/13 8:58am Srinivasan [facility] CTR Office Visit [facility] 09/28/13 1:15pm Srinivasan [facility] Office Visit [facility] 07/11/13 11:00am Srinivasan [facility] Registered [place] 07/04/13 7:58am [facility] 04/27/13 9:30am [facility] A PA Office Visit [facility] 02/02/13 10:00am [facility] A PA Discharged [place] 10/22/12 2:12pm 10/24/12 4:50pm [facility] Dep[facility]ed [place] 10/22/12 9:11am 10/22/12 2:12pm Juve Mattson [facility] CTR Registered [place] 06/25/12 1:[facility] 06/10/12 3:15pm Srinivasan [facility] Discharged [place] 05/12/12 1:20pm 06/09/12 11:59pm Juve Mattson [facility] CTR Office Visit [facility] 05/10/12 10:45am Srinivasan [facility] Registered [place] 05/05/12 9:45am [place] [place] 03/31/12 12:50pm [facility] [place] 02/18/12 1:24pm [facility] 02/18/12 1:00pm [facility] A PA Registered [place] 02/09/12 10:06am [facility] PA CTR Office Visit [facility] 02/09/12 9:30am [facility] A PA Departed [place] 02/01/12 7:30am 02/01/12 9:50am Dorian Carmona Emergency Room [facility] Hiram FERNANDO CTR Registered [place] 01/07/12 1:24pm [facility] [place] 11/19/11 1:32pm [facility] [place] 11/12/11 9:58am Tien Mcdonald Surgical Day [facility] MD Care CTR Registered [place] 10/01/11 1:10pm [facility] 09/24/11 2:15pm [facility] [place] 09/17/11 10:41am 09/17/11 2:05pm Juve Mattson [facility] CTR Registered [place] 08/26/11 12:54pm [facility] [place] 08/15/11 2:34pm 08/18/11 5:40pm [facility] 08/15/11 11:45am [facility] 08/12/11 11:45am Srinivasan [facility] Registered [place] 07/14/11 1:12pm [facility] [place] 07/11/11 1:56pm 08/09/11 11:59pm [facility] [place] 05/21/11 1:29pm 05/21/11 11:59pm Srinivasan [facility] CTR Registered [place] 05/19/11 1:00pm Srinivasan [facility] CTR Office Visit [facility] 04/08/11 9:45am Srinivasan, [facility] Registered [place] 04/07/11 12:54pm Srinivasan, [facility] CTR Office Visit [facility] 03/25/11 11:15am [place], [facility] Registered [place] 03/11/11 12:55pm [place], [facility] CTR Registered [place] 02/11/11 1:16pm Srinivasan, [facility] CTR Registered [place] 01/27/11 1:13pm Srinivasan, [facility] CTR Discharged [place] 12/16/10 12:49pm 01/07/11 11:59pm [facility] 11/28/10 1:45pm Srinivasan [facility] Office Visit [facility] 10/23/10 1:00pm Srinivasan [facility] Office Visit [facility] 08/26/10 1:30pm Srinivasan [facility] Office Visit [facility] 08/22/10 1:45pm Srinivasan [facility] Office Visit [facility] 06/07/10 1:45pm [facility] Nathan Quintana DO Office Visit [facility] 02/06/10 4:45pm [facility] A PA Office Visit [facility] 04/03/09 9:45am Srinivasan [facility] Office Visit [facility] 08/29/08 9:00am [facility] A PA Office Visit [facility] 06/05/08 2:15pm [facility] A PA Office Visit [facility] 09/14/07 10:00am Srinivasan [facility] MD Discharged [place] 06/11/07 12:52pm 07/09/07 11:59pm [facility] 06/02/07 9:00am Srinivasan [facility] Office Visit [facility] 05/20/07 10:45am Srinivasan [facility] Departed Clinic [place] 05/19/07 8:38am 05/19/07 11:59pm Srinivasan [facility] CTR Office Visit [facility] 05/14/07 12:15pm Srinivasan [facility] Departed Clinic [place] 04/13/07 9:19am 04/13/07 11:59pm Joy, [facility] Mary MORGAN CTR Departed Clinic [place] 12/02/06 9:19am 12/02/06 11:59pm Srinivasan [facility] CTR Departed Clinic [place] 03/11/06 9:53am 03/11/06 11:59pm Srinivasan [facility] CTR Departed Clinic [place] 12/22/05 5:01pm 12/22/05 11:59pm Srinivasan [facility] CTR Departed Clinic [place] 09/29/05 10:33am 09/29/05 11:59pm Srinivasan [facility] CTR Discharged [place] 07/05/05 10:11am 07/08/05 10:35am [facility] Dep[facility]ed [place] 07/05/05 8:29am 07/05/05 10:11am [place], Emergency Room [facility] Nathan Quintana DO CTR Departed Clinic [place] 03/26/05 8:23am 03/26/05 11:59pm [facility] Lima [facility] CTR Departed Clinic [place] 02/21/05 2:11pm 02/21/05 11:[facility]pm [facility] Departed Clinic [place] 11/11/04 3:25pm 11/11/04 11:59pm Srinivasan [facility] CTR Departed Clinic [place] 11/07/04 3:47pm 03/31/05 11:59pm Juve Mattson [facility] MD CTR Departed Clinic [place] 12:00am 04/19/10 11:59pm [facility] CTR Departed [place] 12:00am 08/09/10 2:10pm Emergency Room [facility] CTR Discharged [place] 12:00am 08/19/10 2:52pm Inpatient [facility] CTR Departed [facility] [place] 12:00am 08/26/10 11:59pm [facility] CTR Registered [place] 12:00am Clinic [facility] CTR Departed [facility] Guy 12:00am 08/31/07 11:59pm [facility] CTR Departed [facility] Guy 12:00am 10/26/07 11:59pm [facility] CTR Departed Clinic [place] 12:00am 12/29/07 11:59pm [facility] CTR Departed Clinic [place] 12:00am 04/03/09 11:59pm [facility] CTR Recent Diagnosis
[2017-06-17] MEDS ORDERED: HALOPERIDOL 5 MG/ML INJECTION IM PRN (11:11)
[2017-06-17] MEDS ORDERED: HALOPERIDOL 0.5 MG TABLET PO PRN (11:11)
[2017-06-17] MEDS ORDERED: LORazepam 1 MG TABLET PO PRN (11:15)
[2017-06-17] MEDS ORDERED: ONDANSETRON ODT 4 MG TABLET PO PRN (11:15)
--- NOTE | 2017-06-17 14:56 | History & Physical Report ---
History of Present Illness Date: 06/17/17 Chief complaint: Hypokalemia, confusion HPI: Ag is a pleasant 72 yr old male from [place], [place]. On 06/14. Patient was admitted to [facility] for increased confusion, agitation. He was found to have hypokalemia and potassium was given supplementation. Family was concerned about patient's change in behaviors over the last several months following the of a friend in February. Patient's DPOA is Laquita Mckinley APRN in [place], [place]. Given her ongoing concerns, Patient was sent to [facility] emergency room today for acute medical evaluation and was then accepted to the generations unit for ongoing evaluation and treatment. During patient's recent hospitalization. A CT scan of the head was performed on 06/15, which did reveal global atrophy with small vessel disease. No acute intracranial abnormality or hemorrhage. Is also reported that patient had a history of alcohol abuse and had been through rehabilitation approximately 15 years ago. He reports that he has "fallen off the wagon" recently. Last alcohol use was 5 days ago. Initial labs or studies are reviewed, hemoglobin 12.0, hematocrit 33.3, white count normal at 9.7. Sodium is low at 131, potassium is low at 2.8, BUN 8, creatinine 0.7, glucose 116. AST 78. Urinalysis does show trace ketones, 1+ bilirubin. Urine drug screen is positive for opiates and benzodiazepines. Review of Systems All systems PM: 10-point ROS was reviewed, no additional remarkable complaints except Review of systems: Patient denies complete review of systems at time of examination [facility] Patient Stated Medical History Diabetes Mellitus Type 2 Yes Other Musculoskeletal Yes: Psoraitic arthritis Medical History Updates: Anxiety/Depression. GERD. diabetes- Type 2. psoriatic arthritis Surgical History: Port placement. Appendectomy. Inguinal hernia repair Family History: Mother lived to be 100, although did have congestive heart failure. Father from a motor vehicle accident. Brother in his 50s from an [place] Brother from motor vehicle accident. Sister alive and well - Social History Smoking status: Former smoker Substance use type: does not use Alcohol intake: current Alcohol intake frequency: former alcohol drinker Last drink: days (ago) (5) Housing: house Current residence: Apartment/Private Home Social history: Primary care provider, Dr. Juve SloOliver Patient's DPOA, Laquita Root- [employer] Medications Home Medications Medication Instructions Recorded Confirmed Type Amlodipine [Norvasc] 10 mg PO DAILY 06/17/17 06/17/17 History Atorvastatin [Lipitor] 20 mg PO HS 06/17/17 06/17/17 History Baclofen [Lioresal] 10 mg PO BID 06/17/17 06/17/17 History Fluoxetine HCl [Fluoxetine HCl] 40 mg PO DAILY 06/17/17 06/17/17 History Hydrocodone/APAP 7.5/325 [[place] 1 tab PO Q6HR PRN 06/17/17 06/17/17 History 7.5/325] Infliximab [Remicade] 100 mg IV Q42D 06/17/17 06/17/17 History LORazepam [Lorazepam] 2 mg PO TID PRN 06/17/17 06/17/17 History Losartan Potassium [Losartan 50 mg PO DAILY 06/17/17 06/17/17 History Potassium] Magnesium Oxide [Magnesium] 400 mg PO TID 06/17/17 06/17/17 History Metformin [Glucophage] 250 mg PO DAILY 06/17/17 06/17/17 History Ondansetron Odt [Zofran Po] 4 mg PO Q4HR PRN 06/17/17 06/17/17 History Potassium Chloride 10 meq PO TID 06/17/17 06/17/17 History Allergies Allergy/AdvReac Type Severity Reaction Status Date / Time Penicillins Allergy Severe Hives Verified 06/17/17 10:24 aripiprazole [From Abilify] Allergy Confusion Verified 06/17/17 10:04 Exam Vital Signs: Temperature 96.8 F 06/17/17 11:20 Pulse Rate 83 06/17/17 13:00 Respiratory Rate 16 06/17/17 13:00 Blood Pressure 141/88 H 06/17/17 11:20 Pulse Oximetry 95 06/17/17 13:00 Height/Weight/BMI: Height 1.63 m Weight 83.4 kg Body Mass Index 31.5 - Constitutional Present: no acute distress, well nourished, well developed - Routine HEENT Exam Eye: Present: EOMI ENT: Present: mucous membranes moist, dentition normal - Routine Neck Exam Present: supple - Routine Respiratory Exam Present: CTA bilaterally. Absent: wheezes - Routine Cardiovascular Exam Present: RRR, S1, S2. Absent: murmur - Routine Abdominal Exam Present: soft, normoactive bowel sounds, non distended. Absent: tenderness - Routine Extremities Exam Present: full ROM, normal capillary refill - Routine Back/Spine/Pelvis Exam Back/Spine: Present: full ROM - Routine Skin Exam Present: intact, dry, warm - Routine Neurological Exam Present: alert, oriented X3, CN II-XII intact - Routine Psychiatric Exam Present: normal affect, cooperative - Additional findings Additional findings: Juan Luis - Have independently interviewed and examined pt. Chart reviewed. Case discussed with my [employer]. Care plan developed with my supervision; agree. Reports loose stool for past 4 days. Some ab bloating. No nausea. Appetite varies. Breathing stable. Lungs: clear bilaterally. No crackles or distress CV: regular AB: soft nt/nd +BS Results - Labs CBC & Chem 7: 06/17/17 10:14 06/17/17 10:14 Assessment and Plan (1) Depression Current visit: Yes Status: Acute (2) Behavior disturbance Current visit: Yes Status: Acute Assessment and Plan: Impression Hypokalemia-acute, present on admission, 2.9 Hyponatremia-acute, present on admission, 131 Hypomagnesemia - acute, present on admission, 1.0 Anxiety, depression. Recent behavioral changes. Type II diabetes Psoriatic arthritis Hx of Pancreatitis Recent alcohol use Tobacco use Obesity with BMI 31.6 Plan Agree with admission to [facility] unit under the care of Dr. Andre for further psychiatric evaluation and treatment Hypokalemia and hyponatremia, present on admission. Patient was given 40 milliequivalents orally of potassium in the emergency room this morning. We will repeat another 40 milliequivalents at 1700 today and then schedule at 20 milliequivalents 3 times a day. Will recheck a BMP tomorrow morning to follow electrolytes. If hyponatremia persists, may need to consider IV fluid bolus. Monitor Accu-Cheks as needed, and continue metformin Patient to have carb consistent diet. Patient does receive IV Remicade every 42 days for his psoriatic arthritis. It appears that the next dose is 07/08. Could likely De-access his Port-A-Cath prior to this time. If it does not appear the patient will require IV fluids. Monitor blood pressure, patient appears to be on Cozaar and Norvasc for blood pressure control. Hospital services will continue to follow patient medically managed existing comorbidities. Medically stable for Generation floor activities. At time of discharge medical care will return to PCP Dr Mattson in [place]/ [place] Hospital Course Summary Disclaimer: The visit summary below is not to be considered part of the above Progress Note. Hospital Course: 06/17/17 Impression Hypokalemia-acute present on admission, 2.9 Hyponatremia-acute present on admission, 131 Anxiety, depression. Recent behavioral changes. Type II diabetes Psoriatic arthritis Hx of Pancreatitis Recent alcohol use Tobacco use Plan Agree with admission to generations unit under the care of Dr. Andre for further psychiatric evaluation and treatment Hypokalemia and hyponatremia, present on admission. Patient was given 40 milliequivalents orally of potassium in the emergency room this morning. We will repeat another 40 milliequivalents at 1700 today and then schedule at 20 milliequivalents 3 times a day. Will recheck a BMP tomorrow morning to follow electrolytes If hyponatremia persists, may need to consider IV fluid bolus. Monitor Accu-Cheks as needed, and continue metformin Patient to have carb consistent diet. Patient does receive IV Remicade every 42 days for his psoriatic arthritis. It appears that the next dose is 07/08. Could likely De-access his Port-A-Cath prior to this time. If it does not appear the patient will require IV fluids. Monitor blood pressure, patient appears to be on Cozaar and Norvasc for blood pressure control. Hospital services will continue to follow patient medically managed existing comorbidities At time of discharge medical care will return to PCP Dr Mattson in [place]
[2017-06-17] MEDS: MAGNESIUM OXIDE 400 MG TABLET PO SCH ×2 (15:36→20:08)
[2017-06-17] MEDS: LORazepam 0.5 MG TABLET PO PRN (15:36)
[2017-06-17] MEDS: HYDROCODONE/APAP 7.5 MG/325 MG TABLET PO PRN (15:36)
--- NOTE | 2017-06-17 19:20 | 24 Hour Neuropsychiatic Eval ---
Date of Admission: 06/17/17 11:00 Chief complaint: "I either fell or someone broke into my home and messed it up" History of Present Illness: Patient is a 72-year-old single, retired male who was admitted to [facility] from [facility] for altered mental status including agitation, combativeness and reported AVH. Patient states that he has had bouts of severe depression in the past, and lost a friend due to cancer 4-5 months ago which is contributing to his current depression. He states that he has been falling recently a lot and feels he needs to function better. He describes his recent mood as "up and down," referring to anxiety with panic attacks. He denies a history consistent with demar or PTSD. He also feels he has had more memory issues lately. Chantal PRIETO was managing his meds in a pill capacity planner but he still has difficulty taking his meds correctly. He complains of difficulty sleeping and poor appetite. He denies any recent SI or HI. He was reported to have AVH at the other hospital and be combative though he was pleasant and fully oriented during our interview. Past psych: Patient reports that he was hospitalized at the [facility] for 1.5 years for severe depression at age 19, released and then hospitalized a short time later for 4 months. He reports that he overdosed on Tylenol and aspirin but this was many years ago. He denies any history of ECT. He has been on Prozac "for a long time" and reports trying only Zoloft previously. Substance use: Patient reports polysubstance use years ago and that he used meth more heavily in the past but has not done so recently. He went to [facility] in the s and stayed clean for ~6 years after that. He admits to drinking more recently and initially says a couple of times a week but then reports when he drinks, he typically does so for 4-5 days. Discussed concerns about continued benzo use given substance use history and he understands this. A CT scan of the head was performed on 06/15, which did reveal global atrophy with small vessel disease. No acute intracranial abnormality or hemorrhage. Urine drug screen is positive for opiates and benzodiazepines. Depression: Increased Anxiety, Crying Spells, Loss of Energy, Difficulty Sleeping, Feelings of Guilt, Changes in Appetite, Significant Weight Loss ( reportedly 40 lb.) Psychosis: Hallucinations/Illusions (reported, not during interview) Dementia: Memory Impairment (per patient) Anxiety: Sense of Impending Doom (intermittent) PFSH Patient Stated Medical History Diabetes Mellitus Type 2 Yes Other Musculoskeletal Yes: Psoraitic arthritis Clinic Medical History Depression (Acute Medical) Behavior disturbance (Acute Medical) Medical History Updates: Anxiety/Depression. GERD. diabetes- Type 2. psoriatic arthritis Surgical History: Port placement. Appendectomy. Inguinal hernia repair Family History: Patient denies any known family history of mental illness or dementia. - Social History Smoking status: Former smoker Substance use type: other (Has used MULTIPLE substances in the past (meth and alcohol more heavily). UDS + for benzos, opiates - both of which prescribed.) Alcohol intake: current Alcohol intake frequency: other (history of alcoholism with recent bingeing - reports last use 5 days ago) Housing: apartment Household members: none service: No Current occupational status: retired Previous occupational history: [employer] Current residence: Apartment/Private Home Social history: Strength: Has friends, has remained sober for 6 years before, pleasant, good verbal communication, wants to improve Review of Systems All systems: reviewed and no additional remarkable complaints except as stated - Constitutional Constitutional: Present: headache(s), weight loss - EENMT Balance: Present: other (frequent falls recently per patient) - Gastrointestinal Gastrointestinal: Present: change in bowel habits (intermittent diarrhea) - Genitourinary Genitourinary: Present: urinary frequency - Musculoskeletal Musculoskeletal: Present: other (chronic hip and back pain) - Neurological Neurological: Present: memory loss (per patient), other (denies any history of seizures) - Psychiatric Psychiatric: Present: as per HPI, abnormal sleep pattern, anxiety, auditory hallucinations, behavioral changes, depression, hallucinations, mood swings, panic attacks, visual hallucinations. Absent: homicidal ideation, suicidal ideation Mental Status Exam Vitals: Last Vital Signs Temp 97.7 F 06/17/17 15:31 Pulse 85 06/17/17 15:31 Resp 16 06/17/17 15:31 BP 121/68 06/17/17 15:31 Pulse Ox 92 06/17/17 15:31 Height: 1.63 m Weight: 83.4 kg - Mental Status Exam Muscle Strength/Tone: Normal Dressing: Casual Grooming: Other (Limited) Attitude: Cooperative Motor Activity: Normal Eye Contact: Good Speech: Normal (some mild word-finding difficulties possible?) Volume: Normal Rhythm: Appropriate Rhythm Sensory: Alert Orientation: Oriented X4 Mood: Anxious Affect: Anxious Rate of Thoughts: Appropriate Rate Thought Organization: Circumstantial Associations: Intact Abstract Reasoning: Intact, able to abstract Thought Content: Somatic Concerns Perception/Psychotic: Hx psychosis, not current Language: Naming Intact Fund of Knowledge: Appropriate (grossly but patient reports subjective memory problems - will review SLUMS) Memory: Grossly Intact Suicidal Ideation: Denies Homicidal Ideation: Denies Insight: Limited Judgement: Limited Impulse Control: Fair - Laboratory Result Diagrams: 06/17/17 10:14 06/17/17 10:14 Assessment and Plan (1) Major depressive disorder Qualifiers: Major depression recurrence: recurrent Major depression episode severity: severe Current visit: Yes Status: Acute unclear whether psychotic features d/t MDD MDD leading to self-care failure (2) Alcohol use disorder Current visit: Yes Status: Acute (3) Alcohol withdrawal Qualifiers: Complication of substance-induced condition: with perceptual disturbance Qualified Code(s): F10.232 - Alcohol dependence with withdrawal with perceptual disturbance Current visit: Yes Status: Acute (4) Anxiety Current visit: Yes Status: Acute JULIAN with panic attacks (5) Panic attacks Current visit: Yes Status: Acute Evaluate and stabilize Maintain safety and elopement precautions Will obtain further collateral from support and DPOA Review/order following: CBC, CMP, TSH, UA, UDS, B12, folate, GGT, HIV, RPR Will schedule lorazepam 0.5mg PO TID with plan to taper/discontinue to prevent complications from EtOH/benzo withdrawal Have held Prozac as it has not been effective and interferes with many meds through CYP2D6 inhibition Scheduled trazodone 50mg PO q HS to target insomnia Monitor mood, behavior and response to treatment
[2017-06-17] MEDS: ATORVASTATIN 20 MG TABLET PO SCH (20:09)
[2017-06-17] MEDS: BACLOFEN 10 MG TABLET PO SCH (20:09)
[2017-06-17] MEDS: LORazepam 1 MG TABLET PO SCH ×2 (20:10→20:11)
[2017-06-17] MEDS: TRAZODONE 50 MG TABLET PO SCH (21:03)
[2017-06-18] MEDS: SALINE FLUSH 10ml SYRINGE IVF PRN ×2 (06:10→21:44)
[2017-06-18] MEDS: METFORMIN 500 MG TABLET PO SCH (08:24)
[2017-06-18] MEDS: LORazepam 1 MG TABLET PO SCH ×3 (08:26→20:00)
[2017-06-18] MEDS: AMLODIPINE 10 MG TABLET PO SCH (08:26)
[2017-06-18] MEDS: BACLOFEN 10 MG TABLET PO SCH ×2 (08:26→20:00)
[2017-06-18] MEDS: MAGNESIUM OXIDE 400 MG TABLET PO SCH ×3 (08:27→20:01)
[2017-06-18] MEDS: HYDROCODONE/APAP 7.5 MG/325 MG TABLET PO PRN ×3 (08:27→20:00)
[2017-06-18] MEDS: LOSARTAN 50 MG TABLET PO SCH (08:27)
[2017-06-18 09:36] VITALS: BMI 31.4
--- NOTE | 2017-06-18 16:38 | Neuropsych Progress Note ---
[facility] Subjective Date: 06/18/17 - Sujective/Severity of Illness Medications: Hydrocodone Bitart/Acetaminophen ([place] 7.5/325) 1 tab PO Q6HR PRN PRN Reason: Pain Last Admin: 06/18/17 14:48 Dose: 1 tab Amlodipine Besylate (Norvasc) 10 mg PO DAILY [facility] Last Admin: 06/18/17 08:26 Dose: 10 mg Atorvastatin Calcium (Lipitor) 20 mg PO HS [facility] Last Admin: 06/17/17 20:09 Dose: 20 mg Baclofen (Lioresal) 10 mg PO BID [facility] Last Admin: 06/18/17 08:26 Dose: 10 mg Haloperidol (Haldol) 0.5 mg PO Q6H PRN PRN Reason: Extreme agitation Haloperidol Lactate (Haldol) 0.5 mg IM Q6H PRN PRN Reason: Extreme agitation Heparin Sodium (Beef Lung) (Heparin Flush) 500 unit IV DAILY [facility] Last Admin: 06/18/17 14:44 Dose: 500 unit Infliximab (Remicade) 100 mg IV Q42D [facility] Lorazepam (Ativan) 0.5 mg PO Q6H PRN PRN Reason: Extreme agitation Last Admin: 06/17/17 15:36 Dose: 0.5 mg Lorazepam (Ativan Inj) 0.5 mg IM Q6H PRN PRN Reason: Extreme agitation Lorazepam (Ativan) 0.5 mg PO TID [facility] Last Admin: 06/18/17 14:54 Dose: 0.5 mg Losartan Potassium (Cozaar) 50 mg PO DAILY [facility] Last Admin: 06/18/17 08:27 Dose: 50 mg Magnesium Oxide (Magox) 400 mg PO TID [facility] Last Admin: 06/18/17 14:50 Dose: 400 mg Metformin HCl (Glucophage) 250 mg PO WB [facility] Last Admin: 06/18/17 08:24 Dose: 250 mg Ondansetron HCl (Zofran Po) 4 mg PO Q4HR PRN PRN Reason: Nausea Potassium Chloride (Micro-K) 20 meq PO TIDWM [facility] Last Admin: 06/18/17 14:44 Dose: 20 meq Sodium Chloride (Iv Flush) 10 - 80 ml IVF PRN PRN PRN Reason: Flushing Last Admin: 06/18/17 06:10 Dose: 30 ml Trazodone HCl (Desyrel) 50 mg PO HS [facility] Last Admin: 06/17/17 21:03 Dose: 50 mg Subjective: Patient seen and chart reviewed. Case discussed with treatment team. On interview, patient is pleasant and cooperative. He reports that his mood has improved and his appetite is better, though he still has some anxiety. He felt he slept well with trazodone. Patient denies any SI, HI or AVH. Patient denies any adverse side effects related to psychotropic medications. Nursing staff report patient has been cooperative overall though tends to isolate to his room and became more anxious when asked to come out to dayroom. Patient slept 8.25 overnight. VSS. Patient is eating well. Psychotropic PRNs required in the past 24 hours: none. Start Time: 13:20 Stop Time: 13:40 Mental Status Exam Vitals: Last Vital Signs Temp 98 F 06/18/17 08:00 Pulse 112 H 06/18/17 08:00 Resp 14 06/18/17 08:00 BP 141/81 H 06/18/17 08:00 Pulse Ox 98 06/18/17 08:00 Height: 1.63 m Weight: 83.007 kg - Mental Status Exam Muscle Strength/Tone: Normal Dressing: Casual Grooming: Other (Limited) Attitude: Cooperative Motor Activity: Normal Eye Contact: Good Speech: Normal (some mild word-finding difficulties possible?) Volume: Normal Rhythm: Appropriate Rhythm Orientation: Oriented X4 Mood: Anxious (reports mood is "better") Affect: Anxious (intermittent), Tearful (at times) Rate of Thoughts: Appropriate Rate Thought Organization: Circumstantial Associations: Intact Abstract Reasoning: Intact, able to abstract Thought Content: Ruminations, Somatic Concerns Perception/Psychotic: Hx psychosis, not current Language: Naming Intact Fund of Knowledge: Appropriate (grossly but patient reports subjective memory problems - will review SLUMS) Memory: Grossly Intact Suicidal Ideation: Denies Homicidal Ideation: Denies Insight: Limited Judgement: Limited Impulse Control: Fair - Laboratory Result Diagrams: 06/17/17 10:14 06/18/17 06:13 Laboratory Results - last 24 hr 06/18/17 06/18/17 06:11 06:13 Turbidity < 20 Sodium 136 Potassium 3.3 L Chloride 94 L Carbon Dioxide 27 Anion Gap 15 BUN 7.0 L Creatinine 0.7 L GFR Calculation 111 BUN/Creatinine Ratio 10 Glucose 101 Glucometer 98 Calculated Osmolality 260 L Calcium 8.3 L Magnesium 1.4 L D Icterus Index < 2 Triglycerides 104 Cholesterol 133 LDL Cholesterol, Calc 55.2 L VLDL Cholesterol 20.8 HDL Cholesterol 57 Cholesterol/HDL Ratio 2.3 TSH 2.69 Specimen Hemolysis < 15 Assessment and Plan (1) Major depressive disorder Qualifiers: Major depression recurrence: recurrent Major depression episode severity: severe Current visit: Yes Status: Acute (2) Alcohol use disorder Current visit: Yes Status: Acute (3) Alcohol withdrawal Qualifiers: Complication of substance-induced condition: with perceptual disturbance Qualified Code(s): 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 Hospital Course: 06/17/17 Impression Hypokalemia-acute present on admission, 2.9 Hyponatremia-acute present on admission, 131 Anxiety, depression. Recent behavioral changes. Type II diabetes Psoriatic arthritis Hx of Pancreatitis Recent alcohol use Tobacco use Plan Agree with admission to [facility] under the care of Dr. Andre for further psychiatric evaluation and treatment Hypokalemia and hyponatremia, present on admission. Patient was given 40 milliequivalents orally of potassium in the emergency room this morning. We will repeat another 40 milliequivalents at 1700 today and then schedule at 20 milliequivalents 3 times a day. Will recheck a BMP tomorrow morning to follow electrolytes If hyponatremia persists, may need to consider IV fluid bolus. Monitor Accu-Cheks as needed, and continue metformin Patient to have carb consistent diet. Patient does receive IV Remicade every 42 days for his psoriatic arthritis. It appears that the next dose is 07/08. Could likely De-access his Port-A-Cath prior to this time. If it does not appear the patient will require IV fluids. Monitor blood pressure, patient appears to be on Cozaar and Norvasc for blood pressure control. Hospital services will continue to follow patient medically managed existing comorbidities At time of discharge [facility] [place] 06/18/17 Psych: Continue current care with trazodone 50mg PO q HS for sleep. Have scheduled lorazepam 0.5mg PO TID to prevent w/d symptoms from EtOH and benzos but plan to taper, likely starting 06/19. Nursing to continue to encourage patient to spend time in dayroom. Will order VAIBHAV/RIPPA.
[2017-06-18] MEDS: ATORVASTATIN 20 MG TABLET PO SCH (20:00)
[2017-06-18] MEDS: TRAZODONE 50 MG TABLET PO SCH (20:01)
[2017-06-19] MEDS: HYDROCODONE/APAP 7.5 MG/325 MG TABLET PO PRN ×3 (06:29→22:32)
[2017-06-19] MEDS: SALINE FLUSH 10ml SYRINGE IVF PRN ×2 (06:35→20:44)
[2017-06-19] MEDS: METFORMIN 500 MG TABLET PO SCH (08:56)
[2017-06-19] MEDS: BACLOFEN 10 MG TABLET PO SCH ×2 (08:57→20:44)
[2017-06-19] MEDS: LOSARTAN 50 MG TABLET PO SCH (08:57)
[2017-06-19] MEDS: AMLODIPINE 10 MG TABLET PO SCH (08:57)
[2017-06-19] MEDS: MAGNESIUM OXIDE 400 MG TABLET PO SCH ×3 (08:57→20:43)
[2017-06-19] MEDS: LORazepam 0.5 MG TABLET PO SCH ×3 (08:59→20:43)
--- NOTE | 2017-06-19 14:55 | Progress Note ---
<Nohelia Owens V - Last Filed: 06/19/17 14:51> - Date 06/19/17 Subjective: Neo is seen this afternoon in follow-up while in his room completing a cognitive evaluation was speech therapy. He is alert and pleasant during examination without specific complaints. Denies any shortness of breath or pain. No GI concerns. Vital signs stable. Objective Vital signs: Temperature 97.6 F 06/19/17 08:00 Pulse Rate 72 06/19/17 08:00 Respiratory Rate 20 06/19/17 08:00 Blood Pressure 111/68 06/19/17 08:00 Pulse Oximetry 92 06/19/17 08:00 Height/Weight/BMI: Height 1.63 m Weight 83.007 kg Body Mass Index 31.4 - Constitutional Present: no acute distress, well nourished, well developed - Routine HEENT Exam Eye: Present: EOMI ENT: Present: mucous membranes moist, dentition normal - Routine Respiratory Exam Present: CTA bilaterally. Absent: wheezes - Routine Cardiovascular Exam Present: RRR, S1, S2. Absent: murmur - Routine Abdominal Exam Present: soft, normoactive bowel sounds, non distended. Absent: tenderness - Routine Extremities Exam Present: full ROM - Routine Back/Spine/Pelvis Exam Back/Spine: Present: full ROM - Routine Skin Exam Present: intact, dry, warm - Routine Neurological Exam Present: alert, oriented X3, CN II-XII intact - Routine Lymphatic Exam Lymphatic: Absent: adenopathy - Routine Psychiatric Exam Present: normal affect, cooperative Results - Labs CBC & Chem 7: 06/17/17 10:14 06/19/17 06:36 Assessment and Plan (1) Depression Current visit: Yes Status: Acute (2) Behavior disturbance Current visit: Yes Status: Acute Assessment and Plan: Impression Hypokalemia-acute, present on admission, 2.9 Hyponatremia-acute, present on admission, 131 Hypomagnesemia - acute, present on admission, 1.0 Anxiety, depression. Recent behavioral changes. Type II diabetes Psoriatic arthritis Hx of Pancreatitis Recent alcohol use Tobacco use Obesity with BMI 31.6 Plan Overall appears to be medically stable Have been trending routine electrolytes and hypokalemia has improved. Will continue on oral potassium supplementation 20 milliequivalents 3 times a day Continue with magnesium supplementation. Serum magnesium does continue to increase. Monitor Accu-Cheks as needed, and continue metformin Patient does receive IV Remicade every 42 days for his psoriatic arthritis. It appears that the next dose is 07/08. Patient would like to keep Port-A-Cath accessed. Until that time. Since we are checking routine labs. Will plan to check BMP and Mag on Friday 06/22 Hospital Course Summary Disclaimer: The visit summary below is not to be considered part of the above Progress Note. Hospital Course: 06/17/17 Impression Hypokalemia-acute present on admission, 2.9 Hyponatremia-acute present on admission, 131 Anxiety, depression. Recent behavioral changes. Type II diabetes Psoriatic arthritis Hx of Pancreatitis Recent alcohol use Tobacco use Plan Agree with admission to [facility] under the care of Dr. Andre for further psychiatric evaluation and treatment Hypokalemia and hyponatremia, present on admission. Patient was given 40 milliequivalents orally of potassium in the emergency room this morning. We will repeat another 40 milliequivalents at 1700 today and then schedule at 20 milliequivalents 3 times a day. Will recheck a BMP tomorrow morning to follow electrolytes If hyponatremia persists, may need to consider IV fluid bolus. Monitor Accu-Cheks as needed, and continue metformin Patient to have carb consistent diet. Patient does receive IV Remicade every 42 days for his psoriatic arthritis. It appears that the next dose is 07/08. Could likely De-access his Port-A-Cath prior to this time. If it does not appear the patient will require IV fluids. Monitor blood pressure, patient appears to be on Cozaar and Norvasc for blood pressure control. Hospital services will continue to follow patient medically managed existing comorbidities At time of discharge medical care will return to PCP Dr Mattson in [facility]/ [place] 06/18/17 Psych: Continue current care with trazodone 50mg PO q HS for sleep. Have scheduled lorazepam 0.5mg PO TID to prevent w/d symptoms from EtOH and benzos but plan to taper, likely starting 06/19. Nursing to continue to encourage patient to spend time in dayroom. Will order VAIBHAV/RIPPA. 06/19/17 Plan Overall appears to be medically stable Have been trending routine electrolytes and hypokalemia has improved. Will continue on oral potassium supplementation 20 milliequivalents 3 times a day Continue with magnesium supplementation. Serum magnesium does continue to increase. Monitor Accu-Cheks as needed, and continue metformin Patient does receive IV Remicade every 42 days for his psoriatic arthritis. It appears that the next dose is 07/08. Patient would like to keep Port-A-Cath accessed. Until that time. Since we are checking routine labs. Will plan to check BMP and Mag on Friday 06/22 <Veronica Mcfadden - Last Filed: 06/19/17 21:31> - Date 06/19/17 Objective Vital signs: Temperature 98.4 F 06/19/17 16:00 Pulse Rate 77 06/19/17 16:00 Respiratory Rate 20 06/19/17 16:00 Blood Pressure 112/69 06/19/17 16:00 Pulse Oximetry 96 06/19/17 16:00 Height/Weight/BMI: Height 1.63 m Weight 83.007 kg Body Mass Index 31.4 Results - Labs CBC & Chem 7: 06/17/17 10:14 06/19/17 06:36 Assessment and Plan (1) Depression Current visit: Yes Status: Acute (2) Behavior disturbance Current visit: Yes Status: Acute Assessment and Plan: Potassium corrected-dose decreased to 20 mEq daily; magnesium remains low-dose increased to 800 mg twice a day. Recheck as noted above. Hospital Course Summary Disclaimer: The visit summary below is not to be considered part of the above Progress Note.
--- NOTE | 2017-06-19 17:42 | Neuropsych Progress Note ---
[facility] Subjective Date: 06/19/17 - Sujective/Severity of Illness Medications: Hydrocodone Bitart/Acetaminophen ([place] 7.5/325) 1 tab PO Q6HR PRN PRN Reason: Pain Last Admin: 06/19/17 14:33 Dose: 1 tab Amlodipine Besylate (Norvasc) 10 mg PO DAILY [facility] Last Admin: 06/19/17 08:57 Dose: 10 mg Atorvastatin Calcium (Lipitor) 20 mg PO HS [facility] Last Admin: 06/18/17 20:00 Dose: 20 mg Baclofen (Lioresal) 10 mg PO BID [facility] Last Admin: 06/19/17 08:57 Dose: 10 mg Haloperidol (Haldol) 0.5 mg PO Q6H PRN PRN Reason: Extreme agitation Haloperidol Lactate (Haldol) 0.5 mg IM Q6H PRN PRN Reason: Extreme agitation Heparin Sodium (Beef Lung) (Heparin Flush) 500 unit IV DAILY [facility] Last Admin: 06/19/17 08:57 Dose: 500 unit Infliximab (Remicade) 100 mg IV Q42D [facility] Lorazepam (Ativan) 0.5 mg PO TID [facility] Last Admin: 06/19/17 14:32 Dose: 0.5 mg Lorazepam (Ativan) 0.5 mg PO Q6H PRN PRN Reason: Extreme agitation Last Admin: 06/17/17 15:36 Dose: 0.5 mg Lorazepam (Ativan Inj) 0.5 mg IM Q6H PRN PRN Reason: Extreme agitation Losartan Potassium (Cozaar) 50 mg PO DAILY [facility] Last Admin: 06/19/17 08:57 Dose: 50 mg Magnesium Oxide (Magox) 400 mg PO TID [facility] Last Admin: 06/19/17 14:32 Dose: 400 mg Metformin HCl (Glucophage) 250 mg PO WB [facility] Last Admin: 06/19/17 08:56 Dose: 250 mg Ondansetron HCl (Zofran Po) 4 mg PO Q4HR PRN PRN Reason: Nausea Potassium Chloride (Micro-K) 20 meq PO TIDWM [facility] Last Admin: 06/19/17 17:19 Dose: 20 meq Sodium Chloride (Iv Flush) 10 - 80 ml IVF PRN PRN PRN Reason: Flushing Last Admin: 06/19/17 06:35 Dose: 30 ml Trazodone HCl (Desyrel) 50 mg PO HS [facility] Last Admin: 06/18/17 20:01 Dose: 50 mg Subjective: Patient seen and chart reviewed. Case discussed with treatment team. On interview, patient is plesasant and cooperative. He reports feeling a little shaky this morning (which typically gets better in day - may be d/t alcohol withdrawal) and a little groggy from trazodone despite having slept well. Patient denies any SI, HI or AVH. Nursing staff report patient has been pleasant and cooperative, without behavioral difficulties on the unit. He has been adherent with medications. VAIBHAV /RIPPA ordered. Patient slept 10 hours overnight. VSS. Patient is eating well. Psychotropic PRNs required in the past 24 hours: none. Start Time: 07:20 Stop Time: 07:40 Mental Status Exam Vitals: Last Vital Signs Temp 98.4 F 06/19/17 16:00 Pulse 77 06/19/17 16:00 Resp 20 06/19/17 16:00 BP 112/69 06/19/17 16:00 Pulse Ox 96 06/19/17 16:00 Height: 1.63 m Weight: 83.007 kg - Mental Status Exam Muscle Strength/Tone: Normal Dressing: Casual Grooming: Other (Limited) Attitude: Cooperative Motor Activity: Normal Eye Contact: Good Speech: Normal (some mild word-finding difficulties possible?) Volume: Normal Rhythm: Appropriate Rhythm Orientation: Oriented X4 Mood: Neutral (reports improved from admission, less tearful) Rate of Thoughts: Appropriate Rate Thought Organization: Circumstantial Associations: Intact Abstract Reasoning: Intact, able to abstract Thought Content: Ruminations, Somatic Concerns Perception/Psychotic: Hx psychosis, not current Language: Other (some word finding difficulties) Fund of Knowledge: Appropriate (grossly but patient reports subjective memory problems - will review SLUMS) Memory: Grossly Intact Suicidal Ideation: Denies Homicidal Ideation: Denies Insight: Limited Judgement: Limited Impulse Control: Fair - Laboratory Result Diagrams: 06/17/17 10:14 06/19/17 06:36 Laboratory Results - last 24 hr 06/18/17 06/19/17 06:13 06:36 Turbidity < 20 Sodium 137 Potassium 3.8 Chloride 99 Carbon Dioxide 28 Anion Gap 10 BUN 11.0 D Creatinine 0.9 D GFR Calculation 83 BUN/Creatinine Ratio 12 Glucose 122 H Calculated Osmolality 264 Calcium 8.2 L Magnesium 1.5 L Icterus Index < 2 Vitamin B12 332 Folate 4.4 Specimen Hemolysis < 15 Assessment and Plan (1) Major depressive disorder Qualifiers: Major depression recurrence: recurrent Major depression episode severity: severe Current visit: Yes Status: Acute (2) Alcohol use disorder Current visit: Yes Status: Acute (3) Alcohol withdrawal Qualifiers: Complication of substance-induced condition: with perceptual disturbance Qualified Code(s): 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 Hospital Course: 06/17/17 Impression Hypokalemia-acute present on admission, 2.9 Hyponatremia-acute present on admission, 131 Anxiety, depression. Recent behavioral changes. Type II diabetes Psoriatic arthritis Hx of Pancreatitis Recent alcohol use Tobacco use Plan Agree with admission to [facility] under the care of Dr. Andre for further psychiatric evaluation and treatment Hypokalemia and hyponatremia, present on admission. Patient was given 40 milliequivalents orally of potassium in the emergency room this morning. We will repeat another 40 milliequivalents at 1700 today and then schedule at 20 milliequivalents 3 times a day. Will recheck a BMP tomorrow morning to follow electrolytes If hyponatremia persists, may need to consider IV fluid bolus. Monitor Accu-Cheks as needed, and continue metformin Patient to have carb consistent diet. Patient does receive IV Remicade every 42 days for his psoriatic arthritis. It appears that the next dose is 07/08. Could likely De-access his Port-A-Cath prior to this time. If it does not appear the patient will require IV fluids. Monitor blood pressure, patient appears to be on Cozaar and Norvasc for blood pressure control. Hospital services will continue to follow patient medically managed existing comorbidities At time of discharge medical care will return to PCP Dr Mattson in [place]/ [address] 06/18/17 Psych: Continue current care with trazodone 50mg PO q HS for sleep. Have scheduled lorazepam 0.5mg PO TID to prevent w/d symptoms from EtOH and benzos but plan to taper, likely starting 06/19. Nursing to continue to encourage patient to spend time in dayroom. Will order VAIBHAV/RIPPA. 06/19/17 Plan Overall appears to be medically stable Have been trending routine electrolytes and hypokalemia has improved. Will continue on oral potassium supplementation 20 milliequivalents 3 times a day Continue with magnesium supplementation. Serum magnesium does continue to increase. Monitor Accu-Cheks as needed, and continue metformin Patient does receive IV Remicade every 42 days for his psoriatic arthritis. It appears that the next dose is 07/08. Patient would like to keep Port-A-Cath accessed. Until that time. Since we are checking routine labs. Will plan to check BMP and Mag on Friday 06/2206/19/17 Psych: Continue current care, will wait to begin Ativan taper as patient appears to still having withdrawal symptoms this morning. VAIBHAV/RIPPA ordered but not yet completed. Discussed with patient whether he would like to continue on current dose of trazodone, cut in half with PRN available, or try alternate sleep med such as hydroxyzine. He will let me treatment team know. Recommend substance abuse treatment after discharge in addition to mental health f/u.
[2017-06-19] MEDS: TRAZODONE 50 MG TABLET PO SCH (20:42)
[2017-06-19] MEDS: ATORVASTATIN 20 MG TABLET PO SCH (20:43)
[2017-06-20] MEDS: SALINE FLUSH 10ml SYRINGE IVF PRN (06:13)
[2017-06-20] MEDS: HYDROCODONE/APAP 7.5 MG/325 MG TABLET PO PRN ×3 (06:13→20:47)
[2017-06-20] MEDS: LORazepam 0.5 MG TABLET PO SCH ×3 (11:13→20:05)
[2017-06-20] MEDS: BACLOFEN 10 MG TABLET PO SCH ×2 (11:14→20:04)
[2017-06-20] MEDS: MAGNESIUM OXIDE 400 MG TABLET PO SCH ×2 (11:14→20:05)
[2017-06-20] MEDS: AMLODIPINE 10 MG TABLET PO SCH (11:17)
[2017-06-20] MEDS: LOSARTAN 50 MG TABLET PO SCH (11:18)
[2017-06-20] MEDS: METFORMIN 500 MG TABLET PO SCH (11:30)
--- NOTE | 2017-06-20 14:14 | Neuropsych Progress Note ---
[facility] Subjective Date: 06/20/17 - Sujective/Severity of Illness Medications: Hydrocodone Bitart/Acetaminophen ([place] 7.5/325) 1 tab PO Q6HR PRN PRN Reason: Pain Last Admin: 06/20/17 12:15 Dose: 1 tab Amlodipine Besylate (Norvasc) 10 mg PO DAILY [facility] Last Admin: 06/20/17 11:17 Dose: 10 mg Atorvastatin Calcium (Lipitor) 20 mg PO HS [facility] Last Admin: 06/19/17 20:43 Dose: 20 mg Baclofen (Lioresal) 10 mg PO BID [facility] Last Admin: 06/20/17 11:14 Dose: 10 mg Haloperidol (Haldol) 0.5 mg PO Q6H PRN PRN Reason: Extreme agitation Haloperidol Lactate (Haldol) 0.5 mg IM Q6H PRN PRN Reason: Extreme agitation Heparin Sodium (Beef Lung) (Heparin Flush) 500 unit IV DAILY [facility] Last Admin: 06/20/17 11:17 Dose: 500 unit Infliximab (Remicade) 100 mg IV Q42D [facility] Lorazepam (Ativan) 0.5 mg PO TID [facility] Last Admin: 06/20/17 11:13 Dose: 0.5 mg Lorazepam (Ativan) 0.5 mg PO Q6H PRN PRN Reason: Extreme agitation Last Admin: 06/17/17 15:36 Dose: 0.5 mg Lorazepam (Ativan Inj) 0.5 mg IM Q6H PRN PRN Reason: Extreme agitation Losartan Potassium (Cozaar) 50 mg PO DAILY [facility] Last Admin: 06/20/17 11:18 Dose: 50 mg Magnesium Oxide (Magox) 800 mg PO BID [facility] Last Admin: 06/20/17 11:14 Dose: 800 mg Metformin HCl (Glucophage) 250 mg PO WB [facility] Last Admin: 06/20/17 11:30 Dose: 250 mg Ondansetron HCl (Zofran Po) 4 mg PO Q4HR PRN PRN Reason: Nausea Potassium Chloride (Micro-K) 20 meq PO WB [facility] Last Admin: 06/20/17 11:13 Dose: 20 meq Sodium Chloride (Iv Flush) 10 - 80 ml IVF PRN PRN PRN Reason: Flushing Last Admin: 06/20/17 06:13 Dose: 10 ml Trazodone HCl (Desyrel) 50 mg PO HS [facility] Last Admin: 06/19/17 20:42 Dose: 50 mg Subjective: Pt seen and chart examined. Nursing reports pt has done well on the unit. Sleeping well and has a good appetite. No issues. On face to face the pt is resting in bed. He states he is doing well and voices no concerns. Mood improving. Denies S/I. Denies WD. Tolerating meds Start Time: 10:15 Stop Time: 10:30 Mental Status Exam Vitals: Last Vital Signs Temp 98.5 F 06/20/17 08:00 Pulse 93 06/20/17 08:00 Resp 16 06/20/17 08:00 BP 126/80 06/20/17 08:00 Pulse Ox 99 06/20/17 08:00 Height: 1.63 m Weight: 83.007 kg - Mental Status Exam Muscle Strength/Tone: Normal Dressing: Casual Grooming: Other (Limited) Attitude: Cooperative Motor Activity: Normal Eye Contact: Good Speech: Normal (some mild word-finding difficulties possible?) Volume: Normal Rhythm: Appropriate Rhythm Orientation: Oriented X4 Mood: Neutral (reports improved from admission, less tearful) Rate of Thoughts: Appropriate Rate Thought Organization: Circumstantial Associations: Intact Abstract Reasoning: Intact, able to abstract Thought Content: Normal, Somatic Concerns Perception/Psychotic: Hx psychosis, not current Language: Other (some word finding difficulties) Fund of Knowledge: Appropriate (grossly but patient reports subjective memory problems - will review SLUMS) Memory: Grossly Intact Suicidal Ideation: Denies Homicidal Ideation: Denies Insight: Limited Judgement: Limited Impulse Control: Fair - Laboratory Result Diagrams: 06/17/17 10:14 06/19/17 06:36 Assessment and Plan (1) Major depressive disorder Qualifiers: Major depression recurrence: recurrent Major depression episode severity: severe Current visit: Yes Status: Acute (2) Alcohol use disorder Current visit: Yes Status: Acute (3) Alcohol withdrawal Qualifiers: Complication of substance-induced condition: with perceptual disturbance Qualified Code(s): 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 Hospital Course: 06/17/17 Impression Hypokalemia-acute present on admission, 2.9 Hyponatremia-acute present on admission, 131 Anxiety, depression. Recent behavioral changes. Type II diabetes Psoriatic arthritis Hx of Pancreatitis Recent alcohol use Tobacco use Plan Agree with admission to [facility] under the care of Dr. Andre for further psychiatric evaluation and treatment Hypokalemia and hyponatremia, present on admission. Patient was given 40 milliequivalents orally of potassium in the emergency room this morning. We will repeat another 40 milliequivalents at 1700 today and then schedule at 20 milliequivalents 3 times a day. Will recheck a BMP tomorrow morning to follow electrolytes If hyponatremia persists, may need to consider IV fluid bolus. Monitor Accu-Cheks as needed, and continue metformin Patient to have carb consistent diet. Patient does receive IV Remicade every 42 days for his psoriatic arthritis. It appears that the next dose is 07/08. Could likely De-access his Port-A-Cath prior to this time. If it does not appear the patient will require IV fluids. Monitor blood pressure, patient appears to be on Cozaar and Norvasc for blood pressure control. Hospital services will continue to follow patient medically managed existing comorbidities At time of discharge medical care will return to PCP Dr Mattson in [facility]/ [address] 06/18/17 Psych: Continue current care with trazodone 50mg PO q HS for sleep. Have scheduled lorazepam 0.5mg PO TID to prevent w/d symptoms from EtOH and benzos but plan to taper, likely starting 06/19. Nursing to continue to encourage patient to spend time in dayroom. Will order VAIBHAV/RIPPA. 06/19/17 Plan Overall appears to be medically stable Have been trending routine electrolytes and hypokalemia has improved. Will continue on oral potassium supplementation 20 milliequivalents 3 times a day Continue with magnesium supplementation. Serum magnesium does continue to increase. Monitor Accu-Cheks as needed, and continue metformin Patient does receive IV Remicade every 42 days for his psoriatic arthritis. It appears that the next dose is 07/08. Patient would like to keep Port-A-Cath accessed. Until that time. Since we are checking routine labs. Will plan to check BMP and Mag on Friday 06/2206/19/17 Psych: Continue current care, will wait to begin Ativan taper as patient appears to still having withdrawal symptoms this morning. VAIBHAV/RIPPA ordered but not yet completed. Discussed with patient whether he would like to continue on current dose of trazodone, cut in half with PRN available, or try alternate sleep med such as hydroxyzine. He will let me treatment team know. Recommend substance abuse treatment after discharge in addition to mental health f/u. 06/20/17 14:14 PT doing well. Continue current care
[2017-06-20] MEDS: ATORVASTATIN 20 MG TABLET PO SCH (20:03)
[2017-06-20] MEDS: TRAZODONE 50 MG TABLET PO SCH (20:06)
[2017-06-20] MEDS: LORazepam 0.5 MG TABLET PO PRN (23:57)
[2017-06-21] MEDS: BACLOFEN 10 MG TABLET PO SCH ×2 (08:16→20:16)
[2017-06-21] MEDS: AMLODIPINE 10 MG TABLET PO SCH (08:16)
[2017-06-21] MEDS: MAGNESIUM OXIDE 400 MG TABLET PO SCH ×2 (08:16→20:16)
[2017-06-21] MEDS: LORazepam 0.5 MG TABLET PO SCH ×3 (08:16→20:16)
[2017-06-21] MEDS: METFORMIN 500 MG TABLET PO SCH (08:16)
[2017-06-21] MEDS: LOSARTAN 50 MG TABLET PO SCH (08:17)
[2017-06-21] MEDS: HYDROCODONE/APAP 7.5 MG/325 MG TABLET PO PRN ×2 (08:22→14:28)
--- NOTE | 2017-06-21 11:05 | Neuropsych Progress Note ---
[facility] Subjective Date: 06/21/17 - Sujective/Severity of Illness Medications: Hydrocodone Bitart/Acetaminophen ([place] 7.5/325) 1 tab PO Q6HR PRN PRN Reason: Pain Last Admin: 06/21/17 08:22 Dose: 1 tab Amlodipine Besylate (Norvasc) 10 mg PO DAILY [facility] Last Admin: 06/21/17 08:16 Dose: 10 mg Atorvastatin Calcium (Lipitor) 20 mg PO HS [facility] Last Admin: 06/20/17 20:03 Dose: 20 mg Baclofen (Lioresal) 10 mg PO BID [facility] Last Admin: 06/21/17 08:16 Dose: 10 mg Haloperidol (Haldol) 0.5 mg PO Q6H PRN PRN Reason: Extreme agitation Haloperidol Lactate (Haldol) 0.5 mg IM Q6H PRN PRN Reason: Extreme agitation Heparin Sodium (Beef Lung) (Heparin Flush) 500 unit IV DAILY [facility] Last Admin: 06/21/17 08:14 Dose: Not Given Infliximab (Remicade) 100 mg IV Q42D [facility] Lorazepam (Ativan) 0.5 mg PO TID [facility] Last Admin: 06/21/17 08:16 Dose: 0.5 mg Lorazepam (Ativan) 0.5 mg PO Q6H PRN PRN Reason: Extreme agitation Last Admin: 06/20/17 23:57 Dose: 0.5 mg Lorazepam (Ativan Inj) 0.5 mg IM Q6H PRN PRN Reason: Extreme agitation Losartan Potassium (Cozaar) 50 mg PO DAILY [facility] Last Admin: 06/21/17 08:17 Dose: 50 mg Magnesium Oxide (Magox) 800 mg PO BID [facility] Last Admin: 06/21/17 08:16 Dose: 800 mg Metformin HCl (Glucophage) 250 mg PO WB [facility] Last Admin: 06/21/17 08:16 Dose: 250 mg Ondansetron HCl (Zofran Po) 4 mg PO Q4HR PRN PRN Reason: Nausea Potassium Chloride (Micro-K) 20 meq PO WB [facility] Last Admin: 06/21/17 08:16 Dose: 20 meq Sodium Chloride (Iv Flush) 10 - 80 ml IVF PRN PRN PRN Reason: Flushing Last Admin: 06/20/17 06:13 Dose: 10 ml Trazodone HCl (Desyrel) 50 mg PO HS [facility] Last Admin: 06/20/17 20:06 Dose: 50 mg Subjective: Pt seen and chart examined. Nursing reports pt has done well on the unit. Sleeping well and has a good appetite. On face to face the pt states he is doing well. His mood continues to improve. Some anxiety at times. Denies WD symptoms. Denies S/I or psychosis. Tolerating meds Start Time: 10:15 Stop Time: 10:30 Mental Status Exam Vitals: Last Vital Signs Temp 97.3 F 06/21/17 08:00 Pulse 94 06/21/17 08:00 Resp 18 06/21/17 08:00 BP 144/86 H 06/21/17 08:00 Pulse Ox 99 06/21/17 08:00 Height: 1.63 m Weight: 83.007 kg - Mental Status Exam Muscle Strength/Tone: Normal Dressing: Casual Grooming: Other (Limited) Attitude: Cooperative Motor Activity: Normal Eye Contact: Good Speech: Normal (some mild word-finding difficulties possible?) Volume: Normal Rhythm: Appropriate Rhythm Orientation: Oriented X4 Mood: Neutral (reports improved from admission, less tearful) Rate of Thoughts: Appropriate Rate Thought Organization: Circumstantial Associations: Intact Abstract Reasoning: Intact, able to abstract Thought Content: Normal, Somatic Concerns Perception/Psychotic: Hx psychosis, not current Language: Other (some word finding difficulties) Fund of Knowledge: Appropriate (grossly but patient reports subjective memory problems - will review SLUMS) Memory: Grossly Intact Suicidal Ideation: Denies Homicidal Ideation: Denies Insight: Limited Judgement: Limited Impulse Control: Fair - Laboratory Result Diagrams: 06/17/17 10:14 06/19/17 06:36 Assessment and Plan (1) Major depressive disorder Qualifiers: Major depression recurrence: recurrent Major depression episode severity: severe Current visit: Yes Status: Acute (2) Alcohol use disorder Current visit: Yes Status: Acute (3) Alcohol withdrawal Qualifiers: Complication of substance-induced condition: with perceptual disturbance Qualified Code(s): 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 Hospital Course: 06/17/17 Impression Hypokalemia-acute present on admission, 2.9 Hyponatremia-acute present on admission, 131 Anxiety, depression. Recent behavioral changes. Type II diabetes Psoriatic arthritis Hx of Pancreatitis Recent alcohol use Tobacco use Plan Agree with admission to [facility] under the care of Dr. Andre for further psychiatric evaluation and treatment Hypokalemia and hyponatremia, present on admission. Patient was given 40 milliequivalents orally of potassium in the emergency room this morning. We will repeat another 40 milliequivalents at 1700 today and then schedule at 20 milliequivalents 3 times a day. Will recheck a BMP tomorrow morning to follow electrolytes If hyponatremia persists, may need to consider IV fluid bolus. Monitor Accu-Cheks as needed, and continue metformin Patient to have carb consistent diet. Patient does receive IV Remicade every 42 days for his psoriatic arthritis. It appears that the next dose is 07/08. Could likely De-access his Port-A-Cath prior to this time. If it does not appear the patient will require IV fluids. Monitor blood pressure, patient appears to be on Cozaar and Norvasc for blood pressure control. Hospital services will continue to follow patient medically managed existing comorbidities At time of discharge medical care will return to PCP Dr Mattson in [facility]/ [address] 06/18/17 Psych: Continue current care with trazodone 50mg PO q HS for sleep. Have scheduled lorazepam 0.5mg PO TID to prevent w/d symptoms from EtOH and benzos but plan to taper, likely starting 06/19. Nursing to continue to encourage patient to spend time in dayroom. Will order VAIBHAV/RIPPA. 06/19/17 Plan Overall appears to be medically stable Have been trending routine electrolytes and hypokalemia has improved. Will continue on oral potassium supplementation 20 milliequivalents 3 times a day Continue with magnesium supplementation. Serum magnesium does continue to increase. Monitor Accu-Cheks as needed, and continue metformin Patient does receive IV Remicade every 42 days for his psoriatic arthritis. It appears that the next dose is 07/08. Patient would like to keep Port-A-Cath accessed. Until that time. Since we are checking routine labs. Will plan to check BMP and Mag on Friday 06/2206/19/17 Psych: Continue current care, will wait to begin Ativan taper as patient appears to still having withdrawal symptoms this morning. VAIBHAV/RIPPA ordered but not yet completed. Discussed with patient whether he would like to continue on current dose of trazodone, cut in half with PRN available, or try alternate sleep med such as hydroxyzine. He will let me treatment team know. Recommend substance abuse treatment after discharge in addition to mental health f/u. 06/20/17 14:14 PT doing well. Continue current care 06/21/17 11:04 Continues to improve. Continue current care
[2017-06-21] MEDS: ATORVASTATIN 20 MG TABLET PO SCH (20:15)
[2017-06-21] MEDS: TRAZODONE 50 MG TABLET PO SCH (20:16)
[2017-06-22] MEDS: HYDROCODONE/APAP 7.5 MG/325 MG TABLET PO PRN ×3 (02:49→22:48)
[2017-06-22] MEDS: MAGNESIUM OXIDE 400 MG TABLET PO SCH ×2 (11:46→21:24)
[2017-06-22] MEDS: BACLOFEN 10 MG TABLET PO SCH ×2 (11:46→21:24)
[2017-06-22] MEDS: METFORMIN 500 MG TABLET PO SCH (11:47)
[2017-06-22] MEDS: AMLODIPINE 10 MG TABLET PO SCH (11:47)
[2017-06-22] MEDS: LORazepam 0.5 MG TABLET PO SCH ×3 (11:47→21:24)
[2017-06-22] MEDS: LOSARTAN 50 MG TABLET PO SCH (11:52)
--- NOTE | 2017-06-22 19:06 | Neuropsych Progress Note ---
[facility] Subjective Date: 06/22/17 - Sujective/Severity of Illness Medications: Hydrocodone Bitart/Acetaminophen ([place] 7.5/325) 1 tab PO Q6HR PRN PRN Reason: Pain Last Admin: 06/22/17 13:27 Dose: 1 tab Amlodipine Besylate (Norvasc) 10 mg PO DAILY [facility] Last Admin: 06/22/17 11:47 Dose: 10 mg Atorvastatin Calcium (Lipitor) 20 mg PO HS [facility] Last Admin: 06/21/17 20:15 Dose: 20 mg Baclofen (Lioresal) 10 mg PO BID [facility] Last Admin: 06/22/17 11:46 Dose: 10 mg Haloperidol (Haldol) 0.5 mg PO Q6H PRN PRN Reason: Extreme agitation Haloperidol Lactate (Haldol) 0.5 mg IM Q6H PRN PRN Reason: Extreme agitation Heparin Sodium (Beef Lung) (Heparin Flush) 500 unit IV DAILY [facility] Last Admin: 06/22/17 11:54 Dose: Not Given Infliximab (Remicade) 100 mg IV Q42D [facility] Lorazepam (Ativan) 0.5 mg PO TID [facility] Last Admin: 06/22/17 15:58 Dose: 0.5 mg Lorazepam (Ativan) 0.5 mg PO Q6H PRN PRN Reason: Extreme agitation Last Admin: 06/20/17 23:57 Dose: 0.5 mg Lorazepam (Ativan Inj) 0.5 mg IM Q6H PRN PRN Reason: Extreme agitation Losartan Potassium (Cozaar) 50 mg PO DAILY [facility] Last Admin: 06/22/17 11:52 Dose: 50 mg Magnesium Oxide (Magox) 800 mg PO BID [facility] Last Admin: 06/22/17 11:46 Dose: 800 mg Metformin HCl (Glucophage) 250 mg PO WB [facility] Last Admin: 06/22/17 11:47 Dose: 250 mg Ondansetron HCl (Zofran Po) 4 mg PO Q4HR PRN PRN Reason: Nausea Potassium Chloride (Micro-K) 20 meq PO WB [facility] Last Admin: 06/22/17 11:46 Dose: 20 meq Sodium Chloride (Iv Flush) 10 - 80 ml IVF PRN PRN PRN Reason: Flushing Last Admin: 06/20/17 06:13 Dose: 10 ml Trazodone HCl (Desyrel) 50 mg PO HS [facility] Last Admin: 06/21/17 20:16 Dose: 50 mg Subjective: Pt seen and chart examined. Nursing reports pt has done well on the unit. Sleeping well and has a good appetite. On face to face the pt states he continues to improve. Mood and anxiety improved. Denies S/I and denies WD symptoms. PT is future focused. PT states he has been on Prozac and Zoloft in the past and would like to get back on an antidepressant Start Time: 17:30 Stop Time: 17:45 Mental Status Exam Vitals: Last Vital Signs Temp 96.9 F 06/22/17 16:00 Pulse 81 06/22/17 16:00 Resp 16 06/22/17 16:00 BP 133/67 06/22/17 16:00 Pulse Ox 92 06/22/17 16:00 Height: 1.63 m Weight: 83.007 kg - Mental Status Exam Muscle Strength/Tone: Normal Dressing: Casual Grooming: Other (Limited) Attitude: Cooperative Motor Activity: Normal Eye Contact: Good Speech: Normal (some mild word-finding difficulties possible?) Volume: Normal Rhythm: Appropriate Rhythm Orientation: Oriented X4 Mood: Neutral (reports improved from admission, less tearful) Rate of Thoughts: Appropriate Rate Thought Organization: Circumstantial Associations: Intact Abstract Reasoning: Intact, able to abstract Thought Content: Normal, Somatic Concerns Perception/Psychotic: Hx psychosis, not current Language: Other (some word finding difficulties) Fund of Knowledge: Appropriate (grossly but patient reports subjective memory problems - will review SLUMS) Memory: Grossly Intact Suicidal Ideation: Denies Homicidal Ideation: Denies Insight: Limited Judgement: Limited Impulse Control: Fair - Laboratory Result Diagrams: 06/17/17 10:14 06/22/17 06:55 Laboratory Results - last 24 hr 06/22/17 06:55 Turbidity < 20 Sodium 139 Potassium 4.3 Chloride 105 Carbon Dioxide 26 Anion Gap 8 BUN 9.0 Creatinine 0.7 L GFR Calculation 111 BUN/Creatinine Ratio 13 Glucose 120 H Calculated Osmolality 268 Calcium 8.5 Icterus Index < 2 Specimen Hemolysis < 15 Assessment and Plan (1) Major depressive disorder Qualifiers: Major depression recurrence: recurrent Major depression episode severity: severe Current visit: Yes Status: Acute (2) Alcohol use disorder Current visit: Yes Status: Acute (3) Alcohol withdrawal Qualifiers: Complication of substance-induced condition: with perceptual disturbance Qualified Code(s): 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 Hospital Course: 06/17/17 Impression Hypokalemia-acute present on admission, 2.9 Hyponatremia-acute present on admission, 131 Anxiety, depression. Recent behavioral changes. Type II diabetes Psoriatic arthritis Hx of Pancreatitis Recent alcohol use Tobacco use Plan Agree with admission to [facility] unit under the care of Dr. Andre for further psychiatric evaluation and treatment Hypokalemia and hyponatremia, present on admission. Patient was given 40 milliequivalents orally of potassium in the emergency room this morning. We will repeat another 40 milliequivalents at 1700 today and then schedule at 20 milliequivalents 3 times a day. Will recheck a BMP tomorrow morning to follow electrolytes If hyponatremia persists, may need to consider IV fluid bolus. Monitor Accu-Cheks as needed, and continue metformin Patient to have carb consistent diet. Patient does receive IV Remicade every 42 days for his psoriatic arthritis. It appears that the next dose is 07/08. Could likely De-access his Port-A-Cath prior to this time. If it does not appear the patient will require IV fluids. Monitor blood pressure, patient appears to be on Cozaar and Norvasc for blood pressure control. Hospital services will continue to follow patient medically managed existing comorbidities At time of discharge medical care will return to PCP Dr Mattson in [facility]/ [place] 06/18/17 Psych: Continue current care with trazodone 50mg PO q HS for sleep. Have scheduled lorazepam 0.5mg PO TID to prevent w/d symptoms from EtOH and benzos but plan to taper, likely starting 06/19. Nursing to continue to encourage patient to spend time in dayroom. Will order VAIBHAV/RIPPA. 06/19/17 Plan Overall appears to be medically stable Have been trending routine electrolytes and hypokalemia has improved. Will continue on oral potassium supplementation 20 milliequivalents 3 times a day Continue with magnesium supplementation. Serum magnesium does continue to increase. Monitor Accu-Cheks as needed, and continue metformin Patient does receive IV Remicade every 42 days for his psoriatic arthritis. It appears that the next dose is 07/08. Patient would like to keep Port-A-Cath accessed. Until that time. Since we are checking routine labs. Will plan to check BMP and Mag on Friday 06/2206/19/17 Psych: Continue current care, will wait to begin Ativan taper as patient appears to still having withdrawal symptoms this morning. VAIBHAV/RIPPA ordered but not yet completed. Discussed with patient whether he would like to continue on current dose of trazodone, cut in half with PRN available, or try alternate sleep med such as hydroxyzine. He will let me treatment team know. Recommend substance abuse treatment after discharge in addition to mental health f/u. 06/20/17 14:14 PT doing well. Continue current care 06/21/17 11:04 Continues to improve. Continue current care 06/22/17 19:05 Improving. Decrease Ativan to 0.5mg PO BID. Effexor XR 37.5mg daily
[2017-06-22] MEDS: ATORVASTATIN 20 MG TABLET PO SCH (21:24)
[2017-06-22] MEDS: TRAZODONE 50 MG TABLET PO SCH (21:25)
[2017-06-23] MEDS: MAGNESIUM OXIDE 400 MG TABLET PO SCH ×2 (08:55→21:18)
[2017-06-23] MEDS: Venlafaxine XR 37.5 MG CAPSULE (24hr) PO SCH (08:56)
[2017-06-23] MEDS: METFORMIN 500 MG TABLET PO SCH (08:56)
[2017-06-23] MEDS: LORazepam 0.5 MG TABLET PO SCH ×2 (08:56→21:17)
[2017-06-23] MEDS: BACLOFEN 10 MG TABLET PO SCH ×2 (08:56→21:18)
[2017-06-23] MEDS: AMLODIPINE 10 MG TABLET PO SCH (08:56)
[2017-06-23] MEDS: LOSARTAN 50 MG TABLET PO SCH (08:58)
[2017-06-23] MEDS: HYDROCODONE/APAP 7.5 MG/325 MG TABLET PO PRN ×2 (10:15→21:17)
--- NOTE | 2017-06-23 21:02 | Neuropsych Progress Note ---
[facility] Subjective Date: 06/23/17 - Sujective/Severity of Illness Medications: Hydrocodone Bitart/Acetaminophen ([place] 7.5/325) 1 tab PO Q6HR PRN PRN Reason: Pain Last Admin: 06/23/17 10:15 Dose: 1 tab Amlodipine Besylate (Norvasc) 10 mg PO DAILY [facility] Last Admin: 06/23/17 08:56 Dose: 10 mg Atorvastatin Calcium (Lipitor) 20 mg PO HS [facility] Last Admin: 06/22/17 21:24 Dose: 20 mg Baclofen (Lioresal) 10 mg PO BID [facility] Last Admin: 06/23/17 08:56 Dose: 10 mg Haloperidol (Haldol) 0.5 mg PO Q6H PRN PRN Reason: Extreme agitation Haloperidol Lactate (Haldol) 0.5 mg IM Q6H PRN PRN Reason: Extreme agitation Infliximab (Remicade) 100 mg IV Q42D [facility] Lorazepam (Ativan) 0.5 mg PO BID [facility] Last Admin: 06/23/17 08:56 Dose: 0.5 mg Lorazepam (Ativan) 0.5 mg PO Q6H PRN PRN Reason: Extreme agitation Last Admin: 06/20/17 23:57 Dose: 0.5 mg Lorazepam (Ativan Inj) 0.5 mg IM Q6H PRN PRN Reason: Extreme agitation Losartan Potassium (Cozaar) 50 mg PO DAILY [facility] Last Admin: 06/23/17 08:58 Dose: 50 mg Magnesium Oxide (Magox) 800 mg PO BID [facility] Last Admin: 06/23/17 08:55 Dose: 800 mg Metformin HCl (Glucophage) 250 mg PO [facility] Last Admin: 06/23/17 08:56 Dose: 250 mg Ondansetron HCl (Zofran Po) 4 mg PO Q4HR PRN PRN Reason: Nausea Potassium Chloride (Micro-K) 20 meq PO WB [facility] Last Admin: 06/23/17 08:56 Dose: 20 meq Trazodone HCl (Desyrel) 50 mg PO HS [facility] Last Admin: 06/22/17 21:25 Dose: 50 mg Venlafaxine HCl (Effexor Xr) 37.5 mg PO [facility] Last Admin: 06/23/17 08:56 Dose: 37.5 mg Subjective: Patient seen and chart reviewed. Case discussed with treatment team. On interview, patient is pleasant and cooperative, goal-oriented and focused on the future after discharge. He agrees that he needs to stop drinking and agrees to both mental health treatment as well as outpatient substance abuse treatment. Patient denies any SI, HI or AVH. Patient denies any adverse side effects related to psychotropic medications. Nursing staff report patient has been calm, cooperative and adherent with medications. Patient slept well overnight. VSS. Patient is eating well. Psychotropic PRNs required in the past 24 hours: none. Patient plans to move closer to his support system in [place] and is excited about this. Start Time: 14:00 Stop Time: 14:20 Mental Status Exam Vitals: Last Vital Signs Temp 97.2 F 06/23/17 16:00 Pulse 70 06/23/17 16:00 Resp 18 06/23/17 16:00 BP 151/84 H 06/23/17 16:00 Pulse Ox 94 06/23/17 16:00 Height: 1.63 m Weight: 83.007 kg - Mental Status Exam Muscle Strength/Tone: Normal Dressing: Casual Grooming: Other (Limited) Attitude: Cooperative Motor Activity: Normal Eye Contact: Good Speech: Normal (some mild word-finding difficulties possible?) Volume: Normal Rhythm: Appropriate Rhythm Orientation: Oriented X4 Mood: Euthymic (affect appropriate) Rate of Thoughts: Appropriate Rate Thought Organization: Circumstantial Associations: Intact Abstract Reasoning: Intact, able to abstract Thought Content: Normal Perception/Psychotic: Hx psychosis, not current Language: Other (some word finding difficulties) Fund of Knowledge: Appropriate (grossly but patient reports subjective memory problems - will review SLUMS) Memory: Grossly Intact Suicidal Ideation: Denies Homicidal Ideation: Denies Insight: Fair Judgement: Fair Impulse Control: Good - Laboratory Result Diagrams: 06/17/17 10:14 06/22/17 06:55 Assessment and Plan (1) Major depressive disorder Qualifiers: Major depression recurrence: recurrent Major depression episode severity: severe Current visit: Yes Status: Acute improved from admission (2) Alcohol use disorder Current visit: Yes Status: Acute (3) Alcohol withdrawal Qualifiers: Complication of substance-induced condition: with perceptual disturbance Qualified Code(s): F10.232 - Alcohol dependence with withdrawal with perceptual disturbance Current visit: Yes Status: Acute resolved (4) Anxiety Current visit: Yes Status: Acute (5) Panic attacks Current visit: Yes Status: Acute Hospital Course Summary Disclaimer: The visit summary below is not to be considered part of the above Progress Note. Hospital Course: 06/17/17 Impression Hypokalemia-acute present on admission, 2.9 Hyponatremia-acute present on admission, 131 Anxiety, depression. Recent behavioral changes. Type II diabetes Psoriatic arthritis Hx of Pancreatitis Recent alcohol use Tobacco use Plan Agree with admission to [facility] under the care of Dr. Andre for further psychiatric evaluation and treatment Hypokalemia and hyponatremia, present on admission. Patient was given 40 milliequivalents orally of potassium in the emergency room this morning. We will repeat another 40 milliequivalents at 1700 today and then schedule at 20 milliequivalents 3 times a day. Will recheck a BMP tomorrow morning to follow electrolytes If hyponatremia persists, may need to consider IV fluid bolus. Monitor Accu-Cheks as needed, and continue metformin Patient to have carb consistent diet. Patient does receive IV Remicade every 42 days for his psoriatic arthritis. It appears that the next dose is 07/08. Could likely De-access his Port-A-Cath prior to this time. If it does not appear the patient will require IV fluids. Monitor blood pressure, patient appears to be on Cozaar and Norvasc for blood pressure control. Hospital services will continue to follow patient medically managed existing comorbidities At time of discharge medical care will return to PCP Dr Mattson in [facility]/ [place] 06/18/17 Psych: Continue current care with trazodone 50mg PO q HS for sleep. Have scheduled lorazepam 0.5mg PO TID to prevent w/d symptoms from EtOH and benzos but plan to taper, likely starting 06/19. Nursing to continue to encourage patient to spend time in dayroom. Will order VAIBHAV/RIPPA. 06/19/17 Plan Overall appears to be medically stable Have been trending routine electrolytes and hypokalemia has improved. Will continue on oral potassium supplementation 20 milliequivalents 3 times a day Continue with magnesium supplementation. Serum magnesium does continue to increase. Monitor Accu-Cheks as needed, and continue metformin Patient does receive IV Remicade every 42 days for his psoriatic arthritis. It appears that the next dose is 07/08. Patient would like to keep Port-A-Cath accessed. Until that time. Since we are checking routine labs. Will plan to check BMP and Mag on Friday 06/2206/19/17 Psych: Continue current care, will wait to begin Ativan taper as patient appears to still having withdrawal symptoms this morning. VAIBHAV/RIPPA ordered but not yet completed. Discussed with patient whether he would like to continue on current dose of trazodone, cut in half with PRN available, or try alternate sleep med such as hydroxyzine. He will let me treatment team know. Recommend substance abuse treatment after discharge in addition to mental health f/u. 06/20/17 14:14 PT doing well. Continue current care 06/21/17 11:04 Continues to improve. Continue current care 06/22/17 19:05 Improving. Decrease Ativan to 0.5mg PO BID. Effexor XR 37.5mg daily 06/23/17 Psych: Patient doing quite well overall - plan to discharge back to home on 06/24/17 for outpatient psychiatric and substance abuse treatment.
[2017-06-23] MEDS: TRAZODONE 50 MG TABLET PO SCH (21:18)
[2017-06-23] MEDS: ATORVASTATIN 20 MG TABLET PO SCH (21:19)
[2017-06-24] MEDS: HYDROCODONE/APAP 7.5 MG/325 MG TABLET PO PRN ×2 (03:45→09:05)
[2017-06-24] MEDS: METFORMIN 500 MG TABLET PO SCH (07:53)
[2017-06-24] MEDS: AMLODIPINE 10 MG TABLET PO SCH ×2 (07:54→08:00)
[2017-06-24] MEDS: Venlafaxine XR 37.5 MG CAPSULE (24hr) PO SCH (07:54)
[2017-06-24] MEDS: BACLOFEN 10 MG TABLET PO SCH ×2 (07:55→08:00)
[2017-06-24] MEDS: LORazepam 0.5 MG TABLET PO SCH ×2 (07:55→08:00)
[2017-06-24] MEDS: MAGNESIUM OXIDE 400 MG TABLET PO SCH ×2 (07:55→08:00)
[2017-06-24] MEDS: LOSARTAN 50 MG TABLET PO SCH ×2 (07:56→08:00)
[2017-06-24 10:15] VITALS: BP 139/72; PULSE 91; RESP 22; TEMP 97.6; O2SAT 97
[2017-07-08] MEDS ORDERED: INFLIXIMAB 100 MG IV SCH (09:00)
== END 2017-06-24 13:05 | disposition home or self-care (01) | DRG 885 ==
LOC: ED 09:48 → GEN 11:00
PROVIDERS: ADMIT Psychiatry & Neurology Psychiatry; ATTEND Psychiatry & Neurology Psychiatry